=== PATIENT | male | born 1960 | race Caucasian/White ===

== ENCOUNTER 2023-09-20 13:53 | Inpatient (IN) | payer OTHER, SELFPAY ==
[2023-09-20] VITALS (12 sets, daily range): BP systolic 112–154; BP diastolic 67–89; PULSE 79–118; RESP 18–24; TEMP 36.6–36.9; O2SAT 95–98; BMI 38.7
--- NOTE | ~2023-09-20 | XR_ITS ---
EXAMINATION: XR CHEST CLINICAL INFORMATION: Dyspnea. COMPARISON: None available. TECHNIQUE: AP portable view of the chest was obtained. FINDINGS: There is no significant acute parenchymal disease identified. No pneumothorax or pleural effusion. Heart normal size. No evidence of pulmonary edema. Prominent left pericardial fat pad present with what may be some discoid scar or atelectasis. XR/XR chest 1V IMPRESSION: No significant acute parenchymal disease.
--- NOTE | 2023-09-20 14:03 | ECG_ITS ---
Test Reason : DYSPNEA Blood Pressure : / mmHG Vent. Rate : 090 BPM Atrial Rate : 090 BPM P-R Int : 170 ms QRS Dur : 086 ms QT Int : 376 ms P-R-T Axes : 033 -07 009 degrees QTc Int : 459 ms Artifact in tracing Normal sinus rhythm Inferior infarct , age undetermined Abnormal ECG No previous ECGs available Referred By: Prerna Moss Electronically Signed By:GENO SUN
--- NOTE | 2023-09-20 14:26 | ED_ITS ---
HPI - SOB/Dyspnea General Chief Complaint: Dyspnea Stated Complaint: SOB Source: patient, EMS and old records reviewed Mode of arrival: EMS Limitations: other (poor historian) History of Present Illness ED Provider: DG MOE Narrative: 62 yo male with PMH of DM, CKD stage III, diverticulitis, HLD, depression, HTN, alcoholism, BPH here with c/o not feeling well today reports sore throat, weakness, dizziness when standing, feels weak and winded. He denies chest pain, cough or fevers. He has had a poor appetite and reports chronic loose stools. He has no abdominal pain. Sent by [facility] today reportedly had lower BPs at home but no one including EMS or patient can really report what the numbers were. He denies GIB symptoms MD elicited complaint: shortness of breath Onset (ago): day(s) (2) Context: occurred during exertion Timing: constant Severity: moderate Exacerbating factors: exertion and movement Relieving factors: rest Associated symptoms: lightheadedness Treatment prior to arrival: other (IVF) Related Data Allergies Allergy/AdvReac Type Severity Reaction Status Date / Time No Known Allergies Allergy Verified 09/20/23 14:03 Review of Systems 2 Review of Systems: Constitutional : No Fever, No Chills ENT/Mouth : No sore throat, No Rhinorrhea, No Swallowing Difficulty Eyes: No Eye Pain, No Swelling, No Redness Cardiovascular : No Chest Pain, positive SOB, No Orthopnea, no edema Respiratory : No Cough, No Sputum, No Wheezing, positive dyspnea Gastrointestinal : No Nausea, No Vomiting, No Diarrhea, No abdominal Pain, No Hematochezia, No Melena Genitourinary : No Dysuria, No Urinary Frequency, No Hematuria Musculoskeletal : No joint pain, No Myalgias Skin : No Skin Lesions, No rash Neuro : pos Weakness, No Numbness, pos Dizziness, No Headache Psych : No Anxiety/Panic, No Depression All other systems reviewed and are negative [facility] Past Medical History Attestation statement: The following information was validated with the patient. Source: old records reviewed Medical History Hyperlipidemia Diverticulitis Obesity Alcoholism CKD (chronic kidney disease), stage III HTN (hypertension) Diabetes BPH (benign prostatic hyperplasia) Social History Social History Smoked in Last 30 Days: No Use of substances other than those prescribed or required for medical reasons: Yes Substance Use Type: Marijuana Advance Directives: No Advance Directives Information Provided: Yes Physical Exam 2 Vital Signs: Vital Signs: Last Vital Signs Temp 98.5 F 09/20/23 14:01 Pulse 92 09/20/23 14:01 Resp 18 09/20/23 14:01 BP 121/67 09/20/23 14:01 Pulse Ox 98 09/20/23 14:01 O2 Del Method Room Air 09/20/23 14:01 BMI result Body Mass Index 38.7 Appearance: Alert. Oriented X3. No acute distress. Eyes: Pupils equal, round and reactive to light. ENT: Pharynx normal. Neck: Normal inspection. Neck supple. CVS: Normal heart rate and rhythm. Pulses normal. Respiratory: No respiratory distress. Breath sounds normal. Abdomen: Soft and nontender. Skin: Skin warm and dry. Normal skin color. Normal skin turgor. Extremities: No lower extremity edema. No calf ttp Neuro: Oriented X 3. No motor deficit. No sensory deficit. Course Course Course Narrative: patient is obese IBW is 68 kg 30cc/kg bolus = 2039 but 30cc/kg bolus held as lactic acidosis likely due to metformin and not infection or severe sepsis Reevaluation(s) Reevaluation #1: gap and lactic acidosis also attributed to ETOH intoxication and not infection or severe sepsis Reevaluation #2: signed out to Dr. Waddell pending further workup UA Reevaluation #3: baseline Cr 1.3 to 1.5 per records Medications Administered Generic Name Dose Route Start Last Admin Trade Name Tinoq PRN Reason Stop Dose Admin Sodium Chloride 1,000 mls @ 999 mls/hr 09/20/23 15:15 09/20/23 15:39 Ns IV 09/20/23 16:15 999 mls/hr .Q1H1M ONE Administration Sodium Chloride 500 mls @ 500 mls/hr 09/20/23 15:15 09/20/23 15:42 Ns IV 09/20/23 16:14 500 mls/hr .Q1H ONE Administration Magnesium Sulfate 2 gm in 50 mls @ 25 mls/hr 09/20/23 15:23 09/20/23 15:43 Magnesium Sulfate/H2o IV 09/20/23 17:22 25 mls/hr ONCE ONE Administration Discontinued Medications Generic Name Dose Route Start Last Admin Trade Name Tahira PRN Reason Stop Dose Admin Acetaminophen 650 mg 09/20/23 14:03 09/20/23 15:42 Acetaminophen 325 Mg Tablet PO 09/20/23 14:04 650 mg ONCE ONE Administration Medical Decision Making Medical Decision Making [facility] Narrative: 62 yo male with PMH of DM, CKD stage III, diverticulitis, HLD, depression, HTN, alcoholism, BPH here with c/o not feeling well, short of breath, dizziness upon standing denies CP/GIB symptoms at this time labs, CXR, EKG, IVF ordered. UA and CXR as well. He has no CP to suggest ACS he has no hypoxia or DVT symptoms to suggest VTE. He is on diuretics could be dehydration in setting of poor PO intake. Ortho vs also ordered. Differential Diagnosis Differential Diagnoses: The differential diagnosis associated with the presentation includes orthostatic hypotension, dehydration, anemia Admission/Observation Consideration of admission/observation: Escalation of care including admission/observation considered Lab Data [facility] Lab Attestation statement: I reviewed the patient's lab results. 09/20/23 14:50 09/20/23 14:50 Labs: Lab Results 09/20/23 09/20/23 09/20/23 Range/Units 14:50 14:51 14:57 WBC 6.5 (4.8-10.8) X10*3/uL RBC 3.56 L (4.60-5.80) X10*6/uL Hgb 11.3 L (14.0-18.0) g/dl Hct 32.6 L (42.0-52.0) % MCV 91.6 (80.0-98.0) fL MCH 31.7 (27.0-33.0) pg MCHC 34.7 (31.0-36.0) g/dl RDW 13.1 (11.0-16.0) % Plt Count 117 L (160-400) X10*3/uL MPV 9.4 (9.4-12.4) fL Immature Gran % (Auto) 0.6 H (0.0-0.4) % Neut % (Auto) 57.9 (45-73) % Lymph % (Auto) 26.0 (20-40) % [place] % (Auto) 12.3 H (2-11) % Eos % (Auto) 1.8 (0-4) % Baso % (Auto) 1.4 (0-2) % Lymph # (Auto) 1.7 (1.2-4.9) X10*3/uL [place] # (Auto) 0.8 (0.1-1.2) X10*3/uL Eos # (Auto) 0.1 (0.0-0.4) X10*3/uL Baso # (Auto) 0.1 (0.0-0.2) X10*3/uL Abs Immat Gran (auto) 0.04 H (0.00-0.03) X10*3/uL Absolute Neuts (auto) 3.8 (2.0-8.3) x10*3/uL Absolute Nucleated RBC 0.000 (0.0-0.012) X10*3/uL Nucleated RBC % (auto) 0.0 (0.0-0.2) /100WBC VBG pH 7.30 L (7.32-7.43) VBG pCO2 33 mmHg VBG pO2 49 mmHg VBG HCO3 16 L (22-26) mmol/L VBG O2 Saturation 64.0 % VBG Base Excess -8.4 mmol/L Sodium 132 L (135-145) mmol/L Potassium 4.0 (3.3-5.1) mmol/L Chloride 94 L (96-108) mmol/L Carbon Dioxide 18 L (22-29) mmol/L Anion Gap 24 H (12-20) BUN 20 H (9-16) mg/dL Creatinine 1.90 H (0.5-1.4) mg/dL Estim Creat Clear Calc 49.0 Estimated GFR 36 Random Glucose 130 H (60-115) mg/dL Lactic Acid 4.0 H* (0.5-2.0) mmol/L Calcium 9.2 (8.4-10.2) mg/dL Magnesium 1.3 L* (1.6-2.6) mg/dL Total Bilirubin 0.8 (0.0-1.0) mg/dL Direct Bilirubin 0.5 (0.0-0.5) mg/dL AST 65 H (5-37) U/L ALT 33 (0-40) U/L Alkaline Phosphatase 41 (39-117) U/L Troponin I High Sens 5.9 (<3.5-35.0) ng/L B-Natriuretic Peptide 36 (<100) pg/mL Total Protein 7.9 (6.5-8.0) g/dL Albumin 4.4 (3.5-5.0) g/dL Lipase 90 H (8-78) U/L Ethyl Alcohol 182 mg/dL Influenza Type A (PCR) (Negative) Influenza Type B (PCR) (Negative) RSV RNA Qual (PCR) (Negative) SARS-CoV-2 RNA (RT-PCR) (Negative) S. pyogenes GrpA MAYKEL (Negative) 09/20/23 Range/Units 15:03 WBC (4.8-10.8) X10*3/uL RBC (4.60-5.80) X10*6/uL Hgb (14.0-18.0) g/dl Hct (42.0-52.0) % MCV (80.0-98.0) fL MCH (27.0-33.0) pg MCHC (31.0-36.0) g/dl RDW (11.0-16.0) % Plt Count (160-400) X10*3/uL MPV (9.4-12.4) fL Immature Gran % (Auto) (0.0-0.4) % Neut % (Auto) (45-73) % Lymph % (Auto) (20-40) % [place] % (Auto) (2-11) % Eos % (Auto) (0-4) % Baso % (Auto) (0-2) % Lymph # (Auto) (1.2-4.9) X10*3/uL [place] # (Auto) (0.1-1.2) X10*3/uL Eos # (Auto) (0.0-0.4) X10*3/uL Baso # (Auto) (0.0-0.2) X10*3/uL Abs Immat Gran (auto) (0.00-0.03) X10*3/uL Absolute Neuts (auto) (2.0-8.3) x10*3/uL Absolute Nucleated RBC (0.0-0.012) X10*3/uL Nucleated RBC % (auto) (0.0-0.2) /100WBC VBG pH (7.32-7.43) VBG pCO2 mmHg VBG pO2 mmHg VBG HCO3 (22-26) mmol/L VBG O2 Saturation % VBG Base Excess mmol/L Sodium (135-145) mmol/L Potassium (3.3-5.1) mmol/L Chloride (96-108) mmol/L Carbon Dioxide (22-29) mmol/L Anion Gap (12-20) BUN (9-16) mg/dL Creatinine (0.5-1.4) mg/dL Estim Creat Clear Calc Estimated GFR Random Glucose (60-115) mg/dL Lactic Acid (0.5-2.0) mmol/L Calcium (8.4-10.2) mg/dL Magnesium (1.6-2.6) mg/dL Total Bilirubin (0.0-1.0) mg/dL Direct Bilirubin (0.0-0.5) mg/dL AST (5-37) U/L ALT (0-40) U/L Alkaline Phosphatase (39-117) U/L Troponin I High Sens (<3.5-35.0) ng/L B-Natriuretic Peptide (<100) pg/mL Total Protein (6.5-8.0) g/dL Albumin (3.5-5.0) g/dL Lipase (8-78) U/L Ethyl Alcohol mg/dL Influenza Type A (PCR) NEGATIVE (Negative) Influenza Type B (PCR) NEGATIVE (Negative) RSV RNA Qual (PCR) NEGATIVE (Negative) SARS-CoV-2 RNA (RT-PCR) NEGATIVE (Negative) S. pyogenes GrpA MAYKEL Negative (Negative) Independent Interpretation I performed an independent interpretation of an: EKG and Plain X-Ray (no consolidation noted) Interpretation: Rate: 90 Rhythm: NSR [place]: normal Normal P waves. Normal HUNTER. Normal QRS complex. ST T wave : no JANICE, inf q waves qTC: 459 prior studies: no prior The study has been interpreted contemporaneously by me. . Independent Historian Clinical information obtained from an independent historian. History obtained from or confirmed by: EMS External Record Review External record reviewed: Outpatient record Discharge Plan Discharge Clinical Impression: Hypomagnesemia, Alcohol abuse, JOCE (acute kidney injury) Patient Disposition: Still a Patient Print Language: Greenlandic
[2023-09-20 15:00] LABS: MANUAL DIFF FLAG NO
[2023-09-20 15:04] LABS: Basophils Absolute Auto 0.1 X10*3/uL (0.0-0.2); Basophils Percent Auto 1.4 % (0-2); Eosinophils Absolute Auto 0.1 X10*3/uL (0.0-0.4); Eosinophils Percent Auto 1.8 % (0-4); Hematocrit 32.6 % (42.0-52.0); Hemoglobin 11.3 g/dl (14.0-18.0); Imm Gran Abs Auto 0.04 X10*3/uL (0.00-0.03); Imm Gran Pct Auto 0.6 % (0.0-0.4); Lymphocytes Absolute Auto 1.7 X10*3/uL (1.2-4.9); Mean Corpuscular HGB Conc 34.7 g/dl (31.0-36.0); Mean Corpuscular Hemoglobin 31.7 pg (27.0-33.0); Mean Corpuscular Volume 91.6 fL (80.0-98.0); Mean Platelet Volume 9.4 fL (9.4-12.4); Monocytes Absolute Auto 0.8 X10*3/uL (0.1-1.2); Monocytes Percent Auto 12.3 % (2-11); Neutrophils Absolute Auto 3.8 x10*3/uL (2.0-8.3); Neutrophils Percent Auto 57.9 % (45-73); Platelet Count 117 X10*3/uL (160-400); Red Blood Count 3.56 X10*6/uL (4.60-5.80); Red Cell Distribution Width 13.1 % (11.0-16.0); White Blood Count 6.5 X10*3/uL (4.8-10.8)
[2023-09-20 15:04] LABS: VBG Base Excess -8.4 mmol/L; VBG HCO3 16 mmol/L (22-26); VBG pCO2 33 mmHg; VBG pO2 49 mmHg
[2023-09-20 15:12] LABS: Venous Blood Gas Refer to POC result
[2023-09-20 15:23] LABS: Alanine Aminotransferase 33 U/L (0-40); Albumin Level 4.4 g/dL (3.5-5.0); Alkaline Phosphatase 41 U/L (39-117); Anion Gap 24 (12-20); Aspartate Amino Transferase 65 U/L (5-37); Bilirubin Direct 0.5 mg/dL (0.0-0.5); Bilirubin Total 0.8 mg/dL (0.0-1.0); Blood Urea Nitrogen 20 mg/dL (9-16); Calcium 9.2 mg/dL (8.4-10.2); Carbon Dioxide 18 mmol/L (22-29); Chloride 94 mmol/L (96-108); Estimated Glomerular Filt Rate 36; Ethanol 182 mg/dL; Glucose Random 130 mg/dL (60-115); Lipase 90 U/L (8-78); Magnesium 1.3 mg/dL (1.6-2.6); Sodium 132 mmol/L (135-145); Total Protein 7.9 g/dL (6.5-8.0); Troponin-I High Sensitivity 5.9 ng/L (<3.5-35.0)
[2023-09-20 15:23] LABS: B Type Natriuretic Peptide 36 pg/mL (<100)
[2023-09-20 15:24] LABS: IDNOW Serial# 08D9AD1C; Strep A Nucleic Acid Negative (Negative)
[2023-09-20] MEDS: 0.9 % Sodium Chloride 1,000 ML 999 ML IV (15:39)
[2023-09-20] MEDS: 0.9 % Sodium Chloride 500 ML IV (15:42)
[2023-09-20] MEDS: Acetaminophen 325 MG TABLET 650 MG PO (15:42)
[2023-09-20] MEDS: Magnesium Sulfate/H2O 2 GM/50 ML PIGGYBACK IV (15:43)
[2023-09-20 15:54] LABS: Influenza A PCR NEGATIVE (Negative); Influenza B PCR NEGATIVE (Negative); Resp Syncy Virus RNA Qual PCR NEGATIVE (Negative); SARS COV2 PCR INHOUSE NEGATIVE (Negative)
[2023-09-20 16:11] LABS: Procalcitonin 0.12 ng/mL
[2023-09-20 16:24] LABS: Adenovirus PCR Not Detected (Not Detect.); Bordetella parapertussis PCR Not Detected (Not Detect.); Bordetella pertussis PCR Not Detected (Not Detect.); Chlamydia pneumoniae PCR Not Detected (Not Detect.); Coronavirus 229E PCR Not Detected (Not Detect.); Coronavirus HKU1 PCR Not Detected (Not Detect.); Coronavirus NL63 PCR Not Detected (Not Detect.); Coronavirus OC43 PCR Not Detected (Not Detect.); Human metapneumovirus PCR Not Detected (Not Detect.); Influenza A PCR Not Detected (Not Detect.); Influenza B PCR Not Detected (Not Detect.); Mycoplasma pneumoniae PCR Not Detected (Not Detect.); Parainfluenza 1 PCR Not Detected (Not Detect.); Parainfluenza 2 PCR Not Detected (Not Detect.); Parainfluenza 3 PCR Not Detected (Not Detect.); Parainfluenza 4 PCR Not Detected (Not Detect.); RSV PCR Not Detected (Not Detect.); Rhino/Enterovirus PCR Not Detected (Not Detect.)
[2023-09-20 16:57] LABS: Reflex Lactate? Lactic Acid Added
[2023-09-20 17:19] LABS: SARS-CoV-2 PCR Not Detected (Not Detect.)
[2023-09-20 17:40] LABS: ~Lactic Acid-LAB USE ONLY 3.1 mmol/L (0.5-2.0)
[2023-09-20] MEDS: Thiamine HCL 200 MG in 0.9 % Sodium Chloride 100 ML 204 MG IV (17:45)
[2023-09-20] MEDS: Lactated Ringers 1,000 ML 999 ML IV (19:00)
[2023-09-20] MEDS: Folic Acid 1 MG TABLET PO (19:24)
[2023-09-20 19:25] LABS: Reflex Lactate? 2 Y
--- NOTE | 2023-09-20 19:58 | MHC.EDTECH ---
This tech took over care of patient at 1900,hourly rounds and vitals completed,assisted with urinal.patient voided 200MLS of yellow urine in urinal,patient is shaky hospitalist at bedside and RN made aware
--- NOTE | 2023-09-20 20:01 | P.HPHOSP_ITS ---
History of Present Illness Date of Service: 09/20/23 Attending physician on admission: Ysabel Cordoba Chief Complaint: feeling unwell, weak, low bp 62-year-old male with history of cub-kddkdip-raljcklux type 2 diabetes, CKD stage 3, hyperlipidemia, mood disorder, hypertension, alcohol use disorder, BPH, AAA presented to the ED earlier today from home after his visiting nurse arrived and felt he looked unwell and weak. She took his blood pressure which was 80/54 and he was transferred to the ED via EMS. He states he drinks 4-5 vodka cell SIRS on a daily basis, occasionally more and occasionally drinks in the morning. He states that he maybe drank more than he typically does last night. He woke up this morning feeling generally unwell, dizzy, and weak. He states he has not been eating much. Denies any fevers, chills, abdominal pain, nausea, vomiting, diarrhea, melena, hematochezia, chest pain. He reports he has a chronic dry cough, postnasal drip, and dyspnea on exertion that has been ongoing for months but has not worsened acutely. No recent weight gain or edema. On arrival, vital signs stable though has been intermittently tachycardic to 118 and tachypneic to 24. No hypoxia or fevers. No hypotension. There is no leukocytosis. He has a normocytic anemia with H/H 11.3/32.6%, platelets 117. On arrival, creatinine 1.90 (baseline 1.3-1.5), BUN 20. Sodium 132, chloride 94, CO2 18, anion gap 24. Initially slightly acidotic with pH 7.30, pCO2 33, bicarb 16. Repeat following IVF 7.42, pco2 20, bicarb 13. Initial lactic acid 4.0, repeat 3.1, repeat pending. In the ED has been given IV thiamine, IV magnesium, folic acid. He has also received 1 L LR, 2 L NS. BNP is currently being repeated as well as lactic acid. On exam pt is beginning to feel very tremulous and is beginning to withdrawal from alcohol. Ethyl alcohol level on arrival was 187. He does deny any history of alcohol withdrawal seizures, delirium tremens. Currently denies any nausea, vomiting, confusion, headaches, diaphoresis, AH/VH, anxiety/agitation. Review of Systems 2 Review of Systems: Yes all other systems are reviewed and are negative [facility] Medical History Hyperlipidemia Diverticulitis Obesity Alcoholism CKD (chronic kidney disease), stage III HTN (hypertension) Diabetes BPH (benign prostatic hyperplasia) Social History Smoked in Last 30 Days: No Use of substances other than those prescribed or required for medical reasons: Yes Substance Use Type: Marijuana Advance Directives: No Advance Directives Information Provided: Yes Meds Allergies Allergy/AdvReac Type Severity Reaction Status Date / Time No Known Allergies Allergy Verified 09/20/23 14:03 Active Medications: Current Medications Pharmacy Consult (Consult Rx Etoh Phenob Im/Po) 1 each MISCELLANE ONCE PRN; Protocol PRN Reason: Consult order Physical Exam 2 Vital Signs and Narrative: Vital Signs: Last Vital Signs Temp 97.9 F 09/20/23 19:17 Pulse 88 09/20/23 19:17 Resp 24 H 09/20/23 19:17 BP 131/70 09/20/23 19:17 Pulse Ox 96 09/20/23 19:17 O2 Del Method Room Air 09/20/23 19:17 BMI result Body Mass Index 38.7 Constitutional - Awake and Alert, No apparent distress Eyes - PERRLA, EOMI Cardiovascular - S1S2, RRR, No edema Respiratory - Normal lung expansion, Normal respiratory effort, No respiratory distress, CTA bilaterally Gastrointestinal - NT / ND; +BS; No rebound or guarding Extremities - no calf tenderness bilaterally, no swelling Skin - Warm/Dry Neurological - Alert & oriented x3, CN II-XII in tact, notably tremulous at rest Psychological - Appropriate affect Results Labs 09/20/23 14:50 09/20/23 19:53 Labs: Laboratory Results - last 24 hr 09/20/23 09/20/23 09/20/23 14:50 14:51 14:57 MCV 91.6 MCH 31.7 MCHC 34.7 RDW 13.1 Plt Count 117 L MPV 9.4 Immature Gran % (Auto) 0.6 H Neut % (Auto) 57.9 Lymph % (Auto) 26.0 [place] % (Auto) 12.3 H Eos % (Auto) 1.8 Baso % (Auto) 1.4 Lymph # (Auto) 1.7 [place] # (Auto) 0.8 Eos # (Auto) 0.1 Baso # (Auto) 0.1 Abs Immat Gran (auto) 0.04 H Absolute Neuts (auto) 3.8 Absolute Nucleated RBC 0.000 Nucleated RBC % (auto) 0.0 VBG pH 7.30 L VBG pCO2 33 VBG pO2 49 VBG HCO3 16 L VBG O2 Saturation 64.0 VBG Base Excess -8.4 Anion Gap 24 H Estim Creat Clear Calc 49.0 Estimated GFR 36 Random Glucose 130 H Lactic Acid 4.0 H* Lactic Acid F/U @ 2Hr Calcium 9.2 Magnesium 1.3 L* Total Bilirubin 0.8 Direct Bilirubin 0.5 AST 65 H ALT 33 Alkaline Phosphatase 41 Troponin I High Sens 5.9 B-Natriuretic Peptide 36 Total Protein 7.9 Albumin 4.4 Lipase 90 H Procalcitonin 0.12 Ethyl Alcohol 182 Respiratory Panel Doyle Adenovirus (Rapid PCR) B.pert (TEM-PCR) B.parapertussis DNA PCR C. pneumoniae DNA (PCR) Coronavirus OC43 (PCR) Coronavirus HKU1 (PCR) Coronavirus 229E (PCR) Coronavirus NL63 (PCR) Human Metapneumovir PCR Influenza A (RT-PCR) Influenza Type A (PCR) Influenza B (RT-PCR) Influenza Type B (PCR) M. pneumoniae (PCR) Parainfluenza 1 (PCR) Parainfluenza 2 (PCR) Parainfluenza 3 (PCR) Parainfluenza 4 (PCR) RSV (PCR) RSV RNA Qual (PCR) Entero/Rhino (PCR) SARS-CoV-2 RNA (RT-PCR) S. pyogenes GrpA MAYKEL 09/20/23 09/20/23 09/20/23 15:03 15:03 17:21 MCV MCH MCHC RDW Plt Count MPV Immature Gran % (Auto) Neut % (Auto) Lymph % (Auto) [place] % (Auto) Eos % (Auto) Baso % (Auto) Lymph # (Auto) [place] # (Auto) Eos # (Auto) Baso # (Auto) Abs Immat Gran (auto) Absolute Neuts (auto) Absolute Nucleated RBC Nucleated RBC % (auto) VBG pH VBG pCO2 VBG pO2 VBG HCO3 VBG O2 Saturation VBG Base Excess Anion Gap Estim Creat Clear Calc Estimated GFR Random Glucose Lactic Acid Lactic Acid F/U @ 2Hr 3.1 H* Calcium Magnesium Total Bilirubin Direct Bilirubin AST ALT Alkaline Phosphatase Troponin I High Sens B-Natriuretic Peptide Total Protein Albumin Lipase Procalcitonin Ethyl Alcohol Respiratory Panel Doyle See Note Adenovirus (Rapid PCR) Not Detected B.pert (TEM-PCR) Not Detected B.parapertussis DNA PCR Not Detected C. pneumoniae DNA (PCR) Not Detected Coronavirus OC43 (PCR) Not Detected Coronavirus HKU1 (PCR) Not Detected Coronavirus 229E (PCR) Not Detected Coronavirus NL63 (PCR) Not Detected Human Metapneumovir PCR Not Detected Influenza A (RT-PCR) Not Detected Influenza Type A (PCR) NEGATIVE Influenza B (RT-PCR) Not Detected Influenza Type B (PCR) NEGATIVE M. pneumoniae (PCR) Not Detected Parainfluenza 1 (PCR) Not Detected Parainfluenza 2 (PCR) Not Detected Parainfluenza 3 (PCR) Not Detected Parainfluenza 4 (PCR) Not Detected RSV (PCR) Not Detected RSV RNA Qual (PCR) NEGATIVE Entero/Rhino (PCR) Not Detected SARS-CoV-2 RNA (RT-PCR) NEGATIVE Not Detected S. pyogenes GrpA MAYKEL Negative Imaging Radiologist's Impressions: Impressions Chest X-Ray 09/20/23 14:21 IMPRESSION: No significant acute parenchymal disease. Assessment and Plan (1) Alcoholic ketoacidosis: Status: Acute (2) JOCE (acute kidney injury): Status: Acute (3) Alcohol abuse: Status: Acute (4) Hypomagnesemia: Status: Acute Plan 62-year-old male with history of cxm-jmploqn-mdlpkhtbr type 2 diabetes, CKD stage 3, hyperlipidemia, mood disorder, hypertension, alcohol use disorder, BPH, AAA admitted for further management of alcoholic/starvation ketoacidosis and acute kidney injury with impending alcohol withdrawal # alcoholic/starvation ketoacidosis complicated by metformin use -Initial lactic acid 4.0 --> 3.1, repeat pending. R/t alcohol use, metformin, not infection/sepsis -initial pH 7.30, pCO2 33, bicarb 16. Repeat VBG following IVF with pH 7.42, pCO2 20, bicarb 13 -initiate bicarb drip -initiate bicarb drip -diabetic diet -follow renal fx/lytes #Acute kidney injury- r/t above -Creat 1.9, baseline 1.3-1.5. Has baseline CKD stage 3. Repeat BMP pending -INitiat bicarb drip -avoid nephrotoxins -monitor I&O -low-sodium diet -follow renal function/electrolytes # alcohol use disorder with alcohol withdrawal -ethyl alcohol level on arrival 187 -monitor on CIWA q.4h -phenobarbital per protocol -IV thiamine, folic acid -addiction medicine consult # acute hypomagnesemia -repleted with 2 g IV magnesium in the ED, continue 400 mg b.i.d. -follow lytes # cough/dyspnea -reports chronic without acute worsening however we will check RPP -CXR negative -no hypoxia or wheezing. No chronic lung dz known -symptomatic management # caa-pboyqvt-rtkeufvtl type 2 diabetes -POC glucose, diabetic diet -Humalog on sliding scale -discontinue metformin # hypertension -continue amlodipine, metoprolol. Hold irbesartan in setting of JOCE # BPH -continue Flomax DVT prophylaxis-Lovenox Full code Patient requires inpatient stay at least 2 midnights for management of alcoholic/starvation ketoacidosis with acute kidney injury requiring IV fluid resuscitation, close monitoring of renal function and electrolyte levels Quality Stroke Does the patient have a stroke diagnosis?: No VTE Prior VTE?: No VTE Risk Level:: Medical - moderate - high VTE Device Contraindication: Treatment Not Indicated VTE Drug Contraindication: N/A - Med Ordered
[2023-09-20 20:04] LABS: VBG Base Excess -8.3 mmol/L; VBG HCO3 13 mmol/L (22-26); VBG pCO2 20 mmHg; VBG pH 7.42 (7.32-7.43); VBG pO2 113 mmHg
[2023-09-20 20:07] LABS: Venous Blood Gas Refer to POC result
[2023-09-20 20:26] LABS: Magnesium 1.5 mg/dL (1.6-2.6)
[2023-09-20] MEDS: Enoxaparin Sodium 40 MG/0.4 ML SYRINGE SUBCUT (20:26)
[2023-09-20] MEDS: Lactated Ringers 1,000 ML 100 ML IVCONT (20:27)
[2023-09-20 20:31] LABS: Anion Gap 23 (12-20); Beta-Hydroxybutyrate 3.01 mmol/L (0.02-0.27); Blood Urea Nitrogen 18 mg/dL (9-16); Calcium 8.5 mg/dL (8.4-10.2); Carbon Dioxide 14 mmol/L (22-29); Chloride 100 mmol/L (96-108); Creatinine Clr Calc Pharmacy 60.5; Estimated Glomerular Filt Rate 46; Glucose Random 128 mg/dL (60-115); Magnesium 1.7 mg/dL (1.6-2.6); Potassium 4.1 mmol/L (3.3-5.1); Sodium 133 mmol/L (135-145)
--- NOTE | 2023-09-20 20:33 | MHC.EDTECH ---
Patient urinated 200MLS in urinal,POC taken and is 116 RN aware. Labs obtained and sent to lab, vitals taken
[2023-09-20 20:36] LABS: ~Lactic Acid-LAB USE ONLY 3.2 mmol/L (0.5-2.0)
[2023-09-20 20:37] LABS: Glucose, Whole Blood 116 mg/dL (60-115)
[2023-09-20] MEDS: PHENobarbitaL sodium 130 MG/ML IM ONCE 410 MG IM (20:38)
--- NOTE | 2023-09-20 20:38 | MHC.EDTECH ---
Belongings list completed and copy placed in chart
--- NOTE | 2023-09-20 21:00 | PHA.MEDREC ---
Pharmacy Consult ? Medication Reconciliation Pharmacy has completed the medication reconciliation. Went to confirm medications with Patient, Patient was not 100% sure on what he takes but said [facility] pharmacy on [address] had all up to date meds he picked up. Called [facility] up and confirm medications he picked up and in pharmacy claims and in [facility] records he picked up Acamprostate 333mg tabs and I asked patient if he was still taking and he states he is not because the coating on the outside of the medications makes him choke .
--- NOTE | 2023-09-20 21:22 | MHC.EDTECH ---
Patient was a 1 assist to commode,urinated a large amount
[2023-09-20] MEDS: Sodium Bicarbonate 8.4% 100 MEQ in Dextrose 5 % 900 ML 80 MEQ IV (21:39)
[2023-09-20] MEDS: Magnesium Oxide 400 MG TABLET PO (22:35)
[2023-09-21 00:11] VITALS: BP 138/84; PULSE 98; RESP 20; TEMP 36.7; O2SAT 96
--- NOTE | 2023-09-21 00:13 | MHC.EDTECH ---
Patient voided 400MLS in urinal,vitals taken
[2023-09-21 01:57] LABS: Anion Gap 22 (12-20); Blood Urea Nitrogen 16 mg/dL (9-16); Calcium 8.9 mg/dL (8.4-10.2); Carbon Dioxide 18 mmol/L (22-29); Chloride 98 mmol/L (96-108); Creatinine Clr Calc Pharmacy 60.9; Estimated Glomerular Filt Rate 46; Glucose Random 139 mg/dL (60-115); Magnesium 1.5 mg/dL (1.6-2.6); Potassium 4.2 mmol/L (3.3-5.1); Sodium 134 mmol/L (135-145)
[2023-09-21] MEDS: PHENobarbitaL sodium 130 MG/ML VIAL IM Q3Hx2 307 MG IM ×2 (02:51→04:33)
[2023-09-21] MEDS: 0.9 % Sodium Chloride Flush 3 ML SYRINGE IVFLUSH ×4 (02:53→21:03)
[2023-09-21 04:00] VITALS: BP 176/96; PULSE 98; RESP 20; TEMP 36.9; O2SAT 95
[2023-09-21 04:12] LABS: MANUAL DIFF FLAG NO
[2023-09-21 04:14] LABS: Basophils Absolute Auto 0.1 X10*3/uL (0.0-0.2); Basophils Percent Auto 0.9 % (0-2); Eosinophils Absolute Auto 0.1 X10*3/uL (0.0-0.4); Eosinophils Percent Auto 0.9 % (0-4); Hematocrit 31.5 % (42.0-52.0); Imm Gran Abs Auto 0.04 X10*3/uL (0.00-0.03); Imm Gran Pct Auto 0.7 % (0.0-0.4); Lymphocytes Percent Auto 17.7 % (20-40); Mean Corpuscular HGB Conc 34.9 g/dl (31.0-36.0); Mean Corpuscular Hemoglobin 32.2 pg (27.0-33.0); Mean Corpuscular Volume 92.1 fL (80.0-98.0); Mean Platelet Volume 9.4 fL (9.4-12.4); Monocytes Absolute Auto 0.5 X10*3/uL (0.1-1.2); Monocytes Percent Auto 9.5 % (2-11); Neutrophils Absolute Auto 3.8 x10*3/uL (2.0-8.3); Neutrophils Percent Auto 70.3 % (45-73); Red Blood Count 3.42 X10*6/uL (4.60-5.80); Red Cell Distribution Width 13.2 % (11.0-16.0); White Blood Count 5.5 X10*3/uL (4.8-10.8)
[2023-09-21 04:23] LABS: Platelet Count 95 X10*3/uL (160-400)
[2023-09-21 04:33] LABS: Lactic Acid 2.3 mmol/L (0.5-2.0)
[2023-09-21] MEDS: Magnesium Sulfate/H2O 2 GM/50 ML PIGGYBACK IV ×3 (04:33→12:15)
[2023-09-21 04:39] LABS: Anion Gap 24 (12-20); Blood Urea Nitrogen 16 mg/dL (9-16); Calcium 8.9 mg/dL (8.4-10.2); Carbon Dioxide 18 mmol/L (22-29); Chloride 98 mmol/L (96-108); Creatinine Clr Calc Pharmacy 59.7; Estimated Glomerular Filt Rate 45; Glucose Random 157 mg/dL (60-115); Magnesium 1.4 mg/dL (1.6-2.6); Potassium 4.4 mmol/L (3.3-5.1); Sodium 136 mmol/L (135-145)
[2023-09-21 06:11] LABS: Reflex Lactate? Lactic Acid Added
[2023-09-21] MEDS: Acetaminophen 325 MG TABLET 650 MG PO (06:41)
[2023-09-21 07:13] LABS: Cancel Lactic Acid Canceled
[2023-09-21 08:00] VITALS: BP 140/94; PULSE 105; RESP 18; TEMP 36.4; O2SAT 97
[2023-09-21 08:37] LABS: Glucose, Whole Blood 168 mg/dL (60-115)
[2023-09-21] MEDS: PHENobarbitaL 15 MG TABLET 45 MG PO ×2 (10:15→21:03)
[2023-09-21] MEDS: Metoprolol Succinate ER 25 MG TAB.ER.24H PO (10:16)
[2023-09-21] MEDS: Thiamine HCL 100 MG in 0.9 % Sodium Chloride 100 ML 202 MG IV (10:16)
[2023-09-21] MEDS: Magnesium Oxide 400 MG TABLET PO ×2 (10:16→17:33)
[2023-09-21] MEDS: amLODIPine Besylate 2.5 MG TABLET PO (10:16)
[2023-09-21] MEDS: Atorvastatin Calcium 40 MG TABLET PO (10:16)
[2023-09-21 11:10] VITALS: BP 144/78; PULSE 92; RESP 18; TEMP 36.4; O2SAT 94
[2023-09-21] MEDS: Sodium Bicarbonate 8.4% 100 MEQ in Dextrose 5 % 900 ML 80 MEQ IV (11:27)
[2023-09-21] MEDS: Folic Acid 1 MG in 0.9 % Sodium Chloride 50 ML 100.4 MG IV (11:28)
[2023-09-21] MEDS: Betamethasone Dip Aug 0.05% Cr 15 GM TUBE 1 APPL TOPICAL ×2 (11:34→21:07)
[2023-09-21 11:53] LABS: Glucose, Whole Blood 164 mg/dL (60-115)
--- NOTE | 2023-09-21 13:19 | P.PNIM_ITS ---
Subjective Subjective Date of Service: 09/21/23 Interval History: alcohol withdrawal, multiple electrolytic abnormalities Review of Systems anxious ,tremer somewhat improving no chest pain or sob or abd pain Physical Exam 2 Vital Signs: Vital Signs: Last Vital Signs Temp 97.6 F 09/21/23 11:10 Pulse 92 09/21/23 11:10 Resp 18 09/21/23 11:10 BP 144/78 H 09/21/23 11:10 Pulse Ox 94 09/21/23 11:10 O2 Del Method Room Air 09/21/23 11:10 BMI result Body Mass Index 38.7 Appearance: Alert.? Oriented X3.anxious ,tramulous cvs: rrr, [id number] , no murmur res: clear to auscultation ,no rhonchii or wheezing abd: no rebound or guarding ,nt, bs present. ext pulses present , no cyanosis . neuro: axo3 , nonfocal. Objective Data Active Medications Acetaminophen (Acetaminophen 325 Mg Tablet) 650 mg PO Q6H PRN PRN Reason: Pain, Mild (Pain Scale 1-3) Last Admin: 09/21/23 06:41 Dose: 650 mg Documented By: NEYDA Amlodipine Besylate (Amlodipine Besylate 2.5 Mg Tablet) 2.5 mg PO DAILY REPLACED BY [facility]; Protocol Last Admin: 09/21/23 10:16 Dose: 2.5 mg Documented By: BILLY Atorvastatin Calcium (Atorvastatin Calcium 40 Mg Tablet) 40 mg PO DAILY REPLACED BY [facility] Last Admin: 09/21/23 10:16 Dose: 40 mg Documented By: BILLY Betamethasone Dipropion Augmented (Betamethasone Dip Aug 0.05% Cr 15 Gm Tube) 1 appl TOPICAL BID REPLACED BY [facility] Last Admin: 09/21/23 11:34 Dose: 1 appl Documented By: BILLY Enoxaparin Sodium (Enoxaparin Sodium 40 Mg/0.4 Ml Syringe) 40 mg SUBCUT Q24H REPLACED BY [facility] Last Admin: 09/20/23 20:26 Dose: 40 mg Documented By: PRANAY Fluticasone Propionate (Fluticasone Propionate Nasal 16 Gm [place]) 1 spray NOSTRIL-B DAILY REPLACED BY [facility] Last Admin: 09/21/23 11:35 Dose: Not Given Documented By: BILLY Non-Admin Reason: Med Not Available Glucose (Glucose Gel 15 Gm Gel..Gram.) 15 gm PO Q15M PRN; Protocol PRN Reason: per Hypoglycemia Standing Ord. Guaifenesin (Guaifenesin 200 Mg/10 Ml 10 Ml Liquid) 10 ml PO Q4H PRN PRN Reason: Cough Dextrose (D10) 250 mls @ 750 mls/hr IV Q15M PRN; Protocol PRN Reason: per Hypoglycemia Standing Ord. Folic Acid 1 mg/ Sodium (Chloride) 50.2 mls @ 100.4 mls/hr IV DAILY REPLACED BY [facility] Stop: 09/23/23 09:29 Last Infusion: 09/21/23 12:58 Dose: Infused Documented By: BILLY Thiamine HCl 100 mg/ Sodium (Chloride) 101 mls @ 202 mls/hr IV DAILY REPLACED BY [facility] Last Infusion: 09/21/23 11:19 Dose: Infused Documented By: BILLY Sodium Bicarbonate 100 meq/ (Dextrose) 1,000 mls @ 80 mls/hr IV .[id number] REPLACED BY [facility] Last Admin: 09/21/23 11:27 Dose: 80 mls/hr Documented By: BILLY Insulin Human Lispro (Insulin Lispro 100 Unit/Ml 3 Ml Vial) 0 unit SUBCUT QIDACHS REPLACED BY [facility]; Protocol Last Admin: 09/21/23 11:18 Dose: Not Given Documented By: BILLY Non-Admin Reason: No Insulin Coverage Magnesium Hydroxide (Milk Of Magnesia 30 Ml Oral.Susp) 30 ml PO DAILY PRN PRN Reason: Constipation Magnesium Oxide (Magnesium Oxide 400 Mg Tablet) [facility] Last Admin: 09/21/23 10:16 Dose: 400 mg Documented By: BILLY Metoprolol Succinate (Metoprolol Succinate Er 25 Mg Tab.Er.24h) 25 mg PO DAILY REPLACED BY [facility]; Protocol Last Admin: 09/21/23 10:16 Dose: 25 mg Documented By: BILLY Ondansetron HCl (Ondansetron Hcl 4 Mg/2 Ml Vial) 4 mg IVPUSH Q8H PRN PRN Reason: Nausea and Vomiting Pharmacy Consult (Consult Rx Etoh Phenob Im/Po) 1 each MISCELLANE ONCE PRN; Protocol PRN Reason: Consult order Phenobarbital (Phenobarbital 15 Mg Tablet) 45 mg PO BID REPLACED BY [facility] Stop: 09/22/23 21:01 Last Admin: 09/21/23 10:15 Dose: 45 mg Documented By: BILLY Phenobarbital (Phenobarbital 30 Mg Tablet) 30 mg PO BID REPLACED BY [facility] Stop: 09/24/23 21:01 Phenobarbital (Phenobarbital 15 Mg Tablet) 15 mg PO DAILY REPLACED BY [facility] Stop: 09/26/23 09:01 Sodium Chloride (0.9 % Sodium Chloride Flush 3 Ml Syringe) 3 ml IVFLUSH QSHIFT REPLACED BY [facility] Last Admin: 09/21/23 10:15 Dose: 3 ml Documented By: BILLY Tamsulosin HCl (Tamsulosin Hcl 0.4 Mg Capsule) 0.4 mg PO BEDTIME REPLACED BY [facility] Labs 09/21/23 04:04 09/21/23 04:04 Labs: Laboratory Results - last 24 hr 09/20/23 09/20/23 09/20/23 14:50 14:51 14:57 MCV 91.6 MCH 31.7 MCHC 34.7 RDW 13.1 Plt Count 117 L MPV 9.4 Immature Gran % (Auto) 0.6 H Neut % (Auto) 57.9 Lymph % (Auto) 26.0 Kay % (Auto) 12.3 H Eos % (Auto) 1.8 Baso % (Auto) 1.4 Lymph # (Auto) 1.7 Kay # (Auto) 0.8 Eos # (Auto) 0.1 Baso # (Auto) 0.1 Abs Immat Gran (auto) 0.04 H Absolute Neuts (auto) 3.8 Absolute Nucleated RBC 0.000 Nucleated RBC % (auto) 0.0 Hold Purple Top VBG pH 7.30 L VBG pCO2 33 VBG pO2 49 VBG HCO3 16 L VBG O2 Saturation 64.0 VBG Base Excess -8.4 Anion Gap 24 H Estim Creat Clear Calc 49.0 Estimated GFR 36 POC Glucose Random Glucose 130 H Lactic Acid 4.0 H* Lactic Acid F/U @ 2Hr Lactic Acid F/U @ 4Hr Calcium 9.2 Magnesium 1.3 L* Total Bilirubin 0.8 Direct Bilirubin 0.5 AST 65 H ALT 33 Alkaline Phosphatase 41 Troponin I High Sens 5.9 B-Natriuretic Peptide 36 Total Protein 7.9 Albumin 4.4 Lipase 90 H Beta-Hydroxybutyrate Procalcitonin 0.12 Phenobarbital Ethyl Alcohol 182 Respiratory Panel Doyle Adenovirus (Rapid PCR) B.pert (TEM-PCR) B.parapertussis DNA PCR C. pneumoniae DNA (PCR) Coronavirus OC43 (PCR) Coronavirus HKU1 (PCR) Coronavirus 229E (PCR) Coronavirus NL63 (PCR) Human Metapneumovir PCR Influenza A (RT-PCR) Influenza Type A (PCR) Influenza B (RT-PCR) Influenza Type B (PCR) M. pneumoniae (PCR) Parainfluenza 1 (PCR) Parainfluenza 2 (PCR) Parainfluenza 3 (PCR) Parainfluenza 4 (PCR) RSV (PCR) RSV RNA Qual (PCR) Entero/Rhino (PCR) SARS-CoV-2 RNA (RT-PCR) S. pyogenes GrpA MAYKEL 09/20/23 09/20/23 09/20/23 15:03 15:03 17:21 MCV MCH MCHC RDW Plt Count MPV Immature Gran % (Auto) Neut % (Auto) Lymph % (Auto) Kay % (Auto) Eos % (Auto) Baso % (Auto) Lymph # (Auto) Kay # (Auto) Eos # (Auto) Baso # (Auto) Abs Immat Gran (auto) Absolute Neuts (auto) Absolute Nucleated RBC Nucleated RBC % (auto) Hold Purple Top VBG pH VBG pCO2 VBG pO2 VBG HCO3 VBG O2 Saturation VBG Base Excess Anion Gap Estim Creat Clear Calc Estimated GFR POC Glucose Random Glucose Lactic Acid Lactic Acid F/U @ 2Hr 3.1 H* Lactic Acid F/U @ 4Hr Calcium Magnesium Total Bilirubin Direct Bilirubin AST ALT Alkaline Phosphatase Troponin I High Sens B-Natriuretic Peptide Total Protein Albumin Lipase Beta-Hydroxybutyrate Procalcitonin Phenobarbital Ethyl Alcohol Respiratory Panel Odyle See Note Adenovirus (Rapid PCR) Not Detected B.pert (TEM-PCR) Not Detected B.parapertussis DNA PCR Not Detected C. pneumoniae DNA (PCR) Not Detected Coronavirus OC43 (PCR) Not Detected Coronavirus HKU1 (PCR) Not Detected Coronavirus 229E (PCR) Not Detected Coronavirus NL63 (PCR) Not Detected Human Metapneumovir PCR Not Detected Influenza A (RT-PCR) Not Detected Influenza Type A (PCR) NEGATIVE Influenza B (RT-PCR) Not Detected Influenza Type B (PCR) NEGATIVE M. pneumoniae (PCR) Not Detected Parainfluenza 1 (PCR) Not Detected Parainfluenza 2 (PCR) Not Detected Parainfluenza 3 (PCR) Not Detected Parainfluenza 4 (PCR) Not Detected RSV (PCR) Not Detected RSV RNA Qual (PCR) NEGATIVE Entero/Rhino (PCR) Not Detected SARS-CoV-2 RNA (RT-PCR) NEGATIVE Not Detected S. pyogenes GrpA MAYKEL Negative 09/20/23 09/20/23 09/20/23 19:53 19:53 19:57 MCV MCH MCHC RDW Plt Count MPV Immature Gran % (Auto) Neut % (Auto) Lymph % (Auto) Kay % (Auto) Eos % (Auto) Baso % (Auto) Lymph # (Auto) Kay # (Auto) Eos # (Auto) Baso # (Auto) Abs Immat Gran (auto) Absolute Neuts (auto) Absolute Nucleated RBC Nucleated RBC % (auto) Hold Purple Top VBG pH 7.42 VBG pCO2 20 VBG pO2 113 VBG HCO3 13 L VBG O2 Saturation 99.0 VBG Base Excess -8.3 Anion Gap 23 H Estim Creat Clear Calc 60.5 Estimated GFR 46 POC Glucose Random Glucose 128 H Lactic Acid Lactic Acid F/U @ 2Hr Lactic Acid F/U @ 4Hr 3.2 H* Calcium 8.5 D Magnesium 1.7 1.5 L Total Bilirubin Direct Bilirubin AST ALT Alkaline Phosphatase Troponin I High Sens B-Natriuretic Peptide Total Protein Albumin Lipase Beta-Hydroxybutyrate 3.01 H Procalcitonin Phenobarbital Ethyl Alcohol Respiratory Panel Doyle Adenovirus (Rapid PCR) B.pert (TEM-PCR) B.parapertussis DNA PCR C. pneumoniae DNA (PCR) Coronavirus OC43 (PCR) Coronavirus HKU1 (PCR) Coronavirus 229E (PCR) Coronavirus NL63 (PCR) Human Metapneumovir PCR Influenza A (RT-PCR) Influenza Type A (PCR) Influenza B (RT-PCR) Influenza Type B (PCR) M. pneumoniae (PCR) Parainfluenza 1 (PCR) Parainfluenza 2 (PCR) Parainfluenza 3 (PCR) Parainfluenza 4 (PCR) RSV (PCR) RSV RNA Qual (PCR) Entero/Rhino (PCR) SARS-CoV-2 RNA (RT-PCR) S. pyogenes GrpA MAYKEL 09/20/23 09/20/23 09/21/23 20:29 20:32 01:16 MCV MCH MCHC RDW Plt Count MPV Immature Gran % (Auto) Neut % (Auto) Lymph % (Auto) Kay % (Auto) Eos % (Auto) Baso % (Auto) Lymph # (Auto) Kay # (Auto) Eos # (Auto) Baso # (Auto) Abs Immat Gran (auto) Absolute Neuts (auto) Absolute Nucleated RBC Nucleated RBC % (auto) Hold Purple Top SEE NOTE VBG pH VBG pCO2 VBG pO2 VBG HCO3 VBG O2 Saturation VBG Base Excess Anion Gap Estim Creat Clear Calc Estimated GFR POC Glucose 116 H Random Glucose Lactic Acid Lactic Acid F/U @ 2Hr Lactic Acid F/U @ 4Hr Calcium Magnesium Total Bilirubin Direct Bilirubin AST ALT Alkaline Phosphatase Troponin I High Sens B-Natriuretic Peptide Total Protein Albumin Lipase Beta-Hydroxybutyrate Procalcitonin Phenobarbital < 2.0 L* Ethyl Alcohol Respiratory Panel Doyle Adenovirus (Rapid PCR) B.pert (TEM-PCR) B.parapertussis DNA PCR C. pneumoniae DNA (PCR) Coronavirus OC43 (PCR) Coronavirus HKU1 (PCR) Coronavirus 229E (PCR) Coronavirus NL63 (PCR) Human Metapneumovir PCR Influenza A (RT-PCR) Influenza Type A (PCR) Influenza B (RT-PCR) Influenza Type B (PCR) M. pneumoniae (PCR) Parainfluenza 1 (PCR) Parainfluenza 2 (PCR) Parainfluenza 3 (PCR) Parainfluenza 4 (PCR) RSV (PCR) RSV RNA Qual (PCR) Entero/Rhino (PCR) SARS-CoV-2 RNA (RT-PCR) S. pyogenes GrpA MAYKEL 09/21/23 09/21/23 09/21/23 01:42 04:04 08:23 MCV 92.1 MCH 32.2 MCHC 34.9 RDW 13.2 Plt Count 95 L MPV 9.4 Immature Gran % (Auto) 0.7 H Neut % (Auto) 70.3 Lymph % (Auto) 17.7 L Kay % (Auto) 9.5 Eos % (Auto) 0.9 Baso % (Auto) 0.9 Lymph # (Auto) 1.0 L Kay # (Auto) 0.5 Eos # (Auto) 0.1 Baso # (Auto) 0.1 Abs Immat Gran (auto) 0.04 H Absolute Neuts (auto) 3.8 Absolute Nucleated RBC 0.000 Nucleated RBC % (auto) 0.0 Hold Purple Top VBG pH VBG pCO2 VBG pO2 VBG HCO3 VBG O2 Saturation VBG Base Excess Anion Gap 22 H 24 H Estim Creat Clear Calc 60.9 59.7 Estimated GFR 46 45 POC Glucose 168 H Random Glucose 139 H 157 H Lactic Acid 2.3 H* Lactic Acid F/U @ 2Hr Lactic Acid F/U @ 4Hr Calcium 8.9 8.9 Magnesium 1.5 L 1.4 L* Total Bilirubin Direct Bilirubin AST ALT Alkaline Phosphatase Troponin I High Sens B-Natriuretic Peptide Total Protein Albumin Lipase Beta-Hydroxybutyrate Procalcitonin Phenobarbital Ethyl Alcohol Respiratory Panel Doyle Adenovirus (Rapid PCR) B.pert (TEM-PCR) B.parapertussis DNA PCR C. pneumoniae DNA (PCR) Coronavirus OC43 (PCR) Coronavirus HKU1 (PCR) Coronavirus 229E (PCR) Coronavirus NL63 (PCR) Human Metapneumovir PCR Influenza A (RT-PCR) Influenza Type A (PCR) Influenza B (RT-PCR) Influenza Type B (PCR) M. pneumoniae (PCR) Parainfluenza 1 (PCR) Parainfluenza 2 (PCR) Parainfluenza 3 (PCR) Parainfluenza 4 (PCR) RSV (PCR) RSV RNA Qual (PCR) Entero/Rhino (PCR) SARS-CoV-2 RNA (RT-PCR) S. pyogenes GrpA MAYKEL 09/21/23 11:20 MCV MCH MCHC RDW Plt Count MPV Immature Gran % (Auto) Neut % (Auto) Lymph % (Auto) Kay % (Auto) Eos % (Auto) Baso % (Auto) Lymph # (Auto) Kay # (Auto) Eos # (Auto) Baso # (Auto) Abs Immat Gran (auto) Absolute Neuts (auto) Absolute Nucleated RBC Nucleated RBC % (auto) Hold Purple Top VBG pH VBG pCO2 VBG pO2 VBG HCO3 VBG O2 Saturation VBG Base Excess Anion Gap Estim Creat Clear Calc Estimated GFR POC Glucose 164 H Random Glucose Lactic Acid Lactic Acid F/U @ 2Hr Lactic Acid F/U @ 4Hr Calcium Magnesium Total Bilirubin Direct Bilirubin AST ALT Alkaline Phosphatase Troponin I High Sens B-Natriuretic Peptide Total Protein Albumin Lipase Beta-Hydroxybutyrate Procalcitonin Phenobarbital Ethyl Alcohol Respiratory Panel Doyle Adenovirus (Rapid PCR) B.pert (TEM-PCR) B.parapertussis DNA PCR C. pneumoniae DNA (PCR) Coronavirus OC43 (PCR) Coronavirus HKU1 (PCR) Coronavirus 229E (PCR) Coronavirus NL63 (PCR) Human Metapneumovir PCR Influenza A (RT-PCR) Influenza Type A (PCR) Influenza B (RT-PCR) Influenza Type B (PCR) M. pneumoniae (PCR) Parainfluenza 1 (PCR) Parainfluenza 2 (PCR) Parainfluenza 3 (PCR) Parainfluenza 4 (PCR) RSV (PCR) RSV RNA Qual (PCR) Entero/Rhino (PCR) SARS-CoV-2 RNA (RT-PCR) S. pyogenes GrpA MAYKEL Assessment and Plan (1) Alcoholic ketoacidosis: Status: Acute (2) JOCE (acute kidney injury): Status: Acute (3) Alcohol abuse: Status: Acute (4) Hypomagnesemia: Status: Acute Assessment and Plan: 62-year-old male with history of [id number] type 2 diabetes, CKD stage 3, hyperlipidemia, mood disorder, hypertension, alcohol use disorder, BPH, AAA admitted for further management of alcoholic/starvation ketoacidosis and acute kidney injury with impending alcohol withdrawal alcoholic/starvation ketoacidosis acute lactic acidosis sec to metformin use-improving,no further trending ph seems fine ,s/p bicarb drip-bicarb improving plan: stop ivf ,moniter bmp continue alcohol withdrawal protocol. Acute kidney injury- r/t above improved with ivf - cr seems to be baseline. avoid nephrotoxins monitor I&O,low-sodium diet follow renal function/electrolytes alcohol use disorder with alcohol withdrawal anxious, tramulous monitor on CIWA q.4h phenobarbital per protocol,IV thiamine, folic acid addiction medicine consult acute hypomagnesemia repleted with magnesium, continue 400 mg b.i.d. follow lytes cough: chronis RPP-negative CXR negative no hypoxia or wheezing, No chronic lung dz known,symptomatic management ors-gkjnrva-jhnfxuevw type 2 diabetes: fs acceptable -POC glucose, diabetic diet -Humalog on sliding scale -discontinue metformin hypertension-improving continue amlodipine, metoprolol. Hold irbesartan in setting of JOCE BPH-continue Flomax DVT prophylaxis-Lovenox Full code ongoing inpatient stay for management of alcoholic/starvation ketoacidosis with acute kidney injury requiring IV fluid resuscitation, close monitoring of renal function and electrolyte levels. Quality Stroke Does the patient have a stroke diagnosis?: No VTE Prior VTE?: No VTE Risk Level:: Medical - moderate - high VTE Device Contraindication: Treatment Not Indicated VTE Drug Contraindication: N/A - Med Ordered
--- NOTE | 2023-09-21 13:34 | MHC.CM.PN ---
CM attempted to meet with pt., not able to, he is asleep with blanket over his head, CM will attempt later.
[2023-09-21 14:45] LABS: Anion Gap 14 (12-20)
[2023-09-21 14:49] LABS: Blood Urea Nitrogen 13 mg/dL (9-16); Calcium 8.8 mg/dL (8.4-10.2); Carbon Dioxide 27 mmol/L (22-29); Chloride 98 mmol/L (96-108); Creatinine Clr Calc Pharmacy 70.6; Estimated Glomerular Filt Rate 55; Glucose Random 196 mg/dL (60-115); Potassium 4.1 mmol/L (3.3-5.1); Sodium 135 mmol/L (135-145)
[2023-09-21 15:53] VITALS: BP 138/81; PULSE 82; RESP 18; TEMP 36.4; O2SAT 95
[2023-09-21 16:36] LABS: Glucose, Whole Blood 178 mg/dL (60-115)
[2023-09-21] MEDS: Insulin Lispro 100 UNIT/ML 3 ML VIAL SUBCUT ×2 (17:17→21:03)
[2023-09-21 19:49] VITALS: BP 154/82; PULSE 91; RESP 20; TEMP 36.8; O2SAT 94
[2023-09-21 20:17] LABS: Glucose, Whole Blood 161 mg/dL (60-115)
[2023-09-21] MEDS: Tamsulosin HCL 0.4 MG CAPSULE PO (21:03)
[2023-09-21] MEDS: Enoxaparin Sodium 40 MG/0.4 ML SYRINGE SUBCUT (21:03)
--- NOTE | 2023-09-21 22:30 | PM.EVENT ---
Event Note Date of Service: 09/21/23 Event Note: 62 yr old man with DM and alcohol use has JOCE and hyponatremia Renal function is improving Na is back to normal Keep I>O Full consult to follow Thanks Time Spent With Patient Time: Total time managing care of this patient today ____ minutes.
[2023-09-22] VITALS: BP 140/76; PULSE 82; RESP 18; TEMP 36.2; O2SAT 94
[2023-09-22 04:00] VITALS: BP 157/81; PULSE 75; RESP 18; TEMP 36.6; O2SAT 98
[2023-09-22] MEDS: Acetaminophen 325 MG TABLET 650 MG PO (04:36)
[2023-09-22 08:00] VITALS: BP 162/91; PULSE 100; RESP 18; TEMP 36.4; O2SAT 97
[2023-09-22 08:09] LABS: Glucose, Whole Blood 146 mg/dL (60-115)
[2023-09-22] MEDS: Thiamine HCL 100 MG in 0.9 % Sodium Chloride 100 ML 202 MG IV (11:16)
[2023-09-22] MEDS: 0.9 % Sodium Chloride Flush 3 ML SYRINGE IVFLUSH (11:18)
[2023-09-22] MEDS: Metoprolol Succinate ER 25 MG TAB.ER.24H PO (11:18)
[2023-09-22] MEDS: Magnesium Oxide 400 MG TABLET PO (11:18)
[2023-09-22] MEDS: PHENobarbitaL 15 MG TABLET 45 MG PO (11:18)
[2023-09-22] MEDS: Atorvastatin Calcium 40 MG TABLET PO (11:18)
[2023-09-22] MEDS: amLODIPine Besylate 2.5 MG TABLET PO (11:18)
[2023-09-22] MEDS: Betamethasone Dip Aug 0.05% Cr 15 GM TUBE 1 APPL TOPICAL (11:19)
[2023-09-22] MEDS: Folic Acid 1 MG in 0.9 % Sodium Chloride 50 ML 202 MG IV (11:34)
[2023-09-22 11:40] VITALS: BP 148/88; PULSE 81; RESP 18; TEMP 36.4; O2SAT 97
--- NOTE | 2023-09-22 11:59 | MHC.CM.PN ---
Pt has been medically cleared for DC, home, self care.
--- NOTE | 2023-09-22 12:00 | PM.DS ---
DS: Providers Provider Date of Service: 09/22/23 Date of admission: 09/20/23 19:59 Date of discharge: 09/22/23 Primary care physician: Ezra Larose MD Consults: 09/20/23 20:29 Addiction Medicine Routine Consulting Provider: Addiction Covering Reason for consultation: etoh dependence 09/21/23 07:56 Consult to Nephrology Routine Consulting Provider: [facility] Reason for consultation: multiple electrolytic abnormalities ,AGMA-?starvation ketosis Has provider been notified: No Attending physician on discharge: Zurdo Cam Discharging clinician: Zurdo Cam DS: Diagnosis Discharge Diagnosis (1) Alcoholic ketoacidosis: Status: Acute (2) JOCE (acute kidney injury): Status: Acute (3) Alcohol abuse: Status: Acute (4) Hypomagnesemia: Status: Acute DS: Summary Hospital Course Hospital Course: 62-year-old male with history of fdk-hrykzmd-gehtyuhna type 2 diabetes, CKD stage 3, hyperlipidemia, mood disorder, hypertension, alcohol use disorder, BPH, AAA presented to the ED earlier today from home after his visiting nurse arrived and felt he looked unwell and weak. She took his blood pressure which was 80/54 and he was transferred to the ED via EMS. He states he drinks 4-5 vodka cell SIRS on a daily basis, occasionally more and occasionally drinks in the morning. He states that he maybe drank more than he typically does last night. He woke up this morning feeling generally unwell, dizzy, and weak. He states he has not been eating much. Denies any fevers, chills, abdominal pain, nausea, vomiting, diarrhea, melena, hematochezia, chest pain. He reports he has a chronic dry cough, postnasal drip, and dyspnea on exertion that has been ongoing for months but has not worsened acutely. No recent weight gain or edema. On arrival, vital signs stable though has been intermittently tachycardic to 118 and tachypneic to 24. No hypoxia or fevers. No hypotension. There is no leukocytosis. He has a normocytic anemia with H/H 11.3/32.6%, platelets 117. On arrival, creatinine 1.90 (baseline 1.3-1.5), BUN 20. Sodium 132, chloride 94, CO2 18, anion gap 24. Initially slightly acidotic with pH 7.30, pCO2 33, bicarb 16. Repeat following IVF 7.42, pco2 20, bicarb 13. Initial lactic acid 4.0, repeat 3.1, repeat pending. In the ED has been given IV thiamine, IV magnesium, folic acid. He has also received 1 L LR, 2 L NS. BNP is currently being repeated as well as lactic acid. On exam pt is beginning to feel very tremulous and is beginning to withdrawal from alcohol. Ethyl alcohol level on arrival was 187. He does deny any history of alcohol withdrawal seizures, delirium tremens. Currently denies any nausea, vomiting, confusion, headaches, diaphoresis, AH/VH, anxiety/agitation. Hospital course: Patient was admitted for alcohol withdrawal and starvation ketosis, had acute lactic acidosis because of that-patient was given IV hydration with bicarb drip due to low bicarb and phenobarb protocol, electrolytes repleted , encouraged for p.o. intake: Patient alcohol withdrawal and electrolytic abnormalities improved also acidosis also improved. JOCE also improved with hydration, patient will be going home. Hypomagnesemia: Possibly related to alcohol use, Repleted and resolved. Mild acute hyponatremia: Possibly related to decreased p.o. intake, alcohol intake-seems to be improved with hydration. Monitor BMP outpatient. Due to recent JOCE: Amlodipine adjusted for 5 mg daily for next 2 days and then can switch back to 2.5 mg, also start valsartan back at that time.Monitor BMP in 1 week outpatient. Patient was strongly encouraged to avoid alcohol use. plan: Amlodipine adjusted for 5 mg daily for next 2 days and then can switch back to 2.5 mg, also start valsartan back at that time.Monitor BMP in 1 week outpatient. Encouraged for p.o. intake, avoid alcohol use. Above management discussed with the patient in detail length he understand and in agreement with the above plan, time spent 40 minutes and 50% time spent on counseling. Time Attestation Total time managing care of this patient today: 40 mintues. Discharge Coordination Time (in mins): 40 min Quality: Safe Use of Opioids Does Pt have an Active Cancer Diagnosis on the Problem List?: No Quality: Stroke Does the patient have a stroke diagnosis?: No Physical Exam Vital Signs: Vital Signs: Last Vital Signs Temp 97.6 F 09/22/23 11:40 Pulse 81 09/22/23 11:40 Resp 18 09/22/23 11:40 BP 148/88 H 09/22/23 11:40 Pulse Ox 97 09/22/23 11:40 O2 Del Method Room Air 09/22/23 11:40 BMI result Body Mass Index 38.7 Appearance: Alert.? Oriented X3.anxious ,tramulous cvs: rrr, [id number] , no murmur res: clear to auscultation ,no rhonchii or wheezing abd: no rebound or guarding ,nt, bs present. ext pulses present , no cyanosis . neuro: axo3 , nonfocal. DS: Data Data Completed and Pending Labs on day of discharge: Laboratory Results - last 24 hr 09/21/23 09/21/23 09/21/23 14:13 14:13 14:13 Sodium Cancelled 135 Potassium Cancelled 4.1 Chloride Cancelled Carbon Dioxide Anion Gap BUN Creatinine Estim Creat Clear Calc Estimated GFR POC Glucose Random Glucose Calcium Magnesium 09/21/23 09/21/23 09/21/23 14:13 14:13 14:13 Sodium Potassium Chloride 98 Carbon Dioxide Cancelled 27 Anion Gap Cancelled 14 BUN Cancelled Creatinine Estim Creat Clear Calc Estimated GFR POC Glucose Random Glucose Calcium Magnesium 09/21/23 09/21/23 09/21/23 14:13 14:13 14:13 Sodium Potassium Chloride Carbon Dioxide Anion Gap BUN 13 Creatinine Cancelled 1.32 Estim Creat Clear Calc Cancelled 70.6 Estimated GFR Cancelled POC Glucose Random Glucose Calcium Magnesium 09/21/23 09/21/23 09/21/23 14:13 14:13 14:13 Sodium Potassium Chloride Carbon Dioxide Anion Gap BUN Creatinine Estim Creat Clear Calc Estimated GFR 55 POC Glucose Random Glucose Cancelled 196 H Calcium Cancelled 8.8 Magnesium 2.0 09/21/23 09/21/23 09/22/23 16:00 20:09 08:01 Sodium Potassium Chloride Carbon Dioxide Anion Gap BUN Creatinine Estim Creat Clear Calc Estimated GFR POC Glucose 178 H 161 H 146 H Random Glucose Calcium Magnesium Preliminary micro results at discharge 09/20/23 15:03 Blood Culture - Preliminary Blood - Venous No growth after 24 hours. 09/20/23 14:51 Blood Culture - Preliminary Blood - Venous No growth after 24 hours. Imaging Chest x-ray: Radiologist's impression: ITS Impressions Chest X-Ray 09/20/23 14:21 IMPRESSION: No significant acute parenchymal disease. Discharge Plan Discharge Anticipated Discharge Date/Time: 09/22/23 11:54 Patient Disposition: Home, Self-Care Discharge Diagnosis: Alcohol withdrawal, hypomagnesemia, JOCE. Referrals: Ezra Larose MD [Primary Care Provider] - 1 Week Discharge Medications: New thiamine HCl (vitamin B1) 100 mg tablet 100 mg PO DAILY Qty: 30 0RF folic acid 1 mg tablet 1 mg PO DAILY Qty: 30 0RF amlodipine 2.5 mg tablet 2.5 mg PO DAILY Qty: 2 0RF Rx Instructions: use amlodipine 2.5 mg daily for 2 days(in addition to his home dose of amlodipine 2.5 which is already getting) Continued atorvastatin 40 mg tablet 40 mg PO DAILY amlodipine 2.5 mg tablet 2.5 mg PO DAILY tamsulosin 0.4 mg capsule 0.4 mg PO BEDTIME PRN (Reason: enlarge prostate) metoprolol succinate 25 mg tablet extended release 24 hr 25 mg PO DAILY clobetasol 0.05 % ointment 1 appl topical BID torsemide 20 mg tablet 20 mg PO DAILY folic acid 1 mg tablet 1 mg PO DAILY metformin 500 mg tablet extended release 24 hr 1,000 mg PO DAILY Held irbesartan 300 mg tablet 300 mg PO DAILY Hold Instructions: Resume on 09/24/23. Discharge Orders: Discharge Order (Routine); Ordered 09/22/23 Ordered By: Zurdo Cam Diet: Advance to usual diet Activity on Discharge: As tolerated Stand Alone Forms: Patient Portal Discharge page Print Language: Syriac Other Ambulatory Orders: Basic Metabolic Panel (Routine) Timeframe: 1 Week Facility: [facility] - Location: Laboratory Ordered By: Zurdo Cam Care Plan Goals: Patient was admitted for alcohol withdrawal and starvation ketosis, had acute lactic acidosis because of that-patient was given IV hydration and phenobarb protocol, electrolytes repleted , encouraged for p.o. intake: Patient alcohol withdrawal and electrolytic abnormalities improved also acidosis also improved. JOCE also improved with hydration, patient will be going home. Due to recent JOCE: Amlodipine adjusted for 5 mg daily for next 2 days and then can switch back to 2.5 mg, also start valsartan back at that time.Monitor BMP in 1 week outpatient. Patient was strongly encouraged to avoid alcohol use. Health Concerns: As above. Plan of Treatment: As above. Assessment: As above.
[2023-09-22 12:25] LABS: Glucose, Whole Blood 115 mg/dL (60-115)
--- NOTE | 2023-09-22 14:29 | MHC.RECOVRN ---
Met with pt in after consultation placed with Addiction Medicine for ETOH dependence. Chart review completed and received report from floor nurse Isaac. Pt was BIBA with SOB, REYNOSO, dysphagia and decreased PO intake. He was admitted to the floor for management of ETOH/Starvation Ketoacidosis with JOCE. Upon assessment pt is lying in bed awake and alert.? He denies any W/D sx and none observed. He was experiencing a lot of post nasal drip and coughing.? Pt He has been drinking his entire life . He recalls going to work with his father at 11 y.o and having a beer after the job. He reports he currently drinks approx 10 vodka shots a day mixed in with seltzer?and his last drink was just prior to coming into the hospital. Pt has tried (what sounds like possibly campral) in the past but did not like the coating on the medication. He identifies boredom as a large reason he drinks. Pt is possibly interested in referral to [facility] to try alternative MAT therapies. He also voiced interest in recovery coaching for companionship. ? T/W provided pt with resources for the [facility] and also community resources for increased socialization. Also provided pt with info on [employer].? Pt is interested in f/u support from [facility] during his inpt. stay. Report provided to floor nurse Isaac as well as [facility] team. Team available PRN.
== END 2023-09-22 14:12 | disposition home or self-care (01) | DRG 775 ==
LOC: HO.ED 18:26 → HO.EDOVER 20:53 → HO.IMC 23:43
PROVIDERS: Emergency Medicine; Internal Medicine; Admitting Provider Physician Assistant; Emergency Provider Emergency Medicine Emergency Medical Services; PCP Internal Medicine; Visit Provider Internal Medicine
DX: F10.239 Alcohol dependence with withdrawal, unspecified (principal); E87.29 Other acidosis; N17.9 Acute kidney failure, unspecified; E11.22 Type 2 diabetes mellitus with diabetic chronic kidney disease; E83.42 Hypomagnesemia; E87.1 Hypo-osmolality and hyponatremia; I12.9 Hypertensive chronic kidney disease with stage 1 through stage 4 chronic kidney disease, or unspecified chronic kidney disease; N18.30 Chronic kidney disease, stage 3 unspecified; N40.0 Benign prostatic hyperplasia without lower urinary tract symptoms; Y90.6 Blood alcohol level of 120-199 mg/100 ml; Z20.822 Contact with and (suspected) exposure to COVID-19; Z79.84 Long term (current) use of oral hypoglycemic drugs; Z79.899 Other long term (current) drug therapy
CPT/HCPCS: 0241U; 36415; 71045; 80048; 80076; 80184; 80307; 82010; 82803; 82947; 83605; 83690; 83735; 83880; 84145; 84484; 85025; 87040; 87633; 87651; 93005; 99285; J1650; J2560; J3411; J3475; J7120

== ENCOUNTER → 2023-09-20 14:03 | Outpatient (BNV) | payer OTHER, SELFPAY | PROVIDERS: Admitting Provider Physician Assistant; Emergency Provider Emergency Medicine Emergency Medical Services; PCP Internal Medicine; Visit Provider Internal Medicine | DX: R94.31 Abnormal electrocardiogram [ECG] [EKG] (principal) | CPT/HCPCS: 93010 ==

== ENCOUNTER → 2023-09-20 19:59 | Outpatient (BNV) | payer OTHER, SELFPAY | PROVIDERS: Admitting Provider Physician Assistant; Emergency Provider Emergency Medicine Emergency Medical Services; PCP Internal Medicine; Visit Provider Physician Assistant | DX: E87.29 Other acidosis (principal); N17.9 Acute kidney failure, unspecified; F10.10 Alcohol abuse, uncomplicated; E83.42 Hypomagnesemia | CPT/HCPCS: 99223; 99232; 99239 ==

== ENCOUNTER 2024-02-18 13:34 | Emergency (ER) | payer OTHER, SELFPAY ==
[2024-02-18] VITALS (7 sets, daily range): BP systolic 100–160; BP diastolic 64–100; PULSE 77–90; RESP 16–18; TEMP 36.1–36.9; O2SAT 96–97; BMI 36.6
--- NOTE | ~2024-02-18 | XR_ITS ---
EXAMINATION: XR KNEE, RIGHT CLINICAL INFORMATION: Trauma on Saturday with knee pain COMPARISON: None available. TECHNIQUE: Four views of the right knee. FINDINGS: Degenerative changes are seen with narrowing of the medial compartment and patellofemoral compartment. There is no chondrocalcinosis. A small to moderate joint effusion is present. Vascular calcifications are seen. On one oblique view, there is a cortical step-off seen in a portion of the lateral tibial plateau. This is not seen on any other view but given the presence of the effusion, a fracture cannot be entirely excluded. XR/XR knee RT 4V IMPRESSION: Degenerative changes with joint effusion. Question of lateral tibial plateau fracture. CT scan may be useful for further evaluation. Electronically signed by: Aime Rice MD 02/18/2024 08:09 PM EDT
--- NOTE | ~2024-02-18 | CT_ITS ---
EXAMINATION: CT KNEE WITHOUT CONTRAST, RIGHT CLINICAL INFORMATION: possible tibial plateau fracture COMPARISON: None available. TECHNIQUE: Axial images obtained through the right knee. Coronal and sagittal reformatted images are performed at the CT scanner. This CT examination was performed using dose optimization techniques as appropriate, variously including the following: *Automated exposure control *Adjustment of mA and/or kV according to patient size (this includes techniques or standardized protocols for targeted exams where dose is matched to indication/reason for exam; i.e. extremities or head) *Use of iterative reconstruction technique DLP: 204 mGy-cm FINDINGS: There is a minimally displaced fracture through the base of the lateral tibial spine. Fracture extends posteriorly to involve the posterior middle tibial cortex and posterior tibial metadiaphysis with slight displacement of fracture fragment . There is lipohemarthrosis. CT/CT knee RT wo IV con IMPRESSION: 1. Minimally displaced fracture through the base of the lateral tibial spine. Fracture extends posteriorly to involve the posterior middle tibial cortex and posterior tibial metadiaphysis with slight displacement of fracture fragment. 2. Lipohemarthrosis. Electronically signed by: Travis Norris MD 02/18/2024 10:25 PM EDT
--- NOTE | 2024-02-18 16:57 | ED.GENADULT ---
HPI - General Adult General Chief complaint: General Medical Stated complaint: BILAT KNEE PAIN S/P KNEES HIT WALKER T-2 PER EMS Time Seen by Provider: 02/18/24 16:57 History of Present Illness ED Provider: Nate MOE narrative: The patient is a 63-year-old male who lives at a [facility] facility in [place]. He has his iwn room there. He says that he normally requires a walker to walk. Three nights ago he got up in the middle of the night to use the bathroom when he caught his walker on the side of the door jam as he was leaving his room. He says that he fell forward into his walker and struck both knees against the walker. He has had bilateral knee pain since then although his right knee is bothering him a great deal. He feels that he is having ongoing pain in the right leg in the region of the right knee and he feels that he is less able to use the knee. Related Data Home Medications ?Medication ?Instructions ?Recorded ?Confirmed amlodipine 2.5 mg tablet 2.5 mg PO DAILY 09/20/23 09/20/23 atorvastatin 40 mg tablet 40 mg PO DAILY 09/20/23 09/20/23 clobetasol 0.05 % topical ointment 1 appl topical BID 09/20/23 09/20/23 folic acid 1 mg tablet 1 mg PO DAILY 09/20/23 09/20/23 irbesartan 300 mg tablet 300 mg PO DAILY 09/20/23 09/20/23 metformin 500 mg tablet,extended 1,000 mg PO DAILY 09/20/23 09/20/23 release 24 hr metoprolol succinate 25 mg 25 mg PO DAILY 09/20/23 09/20/23 tablet,extended release 24 hr tamsulosin 0.4 mg capsule 0.4 mg PO BEDTIME PRN enlarge 09/20/23 09/20/23 prostate torsemide 20 mg tablet 20 mg PO DAILY 09/20/23 09/20/23 Previous Rx's ?Medication ?Instructions ?Recorded amlodipine 2.5 mg tablet 2.5 mg PO DAILY #2 tabs 09/22/23 folic acid 1 mg tablet 1 mg PO DAILY #30 tabs 09/22/23 thiamine HCl (vitamin B1) 100 mg 100 mg PO DAILY #30 tabs 09/22/23 tablet Allergies Allergy/AdvReac Type Severity Reaction Status Date / Time No Known Allergies Allergy Verified 02/18/24 13:48 Review of Systems Review of Systems: Yes all other systems are reviewed and are negative [facility] Past Medical History Medical History Hyperlipidemia Diverticulitis Obesity Alcoholism CKD (chronic kidney disease), stage III HTN (hypertension) Diabetes BPH (benign prostatic hyperplasia) Social History Social History Housing: Other Housing Other:: [facility]: [place] Do you presently have visiting nurse or other home services: Yes (a few different services.) Patient Tobacco Use Status: Tobacco use Unknown Smoked in Last 30 Days: No Use of substances other than those prescribed or required for medical reasons: No Substance Use Type: Marijuana Advance Directives: No Advance Directives Information Provided: Yes Do you have a plan to hurt others: No Plan Physical Exam ED Vital Signs: Vital Signs - 24 hr 02/18/24 15:14 02/18/24 17:55 02/18/24 19:14 Temperature 98.4 F 97.6 F 98.3 F Pulse Rate 82 77 90 Respiratory Rate 18 18 18 Blood Pressure 104/64 100/68 120/73 Pulse Oximetry 96 96 96 Oxygen Delivery Method Room Air Room Air Room Air 02/18/24 21:21 02/18/24 21:24 Temperature 97.9 F 97.9 F Pulse Rate 88 88 Respiratory Rate 16 16 Blood Pressure 138/70 138/70 Pulse Oximetry 96 96 Oxygen Delivery Method Room Air Room Air BMI result Body Mass Index 36.6 Const Other: The patient is a gallegos 63-year-old. BMI 36.6. He looks as though he is somewhat chronically deconditioned but does not seem acutely ill or in distress.. HENMT Head: Yes normal to inspection Face and sinus: Yes normal facial exam Mouth: Normal oral and palatal mucosa present and moist mucous membranes Eyes General: appearance normal, both eyes and all related structures Neck Neck: Yes full ROM Resp Effort & Inspection: normal respiratory effort Auscultation: clear to auscultation bilaterally Cardio Rate: regular rate Rhythm: regular rhythm Heart sounds: S1 normal heart sound present and S2 normal heart sound present GI Other: The abdomen is soft and nontender Skin Other: the skin is intact. No apparent bruising the region of the right knee. Neuro Other: The patient is awake and alert with normal mental status. Cranial nerves are grossly intact. He has intact strength and sensation in his legs although his right leg function is limited by pain apparently at the right knee. Extrem Other: There is some slight swelling of the right knee consistent with a probable suprapatellar effusion. The skin is intact. There is no erythema. The patient has a decreased range of motion of the knee because of discomfort. The patellar tendon is intact as is the quadriceps tendon. The ankle and foot is unremarkable. Medical Decision Making Medical Decision Making [facility] Narrative: The patient is a 63-year-old man who lives at a [facility] facility in [place]. He apparently has his own room there. He has some chronic gait problems and walks with a walker. He fell into his walker 3 days ago injuring his knees, particularly his right knee. There were no other injuries. The exam of the knee shows a decreased range of motion and some generalized tenderness together with a possible joint effusion. plain films of the right knee suggest the possibility of a tibial spine fracture. A CT scan was done which confirms the presence of a minimally displaced fracture. The patient will be placed in a knee immobilizer. He has a walker at home. He is advised to do his best to be nonweightbearing on the right leg. He will need to follow-up with orthopedics. An ambulance was arranged to return him to his facility. Lab Data 02/18/24 17:23 02/18/24 17:23 Labs: Lab Results 02/18/24 Range/Units 17:23 WBC 5.9 (4.8-10.8) X10*3/uL RBC 3.04 L (4.60-5.80) X10*6/uL Hgb 9.6 L (14.0-18.0) g/dl Hct 29.3 L (42.0-52.0) % MCV 96.4 (80.0-98.0) fL MCH 31.6 (27.0-33.0) pg MCHC 32.8 (31.0-36.0) g/dl RDW 13.2 (11.0-16.0) % Plt Count 123 L D (160-400) X10*3/uL MPV 10.0 (9.4-12.4) fL Immature Gran % (Auto) 0.5 H (0.0-0.4) % Neut % (Auto) 50.9 (45-73) % Lymph % (Auto) 33.6 (20-40) % Dodge % (Auto) 10.4 (2-11) % Eos % (Auto) 3.6 (0-4) % Baso % (Auto) 1.0 (0-2) % Lymph # (Auto) 2.0 (1.2-4.9) X10*3/uL Dodge # (Auto) 0.6 (0.1-1.2) X10*3/uL Eos # (Auto) 0.2 (0.0-0.4) X10*3/uL Baso # (Auto) 0.1 (0.0-0.2) X10*3/uL Abs Immat Gran (auto) 0.03 (0.00-0.03) X10*3/uL Absolute Neuts (auto) 3.0 (2.0-8.3) x10*3/uL Absolute Nucleated RBC 0.000 (0.0-0.012) X10*3/uL Nucleated RBC % (auto) 0.0 (0.0-0.2) /100WBC Sodium 137 (135-145) mmol/L Potassium 4.7 (3.3-5.1) mmol/L Chloride 103 (96-108) mmol/L Carbon Dioxide 21 L (22-29) mmol/L Anion Gap 18 (12-20) BUN 20 H (9-16) mg/dL Creatinine 1.63 H (0.5-1.4) mg/dL Estim Creat Clear Calc 58.3 Estimated GFR 43 Random Glucose 113 (60-115) mg/dL Calcium 10.0 D (8.4-10.2) mg/dL Total Bilirubin 0.5 (0.0-1.0) mg/dL Direct Bilirubin 0.2 (0.0-0.5) mg/dL AST 63 H (5-37) U/L ALT 42 H (0-40) U/L Alkaline Phosphatase 30 L (39-117) U/L Total Protein 7.6 (6.5-8.0) g/dL Albumin 4.2 (3.5-5.0) g/dL Discharge Plan Discharge Clinical Impression: Closed fracture of right tibial spine Patient Disposition: Home, Self-Care Additional Instructions: You have a small fracture of the top of your right tibia (the large bone of your lower leg). The initial treatment of this fracture is essentially resting the leg as much as possible. Please use the knee immobilizer to keep the joint from bending. As much as you are able to try to keep weight off the leg when you are walking. Use your walker to avoid putting any weight on your right foot when you walk. Use acetaminophen as needed for pain. Please contact the orthopedic office in the morning for a follow up appointment soon. Return to the emergency room if any problems. Prescriptions: No Action atorvastatin 40 mg tablet 40 mg PO DAILY amlodipine 2.5 mg tablet 2.5 mg PO DAILY tamsulosin 0.4 mg capsule 0.4 mg PO BEDTIME PRN (Reason: enlarge prostate) metoprolol succinate 25 mg tablet extended release 24 hr 25 mg PO DAILY clobetasol 0.05 % ointment 1 appl topical BID irbesartan 300 mg tablet 300 mg PO DAILY torsemide 20 mg tablet 20 mg PO DAILY folic acid 1 mg tablet 1 mg PO DAILY metformin 500 mg tablet extended release 24 hr 1,000 mg PO DAILY thiamine HCl (vitamin B1) 100 mg tablet 100 mg PO DAILY Qty: 30 0RF folic acid 1 mg tablet 1 mg PO DAILY Qty: 30 0RF amlodipine 2.5 mg tablet 2.5 mg PO DAILY Qty: 2 0RF Rx Instructions: use amlodipine 2.5 mg daily for 2 days(in addition to his home dose of amlodipine 2.5 which is already getting) Referrals: [facility] [Provider Group] (tibial spine fracture) Interventions: ED Discharge Assessment Last Done: 02/18/24 21:24 Discharge Date/Time: 02/18/24 21:36 Print Language: Maldivian
--- NOTE | 2024-02-18 17:07 | ECG_ITS ---
Test Reason : FALL Blood Pressure : / mmHG Vent. Rate : 078 BPM Atrial Rate : 078 BPM P-R Int : 168 ms QRS Dur : 082 ms QT Int : 376 ms P-R-T Axes : 035 005 024 degrees QTc Int : 428 ms Normal sinus rhythm Cannot rule out Inferior infarct , age undetermined Abnormal ECG No significant changes when compared with the previous EKG of 20 sep 2023 Referred By: Mitul Sullivan Electronically Signed By:GENO SUN
--- NOTE | 2024-02-18 17:12 | PC.NURSE ---
patient to xray at this time
[2024-02-18 17:29] LABS: MANUAL DIFF FLAG NO
[2024-02-18 17:36] LABS: Basophils Absolute Auto 0.1 X10*3/uL (0.0-0.2); Eosinophils Absolute Auto 0.2 X10*3/uL (0.0-0.4); Eosinophils Percent Auto 3.6 % (0-4); Hematocrit 29.3 % (42.0-52.0); Hemoglobin 9.6 g/dl (14.0-18.0); Imm Gran Abs Auto 0.03 X10*3/uL (0.00-0.03); Imm Gran Pct Auto 0.5 % (0.0-0.4); Lymphocytes Percent Auto 33.6 % (20-40); Mean Corpuscular HGB Conc 32.8 g/dl (31.0-36.0); Mean Corpuscular Hemoglobin 31.6 pg (27.0-33.0); Mean Corpuscular Volume 96.4 fL (80.0-98.0); Monocytes Absolute Auto 0.6 X10*3/uL (0.1-1.2); Monocytes Percent Auto 10.4 % (2-11); Neutrophils Percent Auto 50.9 % (45-73); Platelet Count 123 X10*3/uL (160-400); Red Blood Count 3.04 X10*6/uL (4.60-5.80); Red Cell Distribution Width 13.2 % (11.0-16.0); White Blood Count 5.9 X10*3/uL (4.8-10.8)
[2024-02-18 17:45] LABS: Alanine Aminotransferase 42 U/L (0-40); Albumin Level 4.2 g/dL (3.5-5.0); Alkaline Phosphatase 30 U/L (39-117); Anion Gap 18 (12-20); Aspartate Amino Transferase 63 U/L (5-37); Bilirubin Direct 0.2 mg/dL (0.0-0.5); Bilirubin Total 0.5 mg/dL (0.0-1.0); Blood Urea Nitrogen 20 mg/dL (9-16); Carbon Dioxide 21 mmol/L (22-29); Chloride 103 mmol/L (96-108); Creatinine Clr Calc Pharmacy 58.3; Estimated Glomerular Filt Rate 43; Glucose Random 113 mg/dL (60-115); Potassium 4.7 mmol/L (3.3-5.1); Sodium 137 mmol/L (135-145); Total Protein 7.6 g/dL (6.5-8.0)
--- NOTE | 2024-02-18 18:56 | PC.NURSE ---
patient states his sister is only able to pick him up before 9pm if he is to be discharged
== END 2024-02-18 21:36 | disposition home or self-care (01) ==
PROVIDERS: Emergency Provider Emergency Medicine; PCP Student in an Organized Health Care Education/Training Program
DX: S82.111A Displaced fracture of right tibial spine, initial encounter for closed fracture (principal); R94.31 Abnormal electrocardiogram [ECG] [EKG]; M25.562 Pain in left knee; M25.561 Pain in right knee; W18.30XA Fall on same level, unspecified, initial encounter; Y93.89 Activity, other specified; Y92.098 Other place in other non-institutional residence as the place of occurrence of the external cause; Y99.8 Other external cause status; Z79.899 Other long term (current) drug therapy
CPT/HCPCS: 36415; 73564; 73700; 80048; 80076; 85025; 93005; 99284

== ENCOUNTER → 2024-02-18 17:07 | Outpatient (BNV) | payer OTHER, SELFPAY | PROVIDERS: Emergency Provider Emergency Medicine; PCP Student in an Organized Health Care Education/Training Program; Visit Provider Internal Medicine | DX: R94.31 Abnormal electrocardiogram [ECG] [EKG] (principal) | CPT/HCPCS: 93010 ==

== ENCOUNTER 2024-03-16 11:03 | Inpatient (IN) | payer OTHER, SELFPAY ==
--- NOTE | ~2024-03-16 | XR_ITS ---
EXAMINATION: XR KNEE, RIGHT CLINICAL INFORMATION: Rt knee tibial spine fx COMPARISON: 02/18/2024 TECHNIQUE: AP and lateral views of the right knee. FINDINGS: Subtle fracture line with increased sclerosis is seen through the tibial spine consistent with healing fracture. No new acute fractures are seen. Joint spaces are well-maintained. Generalized soft tissue edema is seen in the subcutaneous soft tissues in the distal thigh and calf. Small knee joint effusion. XR/XR knee RT 2V IMPRESSION: Healing fracture of the tibial spine. Electronically signed by: Job Lopes MD 03/17/2024 07:08 PM EST
[2024-03-16 11:11] VITALS: BP 172/84; PULSE 85; O2SAT 98
[2024-03-16 11:13] VITALS: BP 121/66; PULSE 93; RESP 18; TEMP 36.4; O2SAT 99; BMI 38.0
[2024-03-16 11:24] LABS: Glucose, Whole Blood 93 mg/dL (60-115)
--- NOTE | 2024-03-16 11:29 | ECG_ITS ---
Test Reason : FALL Blood Pressure : / mmHG Vent. Rate : 088 BPM Atrial Rate : 088 BPM P-R Int : 000 ms QRS Dur : 080 ms QT Int : 354 ms P-R-T Axes : 000 020 012 degrees QTc Int : 428 ms Artifact in tracing Normal sinus rhythm Otherwise normal ECG When compared with ECG of 18-FEB-2024 17:37, No significant changes seen Referred By: Generic ED Physician Electronically Signed By:GENO SUN
--- NOTE | 2024-03-16 11:35 | PC.NURSE ---
PT's HR 126, CIWA 7- vitals otherwise stable. Notified provider. plan for pheno protocol
[2024-03-16 12:05] LABS: MANUAL DIFF FLAG NO
[2024-03-16 12:10] LABS: Basophils Absolute Auto 0.1 X10*3/uL (0.0-0.2); Eosinophils Absolute Auto 0.3 X10*3/uL (0.0-0.4); Eosinophils Percent Auto 4.3 % (0-4); Hemoglobin 10.3 g/dl (14.0-18.0); Imm Gran Abs Auto 0.04 X10*3/uL (0.00-0.03); Imm Gran Pct Auto 0.7 % (0.0-0.4); Lymphocytes Absolute Auto 2.2 X10*3/uL (1.2-4.9); Lymphocytes Percent Auto 37.2 % (20-40); Mean Corpuscular HGB Conc 34.3 g/dl (31.0-36.0); Mean Corpuscular Hemoglobin 31.5 pg (27.0-33.0); Mean Corpuscular Volume 91.7 fL (80.0-98.0); Mean Platelet Volume 9.6 fL (9.4-12.4); Monocytes Absolute Auto 0.4 X10*3/uL (0.1-1.2); Neutrophils Percent Auto 49.8 % (45-73); Platelet Count 115 X10*3/uL (160-400); Red Blood Count 3.27 X10*6/uL (4.60-5.80); Red Cell Distribution Width 13.1 % (11.0-16.0)
[2024-03-16 12:14] LABS: Prothrombin Time 12.2 SEC (10.9-12.4)
[2024-03-16 12:24] LABS: Alanine Aminotransferase 33 U/L (0-40); Albumin Level 4.3 g/dL (3.5-5.0); Alkaline Phosphatase 42 U/L (39-117); Anion Gap 21 (12-20); Aspartate Amino Transferase 78 U/L (5-37); Bilirubin Total 0.4 mg/dL (0.0-1.0); Blood Urea Nitrogen 19 mg/dL (9-16); Calcium 9.9 mg/dL (8.4-10.2); Carbon Dioxide 18 mmol/L (22-29); Chloride 93 mmol/L (96-108); Creatinine Clr Calc Pharmacy 65.1; Estimated Glomerular Filt Rate 51; Glucose Random 109 mg/dL (60-115); Potassium 4.4 mmol/L (3.3-5.1); Sodium 128 mmol/L (135-145); Total Protein 7.5 g/dL (6.5-8.0)
[2024-03-16 12:26] LABS: Magnesium 1.1 mg/dL (1.6-2.6)
[2024-03-16 12:31] LABS: Troponin-I High Sensitivity 5.2 ng/L (<3.5-35.0)
[2024-03-16 12:48] VITALS: BP 106/74; PULSE 90; RESP 16; TEMP 36.5; O2SAT 93
[2024-03-16 12:50] LABS: Influenza A PCR NEGATIVE (Negative); Influenza B PCR NEGATIVE (Negative); Resp Syncy Virus RNA Qual PCR NEGATIVE (Negative); SARS COV2 PCR INHOUSE NEGATIVE (Negative)
--- NOTE | 2024-03-16 13:09 | ED_ITS ---
HPI - Fall General Chief Complaint: Fall Stated Complaint: ELIZA LEG WEAKNESS,KEEPS FALLING PER EMS Time Seen by Provider: 03/16/24 12:54 Source: patient and EMS Mode of arrival: EMS Limitations: no limitations History of Present Illness ED Provider: Dr. Annette Hernandez HPI Narrative: Patient comes to the emergency room complaining of weakness. Patient states that today he wanted to get up from his chair and go to the bathroom and he was unable to do so. Patient states that usually he is able to pull himself up and walk to the bathroom but today he is feeling very weak. Patient states that he fell back into his seat. Patient states that he did not hit his head or lost consciousness, patient states that he does not take blood thinners. patient denies chest pain or shortness of breath Related Data Home Medications ?Medication ?Instructions ?Recorded ?Confirmed amlodipine 2.5 mg tablet 2.5 mg PO DAILY 09/20/23 09/20/23 atorvastatin 40 mg tablet 40 mg PO DAILY 09/20/23 09/20/23 clobetasol 0.05 % topical ointment 1 appl topical BID 09/20/23 09/20/23 folic acid 1 mg tablet 1 mg PO DAILY 09/20/23 09/20/23 irbesartan 300 mg tablet 300 mg PO DAILY 09/20/23 09/20/23 metformin 500 mg tablet,extended 1,000 mg PO DAILY 09/20/23 09/20/23 release 24 hr metoprolol succinate 25 mg 25 mg PO DAILY 09/20/23 09/20/23 tablet,extended release 24 hr tamsulosin 0.4 mg capsule 0.4 mg PO BEDTIME PRN enlarge 09/20/23 09/20/23 prostate torsemide 20 mg tablet 20 mg PO DAILY 09/20/23 09/20/23 Previous Rx's ?Medication ?Instructions ?Recorded amlodipine 2.5 mg tablet 2.5 mg PO DAILY #2 tabs 09/22/23 folic acid 1 mg tablet 1 mg PO DAILY #30 tabs 09/22/23 thiamine HCl (vitamin B1) 100 mg 100 mg PO DAILY #30 tabs 09/22/23 tablet Allergies Allergy/AdvReac Type Severity Reaction Status Date / Time No Known Allergies Allergy Verified 03/16/24 11:16 Review of Systems 2 Review of Systems: Constitutional : No Weight loss, No Fever, No Chills, No Night Sweats, complaining of generalized weakness ENT/Mouth : No Hearing loss, No Ear Pain, No Nasal Congestion, No Sinus Pain, No Hoarseness, No sore throat, No Rhinorrhea, No Swallowing Difficulty Eyes: No Eye Pain, No Swelling, No Redness, No Foreign Body, No Discharge, No Vision Changes Cardiovascular : No Chest Pain, No SOB, No Dyspnea on Exertion, No Orthopnea, No Edema, No Palpitations Respiratory : No Cough, No Sputum, No Wheezing, No Smoke Exposure, No Dyspnea Gastrointestinal : No Nausea, No Vomiting, No Diarrhea, No Constipation, No abdominal Pain, No Hematochezia, No Melena Genitourinary : no irregular bleeding, No Dysuria, No Urinary Frequency, No Hematuria, No Urinary Incontinence, No Urgency, No Flank Pain, No Urinary Flow Changes, No Hesitancy Musculoskeletal : No joint pain, No Myalgias, No Joint Swelling Skin : No Skin Lesions, No rash Neuro : No Weakness, No Numbness, No Paresthesias, No Loss of Consciousness, No Dizziness, No Headache Psych : No Anxiety/Panic, No Depression, No SI/HI/AH/VH, No Social Issues, Heme/Lymph: No Bruising, No Bleeding,No Lymphadenopathy Endocrine : No Polyuria, No Polydipsia, No Temperature Intolerance [facility] Past Medical History Medical History Hyperlipidemia Diverticulitis Obesity Alcoholism CKD (chronic kidney disease), stage III HTN (hypertension) Diabetes BPH (benign prostatic hyperplasia) Social History Social History Housing: Other Housing Other:: [place]: [place] Do you presently have visiting nurse or other home services: Yes (a few different services.) Unable to assess alcohol history related to: Unknown Patient Tobacco Use Status: Tobacco use Unknown Smoked in Last 30 Days: No Use of substances other than those prescribed or required for medical reasons: Unknown Substance Use Type: Marijuana Advance Directives: No Advance Directives Information Provided: Yes Do you have a plan to hurt others: No Plan Physical Exam 2 Vital Signs: Vital Signs: Last Vital Signs Temp 97.7 F 03/16/24 12:48 Pulse 90 03/16/24 12:48 Resp 16 03/16/24 12:48 BP 106/74 11/25/24 12:48 Pulse Ox 93 03/16/24 12:48 O2 Del Method Room Air 03/16/24 12:48 BMI result Body Mass Index 38.0 Const: Other: Appearance: Alert. Oriented X3. No acute distress. Eyes: Pupils equal, round and reactive to light. ENT: Pharynx normal. Neck: Normal inspection. Neck supple. No lymph nodes noted. No crepitus CVS: Normal heart rate and rhythm. Pulses normal. Normal S1 and S2 Respiratory: No respiratory distress. Breath sounds normal. No Wheezing. No rales Abdomen: Soft and nontender. No rigidity. No distention. Skin: Skin warm and dry. Normal skin color. Normal skin turgor. Extremities: +1 pitting edema bilaterally. No Lacerations. No Rash Neuro: Oriented X 3. No motor deficit. No sensory deficit. Moving all extremities. No slurred speech. CN 2 through 12 grossly intact Psych: calm, cooperative, normal affect Medications Administered Generic Name Dose Route Start Last Admin Trade Name Freq PRN Reason Stop Dose Admin Dextrose/Sodium Chloride 1,000 mls @ 125 mls/hr 03/16/24 13:30 03/16/24 15:44 D5ns IVCONT 125 mls/hr .Q8H BLESSING Administration Discontinued Medications Generic Name Dose Route Start Last Admin Trade Name Freq PRN Reason Stop Dose Admin Magnesium Sulfate 2 gm in 50 mls @ 25 mls/hr 03/16/24 13:08 03/16/24 15:43 Magnesium Sulfate/H2o IV 03/16/24 15:07 Infused ONCE ONE Infusion Medical Decision Making Medical Decision Making [facility] Narrative: my interpretation of labs: Patient's hematology is at baseline. Chemistry shows hyponatremia of 128, normal potassium, anion gap 21, creatinine within normal limits. Magnesium 1.1 - reviewing patient's medical records, patient has history of alcoholic ketoacidosis. - Patient denies drinking alcohol or using drugs. -ETOH level 321. After speaking to the patient, he admits to drink alcohol, states he drank yesterday, none today -patient was giving IV magnesium and also D5 normal saline Patient has not provided a urine sample. -I discussed the patient with the hospitalist team, patient being admitted. Patient agrees with plan Differential Diagnosis Differential Diagnoses: The differential diagnosis associated with the presentation includes (Beer potomania, hypomagnesemia, alcohol dependence, alcohol abuse) Admission/Observation Consideration of admission/observation: Escalation of care including admission/observation considered Consult Healthcare Provider Management of the patient was discussed with: Hospitalist Lab Data MDM Lab Attestation statement: I reviewed the patient's lab results. 03/16/24 12:01 03/16/24 12:01 Labs: Lab Results 03/16/24 03/16/24 03/16/24 Range/Units 11:21 12:00 12:01 WBC 6.0 (4.8-10.8) X10*3/uL RBC 3.27 L (4.60-5.80) X10*6/uL Hgb 10.3 L (14.0-18.0) g/dl Hct 30.0 L (42.0-52.0) % MCV 91.7 (80.0-98.0) fL MCH 31.5 (27.0-33.0) pg MCHC 34.3 (31.0-36.0) g/dl RDW 13.1 (11.0-16.0) % Plt Count 115 L (160-400) X10*3/uL MPV 9.6 (9.4-12.4) fL Immature Gran % (Auto) 0.7 H (0.0-0.4) % Neut % (Auto) 49.8 (45-73) % Lymph % (Auto) 37.2 (20-40) % Summers % (Auto) 7.0 (2-11) % Eos % (Auto) 4.3 H (0-4) % Baso % (Auto) 1.0 (0-2) % Lymph # (Auto) 2.2 (1.2-4.9) X10*3/uL Summers # (Auto) 0.4 (0.1-1.2) X10*3/uL Eos # (Auto) 0.3 (0.0-0.4) X10*3/uL Baso # (Auto) 0.1 (0.0-0.2) X10*3/uL Abs Immat Gran (auto) 0.04 H (0.00-0.03) X10*3/uL Absolute Neuts (auto) 3.0 (2.0-8.3) x10*3/uL Absolute Nucleated RBC 0.000 (0.0-0.012) X10*3/uL Nucleated RBC % (auto) 0.0 (0.0-0.2) /100WBC PT 12.2 (10.9-12.4) SEC INR 1.0 (0.9-1.1) Sodium 128 L (135-145) mmol/L Potassium 4.4 (3.3-5.1) mmol/L Chloride 93 L (96-108) mmol/L Carbon Dioxide 18 L (22-29) mmol/L Anion Gap 21 H (12-20) BUN 19 H (9-16) mg/dL Creatinine 1.40 (0.5-1.4) mg/dL Estim Creat Clear Calc 65.1 Estimated GFR 51 POC Glucose 93 (60-115) mg/dL Random Glucose 109 (60-115) mg/dL Calcium 9.9 (8.4-10.2) mg/dL Magnesium 1.1 L* (1.6-2.6) mg/dL Total Bilirubin 0.4 (0.0-1.0) mg/dL AST 78 H (5-37) U/L ALT 33 (0-40) U/L Alkaline Phosphatase 42 (39-117) U/L Troponin I High Sens 5.2 (<3.5-35.0) ng/L Total Protein 7.5 (6.5-8.0) g/dL Albumin 4.3 (3.5-5.0) g/dL Ethyl Alcohol 321 H* mg/dL Influenza Type A (PCR) NEGATIVE (Negative) Influenza Type B (PCR) NEGATIVE (Negative) RSV RNA Qual (PCR) NEGATIVE (Negative) SARS-CoV-2 RNA (RT-PCR) NEGATIVE (Negative) Critical Care Time Critical Care Time Critical Care Time: Yes Total Critical Care Time: 60 Attestation: I have personally provided critical care time. Time includes review of lab data, radiology results, discussion with consultants, and monitoring for potential decompensation. Intervention performed as documented. Discharge Plan Discharge Clinical Impression: Alcohol abuse, Hypomagnesemia, Acute hyponatremia, Weakness generalized Patient Disposition: Admitted As Inpatient Prescriptions: No Action atorvastatin 40 mg tablet 40 mg PO DAILY amlodipine 2.5 mg tablet 2.5 mg PO DAILY tamsulosin 0.4 mg capsule 0.4 mg PO BEDTIME PRN (Reason: enlarge prostate) metoprolol succinate 25 mg tablet extended release 24 hr 25 mg PO DAILY clobetasol 0.05 % ointment 1 appl topical BID irbesartan 300 mg tablet 300 mg PO DAILY torsemide 20 mg tablet 20 mg PO DAILY folic acid 1 mg tablet 1 mg PO DAILY metformin 500 mg tablet extended release 24 hr 1,000 mg PO DAILY thiamine HCl (vitamin B1) 100 mg tablet 100 mg PO DAILY Qty: 30 0RF folic acid 1 mg tablet 1 mg PO DAILY Qty: 30 0RF amlodipine 2.5 mg tablet 2.5 mg PO DAILY Qty: 2 0RF Rx Instructions: use amlodipine 2.5 mg daily for 2 days(in addition to his home dose of amlodipine 2.5 which is already getting) Print Language: New Zealander
[2024-03-16 13:26] LABS: Ethanol 321 mg/dL
[2024-03-16] MEDS: Magnesium Sulfate/H2O 2 GM/50 ML PIGGYBACK IV (13:45)
[2024-03-16] MEDS: Dextrose 5 % and 0.9 % NaCl 1,000 ML 125 ML IVCONT (15:44)
--- NOTE | 2024-03-16 16:31 | PM.IMHP ---
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 Patient states he was feeling well day prior to presentation. On a.m. of presentation was not able to get up, tried multiple times and eventually stood up for a 2nd and then fell to the ground without significant trauma. He called EMS using his rescue alert. In ED found to be hyponatremic, hypomagnesemic. Patient reports drinking 2 gal of vodka per week, last week day prior to presentation. Of note patient has right tibial knee fracture from 02/18/2024, reports ambulating. Review of Systems Review of Systems: Yes all other systems are reviewed and are negative [facility] Medical History Hyperlipidemia Diverticulitis Obesity Alcoholism CKD (chronic kidney disease), stage III HTN (hypertension) Diabetes BPH (benign prostatic hyperplasia) Social History Housing: Other Housing Other:: [place]: [place] Do you presently have visiting nurse or other home services: Yes (a few different services.) Unable to assess alcohol history related to: Unknown Patient Tobacco Use Status: Tobacco use Unknown Smoked in Last 30 Days: No Use of substances other than those prescribed or required for medical reasons: Unknown Substance Use Type: Marijuana Advance Directives: No Advance Directives Information Provided: Yes Do you have a plan to hurt others: No Plan Meds Allergies Allergy/AdvReac Type Severity Reaction Status Date / Time No Known Allergies Allergy Verified 03/16/24 11:16 Active Medications: Current Medications Dextrose/Sodium Chloride (D5ns) 1,000 mls @ 125 mls/hr IVCONT .Q8H BLESSING Last Admin: 03/16/24 15:44 Dose: 125 mls/hr Home Medications ?Medication ?Instructions ?Recorded ?Confirmed ?Last Taken ?Type amlodipine 2.5 mg tablet 2.5 mg PO DAILY 09/20/23 09/20/23 09/20/23 History atorvastatin 40 mg tablet 40 mg PO DAILY 09/20/23 09/20/23 09/20/23 History clobetasol 0.05 % topical ointment 1 appl topical BID 09/20/23 09/20/23 09/20/23 History folic acid 1 mg tablet 1 mg PO DAILY 09/20/23 09/20/23 09/20/23 History irbesartan 300 mg tablet 300 mg PO DAILY 09/20/23 09/20/23 09/20/23 History metformin 500 mg tablet,extended 1,000 mg PO DAILY 09/20/23 09/20/23 09/20/23 History release 24 hr metoprolol succinate 25 mg 25 mg PO DAILY 09/20/23 09/20/23 09/20/23 History tablet,extended release 24 hr tamsulosin 0.4 mg capsule 0.4 mg PO BEDTIME PRN enlarge 09/20/23 09/20/23 09/19/23 18:00 History prostate torsemide 20 mg tablet 20 mg PO DAILY 09/20/23 09/20/23 09/20/23 History Physical Exam Vital Signs and Narrative: Vital Signs: Last Vital Signs Temp 97.7 F 03/16/24 12:48 Pulse 90 03/16/24 12:48 Resp 16 03/16/24 12:48 BP 106/74 03/16/24 12:48 Pulse Ox 93 03/16/24 12:48 O2 Del Method Room Air 03/16/24 12:48 BMI result Body Mass Index 38.0 General: AO X 3, no acute distress Resp: CTA bilateral, no accessory muscles used CVS: S1,S2,RRR GI: soft, non tender, non distended Neuro: motor grossly intact, alert Psych: appropriate affect, appropriate insight Results Labs 03/16/24 12:01 03/16/24 12:01 Labs: Laboratory Results - last 24 hr 03/16/24 03/16/24 03/16/24 11:21 12:00 12:01 MCV 91.7 MCH 31.5 MCHC 34.3 RDW 13.1 Plt Count 115 L MPV 9.6 Immature Gran % (Auto) 0.7 H Neut % (Auto) 49.8 Lymph % (Auto) 37.2 [place] % (Auto) 7.0 Eos % (Auto) 4.3 H Baso % (Auto) 1.0 Lymph # (Auto) 2.2 [place] # (Auto) 0.4 Eos # (Auto) 0.3 Baso # (Auto) 0.1 Abs Immat Gran (auto) 0.04 H Absolute Neuts (auto) 3.0 Absolute Nucleated RBC 0.000 Nucleated RBC % (auto) 0.0 PT 12.2 INR 1.0 Anion Gap 21 H Estim Creat Clear Calc 65.1 Estimated GFR 51 POC Glucose 93 Random Glucose 109 Calcium 9.9 Magnesium 1.1 L* Total Bilirubin 0.4 AST 78 H ALT 33 Alkaline Phosphatase 42 Troponin I High Sens 5.2 Total Protein 7.5 Albumin 4.3 Ethyl Alcohol 321 H* Influenza Type A (PCR) NEGATIVE Influenza Type B (PCR) NEGATIVE RSV RNA Qual (PCR) NEGATIVE SARS-CoV-2 RNA (RT-PCR) NEGATIVE Assessment and Plan (1) Alcohol abuse: Status: Acute Plan 63M PMH etoh dependence with steatohepatitis, obesity, diabetes, STANLEY, CKD 3, BPH, 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 Weakness and fall Likely due to hypomagnesemia and hyponatremia due to alcohol use Fluid restrict, monitor BNP, replace magnesium monitor levels Alcohol dependence with steatohepatitis At risk for withdrawal, monitor CIWA Diabetes Insulin sliding scale Recent right tibial spine fracture Ortho eval question weight-bearing status PT eval CKD 3 At baseline DVT prophylaxis with Lovenox Full Code Patient with significant electrolyte abnormalities would likely take greater than 2 midnights to correct Quality Stroke Does the patient have a stroke diagnosis?: No VTE Prior VTE?: No VTE Risk Level:: Medical - moderate - high VTE Device Contraindication: Treatment Not Indicated VTE Drug Contraindication: N/A - Med Ordered
[2024-03-16] MEDS: Magnesium Oxide 400 MG TABLET 800 MG PO ×2 (16:57→21:23)
[2024-03-16] MEDS: Enoxaparin Sodium 40 MG/0.4 ML SYRINGE SUBCUT (16:59)
--- NOTE | 2024-03-16 17:28 | PC.NURSE ---
spoke with pt JONA hernandez updated on pt admission status
[2024-03-16 17:36] VITALS: BP 120/69; PULSE 109; RESP 18; TEMP 36.6; O2SAT 96
--- NOTE | 2024-03-16 18:15 | PHA.MEDREC ---
Addendum entered by Hazel Wise RPh 03/16/24 18:32: [facility] reviewed Original Note: Pharmacy Consult ? Medication Reconciliation Pharmacy has completed the medication reconciliation. Spoke to patient to confirm med list. patient is a poor historian. He states he doesn't know the names of meditations he takes he kept saying [facility] . Patent also stated he has a nurse that comes 3 times a week. Kam ([phone]) called but,the number just rings. Utilized claims to confirm med list.
[2024-03-16 19:40] VITALS: BP 106/74; PULSE 108; RESP 18; TEMP 36.6; O2SAT 96
--- NOTE | 2024-03-16 19:55 | MHC.EDTECH ---
This pct assumed care of Patient at 1900 ,vitals taken ,Patient was assisted out of bed to void ,Also Pt was incontinent of urine ,care given and bedding change ,Patient belongings list done .All safety measure in Place .
--- NOTE | 2024-03-16 19:58 | MHC.EDTECH ---
urine sample collected and sent to lab .
--- NOTE | 2024-03-16 20:04 | MHC.EDTECH ---
Patient had sandwiches and alan halle for supper .
[2024-03-16 20:09] LABS: Appearance Urine Clear; Color Urine Yellow; Glucose Urine UA Negative (Negative); Leukocyte Esterase Urine Negative (Negative); Nitrite Urine Negative (Negative); PH 5.5 (5.0-9.0); UMIC TRIGGER UACC YES; Urine Blood Trace (Negative); Urine Ketones Trace mg/dL (Negative); Urine Protein Negative (Neg-Trace)
[2024-03-16 20:19] LABS: Amphetamine Screen Urine Not Detected (Not Detect); Barbiturates, Urine Not Detected (Not Detect); Benzodiazepines Screen Urine Not Detected (Not Detect); Buprenorphine Scr Not Detected (Not Detect); Cannabinoid Screen Urine Not Detected (Not Detect); Cocaine Screen Urine Not Detected (Not Detect); Fentanyl, urine Not Detected (Not Detect); Methadone Screen, Urine Not Detected (Not Detect); Opiate Screen Urine Not Detected (Not Detect); Oxycodone Screen Urine Not Detected (Not Detect); Phencyclidine Screen Urine Not Detected (Not Detect)
[2024-03-16 20:22] LABS: Bacteria Urine None Seen (None Seen); RBC Urine 0-2 /HPF (0-2); Squamous Epithelial Cell Urine 0-2 /HPF (0-2); WBC Urine 0-5 /HPF (0-5)
[2024-03-16 20:35] LABS: Glucose, Whole Blood 122 mg/dL (60-115)
[2024-03-16 23:33] LABS: Glucose, Whole Blood 172 mg/dL (60-115)
[2024-03-16 23:36] VITALS: BP 125/75; PULSE 123; RESP 20; TEMP 36.6; O2SAT 93
[2024-03-17] VITALS (7 sets, daily range): BP systolic 114–139; BP diastolic 70–90; PULSE 107–127; RESP 16–19; TEMP 36.8–37; O2SAT 96–98; BMI 38.6
--- NOTE | 2024-03-17 | PM.EVENT ---
Event Note Date of Service: 03/17/24 Event Note: Pt is a 63 yo male with a pmhx of etoh dependence with steatohepatitis, obesity, diabetes, STANLEY, CKD 3, BPH, hypertension [facility] ( [facility] ) admitted for weakness and fall with significant electrolyte abnormalities, contacted by nursing for tachycardia up to 126. CIWA 7, mild headache, reported visual hallucination of someone standing behind him, moderate tremor, no anxiety, agitation, or diaphoresis. Oriented to person, time and place. No hx of etoh withdrawal seizure. No CP or SOB. PE: const: A+Ox3, NAD cardio: tachy, regular rhythm, no murmur resp: CTA bilat extremities: moderate tremor skin: warm and dry A/P: acute etoh withdrawal - no hx of seizures - phenobarb protocol, folic acid, thiamine and multivitamin - continue CIWAs Q4H due to severe electrolyte abnormalities earlier today will recheck now Time Spent With Patient Time: Total time managing care of this patient today ____ minutes.
[2024-03-17 01:06] LABS: Anion Gap 21 (12-20); Blood Urea Nitrogen 19 mg/dL (9-16); Calcium 9.3 mg/dL (8.4-10.2); Carbon Dioxide 15 mmol/L (22-29); Chloride 98 mmol/L (96-108); Creatinine Clr Calc Pharmacy 62.4; Estimated Glomerular Filt Rate 49; Glucose Random 366 mg/dL (60-115); Magnesium 1.5 mg/dL (1.6-2.6); Potassium 4.5 mmol/L (3.3-5.1); Sodium 129 mmol/L (135-145)
[2024-03-17] MEDS: PHENobarbitaL sodium 130 MG/ML IM ONCE 219 MG IM (01:20)
[2024-03-17 02:22] LABS: Glucose, Whole Blood 165 mg/dL (60-115)
[2024-03-17 02:38] LABS: Glucose, Whole Blood 161 mg/dL (60-115)
--- NOTE | 2024-03-17 02:52 | PC.NURSE ---
Provider notied t/w of pt blood glucose and order placed for 10u of insulin. T/w did two POC checks and they were 165 and 161. Requested repeat blood glucose testing for assurance,
[2024-03-17] MEDS: Magnesium Sulfate/H2O 2 GM/50 ML PIGGYBACK IV (03:19)
[2024-03-17 03:27] LABS: Glucose Random 165 mg/dL (60-115)
--- NOTE | 2024-03-17 03:36 | PC.NURSE ---
NSULIN HELD DUE TO REPEAT LABS
[2024-03-17] MEDS: PHENobarbitaL sodium 130 MG/ML VIAL IM Q3Hx2 164 MG IM ×2 (05:37→07:32)
[2024-03-17 05:42] LABS: Hematocrit 28.5 % (42.0-52.0); Hemoglobin 10.1 g/dl (14.0-18.0); Mean Corpuscular HGB Conc 35.4 g/dl (31.0-36.0); Mean Corpuscular Hemoglobin 31.9 pg (27.0-33.0); Mean Corpuscular Volume 89.9 fL (80.0-98.0); Mean Platelet Volume 9.6 fL (9.4-12.4); Platelet Count 101 X10*3/uL (160-400); Red Blood Count 3.17 X10*6/uL (4.60-5.80); White Blood Count 7.2 X10*3/uL (4.8-10.8)
[2024-03-17 05:50] LABS: Prothrombin Time 11.1 SEC (10.9-12.4)
[2024-03-17 06:03] LABS: Anion Gap 21 (12-20); Blood Urea Nitrogen 18 mg/dL (9-16); Calcium 9.6 mg/dL (8.4-10.2); Carbon Dioxide 15 mmol/L (22-29); Chloride 97 mmol/L (96-108); Creatinine Clr Calc Pharmacy 63.3; Estimated Glomerular Filt Rate 49; Glucose Fasting 156 mg/dL (60-99); Magnesium 2.4 mg/dL (1.6-2.6); Potassium 5.1 mmol/L (3.3-5.1); Sodium 128 mmol/L (135-145)
[2024-03-17 07:12] LABS: Glucose, Whole Blood 140 mg/dL (60-115)
--- NOTE | 2024-03-17 08:39 | P.CONOP_ITS ---
History of Present Illness HPI Consult date: 03/17/24 Chief complaint: hypomag Narrative: 63-year-old gentleman who was admitted to the medical service after sustaining a fall due to weakness. In the emergency department he was found to have significant electrolyte imbalances due to alcohol intoxication. Approximately 3-4 weeks ago he was seen in the emergency department status post fall and was diagnosed with a right tibial spine fracture. He was discharged home ambulating with a walker and recommended ortho follow-up. On admission at this time, medicine consulted Orthopedics for further recommendations on right tibial spine fracture. Patient states he has been ambulating with a walker. He denies pain. Denies instability. 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 If so, by whom?: No Do you feel safe in your current relationship?: Yes Is there a partner from a previous relationship who is making you feel unsafe now?: No Are you made to feel afraid or neglected: No Advance Directives: No Advance Directives Information Provided: Yes Do you have a plan to hurt others: No Plan Recently lost weight without trying: No Nutrition Risks: No Nutritional Risk Poor oral hygiene: No Meds Allergies Allergy/AdvReac Type Severity Reaction Status Date / Time No Known Allergies Allergy Verified 03/16/24 11:16 Active Medications: Current Medications Acetaminophen (Acetaminophen 325 Mg Tablet) 650 mg PO Q6H PRN PRN Reason: Pain, Mild (Pain Scale 1-3), fever or headache Calcium Carbonate (Calcium Carbonate 750 Mg Tab.Chew) 750 mg PO Q4H PRN PRN Reason: Heartburn Enoxaparin Sodium (Enoxaparin Sodium 40 Mg/0.4 Ml Syringe) 40 mg SUBCUT Q24H [facility] Last Admin: 03/16/24 16:59 Dose: 40 mg Folic Acid (Folic Acid 1 Mg Tablet) 1 mg PO DAILY [facility] Stop: 03/20/24 08:59 Glucose (Glucose Gel 15 Gm Gel..Gram.) 15 gm PO Q15M PRN; Protocol PRN Reason: per Hypoglycemia Standing Ord. Dextrose (D10) 250 mls @ 750 mls/hr IV Q15M PRN; Protocol PRN Reason: per Hypoglycemia Standing Ord. Insulin Human Lispro (Insulin Lispro 100 Unit/Ml 3 Ml Vial) 0 unit SUBCUT QIDACHS [facility]; Protocol Last Admin: 03/17/24 07:11 Dose: Not Given Magnesium Hydroxide (Milk Of Magnesia 30 Ml Oral.Susp) 30 ml PO DAILY PRN PRN Reason: Constipation Magnesium Oxide (Magnesium Oxide 400 Mg Tablet) 800 mg PO TID [facility] Last Admin: 03/16/24 21:23 Dose: 800 mg Melatonin (Melatonin 3 Mg Tablet) 6 mg PO BEDTIME PRN PRN Reason: Insomnia Multivitamins/Vitamin C (Multivitamin Tablet) 1 tab PO DAILY [facility] Stop: 03/20/24 08:59 Pharmacy Consult (Consult Rx Etoh Phenob Im/Po) 1 each MISCELLANE ONCE PRN; Protocol PRN Reason: Consult order Phenobarbital (Phenobarbital 15 Mg Tablet) 45 mg PO BID [facility]; Protocol Stop: 03/19/24 09:01 Phenobarbital (Phenobarbital 15 Mg Tablet) 15 mg PO BID [facility]; Protocol Stop: 03/21/24 09:01 Phenobarbital (Phenobarbital 15 Mg Tablet) 15 mg PO DAILY [facility]; Protocol Stop: 03/23/24 09:01 Sodium Chloride (0.9 % Sodium Chloride Flush 3 Ml Syringe) [facility] Last Admin: 03/17/24 01:13 Dose: Not Given Thiamine HCl (Thiamine Hcl 100 Mg Tablet) 100 mg PO DAILY [facility] Stop: 03/20/24 08:59 Home Medications ?Medication ?Instructions ?Recorded ?Confirmed ?Last Taken ?Type amlodipine 2.5 mg tablet 2.5 mg PO DAILY 09/20/23 03/16/24 03/16/24 History atorvastatin 40 mg tablet 40 mg PO DAILY 09/20/23 03/16/24 03/16/24 History irbesartan 300 mg tablet 300 mg PO DAILY 09/20/23 03/16/24 03/16/24 History metformin 500 mg tablet,extended 1,000 mg PO DAILY 09/20/23 03/16/24 03/16/24 History release 24 hr metoprolol succinate 25 mg 25 mg PO DAILY 09/20/23 03/16/24 03/16/24 History tablet,extended release 24 hr tamsulosin 0.4 mg capsule 0.4 mg PO BEDTIME PRN enlarge 09/20/23 03/16/24 09/19/23 18:00 History prostate torsemide 20 mg tablet 20 mg PO DAILY 09/20/23 03/16/24 03/16/24 History acamprosate 333 mg tablet,delayed 666 mg PO TID 03/16/24 03/16/24 03/16/24 History release mirtazapine 7.5 mg tablet 7.5 mg PO BEDTIME 03/16/24 03/16/24 03/15/24 History Physical Exam 2 Vital Signs: Vital Signs: Last Vital Signs Temp 98.2 F 03/17/24 05:27 Pulse 114 H 03/17/24 07:31 Resp 17 03/17/24 07:31 BP 132/70 03/17/24 07:31 Pulse Ox 97 03/17/24 07:31 O2 Del Method Room Air 03/17/24 07:31 BMI result Body Mass Index 38.0 Const: General: cooperative, healthy appearing, comfortable and no acute distress Extrem: Other: Right knee normal to inspection. No joint effusion. Range of motion full. No tenderness to palpation. Neurovascularly intact. Results Labs 03/17/24 05:21 03/17/24 05:21 Labs: Abnormal lab results 03/16/24 03/16/24 03/16/24 Range/Units 12:01 19:54 20:31 RBC 3.27 L (4.60-5.80) X10*6/uL Hgb 10.3 L (14.0-18.0) g/dl Hct 30.0 L (42.0-52.0) % Plt Count 115 L (160-400) X10*3/uL Immature Gran % (Auto) 0.7 H (0.0-0.4) % Eos % (Auto) 4.3 H (0-4) % Abs Immat Gran (auto) 0.04 H (0.00-0.03) X10*3/uL Sodium 128 L (135-145) mmol/L Chloride 93 L (96-108) mmol/L Carbon Dioxide 18 L (22-29) mmol/L Anion Gap 21 H (12-20) BUN 19 H (9-16) mg/dL Creatinine (0.5-1.4) mg/dL POC Glucose 122 H (60-115) mg/dL Random Glucose (60-115) mg/dL Fasting Glucose (60-99) mg/dL Magnesium 1.1 L* (1.6-2.6) mg/dL AST 78 H (5-37) U/L Urine Blood Trace H (Negative) Ethyl Alcohol 321 H* mg/dL 03/16/24 03/17/24 03/17/24 Range/Units 23:29 00:36 02:17 RBC (4.60-5.80) X10*6/uL Hgb (14.0-18.0) g/dl Hct (42.0-52.0) % Plt Count (160-400) X10*3/uL Immature Gran % (Auto) (0.0-0.4) % Eos % (Auto) (0-4) % Abs Immat Gran (auto) (0.00-0.03) X10*3/uL Sodium 129 L (135-145) mmol/L Chloride (96-108) mmol/L Carbon Dioxide 15 L (22-29) mmol/L Anion Gap 21 H (12-20) BUN 19 H (9-16) mg/dL Creatinine 1.46 H (0.5-1.4) mg/dL POC Glucose 172 H 165 H (60-115) mg/dL Random Glucose 366 H* (60-115) mg/dL Fasting Glucose (60-99) mg/dL Magnesium 1.5 L (1.6-2.6) mg/dL AST (5-37) U/L Urine Blood (Negative) Ethyl Alcohol mg/dL 03/17/24 03/17/24 03/17/24 Range/Units 02:34 03:12 05:21 RBC 3.17 L (4.60-5.80) X10*6/uL Hgb 10.1 L (14.0-18.0) g/dl Hct 28.5 L (42.0-52.0) % Plt Count 101 L (160-400) X10*3/uL Immature Gran % (Auto) (0.0-0.4) % Eos % (Auto) (0-4) % Abs Immat Gran (auto) (0.00-0.03) X10*3/uL Sodium 128 L (135-145) mmol/L Chloride (96-108) mmol/L Carbon Dioxide 15 L (22-29) mmol/L Anion Gap 21 H (12-20) BUN 18 H (9-16) mg/dL Creatinine 1.44 H (0.5-1.4) mg/dL POC Glucose 161 H (60-115) mg/dL Random Glucose 165 H (60-115) mg/dL Fasting Glucose 156 H (60-99) mg/dL Magnesium (1.6-2.6) mg/dL AST (5-37) U/L Urine Blood (Negative) Ethyl Alcohol mg/dL 03/17/24 Range/Units 07:08 RBC (4.60-5.80) X10*6/uL Hgb (14.0-18.0) g/dl Hct (42.0-52.0) % Plt Count (160-400) X10*3/uL Immature Gran % (Auto) (0.0-0.4) % Eos % (Auto) (0-4) % Abs Immat Gran (auto) (0.00-0.03) X10*3/uL Sodium (135-145) mmol/L Chloride (96-108) mmol/L Carbon Dioxide (22-29) mmol/L Anion Gap (12-20) BUN (9-16) mg/dL Creatinine (0.5-1.4) mg/dL POC Glucose 140 H (60-115) mg/dL Random Glucose (60-115) mg/dL Fasting Glucose (60-99) mg/dL Magnesium (1.6-2.6) mg/dL AST (5-37) U/L Urine Blood (Negative) Ethyl Alcohol mg/dL H & H 03/16/24 03/17/24 Range/Units 12:01 05:21 Hgb 10.3 L 10.1 L (14.0-18.0) g/dl Hct 30.0 L 28.5 L (42.0-52.0) % Coagulation 03/16/24 03/17/24 Range/Units 12:01 05:21 INR 1.0 1.0 (0.9-1.1) All other labs normal. Assessment and Plan (1) Fracture of right tibial spine: Status: Acute Plan xrays of the right knee show stable right tibial spine fx, no depression or displacement patient can WBAT with walker as long as pain free f/u with orthopedics out patient in 4 weeks with xrays PT for ROm and quad strength Procedures Date of Service Date of Service: 03/17/24
--- NOTE | 2024-03-17 09:09 | PC.NURSE ---
up to commode this AM with soft BM
[2024-03-17] MEDS: Magnesium Oxide 400 MG TABLET 800 MG PO ×3 (09:11→21:42)
[2024-03-17] MEDS: Acetaminophen 325 MG TABLET 650 MG PO (09:11)
[2024-03-17] MEDS: Thiamine HCL 100 MG TABLET PO (09:12)
[2024-03-17] MEDS: 0.9 % Sodium Chloride Flush 3 ML SYRINGE IVFLUSH ×3 (09:12→21:44)
[2024-03-17] MEDS: Multivitamin TABLET 1 TAB PO (09:12)
[2024-03-17] MEDS: Folic Acid 1 MG TABLET PO (09:12)
--- NOTE | 2024-03-17 09:50 | P.PNIM_ITS ---
Subjective Subjective Date of Service: 03/17/24 Interval History: Started to have withdrawal symptoms overnight Physical Exam 2 Vital Signs: Vital Signs: Last Vital Signs Temp 98.2 F 03/17/24 05:27 Pulse 123 H 03/17/24 09:10 Resp 19 03/17/24 09:10 BP 117/77 03/17/24 09:10 Pulse Ox 97 03/17/24 07:31 O2 Del Method Room Air 03/17/24 07:31 BMI result Body Mass Index 38.0 General: AO X 3, no acute distress Resp: CTA bilateral, no accessory muscles used CVS: S1,S2,RRR GI: soft, non tender, non distended Neuro: motor grossly intact, alert, tremulous Psych: appropriate affect, appropriate insight Objective Data Active Medications Acetaminophen (Acetaminophen 325 Mg Tablet) 650 mg PO Q6H PRN PRN Reason: Pain, Mild (Pain Scale 1-3), fever or headache Last Admin: 03/17/24 09:11 Dose: 650 mg Documented By: GANESH Calcium Carbonate (Calcium Carbonate 750 Mg Tab.Chew) 750 mg PO Q4H PRN PRN Reason: Heartburn Enoxaparin Sodium (Enoxaparin Sodium 40 Mg/0.4 Ml Syringe) 40 mg SUBCUT Q24H [facility] Last Admin: 03/16/24 16:59 Dose: 40 mg Documented By: BHARAT Folic Acid (Folic Acid 1 Mg Tablet) 1 mg PO DAILY [facility] Stop: 03/20/24 08:59 Last Admin: 03/17/24 09:12 Dose: 1 mg Documented By: GANESH Glucose (Glucose Gel 15 Gm Gel..Gram.) 15 gm PO Q15M PRN; Protocol PRN Reason: per Hypoglycemia Standing Ord. Dextrose (D10) 250 mls @ 750 mls/hr IV Q15M PRN; Protocol PRN Reason: per Hypoglycemia Standing Ord. Insulin Human Lispro (Insulin Lispro 100 Unit/Ml 3 Ml Vial) 0 unit SUBCUT QIDACHS [facility]; Protocol Last Admin: 03/17/24 07:11 Dose: Not Given Documented By: GANESH Non-Admin Reason: No Insulin Coverage Magnesium Hydroxide (Milk Of Magnesia 30 Ml Oral.Susp) 30 ml PO DAILY PRN PRN Reason: Constipation Magnesium Oxide (Magnesium Oxide 400 Mg Tablet) 800 mg PO TID [facility] Last Admin: 03/17/24 09:11 Dose: 800 mg Documented By: GANESH Melatonin (Melatonin 3 Mg Tablet) 6 mg PO BEDTIME PRN PRN Reason: Insomnia Multivitamins/Vitamin C (Multivitamin Tablet) 1 tab PO DAILY [facility] Stop: 03/20/24 08:59 Last Admin: 03/17/24 09:12 Dose: 1 tab Documented By: GANESH Pharmacy Consult (Consult Rx Etoh Phenob Im/Po) 1 each MISCELLANE ONCE PRN; Protocol PRN Reason: Consult order Phenobarbital (Phenobarbital 15 Mg Tablet) 45 mg PO BID [facility]; Protocol Stop: 03/19/24 09:01 Phenobarbital (Phenobarbital 15 Mg Tablet) 15 mg PO BID [facility]; Protocol Stop: 03/21/24 09:01 Phenobarbital (Phenobarbital 15 Mg Tablet) 15 mg PO DAILY [facility]; Protocol Stop: 03/23/24 09:01 Sodium Chloride (0.9 % Sodium Chloride Flush 3 Ml Syringe) 3 ml IVFLUSH QSHIFT [facility] Last Admin: 03/17/24 09:12 Dose: 3 ml Documented By: GANESH Thiamine HCl (Thiamine Hcl 100 Mg Tablet) 100 mg PO DAILY [facility] Stop: 03/20/24 08:59 Last Admin: 03/17/24 09:12 Dose: 100 mg Documented By: GANESH Labs 03/17/24 05:21 03/17/24 05:21 Labs: Laboratory Results - last 24 hr 03/16/24 03/16/24 03/16/24 11:21 12:00 12:01 MCV 91.7 MCH 31.5 MCHC 34.3 RDW 13.1 Plt Count 115 L MPV 9.6 Immature Gran % (Auto) 0.7 H Neut % (Auto) 49.8 Lymph % (Auto) 37.2 [place] % (Auto) 7.0 Eos % (Auto) 4.3 H Baso % (Auto) 1.0 Lymph # (Auto) 2.2 [place] # (Auto) 0.4 Eos # (Auto) 0.3 Baso # (Auto) 0.1 Abs Immat Gran (auto) 0.04 H Absolute Neuts (auto) 3.0 Absolute Nucleated RBC 0.000 Nucleated RBC % (auto) 0.0 PT 12.2 INR 1.0 Anion Gap 21 H Estim Creat Clear Calc 65.1 Estimated GFR 51 POC Glucose 93 Random Glucose 109 Fasting Glucose Calcium 9.9 Magnesium 1.1 L* Total Bilirubin 0.4 AST 78 H ALT 33 Alkaline Phosphatase 42 Troponin I High Sens 5.2 Total Protein 7.5 Albumin 4.3 Urine Color Urine Appearance Urine pH Ur Specific [place] Urine Protein Urine Glucose (UA) Urine Ketones Urine Blood Urine Nitrite Ur Leukocyte Esterase Urine RBC Urine WBC Ur Squamous Epith Cells Urine Bacteria Hyaline Casts Urine Opiates Screen Ur Buprenorphine Scrn Ur Oxycodone Screen Urine Methadone Screen Urine Fentanyl Screen Ur Barbiturates Screen Ur Phencyclidine Scrn Ur Amphetamines Screen U Benzodiazepines Scrn Urine Cocaine Screen U Marijuana (THC) Screen Ethyl Alcohol 321 H* Influenza Type A (PCR) NEGATIVE Influenza Type B (PCR) NEGATIVE RSV RNA Qual (PCR) NEGATIVE SARS-CoV-2 RNA (RT-PCR) NEGATIVE 03/16/24 03/16/24 03/16/24 19:54 20:31 23:29 MCV MCH MCHC RDW Plt Count MPV Immature Gran % (Auto) Neut % (Auto) Lymph % (Auto) [place] % (Auto) Eos % (Auto) Baso % (Auto) Lymph # (Auto) [place] # (Auto) Eos # (Auto) Baso # (Auto) Abs Immat Gran (auto) Absolute Neuts (auto) Absolute Nucleated RBC Nucleated RBC % (auto) PT INR Anion Gap Estim Creat Clear Calc Estimated GFR POC Glucose 122 H 172 H Random Glucose Fasting Glucose Calcium Magnesium Total Bilirubin AST ALT Alkaline Phosphatase Troponin I High Sens Total Protein Albumin Urine Color Yellow Urine Appearance Clear Urine pH 5.5 Ur Specific [place] 1.010 Urine Protein Negative Urine Glucose (UA) Negative Urine Ketones Trace Urine Blood Trace H Urine Nitrite Negative Ur Leukocyte Esterase Negative Urine RBC 0-2 Urine WBC 0-5 Ur Squamous Epith Cells 0-2 Urine Bacteria None Seen Hyaline Casts 3-5 Urine Opiates Screen Not Detected Ur Buprenorphine Scrn Not Detected Ur Oxycodone Screen Not Detected Urine Methadone Screen Not Detected Urine Fentanyl Screen Not Detected Ur Barbiturates Screen Not Detected Ur Phencyclidine Scrn Not Detected Ur Amphetamines Screen Not Detected U Benzodiazepines Scrn Not Detected Urine Cocaine Screen Not Detected U Marijuana (THC) Screen Not Detected Ethyl Alcohol Influenza Type A (PCR) Influenza Type B (PCR) RSV RNA Qual (PCR) SARS-CoV-2 RNA (RT-PCR) 03/17/24 03/17/2424 00:36 02:17 02:34 MCV MCH MCHC RDW Plt Count MPV Immature Gran % (Auto) Neut % (Auto) Lymph % (Auto) [place] % (Auto) Eos % (Auto) Baso % (Auto) Lymph # (Auto) [place] # (Auto) Eos # (Auto) Baso # (Auto) Abs Immat Gran (auto) Absolute Neuts (auto) Absolute Nucleated RBC Nucleated RBC % (auto) PT INR Anion Gap 21 H Estim Creat Clear Calc 62.4 Estimated GFR 49 POC Glucose 165 H 161 H Random Glucose 366 H* Fasting Glucose Calcium 9.3 D Magnesium 1.5 L Total Bilirubin AST ALT Alkaline Phosphatase Troponin I High Sens Total Protein Albumin Urine Color Urine Appearance Urine pH Ur Specific [place] Urine Protein Urine Glucose (UA) Urine Ketones Urine Blood Urine Nitrite Ur Leukocyte Esterase Urine RBC Urine WBC Ur Squamous Epith Cells Urine Bacteria Hyaline Casts Urine Opiates Screen Ur Buprenorphine Scrn Ur Oxycodone Screen Urine Methadone Screen Urine Fentanyl Screen Ur Barbiturates Screen Ur Phencyclidine Scrn Ur Amphetamines Screen U Benzodiazepines Scrn Urine Cocaine Screen U Marijuana (THC) Screen Ethyl Alcohol Influenza Type A (PCR) Influenza Type B (PCR) RSV RNA Qual (PCR) SARS-CoV-2 RNA (RT-PCR) 03/17/24 03/17/24 03/17/24 03:12 05:21 07:08 MCV 89.9 MCH 31.9 MCHC 35.4 RDW 13.0 Plt Count 101 L MPV 9.6 Immature Gran % (Auto) Neut % (Auto) Lymph % (Auto) [place] % (Auto) Eos % (Auto) Baso % (Auto) Lymph # (Auto) [place] # (Auto) Eos # (Auto) Baso # (Auto) Abs Immat Gran (auto) Absolute Neuts (auto) Absolute Nucleated RBC 0.000 Nucleated RBC % (auto) 0.0 PT 11.1 INR 1.0 Anion Gap 21 H Estim Creat Clear Calc 63.3 Estimated GFR 49 POC Glucose 140 H Random Glucose 165 H Fasting Glucose 156 H Calcium 9.6 Magnesium 2.4 Total Bilirubin AST ALT Alkaline Phosphatase Troponin I High Sens Total Protein Albumin Urine Color Urine Appearance Urine pH Ur Specific [place] Urine Protein Urine Glucose (UA) Urine Ketones Urine Blood Urine Nitrite Ur Leukocyte Esterase Urine RBC Urine WBC Ur Squamous Epith Cells Urine Bacteria Hyaline Casts Urine Opiates Screen Ur Buprenorphine Scrn Ur Oxycodone Screen Urine Methadone Screen Urine Fentanyl Screen Ur Barbiturates Screen Ur Phencyclidine Scrn Ur Amphetamines Screen U Benzodiazepines Scrn Urine Cocaine Screen U Marijuana (THC) Screen Ethyl Alcohol Influenza Type A (PCR) Influenza Type B (PCR) RSV RNA Qual (PCR) SARS-CoV-2 RNA (RT-PCR) Assessment and Plan (1) Alcohol abuse: Status: Acute Plan 63M PMH etoh dependence with steatohepatitis, obesity, diabetes, STANLEY, CKD 3, BPH, hypertension presented from [facility] ( [facility] ) with weakness and fall. Weakness and fall Likely due to hypomagnesemia and hyponatremia due to alcohol use Hypomagnesemia resolved with replacement Still with hyponatremia, continue fluid restriction, increase solute intake Alcohol dependence with steatohepatitis and acute withdrawal and acute metabolic acidosis due to starvation ketoacidosis Started on phenobarbital, continue CIWA Oral sodium bicarb, monitor Diabetes Insulin sliding scale Recent right tibial spine fracture Ortho eval question weight-bearing status PT eval CKD 3 At baseline DVT prophylaxis with Lovenox Full Code reason for continued hospitalization: Active withdrawal Quality Stroke Does the patient have a stroke diagnosis?: No VTE Prior VTE?: No VTE Risk Level:: Medical - moderate - high VTE Device Contraindication: Treatment Not Indicated VTE Drug Contraindication: N/A - Med Ordered
[2024-03-17 11:20] LABS: Glucose, Whole Blood 200 mg/dL (60-115)
[2024-03-17] MEDS: Sodium Bicarbonate 650 MG TABLET PO ×3 (11:59→21:43)
[2024-03-17] MEDS: Insulin Lispro 100 UNIT/ML 3 ML VIAL SUBCUT ×2 (11:59→21:43)
--- NOTE | 2024-03-17 12:38 | MHC.CM.PN ---
Pt lives at [facility] in [place], he said he will be able to return there at DC. He has home care services of a TRACTOR DRIVER and a nurse that comes 3 x a week. CM will send message to [facility] to ask if this is the VNA, Pt. was not able to say. His brother will transport home at DC. HCP will be completed and added to chart. DCP: return to [facility] with services. CM to follow for DC needs.
[2024-03-17 15:57] LABS: Glucose, Whole Blood 149 mg/dL (60-115)
--- NOTE | 2024-03-17 15:58 | MHC.RECOVRN ---
AUDIT-C Brief Intervention Pt had positive screen for unhealthy alcohol use on admission, subsequently met with t/w to discuss alcohol use and recovery supports/options. This commercial loan underwriter met with patient to discuss current alcohol use and concerns related to increased risk of alcohol related problems.? Pt reports 1.75 liters vodka every 2 days since 2018 with a few periods of a few months of abstinence. Pts longest period in recovery was 5 months since 2018. 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 Pt reprots he is no longer working. Pt reports he began drinking daily in 2018 after my left me. Discussed how alcohol use has impacted health, including negative impact on overall physical wellbeing. Withdrawal History: denies hx seizures Treatment History: has been to AA a few times, currently prescribed Campral from PCP, this is 2nd hospitalization related to alcohol use, denies ATS Supports:?denies, however, reports a man living across the [place] recently entered into recovery from alcohol and is a potential support Discussed risk reduction strategies including drinking below the recommended limit. Pts goal is to reduce the amount he is drinking. Provided pt with written resources including information on inpatient and outpatient treatment, CRICKET, harm reduction, and recovery coaching. Pt plans to review resources and t/w will follow up tomorrow. Pt provided with t/w contact information if questions or concerns arise. Denies other questions or concerns at this time.?
[2024-03-17] MEDS: PHENobarbitaL 15 MG TABLET 45 MG PO (16:20)
[2024-03-17] MEDS: Nystatin Cream 15 GM TUBE 1 APPL TOPICAL (16:20)
[2024-03-17] MEDS: Enoxaparin Sodium 40 MG/0.4 ML SYRINGE SUBCUT (16:20)
[2024-03-17 21:02] LABS: Glucose, Whole Blood 172 mg/dL (60-115)
[2024-03-18] VITALS: BP 118/66; PULSE 98; RESP 18; TEMP 37.5; O2SAT 95
[2024-03-18 04:00] VITALS: BP 131/75; PULSE 95; RESP 18; TEMP 37.3; O2SAT 97
[2024-03-18] MEDS: Throat Lozenge, Medicated LOZENGE 1 LOZENGE MUCOUS MEM ×3 (06:11→13:47)
[2024-03-18 07:00] LABS: Hematocrit 29.1 % (42.0-52.0); Hemoglobin 9.7 g/dl (14.0-18.0); Mean Corpuscular HGB Conc 33.3 g/dl (31.0-36.0); Mean Corpuscular Hemoglobin 31.3 pg (27.0-33.0); Mean Corpuscular Volume 93.9 fL (80.0-98.0); Mean Platelet Volume 10.3 fL (9.4-12.4); Red Cell Distribution Width 13.2 % (11.0-16.0); White Blood Count 4.5 X10*3/uL (4.8-10.8)
[2024-03-18 07:01] LABS: Platelet Count 90 X10*3/uL (160-400)
[2024-03-18 07:17] LABS: Anion Gap 17 (12-20); Blood Urea Nitrogen 14 mg/dL (9-16); Calcium 9.6 mg/dL (8.4-10.2); Carbon Dioxide 22 mmol/L (22-29); Chloride 102 mmol/L (96-108); Creatinine Clr Calc Pharmacy 73.5; Estimated Glomerular Filt Rate 58; Glucose Fasting 162 mg/dL (60-99); Magnesium 2.4 mg/dL (1.6-2.6); Potassium 4.2 mmol/L (3.3-5.1); Sodium 137 mmol/L (135-145)
[2024-03-18 07:33] LABS: Glucose, Whole Blood 134 mg/dL (60-115)
[2024-03-18 07:47] VITALS: BP 135/80; PULSE 92; RESP 18; TEMP 36.9; O2SAT 98
[2024-03-18] MEDS: 0.9 % Sodium Chloride Flush 3 ML SYRINGE IVFLUSH ×2 (08:34→14:36)
[2024-03-18] MEDS: Folic Acid 1 MG TABLET PO (08:34)
[2024-03-18] MEDS: Multivitamin TABLET 1 TAB PO (08:34)
[2024-03-18] MEDS: Thiamine HCL 100 MG TABLET PO (08:34)
[2024-03-18] MEDS: PHENobarbitaL 15 MG TABLET 45 MG PO (08:34)
[2024-03-18] MEDS: Sodium Bicarbonate 650 MG TABLET PO ×2 (08:34→14:35)
[2024-03-18] MEDS: Magnesium Oxide 400 MG TABLET 800 MG PO ×2 (08:34→14:35)
[2024-03-18] MEDS: Nystatin Cream 15 GM TUBE 1 APPL TOPICAL (08:36)
[2024-03-18 11:59] LABS: Glucose, Whole Blood 131 mg/dL (60-115)
[2024-03-18 12:00] VITALS: BP 129/87; PULSE 99; RESP 17; TEMP 36.9; O2SAT 96
--- NOTE | 2024-03-18 13:28 | P.DS_ITS ---
DS: Providers Provider Date of Service: 03/18/24 Date of admission: 03/16/24 16:29 Date of discharge: 03/18/24 Primary care physician: Ezra Larose MD Consults: 03/16/24 16:27 Consult to Orthopedics Routine Consulting Provider: [facility] Reason for consultation: ?weight bearing status, recent right tibia spine fracture 02/18/24 03/17/24 11:40 Addiction Medicine Routine Consulting Provider: Addiction Covering Reason for consultation: ETOH DS: Diagnosis Discharge Diagnosis (1) Fracture of right tibial spine: Status: Acute (2) Weakness generalized: Status: Acute (3) Acute hyponatremia: Status: Acute (4) Hypomagnesemia: Status: Acute (5) Alcoholic ketoacidosis: Status: Acute (6) JOCE (acute kidney injury): Status: Acute (7) Alcohol abuse: Status: Acute DS: Summary Hospital Course Hospital Course: Admission note HPI 63M PMH etoh dependence with steatohepatitis, obesity, diabetes, STANLEY, CKD 3, BPH, hypertension presented from alf ( soldier on ) with weakness and fall. Patient states he was feeling well day prior to presentation. On a.m. of presentation was not able to get up, tried multiple times and eventually stood up for a 2nd and then fell to the ground without significant trauma. He called EMS using his rescue alert. In ED found to be hyponatremic, hypomagnesemic. Patient reports drinking 2 gal of vodka per week, last week day prior to presentation. Of note patient has right tibial knee fracture from 02/18/2024, reports ambulating. Hospital course The patient was treated inpatient for the following: # Weakness and fall Likely due to hypomagnesemia and hyponatremia due to alcohol use. Hypomagnesemia resolved with replacement and will be discharged on Mg supp lement. Hyponatremia recovered with fluid restriction and increased solute intake. advised to stay away from alcohol and monitor his weight. # Alcohol dependence with steatohepatitis and acute withdrawal and acute metabolic acidosis due to starvation ketoacidosis treated with IV fluids and phenobarbital protocol and CIWA with good response as he went through withdrawal with CIWA scoring as low as 1. Took sodium bicarb with resolution of kidney injury and metabolic acidosis. # Recent right tibial spine fracture was evaluated by Orthopedic team who recommended weight-bearing and follow up in 4 weeks in office. PT evaluation done. To send him home with home PT via VNA if possible. Discharge plan We advise you total abstinence from Alcohol Take magnesium and multivitamin Physical therapy at home Follow with Orthopedic as outpatient in 4 weeks for Time Attestation Discharge Coordination Time (in mins): 39 Quality: Safe Use of Opioids Does Pt have an Active Cancer Diagnosis on the Problem List?: No Quality: Stroke Does the patient have a stroke diagnosis?: No Physical Exam Vital Signs: Vital Signs: Last Vital Signs Temp 98.4 F 03/18/24 12:00 Pulse 99 03/18/24 12:00 Resp 17 03/18/24 12:00 BP 129/87 03/18/24 12:00 Pulse Ox 96 03/18/24 12:00 O2 Del Method Room Air 03/18/24 12:00 BMI result Body Mass Index 38.6 Const: Other: Constitutional : Awake, interactive, not in distress Neck : Normal inspection, Supple Cardiovascular : RRR, no JVP, no lower extremity edema Respiratory : good bilateral air entry, no crackles, wheezes or rhonchi Gastrointestinal: soft, lax, Normal bowel sounds, Non tender Skin : Warm, Dry Skeletal: Right knee normal to inspection. No joint effusion. Range of motion full. No tenderness to palpation. Neurological : Alert & oriented x3, No focal deficit DS: Data Data Completed and Pending Completed studies during hospitalization [Text1]: Procedures Detoxification Services for Substance Abuse Treatment (09/20/23) Labs on day of discharge: Laboratory Results - last 24 hr 03/17/24 03/17/24 03/18/24 15:51 20:58 06:12 WBC 4.5 L RBC 3.10 L Hgb 9.7 L Hct 29.1 L MCV 93.9 MCH 31.3 MCHC 33.3 RDW 13.2 Plt Count 90 L MPV 10.3 Absolute Nucleated RBC 0.000 Nucleated RBC % (auto) 0.0 Sodium 137 Potassium 4.2 Chloride 102 Carbon Dioxide 22 Anion Gap 17 BUN 14 Creatinine 1.25 Estim Creat Clear Calc 73.5 Estimated GFR 58 POC Glucose 149 H 172 H Fasting Glucose 162 H Calcium 9.6 Magnesium 2.4 03/18/24 03/18/24 07:23 11:54 WBC RBC Hgb Hct MCV MCH MCHC RDW Plt Count MPV Absolute Nucleated RBC Nucleated RBC % (auto) Sodium Potassium Chloride Carbon Dioxide Anion Gap BUN Creatinine Estim Creat Clear Calc Estimated GFR POC Glucose 134 H 131 H Fasting Glucose Calcium Magnesium Imaging Chest x-ray: Radiologist's impression: ITS Impressions Knee X-Ray 03/17/24 08:30 IMPRESSION: Healing fracture of the tibial spine. Electronically signed by: Job Lopes MD 03/17/2024 07:08 PM [facility] [place] Discharge Anticipated Discharge Date/Time: 03/18/24 13:22 Patient Disposition: Home Health Service Discharge Diagnosis: Alcohol abuse Right Tibia injury Referrals: Ezra Larose MD [Primary Care Provider] - 1 Week Discharge Medications: New multivitamin [Daily-Jay] Tablet 1 tab PO DAILY Qty: 90 0RF magnesium oxide 400 mg (241.3 mg magnesium) Tablet 800 mg PO DAILY Qty: 60 0RF Continued atorvastatin 40 mg tablet 40 mg PO DAILY amlodipine 2.5 mg tablet 2.5 mg PO DAILY tamsulosin 0.4 mg capsule 0.4 mg PO BEDTIME PRN (Reason: enlarge prostate) metoprolol succinate 25 mg tablet extended release 24 hr 25 mg PO DAILY irbesartan 300 mg tablet 300 mg PO DAILY torsemide 20 mg tablet 20 mg PO DAILY metformin 500 mg tablet extended release 24 hr 1,000 mg PO DAILY folic acid 1 mg tablet 1 mg PO DAILY Qty: 30 0RF mirtazapine 7.5 mg tablet 7.5 mg PO BEDTIME acamprosate 333 mg tablet,delayed release (DR/EC) 666 mg PO TID Discharge Orders: Discharge Order (Routine); Ordered 03/18/24 Ordered By: Khadar Saez Diet: Advance to usual diet Activity on Discharge: As tolerated Stand Alone Forms: Patient Portal Discharge page Print Language: Rwandan Care Plan Goals: We advise you total abstinence from Alcohol Take magnesium and multivitamin Physical therapy at home Follow with Orthopedic as outpatient in 4 weeks for Health Concerns: Falls Alcohol abuse Plan of Treatment: Physical therapy Outpatient resources Assessment: as above
--- NOTE | 2024-03-18 13:40 | P.F2F_ITS ---
Service Date Service Date: 03/18/24 Encounter Date of encounter: 03/18/24 Reasons for Services Signs and symptoms assessed: physical deconditioning Reason for physical therapy: home safety and mobility and therapeutic exercises Homebound: Leaving the home is medically contraindicated at this time without the asist of a device and/or another person due th the listed conditions above and below. Reason homebound: unable to drive Certification: Based on the above findings, I certify that this patient is confined to the home and needs intermittent residential care, physical therapy and/or speech therapy, or continues to need occupational therapy. The patient is under my care, and I have initiated the establishment of the plan of care. The patient will be followed by a physician who will periodically review the plan of care. Time Spent With Patient Time: Total time managing care of this patient today ____ minutes.
--- NOTE | 2024-03-18 13:53 | MHC.CM.PN ---
Addendum entered by Bianca Storm 03/18/24 14:14: Pt is active with [facility], and they will resume services. Original Note: Pt has been medically cleared for DC, he will go home via private transport. Referrals are out for VNA services that accept his insurance, [employer].
--- NOTE | 2024-03-18 15:10 | MHC.RECOVRN ---
Met with pt to follow up and provide support. Pt discharging today, plans to continue Campral and utilize neighbor for support. Pt denies questions or concerns for t/w. Encouraged pt to reach out if needed.
== END 2024-03-18 15:20 | disposition home health service (06) | DRG 425 ==
LOC: HO.ED 16:52 → HO.EDOVER 17:00 → HO.IMC 03-17 07:35
PROVIDERS: Physician Assistant; Admitting Provider Internal Medicine; Emergency Provider Emergency Medicine; PCP Internal Medicine; Visit Provider Student in an Organized Health Care Education/Training Program
DX: E83.42 Hypomagnesemia (principal); F10.231 Alcohol dependence with withdrawal delirium; E87.29 Other acidosis; K70.0 Alcoholic fatty liver; E11.22 Type 2 diabetes mellitus with diabetic chronic kidney disease; S82.114A Nondisplaced fracture of right tibial spine, initial encounter for closed fracture; E87.1 Hypo-osmolality and hyponatremia; G47.33 Obstructive sleep apnea (adult) (pediatric); I12.9 Hypertensive chronic kidney disease with stage 1 through stage 4 chronic kidney disease, or unspecified chronic kidney disease; E66.9 Obesity, unspecified; N40.0 Benign prostatic hyperplasia without lower urinary tract symptoms; Y90.8 Blood alcohol level of 240 mg/100 ml or more; X58.XXXA Exposure to other specified factors, initial encounter; Z59.01 Sheltered homelessness; Z20.822 Contact with and (suspected) exposure to COVID-19; Z79.84 Long term (current) use of oral hypoglycemic drugs; Z79.899 Other long term (current) drug therapy
CPT/HCPCS: 0241U; 36415; 73560; 80048; 80053; 80307; 81001; 82947; 83735; 84484; 85025; 85027; 85610; 93005; 97116; 97161; 99285; J1650; J2560; J3475

== ENCOUNTER → 2024-03-16 11:28 | Outpatient (BNV) | payer OTHER, SELFPAY | PROVIDERS: Emergency Provider Emergency Medicine; PCP Internal Medicine; Visit Provider Internal Medicine | DX: S82.111A Displaced fracture of right tibial spine, initial encounter for closed fracture (principal); R53.1 Weakness; E87.1 Hypo-osmolality and hyponatremia; E83.42 Hypomagnesemia; E87.29 Other acidosis; N17.9 Acute kidney failure, unspecified; F10.10 Alcohol abuse, uncomplicated | CPT/HCPCS: 99223; 99232; 99239; 99499; G0180 ==

== ENCOUNTER → 2024-03-16 11:29 | Outpatient (BNV) | payer OTHER, SELFPAY | PROVIDERS: Admitting Provider Internal Medicine; Emergency Provider Emergency Medicine; PCP Internal Medicine; Visit Provider Internal Medicine | DX: R53.1 Weakness (principal) | CPT/HCPCS: 93010 ==

== ENCOUNTER → 2024-03-16 16:29 | Outpatient (BNV) | payer OTHER, SELFPAY | PROVIDERS: Admitting Provider Internal Medicine; Emergency Provider Emergency Medicine; PCP Internal Medicine; Visit Provider Physician Assistant | DX: S82.111A Displaced fracture of right tibial spine, initial encounter for closed fracture (principal) | CPT/HCPCS: 99221 ==

== ENCOUNTER 2024-04-29 08:28 | Outpatient (REF) | payer OTHER, SELFPAY | END 2024-04-29 08:29 | disposition home or self-care (01) | LOC: HO.HOSX 08:28 | PROVIDERS: Visit Provider Physician Assistant | DX: Z13.89 Encounter for screening for other disorder (principal) ==

== ENCOUNTER 2024-05-06 12:54 | Outpatient (REF) | payer OTHER, SELFPAY | END 2024-05-06 12:55 | disposition home or self-care (01) | LOC: HO.HOSX 12:54 | PROVIDERS: Visit Provider Physician Assistant | DX: Z13.89 Encounter for screening for other disorder (principal) ==

== ENCOUNTER 2025-02-02 14:56 | Inpatient (IN) | payer MEDICARE, MEDICAID, SELFPAY ==
--- NOTE | ~2025-02-02 | CT_ITS ---
CLINICAL HISTORY: New onset renal failure, severe diarrhea --- Additional Notes or Special Instructions: Evaluate for hydronephrosis, obstructive process, colitis CT abdomen and pelvis without contrast Comparison: None provided Findings: No consolidation or effusion. Gynecomastia. Cardiomegaly without significant pericardial effusion. Coronary artery calcifications. Hepatomegaly with steatosis. Questionable subtle hepatic nodular contours can be seen with early cirrhosis, should be correlated clinically. Suspected tiny layering gallstones with wall thickening and pericholecystic stranding. Bilateral perinephric stranding, nonspecific. Mild bilateral hydroureteronephrosis without obstructive calculus. No bowel obstruction, pneumoperitoneum, or pneumatosis. Possible tiny paraesophageal varices. Mildly prominent retroperitoneal nodes may be reactive. Fat containing inguinal hernias. Scattered colonic diverticulosis without diverticulitis or colitis. Distended bladder. Osteopenia with diffuse multilevel spondylosis. Diffuse atheromatous plaque disease throughout the aorta and branch vessels, without aneurysmal dilatation. Mild bilateral hip osteoarthritis. IMPRESSION: 1. Suspected tiny layering gallstones with wall thickening and pericholecystic stranding. Cholecystitis may have a similar appearance. If concern persists consider follow-up ultrasound. 2. Mild bilateral hydroureteronephrosis without obstructive calculus. 3. Distended bladder. 4. Additional findings as described. This document has been electronically signed by: Arcadio Vance MD on 02/02/2025 19:08:59
[2025-02-02 15:08] VITALS: BP 108/68; BP 85/45; PULSE 92; PULSE 95; RESP 18; TEMP 36.4; O2SAT 92; O2SAT 94; BMI 36.7
--- NOTE | 2025-02-02 15:08 | ECG_ITS ---
Test Reason : WEAKNESS Blood Pressure : */* mmHG Vent. Rate : 88 BPM Atrial Rate : 88 BPM P-R Int : 176 ms QRS Dur : 82 ms QT Int : 388 ms P-R-T Axes : 38 21 32 degrees QTcB Int : 469 ms Normal sinus rhythm Normal ECG When compared with ECG of 16-Mar-2024 11:34, Previous ECG has undetermined rhythm, needs review Referred By: Linh Boswell Electronically Signed By: David Moura
--- NOTE | 2025-02-02 15:36 | ED.GENADULT ---
HPI - General Adult General Chief complaint: Dizziness Stated complaint: dizzy, weak loss of appetite, light headed 3 days Time Seen by Provider: 02/02/25 15:36 History of Present Illness ED Provider: Dr. Sean Waddell HPI narrative: 63-year-old male with a history of alcohol dependence with steatohepatitis and alcohol withdrawal, obesity, diabetes, STANLEY, CKD 3, BPH, hypertension, hyponatremia who presents emergency department for evaluation of lightheadedness, dizziness and diarrhea x2 days. Patient states that his stools are normally loose and brown and a proximally 3 per day. He states that over the last 2 days he has been having loose, brown stools 10-15 times a day. He states he has had a decreased appetite in his had no food to eat for several days. He states he has been drinking orange juice and [place] in order to stay hydrated. He states that he has been having swelling in his lower extremities for months. He states that several months ago his doctor stopped his diuretics but then restarted diuretics. Patient has known kidney disease and he states that he sees Dr. Dylan Smith at [facility]. He denied fever, chills, chest pain, shortness of breath. He has had nausea but no vomiting. He states he has had decreased urine output. The patient does drank a pt of vodka per day in his last pt of vodka was yesterday. The patient has had acute alcohol withdrawal in the past. The patient has not taken antibiotics recently, traveled outside of the country and has no known contacts with diarrhea Related Data Home Medications ?Medication ?Instructions ?Recorded ?Confirmed amlodipine 2.5 mg tablet 2.5 mg PO DAILY 09/20/23 03/16/24 atorvastatin 40 mg tablet 40 mg PO DAILY 09/20/23 03/16/24 irbesartan 300 mg tablet 300 mg PO DAILY 09/20/23 03/16/24 metformin 500 mg tablet,extended 1,000 mg PO DAILY 09/20/23 03/16/24 release 24 hr metoprolol succinate 25 mg 25 mg PO DAILY 09/20/23 03/16/24 tablet,extended release 24 hr tamsulosin 0.4 mg capsule 0.4 mg PO BEDTIME PRN enlarge 09/20/23 03/16/24 prostate torsemide 20 mg tablet 20 mg PO DAILY 09/20/23 03/16/24 acamprosate 333 mg tablet,delayed 666 mg PO TID 03/16/24 03/16/24 release mirtazapine 7.5 mg tablet 7.5 mg PO BEDTIME 03/16/24 03/16/24 Previous Rx's ?Medication ?Instructions ?Recorded folic acid 1 mg tablet 1 mg PO DAILY #30 tabs 09/22/23 magnesium oxide 400 mg (241.3 mg 800 mg (2 x 400 mg (241.3 mg 03/18/24 magnesium) tablet magnesium)) PO DAILY #60 tabs multivitamin (Daily-Jay tablet) 1 tab PO DAILY #90 tabs 03/18/24 Allergies Allergy/AdvReac Type Severity Reaction Status Date / Time No Known Allergies Allergy Verified 02/02/25 15:23 Review of Systems Review of Systems: Yes all other systems are reviewed and are negative PMFSH Past Medical History Medical History Hyperlipidemia Diverticulitis Obesity Alcoholism CKD (chronic kidney disease), stage III HTN (hypertension) Diabetes BPH (benign prostatic hyperplasia) Social History Social History Household Members: Other Household Members Other:: [facility] [place] [facility] Housing: Other Housing Other:: lives in [facility] Do you presently have visiting nurse or other home services: Yes (2 x a week visiting nurse) Patient Tobacco Use Status: Never used Tobacco Smoked in Last 30 Days: No Use of substances other than those prescribed or required for medical reasons: No Substance Use Type: Marijuana Advance Directives: No Advance Directives Information Provided: No Do you have a plan to hurt others: No Plan service: No Physical Exam ED Vital Signs: Vital Signs - 24 hr 02/02/25 15:08 02/02/25 16:22 02/02/25 16:44 Temperature 97.6 F Pulse Rate 92 85 84 Respiratory Rate 18 12 14 Blood Pressure 85/45 L 89/53 L 106/56 L Pulse Oximetry 92 92 94 Oxygen Delivery Method Room Air Room Air 02/02/25 17:07 Temperature Pulse Rate 85 Respiratory Rate 22 H Blood Pressure 102/68 Pulse Oximetry 94 Oxygen Delivery Method Room Air BMI result Body Mass Index 36.7 Vital signs revealed hypotension Exam: General: Awake, alert in no distress, she weight 119.92 kg, elevated BMI 36.7 kilograms/meters squared Head: Normocephalic, atraumatic EENT: PERRL, sclera and conjunctiva are normal, mouth with no erythema or exudates Neck: Supple, no adenopathy Lung: breath sounds symmetric, no wheezing, no rales and no rhonchi Chest: symmetric movement, nontender Heart: regular rate and rhythm, normal S1, S2 no murmurs or rubs Abdomen: soft, non-tender, nondistended, normal bowel sounds Back: no vertebral tenderness, no CVAT Extremities: no deformities, moves all extremities symmetrically, race to 1+ pitting edema bilaterally symmetric Neuro: Awake, alert, oriented, normal speech, cranial nerves 2-12 intact, moves all extremities symmetrically Psych: Pleasant, cooperative Medications Administered Discontinued Medications Generic Name Dose Route Start Last Admin Trade Name Freq PRN Reason Stop Dose Admin Lactated Ringer's 2,190 mls @ 2,190 mls/hr 02/02/25 15:37 02/02/25 17:09 Lr IV 02/02/25 16:36 Infused .Q1H ONE Infusion Lactated Ringer's 1,000 mls @ 999 mls/hr 02/02/25 17:02 02/02/25 18:28 Lr IV 02/02/25 18:02 Infused .Q1H1M STA Infusion Medical Decision Making Medical Decision Making MDM Narrative: 63-year-old male with a history of alcohol dependence with steatohepatitis and alcohol withdrawal, obesity, diabetes, STANLEY, CKD 3, BPH, hypertension, hyponatremia who presents emergency department for evaluation of lightheadedness, dizziness and diarrhea x2 days. Patient states that his stools are normally loose and brown and approximately 3 per day. He states that over the last 2 days, he has been having loose, brown stools 10-15 times a day. He states he has had a decreased appetite and had no food to eat for several days. He states he has been drinking orange juice and seltzer in order to stay hydrated. He states that he has been having swelling in his lower extremities for months. He denied fever, chills, chest pain, shortness of breath. He has had nausea but no vomiting. He states he has had decreased urine output. The patient does drank a pt of vodka per day in his last pt of vodka was yesterday. The patient has had acute alcohol withdrawal in the past. The patient has not taken antibiotics recently, traveled outside of the country and has no known contacts with diarrhea . Vital signs revealed hypotension otherwise unremarkable. Physical examination revealed trace to 1+ pitting edema otherwise unremarkable Differential diagnosis: ?Includes but is not limited to viral syndrome, enteritis, liver failure, kidney failure, volume depletion, dehydration, anemia, electrolyte abnormalities Course: 17:17 My independent interpretation patient's laboratory evaluation is as follows: Chronic normocytic anemia with an H&H of 10.2 and 31.1. Thrombocytopenia with a platelet count a 129-chronic elevated BUN creatinine of 69 and 4.29 compared to a BUN and creatinine of 14 and 1.25 on 03/18/2024. Bicarb low 18. Glucose elevated 256. AST and ALT elevated 53 and 41. Troponin detectable but not elevated at 19.7-repeat due at 15:30 hours. Lactic acid elevated 6.7-most likely secondary to diarrhea and renal failure and not an infectious source. The patient's hypotension was treated with lactated Ringer's IV x3 L. I did order stool for GI panel and C diff testing. The patient has not been able to produce a urine at this time. I will obtain a CT scan of the abdomen pelvis without IV contrast to rule out an obstructive process in his the cause of his renal failure. I will discuss admission with our covering special education superintendent 17:26 I did discuss the patient's presentation with our covering special education superintendent, Dr. Posadas. He recommended admission for further workup of his acute kidney injury and he agreed with CT scan of the abdomen pelvis without IV contrast. He recommended continuing IV hydration with lactated Ringer's at 100 mL/hr. We will place the patient on CIWA scores q.4 hours to watch for alcohol withdrawal. I did discuss admission over [facility] with the covering hospitalist, Dr. Marlin Jackson and the patient will be admitted for further treatment. 18:45 Repeat troponin was flat at 15.9. Repeat troponin was elevated at 7.5-again this is most likely caused by his renal failure, starvation ketosis in his alcoholic ketosis. Differential Diagnosis Differential Diagnoses: The differential diagnosis associated with the presentation includes (See above) Admission/Observation Consideration of admission/observation: Escalation of care including admission/observation considered (Yes) Consult Healthcare Provider Management of the patient was discussed with: Hospitalist and Container Washer Lab Data MDM Lab Attestation statement: I reviewed the patient's lab results. 02/02/25 15:31 02/02/25 15:31 Labs: Lab Results 02/02/25 02/02/25 02/02/25 Range/Units 15:31 16:06 17:06 WBC 5.9 (4.8-10.8) X10*3/uL RBC 3.34 L (4.60-5.80) X10*6/uL Hgb 10.2 L (14.0-18.0) g/dl Hct 31.1 L (42.0-52.0) % MCV 93.1 (80.0-98.0) fL MCH 30.5 (27.0-33.0) pg MCHC 32.8 (31.0-36.0) g/dl RDW 15.0 (11.0-16.0) % Plt Count 129 L D (160-400) X10*3/uL MPV 9.6 (9.4-12.4) fL Immature Gran % (Auto) 0.5 H (0.0-0.4) % Neut % (Auto) 61.7 (45-73) % Lymph % (Auto) 24.8 (20-40) % Mcpherson % (Auto) 10.0 (2-11) % Eos % (Auto) 2.2 (0-4) % Baso % (Auto) 0.8 (0-2) % Lymph # (Auto) 1.5 (1.2-4.9) X10*3/uL Mcpherson # (Auto) 0.6 (0.1-1.2) X10*3/uL Eos # (Auto) 0.1 (0.0-0.4) X10*3/uL Baso # (Auto) 0.1 (0.0-0.2) X10*3/uL Abs Immat Gran (auto) 0.03 (0.00-0.03) X10*3/uL Absolute Neuts (auto) 3.6 (2.0-8.3) x10*3/uL Absolute Nucleated RBC 0.000 (0.0-0.012) X10*3/uL Nucleated RBC % (auto) 0.0 (0.0-0.2) /100WBC PT 11.0 (10.9-12.4) SEC INR 1.0 (0.9-1.1) Sodium 135 (135-145) mmol/L Potassium 4.5 (3.3-5.1) mmol/L Chloride 96 (96-108) mmol/L Carbon Dioxide 18 L (22-29) mmol/L Anion Gap 26 H (12-20) BUN 69 H (9-16) mg/dL Creatinine 4.29 H* (0.5-1.4) mg/dL Estim Creat Clear Calc 21.8 Estimated GFR 14 Random Glucose 256 H (60-115) mg/dL Lactic Acid 6.7 H* (0.5-2.0) mmol/L Lactic Acid F/U @ 2Hr (0.5-2.0) mmol/L Calcium 9.2 (8.4-10.2) mg/dL Magnesium 3.3 H 3.1 H (1.6-2.6) mg/dL Total Bilirubin 0.4 (0.0-1.0) mg/dL AST 53 H (5-37) U/L ALT 41 H (0-40) U/L Alkaline Phosphatase 43 (39-117) U/L Total Creatine Kinase 87 (38-174) U/L Troponin I High Sens 19.7 D (<3.5-35.0) ng/L Total Protein 7.4 (6.5-8.0) g/dL Albumin 4.2 (3.5-5.0) g/dL Urine Color Urine Appearance Urine pH (5.0-9.0) Ur Specific [place] (1.005-1.025) Urine Protein (Neg-Trace) mg/dL Urine Glucose (UA) (Negative) mg/dL Urine Ketones (Negative) mg/dL Urine Blood (Negative) Urine Nitrite (Negative) Ur Leukocyte Esterase (Negative) C. difficile Tox B Gene NEGATIVE (Negative) COVID-19 (SONA) (Negative) COVID-19 Clin Com Influenza Type A (MAYKEL) (Negative) Influenza Type B (MAYKEL) (Negative) Influenza A & B Note 02/02/25 02/02/25 02/02/25 Range/Units 17:34 18:22 18:44 WBC (4.8-10.8) X10*3/uL RBC (4.60-5.80) X10*6/uL Hgb (14.0-18.0) g/dl Hct (42.0-52.0) % MCV (80.0-98.0) fL MCH (27.0-33.0) pg MCHC (31.0-36.0) g/dl RDW (11.0-16.0) % Plt Count (160-400) X10*3/uL MPV (9.4-12.4) fL Immature Gran % (Auto) (0.0-0.4) % Neut % (Auto) (45-73) % Lymph % (Auto) (20-40) % Mcpherson % (Auto) (2-11) % Eos % (Auto) (0-4) % Baso % (Auto) (0-2) % Lymph # (Auto) (1.2-4.9) X10*3/uL Mcpherson # (Auto) (0.1-1.2) X10*3/uL Eos # (Auto) (0.0-0.4) X10*3/uL Baso # (Auto) (0.0-0.2) X10*3/uL Abs Immat Gran (auto) (0.00-0.03) X10*3/uL Absolute Neuts (auto) (2.0-8.3) x10*3/uL Absolute Nucleated RBC (0.0-0.012) X10*3/uL Nucleated RBC % (auto) (0.0-0.2) /100WBC PT (10.9-12.4) SEC INR (0.9-1.1) Sodium (135-145) mmol/L Potassium (3.3-5.1) mmol/L Chloride (96-108) mmol/L Carbon Dioxide (22-29) mmol/L Anion Gap (12-20) BUN (9-16) mg/dL Creatinine (0.5-1.4) mg/dL Estim Creat Clear Calc Estimated GFR Random Glucose (60-115) mg/dL Lactic Acid (0.5-2.0) mmol/L Lactic Acid F/U @ 2Hr 7.5 H* (0.5-2.0) mmol/L Calcium (8.4-10.2) mg/dL Magnesium (1.6-2.6) mg/dL Total Bilirubin (0.0-1.0) mg/dL AST (5-37) U/L ALT (0-40) U/L Alkaline Phosphatase (39-117) U/L Total Creatine Kinase (38-174) U/L Troponin I High Sens 15.9 (<3.5-35.0) ng/L Total Protein (6.5-8.0) g/dL Albumin (3.5-5.0) g/dL Urine Color Yellow Urine Appearance Clear Urine pH 5.5 (5.0-9.0) Ur Specific [place] <= 1.005 (1.005-1.025) Urine Protein Negative (Neg-Trace) mg/dL Urine Glucose (UA) 100 H (Negative) mg/dL Urine Ketones Negative (Negative) mg/dL Urine Blood Negative (Negative) Urine Nitrite Negative (Negative) Ur Leukocyte Esterase Negative (Negative) C. difficile Tox B Gene (Negative) COVID-19 (SONA) Negative (Negative) COVID-19 Clin Com See Note Influenza Type A (MAYKEL) Negative (Negative) Influenza Type B (MAYKEL) Negative (Negative) Influenza A & B Note See Note Independent Interpretation I performed an independent interpretation of an: EKG Interpretation: My independent interpretation patient's laboratory evaluation done on 02/02/2025 at 15:31 hours is as follows: Normal sinus rhythm with a rate of 88, normal NH interval, QRS duration QTC interval, no ST segment elevation, no ST segment depression, inverted T-wave in lead 3. External Record Review External record reviewed: Inpatient record Chronic Conditions Patient?s care impacted by: Diabetes and Hypertension Critical Care Time Critical Care Time Critical Care Time: Yes Total Critical Care Time: 45 Attestation: Critical Care: The patient was critically ill with a high probability of imminent or life threatening deterioration. I spent greater than 30 minutes of discontinuous time evaluating the patient,delivering critical care at the bedside, discussing and evaluating pertinent data with consultants. Critical care time does not include time spent performing separately billable procedures or teaching. Total time spent performing critical care was 45 minutes. Discharge Plan Discharge Clinical Impression: JOCE (acute kidney injury), Alcoholic ketoacidosis, Acute hypotension, Volume depletion, Diarrhea, Alcohol use disorder Patient Disposition: Admitted As Inpatient
[2025-02-02 15:37] LABS: MANUAL DIFF FLAG NO
[2025-02-02 15:45] LABS: Hematocrit 31.1 % (42.0-52.0); Hemoglobin 10.2 g/dl (14.0-18.0); Imm Gran Abs Auto 0.03 X10*3/uL (0.00-0.03); Imm Gran Pct Auto 0.5 % (0.0-0.4); Lymphocytes Absolute Auto 1.5 X10*3/uL (1.2-4.9); Mean Corpuscular HGB Conc 32.8 g/dl (31.0-36.0); Mean Corpuscular Hemoglobin 30.5 pg (27.0-33.0); Mean Corpuscular Volume 93.1 fL (80.0-98.0); NRBC Abs Auto 0.000 X10*3/uL (0.0-0.012); NRBC Pct Auto 0.0 /100WBC (0.0-0.2); Platelet Count 129 X10*3/uL (160-400); Red Blood Count 3.34 X10*6/uL (4.60-5.80); White Blood Count 5.9 X10*3/uL (4.8-10.8)
[2025-02-02 15:47] LABS: INTERNATIONAL NORM RATIO 1.0 (0.9-1.1); Prothrombin Time 11.0 SEC (10.9-12.4)
[2025-02-02 16:00] LABS: Troponin-I High Sensitivity 19.7 ng/L (<3.5-35.0)
[2025-02-02 16:05] LABS: Alanine Aminotransferase 41 U/L (0-40); Albumin Level 4.2 g/dL (3.5-5.0); Anion Gap 26 (12-20); Aspartate Amino Transferase 53 U/L (5-37); Blood Urea Nitrogen 69 mg/dL (9-16); Calcium 9.2 mg/dL (8.4-10.2); Carbon Dioxide 18 mmol/L (22-29); Chloride 96 mmol/L (96-108); Creatinine Clr Calc Pharmacy 21.8; Estimated Glomerular Filt Rate 14; Magnesium 3.3 mg/dL (1.6-2.6); Potassium 4.5 mmol/L (3.3-5.1); Sodium 135 mmol/L (135-145); Total Protein 7.4 g/dL (6.5-8.0)
[2025-02-02 16:22] VITALS: BP 89/53; PULSE 85; RESP 12; O2SAT 92
--- NOTE | 2025-02-02 16:23 | PC.NURSE ---
64 M presents to ED with diarrhea, feet swelling, light headedness, and no appetite x 3 days. A+OX4, calm, cooperative. Pt hypotensive upon arrival. Pt denies any CP or SOB. Pt c/o 5/10 lower back and buttocks pain (from diarrhea). RR even and unlabored.
--- NOTE | 2025-02-02 16:26 | PC.NURSE ---
BP still low but improving, MD aware.
[2025-02-02 16:35] LABS: Alkaline Phosphatase 43 U/L (39-117)
[2025-02-02 16:44] VITALS: BP 106/56; PULSE 84; RESP 14; O2SAT 94
[2025-02-02 17:07] VITALS: BP 102/68; PULSE 85; RESP 22; O2SAT 94
[2025-02-02] MEDS: Lactated Ringers 1,000 ML 999 ML IV (17:07)
[2025-02-02 17:08] LABS: Magnesium 3.1 mg/dL (1.6-2.6)
--- NOTE | 2025-02-02 17:41 | PM.IMHP ---
History of Present Illness Date of Service: 02/02/25 64 year old man presenting Review of Systems Review of Systems: Denies any recent fever chills or decrease in appetite respiratory denies any shortness of breath coverage production cardiovascular is adjustment of any PND or edema gastrointestinal denies any dysphagia abdominal pain nausea vomiting or diarrhea genitourinary denies any dysuria frequency or hematuria musculoskeletal denies any joint pain or swelling neuropsych denies any weakness or seizures all other systems reviewed are negative [facility] Medical History Hyperlipidemia Diverticulitis Obesity Alcoholism CKD (chronic kidney disease), stage III HTN (hypertension) Diabetes BPH (benign prostatic hyperplasia) Social History Household Members: Other Household Members Other:: longterm in [place] [facility] [employer] Housing: Other Housing Other:: lives in longterm Do you presently have visiting nurse or other home services: Yes (2 x a week visiting nurse) Patient Tobacco Use Status: Never used Tobacco Smoked in Last 30 Days: No Use of substances other than those prescribed or required for medical reasons: No Substance Use Type: Marijuana Advance Directives: No Advance Directives Information Provided: No Do you have a plan to hurt others: No Plan service: No Meds Allergies Allergy/AdvReac Type Severity Reaction Status Date / Time No Known Allergies Allergy Verified 02/02/25 15:23 Active Medications: Current Medications Lactated Ringer's (Lr) 1,000 mls @ 999 mls/hr IV .Q1H1M STA Stop: 02/02/25 18:02 Last Admin: 02/02/25 17:07 Dose: 999 mls/hr Home Medications ?Medication ?Instructions ?Recorded ?Confirmed ?Last Taken ?Type amlodipine 2.5 mg tablet 2.5 mg PO DAILY 09/20/23 03/16/24 03/16/24 History atorvastatin 40 mg tablet 40 mg PO DAILY 09/20/23 03/16/24 03/16/24 History irbesartan 300 mg tablet 300 mg PO DAILY 09/20/23 03/16/24 03/16/24 History metformin 500 mg tablet,extended 1,000 mg PO DAILY 09/20/23 03/16/24 03/16/24 History release 24 hr metoprolol succinate 25 mg 25 mg PO DAILY 05/03/16/24 03/16/24 History tablet,extended release 24 hr tamsulosin 0.4 mg capsule 0.4 mg PO BEDTIME PRN enlarge 09/20/23 03/16/24 09/19/23 18:00 History prostate torsemide 20 mg tablet 20 mg PO DAILY 09/20/23 03/16/24 03/16/24 History acamprosate 333 mg tablet,delayed 666 mg PO TID 03/16/24 03/16/24 03/16/24 History release mirtazapine 7.5 mg tablet 7.5 mg PO BEDTIME 03/16/24 03/16/24 03/15/24 History Physical Exam Vital Signs and Narrative: Vital Signs: Last Vital Signs Temp 97.6 F 02/02/25 15:08 Pulse 85 02/02/25 17:07 Resp 22 H 02/02/25 17:07 BP 102/68 02/02/25 17:07 Pulse Ox 94 02/02/25 17:07 O2 Del Method Room Air 02/02/25 17:07 BMI result Body Mass Index 36.7 Appearing in no acute distress head is normocephalic atraumatic eyes pupils are PERRLA sclera is anicteric mouth throat mucous membranes are intact and moist neck is supple no lymphadenopathy, no JVD noted lung sounds are clear to auscultation heart regular rate rhythm, clear S1, S2 positive bowel sounds, abdomen is soft, nontender neuro patient is alert x3, no focal deficits Results Labs 02/02/25 15:31 02/02/25 15:31 Labs: Laboratory Results - last 24 hr 02/02/25 02/02/25 15:31 16:06 MCV 93.1 MCH 30.5 MCHC 32.8 RDW 15.0 Plt Count 129 L D MPV 9.6 Immature Gran % (Auto) 0.5 H Neut % (Auto) 61.7 Lymph % (Auto) 24.8 Boyd % (Auto) 10.0 Eos % (Auto) 2.2 Baso % (Auto) 0.8 Lymph # (Auto) 1.5 Boyd # (Auto) 0.6 Eos # (Auto) 0.1 Baso # (Auto) 0.1 Abs Immat Gran (auto) 0.03 Absolute Neuts (auto) 3.6 Absolute Nucleated RBC 0.000 Nucleated RBC % (auto) 0.0 PT 11.0 INR 1.0 Anion Gap 26 H Estim Creat Clear Calc 21.8 Estimated GFR 14 Random Glucose 256 H Lactic Acid 6.7 H* Calcium 9.2 Magnesium 3.3 H 3.1 H Total Bilirubin 0.4 AST 53 H ALT 41 H Alkaline Phosphatase 43 Total Creatine Kinase 87 Troponin I High Sens 19.7 D Total Protein 7.4 Albumin 4.2 Assessment and Plan Plan 64 year old man admitted with alcohol Alcohol abuse JOCE Likely from dehydration, alcohol abuse DM2 SS, ada diet Lactic acidosis Likely secondary to alcohol abuse Transaminitis Secondary to alcohol abuse Hypertension BPH Continue tamsulosin DVT prophylaxis with Full code
[2025-02-02 18:02] LABS: COVID-19 Test Negative (Negative); IDNOW Serial# 55D5AD1C; IDNOW Serial# 58CA691E; Influenza B2 Negative (Negative)
[2025-02-02 18:04] LABS: Troponin-I High Sensitivity 15.9 ng/L (<3.5-35.0)
[2025-02-02 18:11] LABS: Reflex Lactate? Lactic Acid Added
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
[2025-02-02 18:37] LABS: Appearance Urine Clear; Glucose Urine UA 100 mg/dL (Negative); PH 5.5 (5.0-9.0); Specific Gravity - Urine <= 1.005 (1.005-1.025)
[2025-02-02 18:37] LABS: CDiff Gene PCR NEGATIVE (Negative)
--- NOTE | 2025-02-02 19:05 | PC.NURSE ---
this RN assumed care of this pt @1900, pt noted to be laying semi-power's in stretcher, no apparent respiratory distress noted, respirations even and unlabored, pt connected to cardiac monitoring HR 82, RR 16, call light provided for safety
[2025-02-02 19:28] LABS: ~Lactic Acid-LAB USE ONLY 7.5 mmol/L (0.5-2.0)
--- NOTE | 2025-02-02 19:55 | PM.IMHP ---
History of Present Illness Date of Service: 02/02/25 Attending physician on admission: Ysabel Cordoba Chief Complaint: Diarrhea, feet swelling Deven Jensen is a very pleasant 64 years old man with past medical history significant for CKD, type 2 diabetes mellitus on metformin ,STANLEY non tolerant to CPAP, obesity and essential hypertension on losartan, currently taking diuretics for feet edema presents to the emergency department complaining of worsening swelling to the feet over the last 2 months. He also has been having nonbloody watery diarrhea over the last couple of days. He denied abdominal pain, nausea or vomiting. He noted that he has been urinating more frequently but small quantities. Denied pain with urination or blood in the urine. He does take torsemide 20 mg p.o. daily. Denied fever or chills. He does complain of shortness on breath with exertion. There is no chest pain or palpitations. Denied headache or dizziness. He drinks alcohol daily -about 20 Gutierrez of vodka, the last time he drank was yesterday. Denied marijuana use or tobacco smoking. He does take Tylenol in occasion for pain and denied use of any NSAIDs. He denied symptoms of alcohol withdrawal such as tremulous on as anxiety. In the ED, he was found to have hypotension, 85/45. Last blood pressure is 102/68. Oxygen saturation is normal on room air and there is no tachycardia. Breathing rate is in the 80s. Blood workup showed no leukocytosis. Hemoglobin is 10.2 and at baseline. Platelets are 129. INR is 1.0. There is marked lactic acidosis 6.7 then 7.5. There is hypomagnesemia of 3.3. CO2 is 18, BUN 69, creatinine 4.69 (it was 1.25 last year) and anion gap of 26. Glucose is 259. Transaminases are elevated, however, bilirubin and alk-phos are normal. Troponin is 19.7 then 15.9. Albumin is normal. Urinalysis showed glucosuria and no proteinuria, without evidence of UTI. Abdominal pelvis CT scan without contrast showed suspected tiny layering gallstone with wall thickening and pericolic stranding, mild bilateral hydronephrosis without obstructing calculus, distended bladder. ECG showed normal sinus rhythm without ischemic changes. ED tx: LR 3 L bolus Review of Systems Review of Systems: All 12 systems were reviewed and normal except as noted in HPI. [facility] Medical History Hyperlipidemia Diverticulitis Obesity Alcoholism CKD (chronic kidney disease), stage III HTN (hypertension) Diabetes BPH (benign prostatic hyperplasia) Social History Household Members: Other Household Members Other:: half-way in [place] [facility] Housing: Other Housing Other:: lives in half-way Do you presently have visiting nurse or other home services: Yes (2 x a week visiting nurse) Patient Tobacco Use Status: Never used Tobacco Smoked in Last 30 Days: No Use of substances other than those prescribed or required for medical reasons: No Substance Use Type: Marijuana Advance Directives: No Advance Directives Information Provided: No Do you have a plan to hurt others: No Plan service: No Meds Allergies Allergy/AdvReac Type Severity Reaction Status Date / Time No Known Allergies Allergy Verified 02/02/25 15:23 Active Medications: Current Medications Acetaminophen (Acetaminophen 325 Mg Tablet) 975 mg PO Q6H PRN PRN Reason: Pain, Mild 1-3,fever,headache Calcium Carbonate (Calcium Carbonate 750 Mg Tab.Chew) 750 mg PO Q4H PRN PRN Reason: Heartburn Dextrose (Dextrose 50 % 25 Gm/50 Ml Syringe) 25 gm IVPUSH Q15M PRN; Protocol PRN Reason: per Hypoglycemia Standing Ord. Folic Acid (Folic Acid 1 Mg Tablet) 1 mg PO DAILY [facility] Glucose (Glucose Gel 15 Gm Gel..Gram.) 15 gm PO Q15M PRN; Protocol PRN Reason: per Hypoglycemia Standing Ord. Heparin Sodium (Porcine) (Heparin Sodium,Porcine 5,000 Unit/Ml Vial) 5,000 unit SUBCUT Q12H [facility] Thiamine HCl 100 mg/ Sodium (Chloride) 101 mls @ 202 mls/hr IV DAILY [facility] Insulin Human Lispro (Insulin Lispro 100 Unit/Ml 3 Ml Vial) 0 unit SUBCUT QIDACHS [facility]; Protocol Magnesium Hydroxide (Milk Of Magnesia 30 Ml Oral.Susp) 30 ml PO DAILY PRN PRN Reason: Constipation Melatonin (Melatonin 3 Mg Tablet) 6 mg PO BEDTIME PRN PRN Reason: Insomnia Multivitamins/Vitamin C (Multivitamin Tablet) 1 tab PO DAILY [facility] Sodium Chloride (0.9 % Sodium Chloride Flush 3 Ml Syringe) 3 ml IVFLUSH QSHIFT [facility] Home Medications ?Medication ?Instructions ?Recorded ?Confirmed ?Last Taken ?Type amlodipine 2.5 mg tablet 2.5 mg PO DAILY 09/20/23 02/02/25 02/02/25 History atorvastatin 40 mg tablet 40 mg PO DAILY 09/20/23 02/02/25 02/02/25 History irbesartan 300 mg tablet 300 mg PO DAILY 09/20/23 02/02/25 02/02/25 History metformin 500 mg tablet,extended 500 mg PO DAILY 09/20/23 02/02/25 02/02/25 History release 24 hr metoprolol succinate 25 mg 25 mg PO DAILY 09/20/23 02/02/25 02/02/25 History tablet,extended release 24 hr tamsulosin 0.4 mg capsule 0.8 mg PO BEDTIME PRN enlarge 09/20/23 02/02/25 02/01/25 History prostate torsemide 20 mg tablet 20 mg PO DAILY 09/20/23 02/02/25 02/02/25 History acamprosate 333 mg tablet,delayed 666 mg PO TID 03/16/24 02/02/25 02/02/25 History release mirtazapine 7.5 mg tablet 7.5 mg PO BEDTIME 03/16/24 02/02/25 02/01/25 History dulaglutide 1.5 mg/0.5 mL 1.5 mg subcut TH 02/02/25 02/02/25 01/28/25 History subcutaneous pen injector (Trulicity) fluticasone propionate 50 2 spray intranasal DAILY 02/02/25 02/02/25 02/02/25 History mcg/actuation nasal spray,suspension naltrexone 50 mg tablet 50 mg PO DAILY 02/02/25 02/02/25 02/02/25 History trazodone 50 mg tablet 50 mg PO BEDTIME 02/02/25 02/02/25 02/01/25 History Physical Exam Vital Signs and Narrative: Vital Signs: Last Vital Signs Temp 97.6 F 02/02/25 15:08 Pulse 85 02/02/25 17:07 Resp 22 H 02/02/25 17:07 BP 102/68 02/02/25 17:07 Pulse Ox 94 02/02/25 17:07 O2 Del Method Room Air 02/02/25 17:07 BMI result Body Mass Index 36.7 General: Alert, oriented, in no acute distress. Cooperative. Pleasant. Afebrile. Obese. HEENT: Head normocephalic, atraumatic. PER, EOMI. Sclerae anicteric, conjunctiva clear. Oropharynx without erythema or exudate. Mucous membranes moist. Neck: Supple. Heart: RRR, no murmurs, rubs or gallops. Lungs: Clear to auscultation bilaterally. No wheezes, rales, or rhonchi. Normal respiratory effort. Abdomen: Soft, non tenderness, nondistended, normoactive bowel sounds. No hepatosplenomegaly, masses, rebound or guarding. Extremities: No calf tenderness bilaterally. Pitting edema to the lower extremities. Genitals: No scrotal swelling. Musculoskeletal: Full range of motion. No joint swelling, deformity, or tenderness. Normal muscle tone and strength. Skin: Warm/Dry. No pallor. No jaundice. Neurologic: Alert & oriented x4. Moving all extremities spontaneously. Normal speech. Psychological: Normal mood and affect. Thought process coherent. Results Labs 02/02/25 15:31 02/02/25 15:31 Labs: Laboratory Results - last 24 hr 02/02/25 02/02/25 02/02/25 15:31 16:06 17:06 MCV 93.1 MCH 30.5 MCHC 32.8 RDW 15.0 Plt Count 129 L D MPV 9.6 Immature Gran % (Auto) 0.5 H Neut % (Auto) 61.7 Lymph % (Auto) 24.8 [place] % (Auto) 10.0 Eos % (Auto) 2.2 Baso % (Auto) 0.8 Lymph # (Auto) 1.5 [place] # (Auto) 0.6 Eos # (Auto) 0.1 Baso # (Auto) 0.1 Abs Immat Gran (auto) 0.03 Absolute Neuts (auto) 3.6 Absolute Nucleated RBC 0.000 Nucleated RBC % (auto) 0.0 PT 11.0 INR 1.0 Anion Gap 26 H Estim Creat Clear Calc 21.8 Estimated GFR 14 Random Glucose 256 H Lactic Acid 6.7 H* Lactic Acid F/U @ 2Hr Calcium 9.2 Magnesium 3.3 H 3.1 H Total Bilirubin 0.4 AST 53 H ALT 41 H Alkaline Phosphatase 43 Total Creatine Kinase 87 Troponin I High Sens 19.7 D Total Protein 7.4 Albumin 4.2 Urine Color Urine Appearance Urine pH Ur Specific [place] Urine Protein Urine Glucose (UA) Urine Ketones Urine Blood Urine Nitrite Ur Leukocyte Esterase C. difficile Tox B Gene NEGATIVE COVID-19 (SONA) COVID-19 [employer] Com Influenza Type A (MAYKEL) Influenza Type B (MAYKEL) Influenza A & B Note 02/02/25 02/02/25 02/02/25 17:34 18:22 18:44 MCV MCH MCHC RDW Plt Count MPV Immature Gran % (Auto) Neut % (Auto) Lymph % (Auto) [place] % (Auto) Eos % (Auto) Baso % (Auto) Lymph # (Auto) [place] # (Auto) Eos # (Auto) Baso # (Auto) Abs Immat Gran (auto) Absolute Neuts (auto) Absolute Nucleated RBC Nucleated RBC % (auto) PT INR Anion Gap Estim Creat Clear Calc Estimated GFR Random Glucose Lactic Acid Lactic Acid F/U @ 2Hr 7.5 H* Calcium Magnesium Total Bilirubin AST ALT Alkaline Phosphatase Total Creatine Kinase Troponin I High Sens 15.9 Total Protein Albumin Urine Color Yellow Urine Appearance Clear Urine pH 5.5 Ur Specific [place] <= 1.005 Urine Protein Negative Urine Glucose (UA) 100 H Urine Ketones Negative Urine Blood Negative Urine Nitrite Negative Ur Leukocyte Esterase Negative C. difficile Tox B Gene COVID-19 (SONA) Negative COVID-19 [employer] See Note Influenza Type A (MAYKEL) Negative Influenza Type B (MAYKEL) Negative Influenza A & B Note See Note Assessment and Plan (1) Diarrhea: Qualifiers: Diarrhea type: unspecified type Qualified Code(s): R19.7 - Diarrhea, unspecified Status: Acute (2) JOCE (acute kidney injury): Status: Acute (3) Acute lactic acidosis: Status: Acute Plan Deven Jensen is a 64 y/o man who presents with: Acute on chronic kidney injury causing high anion gap metabolic acidosis; there is mild bilateral hydronephrosis; likely multifactorial: Torsemide and irbersartan use + diarrhea + increasing diuresis due to alcohol abuse. Received LR 3 L in the ED. Continue IV fluids. Hold ARB losartan and torsemide. Check total CK, urine creatinine, sodium and osmolality; check serum phosphate. Avoid nephrotoxic agents. Renal diet. I's and os. Bladder scans with every shift. Nephrology consult. Acute lactic acidosis, likely multifactorial due to above and metformin. Hold metformin. Doubt acute infection. Blood cultures were obtained. Continue IV fluids/bicarb [place]. Continue to monitor. Alcohol abuse. Takes acamprosate and naltrexone, will hold both due to low GFR. Watch for withdrawal symptoms, CIWA. Thiamine, folic acid and multivitamins. Phenobarbital as needed. Social work consult. Mild transaminitis, secondary to alcohol abuse. Patient encouraged to abstain from alcohol. Continue to monitor. Acute diarrhea. No other GI symptoms. Continue hydration. GI panel obtained in ED. Type 2 diabetes mellitus. On Trilicity but NF. Metformin on hold due to severe lactic acidosis and JOCE. BG checks before meals at bedtime. Diabetic diet. Insulin sliding scale. Obstructive sleep apnea. Not tolerating CPAP. Essential hypertension. Hold irbersatan, amlodipine and metoprolol, BP is soft. Hyperlipidemia. Continue atorvastatin. Obesity, class II. BMI 36.7 kg/m2 Chronic anemia. Continue to monitor. Code status: Full DVT prophylaxis: Heparin Patient will need hospitalization for at least 2 midnights for acute on chronic kidney disease treatment with IV fluids, close monitoring of renal function and evaluation by subspecialty. This documentation was generated using dictation software; minor spreading or finished metal repairer errors may be present. Quality Stroke Does the patient have a stroke diagnosis?: No VTE Prior VTE?: No VTE Risk Level:: Medical - moderate - high VTE Device Contraindication: Treatment Not Indicated VTE Drug Contraindication: N/A - Med Ordered
--- NOTE | 2025-02-02 20:20 | PC.NURSE ---
second IV line placed to R. AC, 20g, tolerated well, patent, positive for blood return, asymptomatic
[2025-02-02] MEDS: Thiamine HCL 100 MG in 0.9 % Sodium Chloride 100 ML 202 MG IV (20:23)
--- NOTE | 2025-02-02 20:24 | PHA.MEDREC ---
Pharmacy Consult ? Medication Reconciliation Pharmacy has completed the medication reconciliation. Spoke to patient to confirm med list. Patient said he takes whatever [facility] fills for him but was able to confirm that he takes 1 tablet of metformin ER 500 mg daily, 2 capsules of tamsulosin 0.4 mg at bedtime and he injects the trulicity 1.5 mg on . Last dose of medications was today 02/02/25 in the morning.
[2025-02-02 20:37] LABS: VBG HCO3 18 mmol/L (22-26); VBG O2 % Saturation 95.0 %
[2025-02-02 20:41] LABS: Venous Blood Gas Refer to POC result
[2025-02-02 20:43] VITALS: BP 104/66; PULSE 84; RESP 20; TEMP 36.5; O2SAT 94
[2025-02-02 20:48] LABS: Anion Gap 24 (12-20); Blood Urea Nitrogen 65 mg/dL (9-16); Calcium 9.2 mg/dL (8.4-10.2); Carbon Dioxide 19 mmol/L (22-29); Chloride 97 mmol/L (96-108); Creatinine Clr Calc Pharmacy 24.6; Estimated Glomerular Filt Rate 16; Potassium 4.6 mmol/L (3.3-5.1); Sodium 135 mmol/L (135-145)
[2025-02-02 20:48] LABS: Reflex Lactate? 2 Y
[2025-02-02 21:14] LABS: Glucose, Whole Blood 243 mg/dL (60-115)
[2025-02-02 22:09] LABS: ~Lactic Acid-LAB USE ONLY 5.4 mmol/L (0.5-2.0)
[2025-02-03 02:43] VITALS: BP 140/70; PULSE 83; RESP 16; TEMP 36.5; O2SAT 96
[2025-02-03 05:26] LABS: MANUAL DIFF FLAG NO
[2025-02-03 05:30] LABS: Hematocrit 30.7 % (42.0-52.0); Hemoglobin 10.0 g/dl (14.0-18.0); Imm Gran Abs Auto 0.05 X10*3/uL (0.00-0.03); Imm Gran Pct Auto 0.8 % (0.0-0.4); Lymphocytes Absolute Auto 1.2 X10*3/uL (1.2-4.9); Mean Corpuscular HGB Conc 32.6 g/dl (31.0-36.0); Mean Corpuscular Hemoglobin 29.9 pg (27.0-33.0); Mean Corpuscular Volume 91.6 fL (80.0-98.0); NRBC Abs Auto 0.000 X10*3/uL (0.0-0.012); NRBC Pct Auto 0.0 /100WBC (0.0-0.2); Platelet Count 119 X10*3/uL (160-400); Red Blood Count 3.35 X10*6/uL (4.60-5.80); White Blood Count 6.4 X10*3/uL (4.8-10.8)
[2025-02-03 05:52] LABS: Anion Gap 18 (12-20); Blood Urea Nitrogen 60 mg/dL (9-16); Calcium 9.0 mg/dL (8.4-10.2); Carbon Dioxide 24 mmol/L (22-29); Chloride 99 mmol/L (96-108); Creatinine Clr Calc Pharmacy 28.4; Estimated Glomerular Filt Rate 19; Magnesium 3.0 mg/dL (1.6-2.6); Potassium 4.9 mmol/L (3.3-5.1); Sodium 136 mmol/L (135-145)
[2025-02-03 07:02] LABS: Glucose, Whole Blood 198 mg/dL (60-115)
[2025-02-03] MEDS: Thiamine HCL 100 MG in 0.9 % Sodium Chloride 100 ML 200 MG IV (07:54)
--- NOTE | 2025-02-03 11:50 | MHC.CM.PN ---
IMM GIVEN 02/03. THIS CM MET WITH PT, HE STATES HE LIVES ALONE AT HOME. 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 DME: [facility]. PTS STATES HIS BROTHER IS HIS HCP, COPY REQUESTED. DCP: RETURN HOME SELF-CARE & [facility], BROTHER TO TRANSPORT HIM HOME AT DISCHARGE. PCP: DUSTIN BARRERA
[2025-02-03 13:06] LABS: E. coli EAEC Not Detected (Not Detect.); E. coli EPEC Not Detected (Not Detect.); E. coli ETEC Not Detected (Not Detect.); E. coli STEC Not Detected (Not Detect.); Shigella sp./EIEC Not Detected (Not Detect.)
[2025-02-03 14:11] LABS: Glucose, Whole Blood 220 mg/dL (60-115)
--- NOTE | 2025-02-03 15:38 | P.PNIM_ITS ---
Subjective Subjective Date of Service: 02/03/25 Interval History: follow up on JOCE, overall improving. no abd pain Review of Systems All 12 systems were reviewed and normal except as noted in HPI. Physical Exam 2 Exam: Exam: General: AO X 3, no acute distress Resp: CTA bilateral CVS: S1,S2,RRR GI: +BS, NT, no distention Skin: No rash Neuro: motor grossly intact Psych: appropriate affect Vital Signs: Vital Signs: Last Vital Signs Temp 97.7 F 02/03/25 02:43 Pulse 83 02/03/25 02:43 Resp 16 02/03/25 02:43 BP 140/70 H 02/03/25 02:43 Pulse Ox 96 02/03/25 02:43 O2 Del Method Room Air 02/03/25 02:43 BMI result Body Mass Index 36.7 Objective Data Active Medications Acetaminophen (Acetaminophen 325 Mg Tablet) 975 mg PO Q6H PRN PRN Reason: Pain, Mild 1-3,fever,headache Last Admin: 02/03/25 12:08 Dose: 975 mg Documented By: PATRICIA Calcium Carbonate (Calcium Carbonate 750 Mg Tab.Chew) 750 mg PO Q4H PRN PRN Reason: Heartburn Dextrose (Dextrose 50 % 25 Gm/50 Ml Syringe) 25 gm IVPUSH Q15M PRN; Protocol PRN Reason: per Hypoglycemia Standing Ord. Folic Acid (Folic Acid 1 Mg Tablet) 1 mg PO DAILY [facility] Last Admin: 02/03/25 07:55 Dose: 1 mg Documented By: CODY Glucose (Glucose Gel 15 Gm Gel..Gram.) 15 gm PO Q15M PRN; Protocol PRN Reason: per Hypoglycemia Standing Ord. Heparin Sodium (Porcine) (Heparin Sodium,Porcine 5,000 Unit/Ml Vial) 5,000 unit SUBCUT Q12H [facility] Last Admin: 02/03/25 07:55 Dose: 5,000 unit Documented By: CODY Thiamine HCl 100 mg/ Sodium (Chloride) 101 mls @ 202 mls/hr IV DAILY [facility] Last Infusion: 02/03/25 08:42 Dose: Infused Documented By: CODY Insulin Human Lispro (Insulin Lispro 100 Unit/Ml 3 Ml Vial) 0 unit SUBCUT QIDACHS [facility]; Protocol Last Admin: 02/03/25 14:14 Dose: 4 unit Documented By: PATRICIA Magnesium Hydroxide (Milk Of Magnesia 30 Ml Oral.Susp) 30 ml PO DAILY PRN PRN Reason: Constipation Melatonin (Melatonin 3 Mg Tablet) 6 mg PO BEDTIME PRN PRN Reason: Insomnia Multivitamins/Vitamin C (Multivitamin Tablet) 1 tab PO DAILY [facility] Last Admin: 02/03/25 07:55 Dose: 1 tab Documented By: CODY Sodium Chloride (0.9 % Sodium Chloride Flush 3 Ml Syringe) 3 ml IVFLUSH QSHIFT [facility] Last Admin: 02/03/25 07:55 Dose: Not Given Documented By: CODY Non-Admin Reason: IV Running Labs 02/03/25 05:04 02/03/25 05:04 Labs: Laboratory Results - last 24 hr 02/02/25 02/02/25 02/02/25 15:31 16:06 17:06 MCV 93.1 MCH 30.5 MCHC 32.8 RDW 15.0 Plt Count 129 L D MPV 9.6 Immature Gran % (Auto) 0.5 H Neut % (Auto) 61.7 Lymph % (Auto) 24.8 [place] % (Auto) 10.0 Eos % (Auto) 2.2 Baso % (Auto) 0.8 Lymph # (Auto) 1.5 [place] # (Auto) 0.6 Eos # (Auto) 0.1 Baso # (Auto) 0.1 Abs Immat Gran (auto) 0.03 Absolute Neuts (auto) 3.6 Absolute Nucleated RBC 0.000 Nucleated RBC % (auto) 0.0 PT 11.0 INR 1.0 VBG pH VBG pCO2 VBG pO2 VBG HCO3 VBG O2 Saturation VBG Base Excess Anion Gap 26 H Estim Creat Clear Calc 21.8 Estimated GFR 14 POC Glucose Random Glucose 256 H Lactic Acid 6.7 H* Lactic Acid F/U @ 2Hr Lactic Acid F/U @ 4Hr Calcium 9.2 Phosphorus Magnesium 3.3 H 3.1 H Total Bilirubin 0.4 AST 53 H ALT 41 H Alkaline Phosphatase 43 Total Creatine Kinase 87 80 Troponin I High Sens 19.7 D Total Protein 7.4 Albumin 4.2 Urine Color Urine Appearance Urine pH Ur Specific [place] Urine Protein Urine Glucose (UA) Urine Ketones Urine Blood Urine Nitrite Ur Leukocyte Esterase Urine Osmolality Ur Random Sodium Urine Creatinine Stl C. cayetanensis PCR Not Detected Stool Rotavirus A PCR Not Detected Stl Adenov F 40/41 PCR Not Detected Stool Astrovirus (PCR) Not Detected Stool Campylobacter PCR Not Detected Stool Cryptosporidium PCR Not Detected Stl Sh Tox Pr E STEC PCR Not Detected Stool E coli O157 PCR Not applicable Stl Enterotoxigenic E PCR Not Detected Stool EPEC (PCR) Not Detected Stool EAEC (PCR) Not Detected Stl E. histolytica PCR Not Detected Stool Giardia Lamblia PCR Not Detected Stl P. shigelloides PCR Not Detected Stool Salmonella PCR Not Detected Stool Sapovirus (PCR) Not Detected Stl Shigella/EIEC PCR Not Detected St Y.enterocolitica PCR Not Detected Stool Vibrio (PCR) Not Detected Stl Vibrio cholerae PCR Not Detected Stl Norovirus GI/GII PCR Not Detected C. difficile Tox B Gene NEGATIVE COVID-19 ([facility]) COVID-19 Clin Com Influenza Type A (MAYKEL) Influenza Type B (MAYKEL) Influenza A & B Note 02/02/25 02/02/25 02/02/25 17:34 18:22 18:44 MCV MCH MCHC RDW Plt Count MPV Immature Gran % (Auto) Neut % (Auto) Lymph % (Auto) [place] % (Auto) Eos % (Auto) Baso % (Auto) Lymph # (Auto) [place] # (Auto) Eos # (Auto) Baso # (Auto) Abs Immat Gran (auto) Absolute Neuts (auto) Absolute Nucleated RBC Nucleated RBC % (auto) PT INR VBG pH VBG pCO2 VBG pO2 VBG HCO3 VBG O2 Saturation VBG Base Excess Anion Gap Estim Creat Clear Calc Estimated GFR POC Glucose Random Glucose Lactic Acid Lactic Acid F/U @ 2Hr 7.5 H* Lactic Acid F/U @ 4Hr Calcium Phosphorus Magnesium Total Bilirubin AST ALT Alkaline Phosphatase Total Creatine Kinase Troponin I High Sens 15.9 Total Protein Albumin Urine Color Yellow Urine Appearance Clear Urine pH 5.5 Ur Specific [place] <= 1.005 Urine Protein Negative Urine Glucose (UA) 100 H Urine Ketones Negative Urine Blood Negative Urine Nitrite Negative Ur Leukocyte Esterase Negative Urine Osmolality 290 L Ur Random Sodium 98.0 Urine Creatinine 26.80 Stl C. cayetanensis PCR Stool Rotavirus A PCR Stl Adenov F 40/41 PCR Stool Astrovirus (PCR) Stool Campylobacter PCR Stool Cryptosporidium PCR Stl Sh Tox Pr E STEC PCR Stool E coli O157 PCR Stl Enterotoxigenic E PCR Stool EPEC (PCR) Stool EAEC (PCR) Stl E. histolytica PCR Stool Giardia Lamblia PCR Stl P. shigelloides PCR Stool Salmonella PCR Stool Sapovirus (PCR) Stl Shigella/EIEC PCR St Y.enterocolitica PCR Stool Vibrio (PCR) Stl Vibrio cholerae PCR Stl Norovirus GI/GII PCR C. difficile Tox B Gene COVID-19 ([facility]) Negative COVID-19 Clin Com See Note Influenza Type A (MAYKEL) Negative Influenza Type B (MAYKEL) Negative Influenza A & B Note See Note 02/02/25 02/02/25 02/02/25 20:25 20:33 21:09 MCV MCH MCHC RDW Plt Count MPV Immature Gran % (Auto) Neut % (Auto) Lymph % (Auto) [place] % (Auto) Eos % (Auto) Baso % (Auto) Lymph # (Auto) [place] # (Auto) Eos # (Auto) Baso # (Auto) Abs Immat Gran (auto) Absolute Neuts (auto) Absolute Nucleated RBC Nucleated RBC % (auto) PT INR VBG pH 7.39 VBG pCO2 29 VBG pO2 78 VBG HCO3 18 L VBG O2 Saturation 95.0 VBG Base Excess -5.0 Anion Gap 24 H Estim Creat Clear Calc 24.6 Estimated GFR 16 POC Glucose 243 H Random Glucose 228 H Lactic Acid Lactic Acid F/U @ 2Hr Lactic Acid F/U @ 4Hr Calcium 9.2 Phosphorus Magnesium Total Bilirubin AST ALT Alkaline Phosphatase Total Creatine Kinase Troponin I High Sens Total Protein Albumin Urine Color Urine Appearance Urine pH Ur Specific [place] Urine Protein Urine Glucose (UA) Urine Ketones Urine Blood Urine Nitrite Ur Leukocyte Esterase Urine Osmolality Ur Random Sodium Urine Creatinine Stl C. cayetanensis PCR Stool Rotavirus A PCR Stl Adenov F 40/41 PCR Stool Astrovirus (PCR) Stool Campylobacter PCR Stool Cryptosporidium PCR Stl Sh Tox Pr E STEC PCR Stool E coli O157 PCR Stl Enterotoxigenic E PCR Stool EPEC (PCR) Stool EAEC (PCR) Stl E. histolytica PCR Stool Giardia Lamblia PCR Stl P. shigelloides PCR Stool Salmonella PCR Stool Sapovirus (PCR) Stl Shigella/EIEC PCR St Y.enterocolitica PCR Stool Vibrio (PCR) Stl Vibrio cholerae PCR Stl Norovirus GI/GII PCR C. difficile Tox B Gene COVID-19 ([facility]) COVID-19 Clin Com Influenza Type A (MAYKEL) Influenza Type B (MAYKEL) Influenza A & B Note 02/02/25 02/03/25 02/03/25 21:39 05:04 06:50 MCV 91.6 MCH 29.9 MCHC 32.6 RDW 14.9 Plt Count 119 L MPV 10.0 Immature Gran % (Auto) 0.8 H Neut % (Auto) 65.8 Lymph % (Auto) 18.1 L [place] % (Auto) 12.5 H Eos % (Auto) 2.2 Baso % (Auto) 0.6 Lymph # (Auto) 1.2 [place] # (Auto) 0.8 Eos # (Auto) 0.1 Baso # (Auto) 0.0 Abs Immat Gran (auto) 0.05 H Absolute Neuts (auto) 4.2 Absolute Nucleated RBC 0.000 Nucleated RBC % (auto) 0.0 PT INR VBG pH VBG pCO2 VBG pO2 VBG HCO3 VBG O2 Saturation VBG Base Excess Anion Gap 18 Estim Creat Clear Calc 28.4 Estimated GFR 19 POC Glucose 198 H Random Glucose 214 H Lactic Acid Lactic Acid F/U @ 2Hr Lactic Acid F/U @ 4Hr 5.4 H* Calcium 9.0 Phosphorus 2.9 Magnesium 3.0 H Total Bilirubin AST ALT Alkaline Phosphatase Total Creatine Kinase Troponin I High Sens Total Protein Albumin Urine Color Urine Appearance Urine pH Ur Specific [place] Urine Protein Urine Glucose (UA) Urine Ketones Urine Blood Urine Nitrite Ur Leukocyte Esterase Urine Osmolality Ur Random Sodium Urine Creatinine Stl C. cayetanensis PCR Stool Rotavirus A PCR Stl Adenov F 40/41 PCR Stool Astrovirus (PCR) Stool Campylobacter PCR Stool Cryptosporidium PCR Stl Sh Tox Pr E STEC PCR Stool E coli O157 PCR Stl Enterotoxigenic E PCR Stool EPEC (PCR) Stool EAEC (PCR) Stl E. histolytica PCR Stool Giardia Lamblia PCR Stl P. shigelloides PCR Stool Salmonella PCR Stool Sapovirus (PCR) Stl Shigella/EIEC PCR St Y.enterocolitica PCR Stool Vibrio (PCR) Stl Vibrio cholerae PCR Stl Norovirus GI/GII PCR C. difficile Tox B Gene COVID-19 ([facility]) COVID-19 Clin Com Influenza Type A (MAYKEL) Influenza Type B (MAYKEL) Influenza A & B Note 02/03/25 13:24 MCV MCH MCHC RDW Plt Count MPV Immature Gran % (Auto) Neut % (Auto) Lymph % (Auto) [place] % (Auto) Eos % (Auto) Baso % (Auto) Lymph # (Auto) [place] # (Auto) Eos # (Auto) Baso # (Auto) Abs Immat Gran (auto) Absolute Neuts (auto) Absolute Nucleated RBC Nucleated RBC % (auto) PT INR VBG pH VBG pCO2 VBG pO2 VBG HCO3 VBG O2 Saturation VBG Base Excess Anion Gap Estim Creat Clear Calc Estimated GFR POC Glucose 220 H Random Glucose Lactic Acid Lactic Acid F/U @ 2Hr Lactic Acid F/U @ 4Hr Calcium Phosphorus Magnesium Total Bilirubin AST ALT Alkaline Phosphatase Total Creatine Kinase Troponin I High Sens Total Protein Albumin Urine Color Urine Appearance Urine pH Ur Specific [place] Urine Protein Urine Glucose (UA) Urine Ketones Urine Blood Urine Nitrite Ur Leukocyte Esterase Urine Osmolality Ur Random Sodium Urine Creatinine Stl C. cayetanensis PCR Stool Rotavirus A PCR Stl Adenov F 40/41 PCR Stool Astrovirus (PCR) Stool Campylobacter PCR Stool Cryptosporidium PCR Stl Sh Tox Pr E STEC PCR Stool E coli O157 PCR Stl Enterotoxigenic E PCR Stool EPEC (PCR) Stool EAEC (PCR) Stl E. histolytica PCR Stool Giardia Lamblia PCR Stl P. shigelloides PCR Stool Salmonella PCR Stool Sapovirus (PCR) Stl Shigella/EIEC PCR St Y.enterocolitica PCR Stool Vibrio (PCR) Stl Vibrio cholerae PCR Stl Norovirus GI/GII PCR C. difficile Tox B Gene COVID-19 ([facility]) COVID-19 Clin Com Influenza Type A (MAYKEL) Influenza Type B (MAYKEL) Influenza A & B Note Assessment and Plan (1) Alcohol use disorder: Status: Acute (2) Diarrhea: Status: Acute (3) JOCE (acute kidney injury): Status: Acute Plan Deven Jensen is a 64 y/o man who presents with: Acute on chronic kidney injury causing high anion gap metabolic acidosis; there is mild bilateral hydronephrosis; likely multifactorial, clinically improving. Hold diuretics, PADMAJA. treat diarrhea. IVF, Nephrology consultation. Acute lactic acidosis, likely multifactorial due to above and metformin and renal failure. Hold metformin. No evidence of sepsis, LA has trended down Alcohol abuse. Takes acamprosate and naltrexone, will hold both due to low GFR. Watch for withdrawal symptoms, CIWA. Thiamine, folic acid and multivitamins. Phenobarbital as needed. Social work consult. Mild transaminitis, secondary to alcohol abuse. Patient encouraged to abstain from alcohol. Continue to monitor. Acute diarrhea. No other GI symptoms. Continue hydration. GI panel negative. imodium PRN Type 2 diabetes mellitus. On Trilicity but NF. Metformin on hold due to severe lactic acidosis and JOCE. BG checks before meals at bedtime. Diabetic diet. Insulin sliding scale. Obstructive sleep apnea. Not tolerating CPAP. Essential hypertension. Hold irbersatan, amlodipine and metoprolol, BP is soft. Hyperlipidemia. Continue atorvastatin. Obesity, class II. BMI 36.7 kg/m2 Chronic anemia. Continue to monitor. Code status: Full DVT prophylaxis: Heparin Patient will need hospitalization for at least 2 midnights for acute on chronic kidney disease treatment with IV fluids, close monitoring of renal function and evaluation by subspecialty. This documentation was generated using dictation software; minor spreading or career development engineer errors may be present. Quality Stroke Does the patient have a stroke diagnosis?: No VTE Prior VTE?: No VTE Risk Level:: Medical - moderate - high VTE Device Contraindication: Treatment Not Indicated VTE Drug Contraindication: N/A - Med Ordered
[2025-02-03 16:20] VITALS: BP 125/71; PULSE 85; RESP 15; TEMP 36.6; O2SAT 95
--- NOTE | 2025-02-03 16:38 | PM.CNNEP ---
History of Present Illness Reason for Consult Consult date: 02/03/25 Chief Complaint Chief complaint: Acute kidney injury History of Present Illness Narrative: 64-year-old male with past medical history of hypertension, diabetes mellitus, chronic kidney disease, obstructive sleep apnea and alcohol use presents to the ED with complaints of diarrhea, swelling, and uneasiness. He also had no nausea because of which he could not eat much for the past 2 days prior to coming to hospital. Patient is on losartan for hypertension, metformin for diabetes mellitus at home. Unknown baseline creatinine Review of Systems Review of Systems Const : no body aches, no chills, no excessive sweating and no fatigue Eyes: no blurry vision and no change in vision ENT: no bleeding gums and no change in voice, no dizziness Card: no chest pain, no shortness of breath, no orthopnea, no PND Resp: no cough, no excessive phlegm production, no SOB GI: no abdominal pain and + nausea, + diarrhea : no hematuria, no urinary frequency and no difficulty voiding Musc: no abnormal gait, no bone pain Neuro: no abnormal movements, no weakness, no dizziness, no abnormal gait and no behavioral changes Psych: no behavioral changes and no change in appetite Endo: no change in body appearance, no cold intolerance, no excessive sweating and no fatigue PMFSH Past Medical History Medical History Hyperlipidemia Diverticulitis Obesity Alcoholism CKD (chronic kidney disease), stage III HTN (hypertension) Diabetes BPH (benign prostatic hyperplasia) Social History Social History Household Members: Other Household Members Other:: 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 Housing: Other Housing Other:: lives in custodial Do you presently have visiting nurse or other home services: Yes (2 x a week visiting nurse) Patient Tobacco Use Status: Never used Tobacco Smoked in Last 30 Days: No Use of substances other than those prescribed or required for medical reasons: No Substance Use Type: Marijuana Advance Directives: No Advance Directives Information Provided: No Do you have a plan to hurt others: No Plan Nutrition Risks: No Nutritional Risk service: No Meds Allergies Allergy/AdvReac Type Severity Reaction Status Date / Time No Known Allergies Allergy Verified 02/02/25 15:23 Active Medications: Current Medications Acetaminophen (Acetaminophen 325 Mg Tablet) 975 mg PO Q6H PRN PRN Reason: Pain, Mild 1-3,fever,headache Last Admin: 02/03/25 12:08 Dose: 975 mg Calcium Carbonate (Calcium Carbonate 750 Mg Tab.Chew) 750 mg PO Q4H PRN PRN Reason: Heartburn Dextrose (Dextrose 50 % 25 Gm/50 Ml Syringe) 25 gm IVPUSH Q15M PRN; Protocol PRN Reason: per Hypoglycemia Standing Ord. Folic Acid (Folic Acid 1 Mg Tablet) 1 mg PO DAILY [facility] Last Admin: 02/03/25 07:55 Dose: 1 mg Glucose (Glucose Gel 15 Gm Gel..Gram.) 15 gm PO Q15M PRN; Protocol PRN Reason: per Hypoglycemia Standing Ord. Heparin Sodium (Porcine) (Heparin Sodium,Porcine 5,000 Unit/Ml Vial) 5,000 unit SUBCUT Q12H [facility] Last Admin: 02/03/25 07:55 Dose: 5,000 unit Thiamine HCl 100 mg/ Sodium (Chloride) 101 mls @ 202 mls/hr IV DAILY [facility] Last Infusion: 02/03/25 08:42 Dose: Infused Insulin Human Lispro (Insulin Lispro 100 Unit/Ml 3 Ml Vial) 0 unit SUBCUT QIDACHS [facility]; Protocol Last Admin: 02/03/25 14:14 Dose: 4 unit Loperamide HCl (Loperamide Hcl 2 Mg Capsule) 2 mg PO Q4H PRN PRN Reason: Diarrhea Magnesium Hydroxide (Milk Of Magnesia 30 Ml Oral.Susp) 30 ml PO DAILY PRN PRN Reason: Constipation Melatonin (Melatonin 3 Mg Tablet) 6 mg PO BEDTIME PRN PRN Reason: Insomnia Multivitamins/Vitamin C (Multivitamin Tablet) 1 tab PO DAILY [facility] Last Admin: 02/03/25 07:55 Dose: 1 tab Sodium Chloride (0.9 % Sodium Chloride Flush 3 Ml Syringe) 3 ml IVFLUSH QSHIFT [facility] Last Admin: 02/03/25 07:55 Dose: Not Given Home Medications ?Medication ?Instructions ?Recorded ?Confirmed ?Last Taken ?Type amlodipine 2.5 mg tablet 2.5 mg PO DAILY 09/20/23 02/02/25 02/02/25 History atorvastatin 40 mg tablet 40 mg PO DAILY 09/20/23 02/02/25 02/02/25 History irbesartan 300 mg tablet 300 mg PO DAILY 05/02/02/25 02/02/25 History metformin 500 mg tablet,extended 500 mg PO DAILY 09/20/23 02/02/25 02/02/25 History release 24 hr metoprolol succinate 25 mg 25 mg PO DAILY 09/20/23 02/02/25 02/02/25 History tablet,extended release 24 hr tamsulosin 0.4 mg capsule 0.8 mg PO BEDTIME PRN enlarge 09/20/23 02/02/25 02/01/25 History prostate torsemide 20 mg tablet 20 mg PO DAILY 09/20/23 02/02/25 02/02/25 History acamprosate 333 mg tablet,delayed 666 mg PO TID 03/16/24 02/02/25 02/02/25 History release mirtazapine 7.5 mg tablet 7.5 mg PO BEDTIME 03/16/24 02/02/25 02/01/25 History dulaglutide 1.5 mg/0.5 mL 1.5 mg subcut TH 02/02/25 02/02/25 01/28/25 History subcutaneous pen injector (Trulicity) fluticasone propionate 50 2 spray intranasal DAILY 02/02/25 02/02/25 02/02/25 History mcg/actuation nasal spray,suspension naltrexone 50 mg tablet 50 mg PO DAILY 02/02/25 02/02/25 02/02/25 History trazodone 50 mg tablet 50 mg PO BEDTIME 02/02/25 02/02/25 02/01/25 History Physical Exam Vital Signs: Last Vital Signs Temp 97.9 F 02/03/25 16:20 Pulse 85 02/03/25 16:20 Resp 15 02/03/25 16:20 BP 125/71 02/03/25 16:20 Pulse Ox 95 02/03/25 16:20 O2 Del Method Room Air 02/03/25 16:20 BMI result Body Mass Index 36.7 General: Elderly male in no acute distress, ill appearing and tired appearing Nutritional Appearance: well nourished and overweight Eyes: appearance normal, both eyes and all related structures; Alignment and Position: alignment normal and position normal Neck: No lymphadenopathy, no thyromegaly Resp: bilateral air entry equal, occasional added sounds present Cardio: Regular rate, regular rhythm; Heart sounds: S1 normal heart sound present and S2 normal heart sound present GI: soft, nontender, no guarding, no hepatosplenomegaly : bladder normal to inspection, bladder normal to palpation, no renal angle tenderness Skin: no rashes or lesions noted and elasticity normal Neuro: oriented to person, oriented to place, oriented to time and moves all extremities Results Lab Results 02/03/25 05:04 02/03/25 05:04 Lab results: Chemistry 02/02/25 02/02/25 02/03/25 15:31 20:25 05:04 Sodium 135 135 136 Potassium 4.5 4.6 4.9 Carbon Dioxide 18 L 19 L 24 BUN 69 H 65 H 60 H Creatinine 4.29 H* 3.81 H 3.30 H Calcium 9.2 9.2 9.0 Phosphorus 2.9 Hematology 02/02/25 02/03/25 15:31 05:04 WBC 5.9 6.4 Hgb 10.2 L 10.0 L Plt Count 129 L D 119 L Urinalysis 02/02/25 18:22 Urine Color Yellow Urine Appearance Clear Urine pH 5.5 Ur Specific [place] <= 1.005 Urine Protein Negative Urine Glucose (UA) 100 H Urine Ketones Negative Urine Blood Negative Urine Nitrite Negative Ur Leukocyte Esterase Negative Urine Studies 02/02/25 18:22 Urine Osmolality 290 L Urine Creatinine 26.80 Assessment and Plan (1) Alcohol use disorder: Status: Acute (2) JOCE (acute kidney injury): Status: Acute (3) Hypomagnesemia: Status: Acute Plan Acute acute on chronic kidney injury: Patient has JOCE secondary to severe hypotension due to diarrhea with poor appetite in the setting of ARB use at home. Unknown baseline creatinine Creatinine trending down since admission, down from 3.8 3.3 Urinalysis showed no blood, no protein. No further evaluation needed for now. Once his JOCE is settled he needs quantification of proteinuria Would recommend starting him on some IV fluids LR at 75 cc/hour Lactic acidosis: Secondary to combination of hypertension and metformin use in the setting of JOCE Continue to trend lactate No indication for renal replacement therapy as his most recent bicarb is 24 Procedures Date of Service Date of Service: 02/03/25
[2025-02-03 18:31] LABS: Glucose, Whole Blood 221 mg/dL (60-115)
[2025-02-03] MEDS: 0.9 % Sodium Chloride Flush 3 ML SYRINGE IVFLUSH ×3 (18:33→21:19)
[2025-02-03] MEDS: Lactated Ringers 1,000 ML 75 ML IVCONT (18:33)
--- NOTE | 2025-02-03 19:13 | PC.NURSE ---
Patient sitting upright, eating dinner at this time. Denies complaints at this time. 800mL urine output during this shift, via purewick, suction to wall. Admit to room 474. Awaiting transport. LR infusing at 75ml/hr.
--- NOTE | 2025-02-03 19:41 | PC.NURSE ---
Purewick was leaking. Purewick changed. Hygiene care provided. New male purewick applied. Linens & gown also changed. Admit to 474. ED transport en route with patient at this time.
[2025-02-03 19:58] VITALS: BMI 38.2
[2025-02-03 20:00] VITALS: BP 124/75; PULSE 100; RESP 16; TEMP 36.9; O2SAT 94
[2025-02-03 21:00] LABS: Glucose, Whole Blood 298 mg/dL (60-115)
[2025-02-03] MEDS: PHENobarbitaL sodium 130 MG/ML IM ONCE 350 MG IM (21:19)
[2025-02-03 23:48] VITALS: BP 101/68; PULSE 79; RESP 16; TEMP 37.1; O2SAT 94
[2025-02-04 04:00] VITALS: BP 133/70; PULSE 83; RESP 16; TEMP 36.6; O2SAT 97
[2025-02-04] MEDS: PHENobarbitaL sodium 130 MG/ML VIAL IM Q3Hx2 263 MG IM (04:13)
[2025-02-04] MEDS: Lactated Ringers 1,000 ML 75 ML IVCONT ×2 (06:39→20:52)
[2025-02-04 07:10] VITALS: BP 142/66; PULSE 79; RESP 18; TEMP 36.8; O2SAT 92
[2025-02-04 07:38] LABS: Glucose, Whole Blood 244 mg/dL (60-115)
[2025-02-04] MEDS: Thiamine HCL 100 MG in 0.9 % Sodium Chloride 100 ML 202 MG IV (08:31)
--- NOTE | 2025-02-04 11:17 | P.PNIM_ITS ---
Subjective Subjective Date of Service: 02/04/25 Interval History: follow up on JOCE, overall improving. No abd pain Creatine stable Review of Systems All 12 systems were reviewed and normal except as noted in HPI. Physical Exam 2 Exam: Exam: General: AO X 3, no acute distress Resp: CTA bilateral CVS: S1,S2,RRR GI: +BS, NT, no distention Skin: No rash Neuro: motor grossly intact Psych: appropriate affect Vital Signs: Vital Signs: Last Vital Signs Temp 98.3 F 02/04/25 07:10 Pulse 79 02/04/25 07:10 Resp 18 02/04/25 07:10 BP 142/66 H 02/04/25 07:10 Pulse Ox 92 02/04/25 07:10 O2 Del Method Room Air 02/04/25 07:10 BMI result Body Mass Index 38.2 Objective Data Active Medications Acetaminophen (Acetaminophen 325 Mg Tablet) 975 mg PO Q6H PRN PRN Reason: Pain, Mild 1-3,fever,headache Last Admin: 02/04/25 04:12 Dose: 975 mg Documented By: FOGARTLucas Calcium Carbonate (Calcium Carbonate 750 Mg Tab.Chew) 750 mg PO Q4H PRN PRN Reason: Heartburn Dextrose (Dextrose 50 % 25 Gm/50 Ml Syringe) 25 gm IVPUSH Q15M PRN; Protocol PRN Reason: per Hypoglycemia Standing Ord. Folic Acid (Folic Acid 1 Mg Tablet) 1 mg PO DAILY [facility] Last Admin: 02/04/25 08:26 Dose: 1 mg Documented By: CLARI Glucose (Glucose Gel 15 Gm Gel..Gram.) 15 gm PO Q15M PRN; Protocol PRN Reason: per Hypoglycemia Standing Ord. Heparin Sodium (Porcine) (Heparin Sodium,Porcine 5,000 Unit/Ml Vial) 5,000 unit SUBCUT Q12H [facility] Last Admin: 02/04/25 08:25 Dose: 5,000 unit Documented By: CLARI Thiamine HCl 100 mg/ Sodium (Chloride) 101 mls @ 202 mls/hr IV DAILY [facility] Last Infusion: 02/04/25 09:05 Dose: Infused Documented By: CLARI Lactated Ringer's (Lr) 1,000 mls @ 75 mls/hr IVCONT .[id number] [facility] Last Admin: 02/04/25 06:39 Dose: 75 mls/hr Documented By: ALIZAARTB Insulin Human Lispro (Insulin Lispro 100 Unit/Ml 3 Ml Vial) 0 unit SUBCUT QIDACHS [facility]; Protocol Last Admin: 02/04/25 08:26 Dose: 4 unit Documented By: CLARI Loperamide HCl (Loperamide Hcl 2 Mg Capsule) 2 mg PO Q4H PRN PRN Reason: Diarrhea Magnesium Hydroxide (Milk Of Magnesia 30 Ml Oral.Susp) 30 ml PO DAILY PRN PRN Reason: Constipation Melatonin (Melatonin 3 Mg Tablet) 6 mg PO BEDTIME PRN PRN Reason: Insomnia Multivitamins/Vitamin C (Multivitamin Tablet) 1 tab PO DAILY [facility] Last Admin: 02/04/25 08:27 Dose: 1 tab Documented By: CLARI Pharmacy Consult (Consult Rx Etoh Phenob Im/Po) 1 each MISCELLANE ONCE PRN; Protocol PRN Reason: Consult order Phenobarbital (Phenobarbital 15 Mg Tablet) 45 mg PO BID [facility]; Protocol Stop: 02/05/25 21:01 Last Admin: 02/04/25 08:26 Dose: 45 mg Documented By: CLARI Phenobarbital (Phenobarbital 30 Mg Tablet) 30 mg PO BID [facility]; Protocol Stop: 02/07/25 21:01 Phenobarbital (Phenobarbital 30 Mg Tablet) 30 mg PO DAILY [facility]; Protocol Stop: 02/09/25 09:01 Sodium Chloride (0.9 % Sodium Chloride Flush 3 Ml Syringe) 3 ml IVFLUSH QSHIFT [facility] Last Admin: 02/04/25 08:34 Dose: Not Given Documented By: [email or web address] Non-Admin Reason: IV Running Labs 02/03/25 05:04 02/03/25 05:04 Labs: Laboratory Results - last 24 hr 02/02/25 02/03/25 02/03/25 17:06 13:24 18:28 POC Glucose 220 H 221 H Stl C. cayetanensis PCR Not Detected Stool Rotavirus A PCR Not Detected Stl Adenov F 40/41 PCR Not Detected Stool Astrovirus (PCR) Not Detected Stool Campylobacter PCR Not Detected Stool Cryptosporidium PCR Not Detected Stl Sh Tox Pr E STEC PCR Not Detected Stool E coli O157 PCR Not applicable Stl Enterotoxigenic E PCR Not Detected Stool EPEC (PCR) Not Detected Stool EAEC (PCR) Not Detected Stl E. histolytica PCR Not Detected Stool Giardia Lamblia PCR Not Detected Stl P. shigelloides PCR Not Detected Stool Salmonella PCR Not Detected Stool Sapovirus (PCR) Not Detected Stl Shigella/EIEC PCR Not Detected St Y.enterocolitica PCR Not Detected Stool Vibrio (PCR) Not Detected Stl Vibrio cholerae PCR Not Detected Stl Norovirus GI/GII PCR Not Detected 02/03/25 02/04/25 20:51 07:19 POC Glucose 298 H 244 H Stl C. cayetanensis PCR Stool Rotavirus A PCR Stl Adenov F 40/41 PCR Stool Astrovirus (PCR) Stool Campylobacter PCR Stool Cryptosporidium PCR Stl Sh Tox Pr E STEC PCR Stool E coli O157 PCR Stl Enterotoxigenic E PCR Stool EPEC (PCR) Stool EAEC (PCR) Stl E. histolytica PCR Stool Giardia Lamblia PCR Stl P. shigelloides PCR Stool Salmonella PCR Stool Sapovirus (PCR) Stl Shigella/EIEC PCR St Y.enterocolitica PCR Stool Vibrio (PCR) Stl Vibrio cholerae PCR Stl Norovirus GI/GII PCR Microbiology Microbiology Results: Microbiology 02/02/25 16:06 Blood Culture - Preliminary Blood - Venous No growth after 24 hours. 02/02/25 16:06 Blood Culture - Preliminary Blood - Venous No growth after 24 hours. Assessment and Plan (1) Alcohol use disorder: Status: Acute (2) Diarrhea: Status: Acute (3) JOCE (acute kidney injury): Status: Acute Plan Deven Jensen is a 64 y/o man who presents with: Acute on chronic kidney injury causing high anion gap metabolic acidosis; there is mild bilateral hydronephrosis; likely multifactorial, clinically improving. Hold diuretics, PADMAJA. treat diarrhea. IVF, Nephrology consultation. Acute lactic acidosis, likely multifactorial due to above and metformin and renal failure. Hold metformin. No evidence of sepsis, LA has trended down Alcohol abuse. Takes acamprosate and naltrexone, will hold both due to low GFR. Watch for withdrawal symptoms, CIWA. Thiamine, folic acid and multivitamins. Phenobarbital as needed. Social work consult. Mild transaminitis, secondary to alcohol abuse. Patient encouraged to abstain from alcohol. Continue to monitor. Acute diarrhea. No other GI symptoms. Continue hydration. GI panel negative. imodium PRN Type 2 diabetes mellitus. On Trilicity but NF. Metformin on hold due to severe lactic acidosis and JOCE. BG checks before meals at bedtime. Diabetic diet. Insulin sliding scale. Obstructive sleep apnea. Not tolerating CPAP. Essential hypertension. Hold irbersatan, amlodipine and metoprolol, BP is soft. Hyperlipidemia. Continue atorvastatin. Obesity, class II. BMI 36.7 kg/m2 Chronic anemia. Continue to monitor. Code status: Full DVT prophylaxis: Heparin Patient will need hospitalization for at least 2 midnights for acute on chronic kidney disease treatment with IV fluids, close monitoring of renal function and evaluation by subspecialty. This documentation was generated using dictation software; minor spreading or light industrial supervisor errors may be present. Quality Stroke Does the patient have a stroke diagnosis?: No VTE Prior VTE?: No VTE Risk Level:: Medical - moderate - high VTE Device Contraindication: Treatment Not Indicated VTE Drug Contraindication: N/A - Med Ordered
[2025-02-04 11:24] VITALS: BP 146/83; PULSE 84; RESP 20; TEMP 36.9; O2SAT 94
[2025-02-04 11:58] LABS: Glucose, Whole Blood 311 mg/dL (60-115)
[2025-02-04 13:06] LABS: Anion Gap 15 (12-20); Blood Urea Nitrogen 40 mg/dL (9-16); Calcium 9.0 mg/dL (8.4-10.2); Carbon Dioxide 26 mmol/L (22-29); Chloride 100 mmol/L (96-108); Creatinine Clr Calc Pharmacy 38.9; Estimated Glomerular Filt Rate 27; Potassium 4.9 mmol/L (3.3-5.1); Sodium 136 mmol/L (135-145)
[2025-02-04 15:31] VITALS: BP 147/92; PULSE 93; RESP 18; TEMP 37.2; O2SAT 94
[2025-02-04 16:11] LABS: Glucose, Whole Blood 223 mg/dL (60-115)
[2025-02-04] MEDS: 0.9 % Sodium Chloride Flush 3 ML SYRINGE IVFLUSH ×2 (17:56→21:09)
[2025-02-04 19:35] VITALS: BP 120/76; PULSE 77; RESP 18; TEMP 36.9; O2SAT 92
[2025-02-04 20:09] LABS: Glucose, Whole Blood 248 mg/dL (60-115)
[2025-02-04 23:32] VITALS: BP 141/79; PULSE 68; RESP 18; TEMP 36.6; O2SAT 93
[2025-02-05 03:19] VITALS: BP 134/85; PULSE 70; RESP 18; TEMP 36.6; O2SAT 95
--- NOTE | 2025-02-05 07:15 | HO.PM.IMPN ---
Subjective Subjective Date of Service: 02/05/25 Interval History: follow up on JOCE, overall improving. No abd pain Creatine stable Review of Systems All 12 systems were reviewed and normal except as noted in HPI. Physical Exam Exam: Exam: General: AO X 3, no acute distress Resp: CTA bilateral CVS: S1,S2,RRR GI: +BS, NT, no distention Skin: No rash Neuro: motor grossly intact Psych: appropriate affect Vital Signs: Vital Signs: Last Vital Signs Temp 97.9 F 02/05/25 03:19 Pulse 70 02/05/25 03:19 Resp 18 02/05/25 03:19 BP 134/85 02/05/25 03:19 Pulse Ox 95 02/05/25 03:19 O2 Del Method Room Air 02/05/25 03:19 BMI result Body Mass Index 38.2 Objective Data Active Medications Acetaminophen (Acetaminophen 325 Mg Tablet) 975 mg PO Q6H PRN PRN Reason: Pain, Mild 1-3,fever,headache Last Admin: 02/04/25 20:56 Dose: 975 mg Documented By: DARINEL Calcium Carbonate (Calcium Carbonate 750 Mg Tab.Chew) 750 mg PO Q4H PRN PRN Reason: Heartburn Dextrose (Dextrose 50 % 25 Gm/50 Ml Syringe) 25 gm IVPUSH Q15M PRN; Protocol PRN Reason: per Hypoglycemia Standing Ord. Folic Acid (Folic Acid 1 Mg Tablet) 1 mg PO DAILY [facility] Last Admin: 02/04/25 08:26 Dose: 1 mg Documented By: CLARI Glucose (Glucose Gel 15 Gm Gel..Gram.) 15 gm PO Q15M PRN; Protocol PRN Reason: per Hypoglycemia Standing Ord. Heparin Sodium (Porcine) (Heparin Sodium,Porcine 5,000 Unit/Ml Vial) 5,000 unit SUBCUT Q12H [facility] Last Admin: 02/04/25 20:54 Dose: 5,000 unit Documented By: DARINEL Thiamine HCl 100 mg/ Sodium (Chloride) 101 mls @ 202 mls/hr IV DAILY [facility] Last Infusion: 02/04/25 09:05 Dose: Infused Documented By: CLARI Lactated Ringer's (Lr) 1,000 mls @ 75 mls/hr IVCONT .[id number] [facility] Last Admin: 02/04/25 20:52 Dose: 75 mls/hr Documented By: DARINEL Insulin Human Lispro (Insulin Lispro 100 Unit/Ml 3 Ml Vial) 0 unit SUBCUT QIDACHS [facility]; Protocol Last Admin: 02/04/25 20:54 Dose: 4 unit Documented By: DARINEL Loperamide HCl (Loperamide Hcl 2 Mg Capsule) 2 mg PO Q4H PRN PRN Reason: Diarrhea Magnesium Hydroxide (Milk Of Magnesia 30 Ml Oral.Susp) 30 ml PO DAILY PRN PRN Reason: Constipation Melatonin (Melatonin 3 Mg Tablet) 6 mg PO BEDTIME PRN PRN Reason: Insomnia Multivitamins/Vitamin C (Multivitamin Tablet) 1 tab PO DAILY [facility] Last Admin: 02/04/25 08:27 Dose: 1 tab Documented By: CLARI Pharmacy Consult (Consult Rx Etoh Phenob Im/Po) 1 each MISCELLANE ONCE PRN; Protocol PRN Reason: Consult order Phenobarbital (Phenobarbital 15 Mg Tablet) 45 mg PO BID [facility]; Protocol Stop: 02/05/25 21:01 Last Admin: 02/04/25 20:54 Dose: 45 mg Documented By: DARINEL Phenobarbital (Phenobarbital 30 Mg Tablet) 30 mg PO BID [facility]; Protocol Stop: 02/07/25 21:01 Phenobarbital (Phenobarbital 30 Mg Tablet) 30 mg PO DAILY [facility]; Protocol Stop: 02/09/25 09:01 Sodium Chloride (0.9 % Sodium Chloride Flush 3 Ml Syringe) [facility] Last Admin: 02/04/25 21:09 Dose: 3 ml Documented By: DARINEL Labs 02/03/25 05:04 02/05/25 06:48 Labs: Laboratory Results - last 24 hr 02/04/25 02/04/25 02/04/25 07:19 11:33 12:50 Anion Gap 15 Estim Creat Clear Calc 38.9 Estimated GFR 27 POC Glucose 244 H 311 H Random Glucose 319 H Calcium 9.0 02/04/25 02/04/25 15:37 19:59 Anion Gap Estim Creat Clear Calc Estimated GFR POC Glucose 223 H 248 H Random Glucose Calcium Microbiology Microbiology Results: Microbiology 02/02/25 16:06 Blood Culture - Preliminary Blood - Venous No growth after 48 hours. 02/02/25 16:06 Blood Culture - Preliminary Blood - Venous No growth after 48 hours. Assessment and Plan (1) Alcohol use disorder: Status: Acute (2) Diarrhea: Status: Acute (3) JOCE (acute kidney injury): Status: Acute Plan Deven Jensen is a 64 y/o man who presents with: Acute on chronic kidney injury causing high anion gap metabolic acidosis; there is mild bilateral hydronephrosis; likely multifactorial, clinically improving. Hold diuretics, PADMAJA. treat diarrhea. IVF, Nephrology consultation. Acute lactic acidosis, likely multifactorial due to above and metformin and renal failure. Hold metformin. No evidence of sepsis, LA has trended down Alcohol abuse. Takes acamprosate and naltrexone, will hold both due to low GFR. Watch for withdrawal symptoms, CIWA. Thiamine, folic acid and multivitamins. Phenobarbital as needed. Social work consult. Mild transaminitis, secondary to alcohol abuse. Patient encouraged to abstain from alcohol. Continue to monitor. Acute diarrhea. No other GI symptoms. Continue hydration. GI panel negative. imodium PRN Type 2 diabetes mellitus. On Trilicity but NF. Metformin on hold due to severe lactic acidosis and JOCE. BG checks before meals at bedtime. Diabetic diet. Insulin sliding scale. Obstructive sleep apnea. Not tolerating CPAP. Essential hypertension. Hold irbersatan, amlodipine and metoprolol, BP is soft. Hyperlipidemia. Continue atorvastatin. Obesity, class II. BMI 36.7 kg/m2 Chronic anemia. Continue to monitor. Code status: Full DVT prophylaxis: Heparin Patient will need hospitalization for at least 1 more midnights for acute on chronic kidney disease treatment with IV fluids, close monitoring of renal function and evaluation by subspecialty. We need to challenge him with reinitiation of meds and titrating meds b4 [facility]. This documentation was generated using dictation software; minor spreading or cna ltc errors may be present. Quality Stroke Does the patient have a stroke diagnosis?: No VTE Prior VTE?: No VTE Risk Level:: Medical - moderate - high VTE Device Contraindication: Treatment Not Indicated VTE Drug Contraindication: N/A - Med Ordered
[2025-02-05 07:30] LABS: Anion Gap 16 (12-20); Blood Urea Nitrogen 31 mg/dL (9-16); Calcium 9.3 mg/dL (8.4-10.2); Carbon Dioxide 25 mmol/L (22-29); Chloride 101 mmol/L (96-108); Creatinine Clr Calc Pharmacy 44.8; Estimated Glomerular Filt Rate 31; Potassium 4.9 mmol/L (3.3-5.1); Sodium 137 mmol/L (135-145)
[2025-02-05 07:39] LABS: Glucose, Whole Blood 231 mg/dL (60-115)
[2025-02-05 07:55] VITALS: BP 144/78; PULSE 78; RESP 17; TEMP 36.7; O2SAT 95
[2025-02-05] MEDS: Thiamine HCL 100 MG in 0.9 % Sodium Chloride 100 ML 202 MG IV (08:26)
[2025-02-05] MEDS: 0.9 % Sodium Chloride Flush 3 ML SYRINGE IVFLUSH ×3 (08:29→20:30)
[2025-02-05] MEDS: Lactated Ringers 1,000 ML 75 ML IVCONT (09:52)
--- NOTE | 2025-02-05 09:52 | P.PNNP_ITS ---
Subjective Subjective Date of Service: 02/05/25 Interval history: Doing well, no new events Renal function improving Physical Exam 2 Vital Signs: Vital Signs: Last Vital Signs Temp 98.0 F 02/05/25 07:55 Pulse 78 02/05/25 07:55 Resp 17 02/05/25 07:55 BP 144/78 H 02/05/25 07:55 Pulse Ox 95 02/05/25 07:55 O2 Del Method Room Air 02/05/25 07:55 BMI result Body Mass Index 38.2 General: Elderly male in no acute distress, comfortable Nutritional Appearance: well nourished and overweight Eyes: appearance normal, both eyes and all related structures; Alignment and Position: alignment normal and position normal Neck: No lymphadenopathy, no thyromegaly Resp: bilateral air entry equal, occasional added sounds present Cardio: Regular rate, regular rhythm; Heart sounds: S1 normal heart sound present and S2 normal heart sound present GI: soft, nontender, no guarding, no hepatosplenomegaly : bladder normal to inspection, bladder normal to palpation, no renal angle tenderness Skin: no rashes or lesions noted and elasticity normal Neuro: oriented to person, oriented to place, oriented to time and moves all extremities Objective Data Labs 02/03/25 05:04 02/05/25 06:48 Labs: Laboratory Results - last 24 hr 02/04/25 02/04/25 02/04/25 11:33 12:50 15:37 Sodium 136 Potassium 4.9 Chloride 100 Carbon Dioxide 26 Anion Gap 15 BUN 40 H Creatinine 2.46 H Estim Creat Clear Calc 38.9 Estimated GFR 27 POC Glucose 311 H 223 H Random Glucose 319 H Calcium 9.0 02/04/25 02/05/25 02/05/25 19:59 06:48 07:20 Sodium 137 Potassium 4.9 Chloride 101 Carbon Dioxide 25 Anion Gap 16 BUN 31 H Creatinine 2.14 H Estim Creat Clear Calc 44.8 Estimated GFR 31 POC Glucose 248 H 231 H Random Glucose 232 H Calcium 9.3 Microbiology Microbiology Results: Microbiology 02/02/25 16:06 Blood - Venous Blood Culture - Preliminary No growth after 48 hours. 02/02/25 16:06 Blood - Venous Blood Culture - Preliminary No growth after 48 hours. Procedures Date of Service Date of Service: 02/05/25 Assessment & Plan Assessment and plan (1) Alcohol use disorder: Status: Acute (2) JOCE (acute kidney injury): Status: Acute (3) Hypomagnesemia: Status: Acute Plan Acute acute on chronic kidney injury: Patient has JOCE secondary to severe hypotension due to diarrhea with poor appetite in the setting of ARB use at home. He can is improving, Creatinine trending down, reached a peak of 3.8, currently down to 2.1 Urinalysis showed no blood, no protein. No further evaluation needed for now. Once his JOCE is settled he needs quantification of proteinuria Recommend adequate hydration Will set up an outpatient follow-up to monitor his renal function, Nephrology will sign off. Thanks for your consultation Time Spent With Patient Time: Total time managing care of this patient today ____ minutes. Progress Note: Quality Stroke Does the patient have a stroke diagnosis?: No
[2025-02-05] MEDS: Lidocaine 4 % Patch ADH..PATCH 2 PATCH TRANSDERMA (10:37)
[2025-02-05 12:00] VITALS: BP 159/65; PULSE 78; RESP 18; TEMP 37.1; O2SAT 96
[2025-02-05 12:00] LABS: Glucose, Whole Blood 249 mg/dL (60-115)
--- NOTE | 2025-02-05 15:58 | MHC.CM.PN ---
EMR REVIEWED AND PER MD ROUNDS, PATIENT IS NOT MEDICALLY CLEARED DUE TO MANAGEMENT OF JOCE AND ETOH WITHDRAWAL.
[2025-02-05 16:00] VITALS: BP 141/78; PULSE 73; RESP 18; TEMP 36.7; O2SAT 99
[2025-02-05 16:45] LABS: Glucose, Whole Blood 171 mg/dL (60-115)
[2025-02-05 19:20] VITALS: BP 138/72; PULSE 63; RESP 16; TEMP 37.1; O2SAT 94
[2025-02-05 19:49] LABS: Glucose, Whole Blood 221 mg/dL (60-115)
[2025-02-05 23:22] VITALS: BP 138/78; PULSE 73; RESP 17; TEMP 36.7; O2SAT 94
[2025-02-06 03:36] VITALS: BP 154/93; PULSE 69; RESP 16; TEMP 36.7; O2SAT 95
[2025-02-06 06:48] LABS: MANUAL DIFF FLAG NO
[2025-02-06 07:09] LABS: Hematocrit 31.5 % (42.0-52.0); Hemoglobin 10.1 g/dl (14.0-18.0); Imm Gran Abs Auto 0.06 X10*3/uL (0.00-0.03); Imm Gran Pct Auto 1.4 % (0.0-0.4); Lymphocytes Absolute Auto 0.9 X10*3/uL (1.2-4.9); Mean Corpuscular HGB Conc 32.1 g/dl (31.0-36.0); Mean Corpuscular Hemoglobin 30.3 pg (27.0-33.0); Mean Corpuscular Volume 94.6 fL (80.0-98.0); NRBC Abs Auto 0.000 X10*3/uL (0.0-0.012); NRBC Pct Auto 0.0 /100WBC (0.0-0.2); Platelet Count 108 X10*3/uL (160-400); Red Blood Count 3.33 X10*6/uL (4.60-5.80); White Blood Count 4.2 X10*3/uL (4.8-10.8)
[2025-02-06 07:43] LABS: Alanine Aminotransferase 60 U/L (0-40); Albumin Level 3.6 g/dL (3.5-5.0); Alkaline Phosphatase 49 U/L (39-117); Anion Gap 16 (12-20); Aspartate Amino Transferase 75 U/L (5-37); Blood Urea Nitrogen 24 mg/dL (9-16); Calcium 9.0 mg/dL (8.4-10.2); Carbon Dioxide 19 mmol/L (22-29); Chloride 105 mmol/L (96-108); Creatinine Clr Calc Pharmacy 55.4; Estimated Glomerular Filt Rate 40; Magnesium 2.2 mg/dL (1.6-2.6); Potassium 4.9 mmol/L (3.3-5.1); Sodium 135 mmol/L (135-145); Total Protein 6.8 g/dL (6.5-8.0)
[2025-02-06 07:45] VITALS: BP 159/92; PULSE 72; RESP 18; TEMP 36.5; O2SAT 96
[2025-02-06 08:03] LABS: Glucose, Whole Blood 190 mg/dL (60-115)
--- NOTE | 2025-02-06 08:13 | HO.PM.IMPN ---
Subjective Subjective Date of Service: 02/06/25 Physical Exam Vital Signs: Vital Signs: Last Vital Signs Temp 97.7 F 02/06/25 07:45 Pulse 72 02/06/25 07:45 Resp 18 02/06/25 07:45 BP 159/92 H 02/06/25 07:45 Pulse Ox 96 02/06/25 07:45 O2 Del Method Room Air 02/06/25 07:45 BMI result Body Mass Index 38.2 Objective Data Active Medications Acetaminophen (Acetaminophen 325 Mg Tablet) 975 mg PO Q6H [facility] Last Admin: 02/06/25 03:35 Dose: Not Given Documented By: LITA Non-Admin Reason: per protocol Calcium Carbonate (Calcium Carbonate 750 Mg Tab.Chew) 750 mg PO Q4H PRN PRN Reason: Heartburn Dextrose (Dextrose 50 % 25 Gm/50 Ml Syringe) 25 gm IVPUSH Q15M PRN; Protocol PRN Reason: per Hypoglycemia Standing Ord. Folic Acid (Folic Acid 1 Mg Tablet) 1 mg PO DAILY [facility] Last Admin: 02/05/25 08:27 Dose: 1 mg Documented By: VANESSA Gabapentin (Gabapentin 100 Mg Capsule) 100 mg PO BID [facility] Last Admin: 02/05/25 20:25 Dose: 100 mg Documented By: LITA Glucose (Glucose Gel 15 Gm Gel..Gram.) 15 gm PO Q15M PRN; Protocol PRN Reason: per Hypoglycemia Standing Ord. Heparin Sodium (Porcine) (Heparin Sodium,Porcine 5,000 Unit/Ml Vial) 5,000 unit SUBCUT Q12H [facility] Last Admin: 02/05/25 20:25 Dose: 5,000 unit Documented By: LITA Thiamine HCl 100 mg/ Sodium (Chloride) 101 mls @ 202 mls/hr IV DAILY [facility] Last Infusion: 02/05/25 09:26 Dose: Infused Documented By: VANESSA Insulin Human Lispro (Insulin Lispro 100 Unit/Ml 3 Ml Vial) 0 unit SUBCUT QIDACHS [facility]; Protocol Last Admin: 02/05/25 20:25 Dose: 4 unit Documented By: LITA Lidocaine (Lidocaine 4 % Patch Adh..Patch) 2 patch TRANSDERMA DAILY [facility]; Protocol Last Admin: 02/05/25 10:37 Dose: 2 patch Documented By: HO.MALDONA Loperamide HCl (Loperamide Hcl 2 Mg Capsule) 2 mg PO Q4H PRN PRN Reason: Diarrhea Magnesium Hydroxide (Milk Of Magnesia 30 Ml Oral.Susp) 30 ml PO DAILY PRN PRN Reason: Constipation Melatonin (Melatonin 3 Mg Tablet) 6 mg PO BEDTIME PRN PRN Reason: Insomnia Methocarbamol (Methocarbamol 500 Mg Tablet) 500 mg PO TID [facility] Last Admin: 02/05/25 20:25 Dose: 500 mg Documented By: LITA Multivitamins/Vitamin C (Multivitamin Tablet) 1 tab PO DAILY [facility] Last Admin: 02/05/25 08:28 Dose: 1 tab Documented By: VANESSA Pharmacy Consult (Consult Rx Etoh Phenob Im/Po) 1 each MISCELLANE ONCE PRN; Protocol PRN Reason: Consult order Phenobarbital (Phenobarbital 30 Mg Tablet) 30 mg PO BID [facility]; Protocol Stop: 02/07/25 21:01 Phenobarbital (Phenobarbital 30 Mg Tablet) 30 mg PO DAILY [facility]; Protocol Stop: 02/09/25 09:01 Sodium Chloride (0.9 % Sodium Chloride Flush 3 Ml Syringe) [facility] Last Admin: 02/05/25 20:30 Dose: 3 ml Documented By: LITA Labs 02/06/25 06:34 02/06/25 06:34 Labs: Laboratory Results - last 24 hr 02/05/25 02/05/25 02/05/25 11:41 16:41 19:42 MCV MCH MCHC RDW Plt Count MPV Immature Gran % (Auto) Neut % (Auto) Lymph % (Auto) [place] % (Auto) Eos % (Auto) Baso % (Auto) Lymph # (Auto) [place] # (Auto) Eos # (Auto) Baso # (Auto) Abs Immat Gran (auto) Absolute Neuts (auto) Absolute Nucleated RBC Nucleated RBC % (auto) Anion Gap Estim Creat Clear Calc Estimated GFR POC Glucose 249 H 171 H 221 H Random Glucose Calcium Magnesium Total Bilirubin AST ALT Alkaline Phosphatase Total Protein Albumin 02/06/25 02/06/25 06:34 07:42 MCV 94.6 MCH 30.3 MCHC 32.1 RDW 15.0 Plt Count 108 L MPV 10.1 Immature Gran % (Auto) 1.4 H Neut % (Auto) 54.8 Lymph % (Auto) 22.4 Gooding % (Auto) 15.0 H Eos % (Auto) 5.2 H Baso % (Auto) 1.2 Lymph # (Auto) 0.9 L Gooding # (Auto) 0.6 Eos # (Auto) 0.2 Baso # (Auto) 0.1 Abs Immat Gran (auto) 0.06 H Absolute Neuts (auto) 2.3 Absolute Nucleated RBC 0.000 Nucleated RBC % (auto) 0.0 Anion Gap 16 Estim Creat Clear Calc 55.4 Estimated GFR 40 POC Glucose 190 H Random Glucose 207 H Calcium 9.0 Magnesium 2.2 Total Bilirubin 0.7 AST 75 H ALT 60 H Alkaline Phosphatase 49 Total Protein 6.8 Albumin 3.6 Quality Stroke Does the patient have a stroke diagnosis?: No VTE Prior VTE?: No VTE Risk Level:: Medical - moderate - high VTE Device Contraindication: Treatment Not Indicated VTE Drug Contraindication: N/A - Med Ordered
[2025-02-06] MEDS: Thiamine HCL 100 MG in 0.9 % Sodium Chloride 100 ML 202 MG IV (08:15)
[2025-02-06] MEDS: 0.9 % Sodium Chloride Flush 3 ML SYRINGE IVFLUSH ×3 (08:16→20:01)
[2025-02-06] MEDS: Lidocaine 4 % Patch ADH..PATCH 2 PATCH TRANSDERMA (08:16)
[2025-02-06 11:17] VITALS: BP 148/81; PULSE 72; RESP 18; TEMP 36.3; O2SAT 97
[2025-02-06 11:44] LABS: Glucose, Whole Blood 201 mg/dL (60-115)
--- NOTE | 2025-02-06 14:21 | PM.DS ---
DS: Providers Provider Date of Service: 02/06/25 Date of admission: 02/02/25 19:10 Date of discharge: 02/06/25 Primary care physician: Ezra Larose MD Consults: 02/02/25 19:15 Consult to Nephrology Routine Consulting Provider: [facility] Reason for consultation: JOCE Has provider been notified: No DS: Diagnosis Discharge Diagnosis (1) Alcohol use disorder: Status: Acute (2) Diarrhea: Status: Acute (3) JOCE (acute kidney injury): Status: Acute DS: Summary Hospital Course Hospital Course: Deven Jensen is a 64 y/o man who presents with PMH significant for CKD, type 2 diabetes mellitus on metformin ,STANLEY non tolerant to CPAP, obesity and essential hypertension on losartan, currently taking diuretics for feet edema presents to the emergency department complaining of worsening swelling to the feet over the last 2 month. Was noted to have JOCE on CKD, resolving at the time of discharge. JOCE, HAGMA, mild bilateral hydronephrosis-likely secondary to prerenal etiology diuretics and diarrhea. Acute on chronic kidney injury causing high anion gap metabolic acidosis; there is mild bilateral hydronephrosis; likely multifactorial, clinically improved. Diarrhea resolved with symptomatic management. Briefly we held his diuretics and PADMAJA inhibitors and IVF briefly with improvement. Was seen by Nephrology. Given improvement of his JOCE from 3.8 POA to 2 prior to discharge, patient was deemed stable for discharge and Nephrology we will follow outpatient. Acute lactic acidosis, likely multifactorial due to above and metformin and renal failure. Hold metformin. No evidence of sepsis, LA has trended down Alcohol abuse. Takes acamprosate and naltrexone, will hold both due to low GFR. Watch for withdrawal symptoms, CIWA. Thiamine, folic acid and multivitamins. Phenobarbital as needed. Social work consult. Mild transaminitis, secondary to alcohol abuse. Patient encouraged to abstain from alcohol. Continue to monitor. Acute diarrhea. No other GI symptoms. Continue hydration. GI panel negative. imodium PRN Type 2 diabetes mellitus. On Trilicity but NF. Metformin on hold due to severe lactic acidosis and JOCE. BG checks before meals at bedtime. Diabetic diet. Insulin sliding scale. Needs to follow outpatient prior to resumption of metformin. Diabetic neuropathy-initiated him on gabapentin 100 b.i.d. Obstructive sleep apnea. Not tolerating CPAP. Essential hypertension. Hold irbersatan, amlodipine and metoprolol, BP is soft. Hyperlipidemia. Continue atorvastatin. Obesity, class II. BMI 36.7 kg/m2, advised dietary input Chronic anemia. Likely renal in etiology, at his baseline. Outpatient management Code status: Full DVT prophylaxis: Heparin while inpatient This documentation was generated using dictation software; minor spreading or locomotive firer errors may be present. Time spent discussing smoking cessation with patient: more than 10 minutes Status at Discharge Functional status at discharge: uses cane/walker Overall status at discharge: patient is progressing back to baseline Time Attestation Discharge Coordination Time (in mins): 35 Quality: Safe Use of Opioids Does Pt have an Active Cancer Diagnosis on the Problem List?: No Quality: Stroke Does the patient have a stroke diagnosis?: No Physical Exam Vital Signs: Vital Signs: Last Vital Signs Temp 97.4 F 02/06/25 11:17 Pulse 72 02/06/25 11:17 Resp 18 02/06/25 11:17 BP 148/81 H 02/06/25 11:17 Pulse Ox 97 02/06/25 11:17 O2 Del Method Room Air 02/06/25 11:17 BMI result Body Mass Index 38.2 DS: Data Data Completed and Pending Completed studies during hospitalization [Text1]: Procedures Detoxification Services for Substance Abuse Treatment (03/16/24) Labs on day of discharge: Laboratory Results - last 24 hr 02/05/25 02/05/25 02/06/25 16:41 19:42 06:34 WBC 4.2 L RBC 3.33 L Hgb 10.1 L Hct 31.5 L MCV 94.6 MCH 30.3 MCHC 32.1 RDW 15.0 Plt Count 108 L MPV 10.1 Immature Gran % (Auto) 1.4 H Neut % (Auto) 54.8 Lymph % (Auto) 22.4 [place] % (Auto) 15.0 H Eos % (Auto) 5.2 H Baso % (Auto) 1.2 Lymph # (Auto) 0.9 L [place] # (Auto) 0.6 Eos # (Auto) 0.2 Baso # (Auto) 0.1 Abs Immat Gran (auto) 0.06 H Absolute Neuts (auto) 2.3 Absolute Nucleated RBC 0.000 Nucleated RBC % (auto) 0.0 Sodium 135 Potassium 4.9 Chloride 105 Carbon Dioxide 19 L Anion Gap 16 BUN 24 H Creatinine 1.73 H Estim Creat Clear Calc 55.4 Estimated GFR 40 POC Glucose 171 H 221 H Random Glucose 207 H Calcium 9.0 Magnesium 2.2 Total Bilirubin 0.7 AST 75 H ALT 60 H Alkaline Phosphatase 49 Total Protein 6.8 Albumin 3.6 02/06/25 02/06/25 07:42 11:16 WBC RBC Hgb Hct MCV MCH MCHC RDW Plt Count MPV Immature Gran % (Auto) Neut % (Auto) Lymph % (Auto) [place] % (Auto) Eos % (Auto) Baso % (Auto) Lymph # (Auto) [place] # (Auto) Eos # (Auto) Baso # (Auto) Abs Immat Gran (auto) Absolute Neuts (auto) Absolute Nucleated RBC Nucleated RBC % (auto) Sodium Potassium Chloride Carbon Dioxide Anion Gap BUN Creatinine Estim Creat Clear Calc Estimated GFR POC Glucose 190 H 201 H Random Glucose Calcium Magnesium Total Bilirubin AST ALT Alkaline Phosphatase Total Protein Albumin Preliminary micro results at discharge 02/02/25 16:06 Blood Culture - Preliminary Blood - Venous No growth after 48 hours. 02/02/25 16:06 Blood Culture - Preliminary Blood - Venous No growth after 48 hours. Discharge Plan Discharge Anticipated Discharge Date/Time: 02/06/25 14:33 Patient Disposition: Xfer SNF Discharge Diagnosis: JOCE prerenal etiology, resolved Referrals: Josh Finley MD [Physician, Critical Care ([facility])] - 1 Week Ezra Larose MD [Primary Care Provider, Internal Medicine] - 1 Week Discharge Medications: New acetaminophen 325 mg Tablet 975 mg PO Q6H 30 Days Qty: 360 3RF gabapentin 100 mg Capsule 100 mg PO BID 30 Days Qty: 60 0RF lidocaine [Lidocaine Pain Relief] 4 % Adhesive Patch,Medicated 2 patch transdermal DAILY 10 Days Qty: 10 0RF Protocol: Apply to: Apply to: affected area Continued atorvastatin 40 mg tablet 40 mg PO DAILY amlodipine 2.5 mg tablet 2.5 mg PO DAILY tamsulosin 0.4 mg capsule 0.8 mg PO BEDTIME PRN (Reason: enlarge prostate) metoprolol succinate 25 mg tablet extended release 24 hr 25 mg PO DAILY torsemide 20 mg tablet 20 mg PO DAILY metformin 500 mg tablet extended release 24 hr 500 mg PO DAILY folic acid 1 mg tablet 1 mg PO DAILY Qty: 30 0RF mirtazapine 7.5 mg tablet 7.5 mg PO BEDTIME acamprosate 333 mg tablet,delayed release (DR/EC) 666 mg PO TID trazodone 50 mg tablet 50 mg PO BEDTIME naltrexone 50 mg tablet 50 mg PO DAILY fluticasone propionate 50 mcg/actuation spray,suspension 2 spray intranasal DAILY Trulicity 1.5 mg/0.5 mL pen injector 1.5 mg subcut TH Held irbesartan 300 mg tablet 300 mg PO DAILY Hold Instructions: Resume on 02/11/25. Please see PCP prior to resuming this medication Discharge Orders: Discharge Order (Routine); Ordered 02/06/25 Ordered By: Manasa Santiago Diet: Diabetic diet Activity on Discharge: As tolerated Stand Alone Forms: Patient Portal Discharge page Print Language: Jamaican Care Plan Goals: Please follow-up with Nephrology outpatient , continuing to hold your a/Arb antihypertension medications-please follow-up with PCP and once Please follow-up with PCP for ongoing chronic medical conditions Please continue to use gabapentin lidocaine for your neuropathy which will take months to resolve Please refrain from alcohol Health Concerns: See above Plan of Treatment: See above Assessment: See above
[2025-02-06 15:46] VITALS: BP 147/83; PULSE 74; RESP 18; TEMP 37.4; O2SAT 96
[2025-02-06 16:07] LABS: Glucose, Whole Blood 166 mg/dL (60-115)
--- NOTE | 2025-02-06 16:21 | MHC.CM.PN ---
Addendum entered by Alta Haines 02/07/25 10:19: PT DISCHARGED TO [facility] THIS MORNING AT 1000 HOURS [facility]IA [facility] PT STATES HE HAS UPDATED FAMILY DCS WITH LESS THAN 30 DAY ORDER FAXED TO [facility] AT [phone] Addendum entered by Alta Haines 02/06/25 16:39: TRANSPORT PRE-BOOKED, PT AWARE Original Note: CM MET WITH PT MULTIPLE TIMES THROUGHOUT THE DAY PT IS AWARE HE IS CLEARED TO DC AND AGREEABLE TO STR HE DID NOT HAVE ANY PREFERENCES REFERRALS MADE, [facility] AND BED ACCEPTED THEY WILL ACCEPT PT TOMORROW MORNING AT 10AM HE WILL BE 24 HOURS OFF CIWA PT WILL DC TO [facility] TOMORROW AT 1000 HOURS [facility]
--- NOTE | 2025-02-06 16:32 | PM.EVENT ---
Event Note Date of Service: 02/06/25 Event Note: Pt didnt have a SNF to take him, hence he will be DC'd at 10am as per DC planning. Will cont same care as noted in DC summary Time Spent With Patient Time: Total time managing care of this patient today ____ minutes.
[2025-02-06 19:32] VITALS: BP 135/62; PULSE 81; RESP 17; TEMP 36.8; O2SAT 94
[2025-02-06 20:32] LABS: Glucose, Whole Blood 234 mg/dL (60-115)
[2025-02-07] VITALS: BP 130/75; PULSE 68; RESP 16; TEMP 36.7; O2SAT 95
[2025-02-07 04:00] VITALS: BP 127/74; PULSE 60; RESP 17; TEMP 36.9; O2SAT 96
[2025-02-07 07:35] VITALS: BP 154/83; PULSE 63; RESP 18; TEMP 36.7; O2SAT 96
[2025-02-07 07:36] LABS: MANUAL DIFF FLAG NO
[2025-02-07 07:38] LABS: Hematocrit 30.3 % (42.0-52.0); Hemoglobin 9.6 g/dl (14.0-18.0); Imm Gran Abs Auto 0.04 X10*3/uL (0.00-0.03); Imm Gran Pct Auto 0.9 % (0.0-0.4); Lymphocytes Absolute Auto 1.1 X10*3/uL (1.2-4.9); Mean Corpuscular HGB Conc 31.7 g/dl (31.0-36.0); Mean Corpuscular Hemoglobin 30.2 pg (27.0-33.0); Mean Corpuscular Volume 95.3 fL (80.0-98.0); NRBC Abs Auto 0.000 X10*3/uL (0.0-0.012); NRBC Pct Auto 0.0 /100WBC (0.0-0.2); Platelet Count 126 X10*3/uL (160-400); Red Blood Count 3.18 X10*6/uL (4.60-5.80); White Blood Count 4.7 X10*3/uL (4.8-10.8)
[2025-02-07 07:55] LABS: Glucose, Whole Blood 193 mg/dL (60-115)
[2025-02-07 07:57] LABS: Alanine Aminotransferase 58 U/L (0-40); Albumin Level 3.6 g/dL (3.5-5.0); Alkaline Phosphatase 55 U/L (39-117); Anion Gap 14 (12-20); Aspartate Amino Transferase 76 U/L (5-37); Blood Urea Nitrogen 22 mg/dL (9-16); Calcium 9.0 mg/dL (8.4-10.2); Carbon Dioxide 21 mmol/L (22-29); Chloride 105 mmol/L (96-108); Creatinine Clr Calc Pharmacy 53.8; Estimated Glomerular Filt Rate 39; Magnesium 2.0 mg/dL (1.6-2.6); Potassium 5.2 mmol/L (3.3-5.1); Sodium 135 mmol/L (135-145); Total Protein 6.9 g/dL (6.5-8.0)
[2025-02-07] MEDS: 0.9 % Sodium Chloride Flush 3 ML SYRINGE IVFLUSH (08:18)
[2025-02-07] MEDS: Thiamine HCL 100 MG in 0.9 % Sodium Chloride 100 ML 202 MG IV (08:18)
[2025-02-07] MEDS: Lidocaine 4 % Patch ADH..PATCH 2 PATCH TRANSDERMA (08:19)
--- NOTE | 2025-02-23 11:40 | P.DS_ITS ---
DS: Providers Provider Date of Service: 02/07/25 Date of admission: 02/02/25 19:10 Date of discharge: 02/07/25 Primary care physician: Ezra Larose MD Consults: 02/02/25 19:15 Consult to Nephrology Routine Consulting Provider: [facility] Reason for consultation: JOCE Has provider been notified: No DS: Diagnosis Discharge Diagnosis (1) Alcohol use disorder: Status: Acute (2) Diarrhea: Status: Resolved (3) JOCE (acute kidney injury): Status: Resolved (4) Acute hyperkalemia: Status: Acute (5) Diabetic neuropathy: Status: Acute (6) Metabolic acidosis: Status: Acute (7) Alcohol abuse: Status: Resolved (8) Acute lactic acidosis: Status: Resolved DS: Summary Hospital Course Hospital Course: Deven Jensen is a 64 y/o man who presents with PMH significant for CKD, type 2 diabetes mellitus on metformin ,STANLEY non tolerant to CPAP, obesity and essential hypertension on losartan, currently taking diuretics for feet edema presents to the emergency department complaining of worsening swelling to the feet over the last 2 month. Was noted to have JOCE on CKD, resolving at the time of discharge. JOCE, HAGMA, mild bilateral hydronephrosis-likely secondary to prerenal etiology diuretics and diarrhea. Acute on chronic kidney injury causing high anion gap metabolic acidosis; there is mild bilateral hydronephrosis; likely multifactorial, clinically improved. Diarrhea resolved with symptomatic management. Briefly we held his diuretics and PADMAJA inhibitors and IVF briefly with improvement. Was seen by Nephrology. Given improvement of his JOCE from 3.8 POA to 2 prior to discharge, patient was deemed stable for discharge and Nephrology we will follow outpatient. Acute lactic acidosis, likely multifactorial due to above and metformin and renal failure. Hold metformin. No evidence of sepsis, LA has trended down Alcohol abuse. Takes acamprosate and naltrexone, will hold both due to low GFR. Watch for withdrawal symptoms, CIWA. Thiamine, folic acid and multivitamins. Phenobarbital as needed. Social work consult. Mild transaminitis, secondary to alcohol abuse. Patient encouraged to abstain from alcohol. Continue to monitor. Acute diarrhea. No other GI symptoms. Continue hydration. GI panel negative. imodium PRN Type 2 diabetes mellitus. On Trilicity but NF. Metformin on hold due to severe lactic acidosis and JOCE. BG checks before meals at bedtime. Diabetic diet. Insulin sliding scale. Needs to follow outpatient prior to resumption of metformin. Noted to have elevated K of 5.2, received Lokelma. To repeat BMP next week and follow with nephrology as outpatient. *The patient was seen and evaluated this morning. Feels good and denies any overnight events. Will Discontinue Metformin on discharge. Adjust diabetes medications at nursing facility as needed. The patient will likely need less than 30 days of SNF stay. Time Attestation Discharge Coordination Time (in mins): 42 Quality: Safe Use of Opioids Does Pt have an Active Cancer Diagnosis on the Problem List?: No Quality: Stroke Does the patient have a stroke diagnosis?: No Physical Exam Vital Signs: Vital Signs: Last Vital Signs Temp 98.0 F 02/07/25 07:35 Pulse 63 02/07/25 07:35 Resp 18 02/07/25 07:35 BP 154/83 H 02/07/25 07:35 Pulse Ox 96 02/07/25 07:35 O2 Del Method Room Air 02/07/25 07:35 BMI result Body Mass Index 38.2 Const: Other: Constitutional : interactive, not in distress Cardiovascular : no JVP, no lower extremity edema Respiratory : bilateral chest movement, not in resp distress Gastrointestinal: soft, lax, Non tender Skin : Warm, Dry Neurological : Alert & oriented , No focal deficit DS: Data Data Completed and Pending Completed studies during hospitalization [Text1]: Procedures Detoxification Services for Substance Abuse Treatment (03/16/24) Discharge Plan Discharge Anticipated Discharge Date/Time: 02/06/25 14:33 Patient Disposition: Xfer SNF Discharge Diagnosis: JOCE prerenal etiology, resolved Referrals: [facility] [Outside] - 1 Week Josh Finley MD [Physician, Critical Care ([facility])] - 1 Week Ezra Larose MD [Primary Care Provider, Internal Medicine] - 1 Week Discharge Medications: New acetaminophen 325 mg Tablet 975 mg PO Q6H 30 Days Qty: 360 3RF gabapentin 100 mg Capsule 100 mg PO BID 30 Days Qty: 60 0RF lidocaine [Lidocaine Pain Relief] 4 % Adhesive Patch,Medicated 2 patch transdermal DAILY 10 Days Qty: 10 0RF Protocol: Apply to: Apply to: affected area Continued atorvastatin 40 mg tablet 40 mg PO DAILY amlodipine 2.5 mg tablet 2.5 mg PO DAILY tamsulosin 0.4 mg capsule 0.8 mg PO BEDTIME PRN (Reason: enlarge prostate) metoprolol succinate 25 mg tablet extended release 24 hr 25 mg PO DAILY torsemide 20 mg tablet 20 mg PO DAILY folic acid 1 mg tablet 1 mg PO DAILY Qty: 30 0RF mirtazapine 7.5 mg tablet 7.5 mg PO BEDTIME acamprosate 333 mg tablet,delayed release (DR/EC) 666 mg PO TID trazodone 50 mg tablet 50 mg PO BEDTIME naltrexone 50 mg tablet 50 mg PO DAILY fluticasone propionate 50 mcg/actuation spray,suspension 2 spray intranasal DAILY Trulicity 1.5 mg/0.5 mL pen injector 1.5 mg subcut TH Held irbesartan 300 mg tablet 300 mg PO DAILY Hold Instructions: Resume on 02/11/25. Please see PCP prior to resuming this medication Discontinued metformin 500 mg tablet extended release 24 hr 500 mg PO DAILY Discharge Orders: Discharge Order (Routine); Ordered 02/06/25 Ordered By: Manasa Santiago Diet: Diabetic diet Activity on Discharge: As tolerated Stand Alone Forms: Patient Portal Discharge page Print Language: Japanese Other Ambulatory Orders: Basic Metabolic Panel (Routine) Timeframe: 1 Week Facility: [facility] - Location: Laboratory Ordered By: Khadar Saez Care Plan Goals: Please follow-up with Nephrology outpatient , continuing to hold your a/Arb antihypertension medications-please follow-up with PCP and once Please follow-up with PCP for ongoing chronic medical conditions Please continue to use gabapentin lidocaine for your neuropathy which will take months to resolve Please refrain from alcohol Health Concerns: See above Plan of Treatment: See above Assessment: See above Discharge Date/Time: 02/07/25 10:35
== END 2025-02-07 10:35 | disposition skilled nursing facility (03) | DRG 683 ==
LOC: HO.ED 17:33 → HO.EDOVER 19:18 → HO.IMC 02-03 19:12
PROVIDERS: Internal Medicine; Internal Medicine Critical Care Medicine; Physician Assistant Medical; Student in an Organized Health Care Education/Training Program; Admitting Provider Internal Medicine; Emergency Provider Emergency Medicine Emergency Medical Services; PCP Internal Medicine; Visit Provider Student in an Organized Health Care Education/Training Program
DX: N17.9 Acute kidney failure, unspecified (principal); E87.21 Acute metabolic acidosis; Z59.01 Sheltered homelessness; I12.9 Hypertensive chronic kidney disease with stage 1 through stage 4 chronic kidney disease, or unspecified chronic kidney disease; N13.30 Unspecified hydronephrosis; N18.30 Chronic kidney disease, stage 3 unspecified; E11.22 Type 2 diabetes mellitus with diabetic chronic kidney disease; G47.33 Obstructive sleep apnea (adult) (pediatric); E66.812 Obesity, class 2; R19.7 Diarrhea, unspecified; Z71.3 Dietary counseling and surveillance; F10.10 Alcohol abuse, uncomplicated; I95.9 Hypotension, unspecified; T38.3X5A Adverse effect of insulin and oral hypoglycemic [antidiabetic] drugs, initial encounter; Z68.38 Body mass index [BMI] 38.0-38.9, adult; N40.0 Benign prostatic hyperplasia without lower urinary tract symptoms; D63.1 Anemia in chronic kidney disease; Z20.822 Contact with and (suspected) exposure to COVID-19; Z79.51 Long term (current) use of inhaled steroids; Z79.84 Long term (current) use of oral hypoglycemic drugs; Z79.85 Long-term (current) use of injectable non-insulin antidiabetic drugs; Z79.899 Other long term (current) drug therapy
CPT/HCPCS: 36415; 74176; 80048; 80053; 81003; 82550; 82570; 82803; 82947; 83605; 83735; 83935; 84100; 84300; 84484; 85025; 85610; 87040; 87493; 87502; 87507; 87635; 93005; 97162; 99285; J1644; J2560; J3411; J7120

== ENCOUNTER → 2025-02-02 15:08 | Outpatient (BNV) | payer MEDICARE, MEDICAID, SELFPAY | PROVIDERS: Admitting Provider Internal Medicine; Emergency Provider Emergency Medicine Emergency Medical Services; PCP Internal Medicine; Visit Provider Internal Medicine Cardiovascular Disease | DX: R53.1 Weakness (principal) | CPT/HCPCS: 93010 ==

== ENCOUNTER → 2025-02-02 17:20 | Outpatient (BNV) | payer MEDICARE, MEDICAID, SELFPAY | PROVIDERS: Admitting Provider Internal Medicine; Emergency Provider Emergency Medicine Emergency Medical Services; PCP Internal Medicine; Visit Provider Radiology Diagnostic Radiology | DX: N13.39 Other hydronephrosis (principal); K57.30 Diverticulosis of large intestine without perforation or abscess without bleeding | CPT/HCPCS: 74176 ==

== ENCOUNTER → 2025-02-02 19:10 | Outpatient (BNV) | payer MEDICARE, MEDICAID, SELFPAY | PROVIDERS: Admitting Provider Internal Medicine; Emergency Provider Emergency Medicine Emergency Medical Services; PCP Internal Medicine; Visit Provider Internal Medicine Critical Care Medicine | DX: F10.90 Alcohol use, unspecified, uncomplicated (principal); N17.9 Acute kidney failure, unspecified; E83.42 Hypomagnesemia | CPT/HCPCS: 99232 ==

== ENCOUNTER → 2025-02-02 19:10 | Outpatient (BNV) | payer MEDICARE, MEDICAID, SELFPAY | PROVIDERS: Admitting Provider Internal Medicine; Emergency Provider Emergency Medicine Emergency Medical Services; PCP Internal Medicine; Visit Provider Internal Medicine | DX: F10.90 Alcohol use, unspecified, uncomplicated (principal); R19.7 Diarrhea, unspecified; N17.9 Acute kidney failure, unspecified | CPT/HCPCS: 99232 ==

== ENCOUNTER 2025-03-02 13:49 | Inpatient (IN) | payer MEDICARE, MEDICAID, SELFPAY ==
[2025-03-02] VITALS (20 sets, daily range): BP systolic 82–132; BP diastolic 37–98; PULSE 20–90; RESP 10–22; TEMP 35.8–36.9; O2SAT 94–99; BMI 37.3
--- NOTE | ~2025-03-02 | XR_ITS ---
EXAMINATION: XR CHEST CLINICAL INFORMATION: Cough COMPARISON: Previous chest x-ray August 2023 TECHNIQUE: Frontal view of the chest was obtained. FINDINGS: Low lung volumes. Lungs are clear. No consolidation or pulmonary edema. No pleural effusion or pneumothorax. Cardiac and mediastinal contours are stable. Degenerative changes of the spine and shoulders. XR/XR chest 1V IMPRESSION: Low lung volumes. No evidence for acute disease in the chest. Electronically signed by: Nicole Monroy MD 03/02/2025 03:10 PM KEVIN
--- NOTE | ~2025-03-02 | XR_ITS ---
CLINICAL HISTORY: fall 4 view right knee Comparison: None provided Findings: No fractures or dislocations. Early degenerative changes with mild joint space narrowing and early subchondral sclerosis, especially in the medial compartment. No joint effusion. No radiopaque foreign body. IMPRESSION: 1. No acute findings. This document has been electronically signed by: Young Schulte MD on 03/02/2025 18:24:29
--- NOTE | ~2025-03-02 | CT_ITS ---
CLINICAL HISTORY: hypotension ? PNA not seen on CXR CT chest without contrast Comparison: None provided Findings: Included lower neck, thyroid gland and mediastinum without acute abnormality. There is no chest lymphadenopathy. There is no cardiomegaly or pericardial effusion. The aorta and pulmonary artery are normal in caliber. There are coronary artery calcifications. Bilateral lungs without focal airspace consolidation, effusions or pneumothorax. The airways are patent. Included upper abdomen without acute abnormality. The adrenal glands are nonenlarged. The esophagus is normal throughout the chest. There is a mild ( 10-15%) compression fracture deformity of the superior endplate of the T4 vertebral body, sagittal image 89, series 9. No retropulsion of fragments. The remainder of the thoracic vertebral bodies are intact. The sternum is intact. Bilateral ribcage is intact. IMPRESSION: Age indeterminate compression fracture deformity of the superior endplate of T4 as described. No priors for comparison. Correlate with symptoms, history and physical exam. Additional imaging as clinically warranted. The examination is otherwise unremarkable. The lungs are clear. No chest lymphadenopathy. This document has been electronically signed by: Young Schulte MD on 03/02/2025 20:34:16
--- NOTE | ~2025-03-02 | CT_ITS ---
EXAMINATION: CT HEAD WITHOUT CONTRAST CLINICAL INFORMATION: Head injury COMPARISON: None available. TECHNIQUE: Contiguous axial imaging was performed from the skull base to vertex without intravenous administration of contrast. This CT examination was performed using dose optimization techniques as appropriate, variously including the following: *Automated exposure control *Adjustment of mA and/or kV according to patient size (this includes techniques or standardized protocols for targeted exams where dose is matched to indication/reason for exam; i.e. extremities or head) *Use of iterative reconstruction technique FINDINGS: There is no acute ischemic change. There is no intracranial hemorrhage. There is no mass-effect or midline shift. There is moderate frontotemporal lobe atrophy. Basal cisterns and ventricles are within normal limits for age/cerebral volume. Orbits are symmetrical and unremarkable. Paranasal sinuses are pneumatized. Trace fluid is present in the mastoid air cells. There are no bony abnormalities. CT/CT head/brain wo IV con IMPRESSION: No acute intracranial abnormality. Frontotemporal lobe atrophy. Trace mastoid air cell effusion. Electronically signed by: Rojelio Barajas MD 03/02/2025 04:39 PM EST
--- NOTE | ~2025-03-02 | CT_ITS ---
CLINICAL HISTORY: Epigastric pain ? intrab path CT abdomen and pelvis without contrast Comparison: CT/SR - CT ABDOMEN PELVIS WO IV CON - 02/02/25 18:30 EDT Findings: The lung bases are clear. The liver, gallbladder, spleen, pancreas, bilateral adrenal glands and bilateral kidneys without acute abnormality or focal lesions. Tiny gallstones are noted within the gallbladder lumen. No biliary dilatation. The stomach and bowel loops are not dilated. There are no focal colonic lesions or pneumatosis. There is descending and sigmoid colon diverticulosis. There is no mesenteric inflammation. The appendix is not seen. There are no secondary signs to suggest acute appendicitis. No free fluid, collections or free air The aorta normal in caliber. No abdominal or pelvic lymphadenopathy. The bladder is normal. There is no acute soft tissue or skeletal abnormality in the abdomen or pelvis. Moderate multilevel degenerative changes in the lumbar spine.. IMPRESSION: No acute findings. Tiny gallstones are noted within the gallbladder lumen. No pericholecystic inflammation or biliary dilatation. Distal colonic diverticulosis. This document has been electronically signed by: Young Schulte MD on 03/02/2025 20:38:28
--- NOTE | 2025-03-02 14:44 | ECG_ITS ---
Test Reason : SOB Blood Pressure : */* mmHG Vent. Rate : 88 BPM Atrial Rate : 88 BPM P-R Int : 154 ms QRS Dur : 80 ms QT Int : 376 ms P-R-T Axes : 32 30 12 degrees QTcB Int : 454 ms Poor data quality Normal sinus rhythm Normal ECG When compared with ECG of 02-Feb-2025 15:31, No significant change was found Referred By: Abelino Finley Electronically Signed By: TIERNEY ACUNA MD
--- NOTE | 2025-03-02 14:47 | PC.NURSE ---
Pt coughing excessively- BP low and Emogy in toeval pt. EK shows NSR noectopy- N/C 4 LPM with sats in 90's
--- NOTE | 2025-03-02 14:49 | ED.GENADULT ---
HPI - General Adult General Chief complaint: General Medical Stated complaint: Hyperglycemia, near syncope and diff breathing Time Seen by Provider: 03/02/25 14:44 Source: patient, EMS and old records reviewed Mode of arrival: EMS Limitations: no limitations History of Present Illness ED Provider: DR. Finley HPI narrative: 64-year-old male PMHx CKD, type 2 DM on Trulicity and metformin, STANLEY on CPAP, obesity, essential hypertension, came in by ambulance for evaluation of multiple fall at home and glaucoma daughter reader at home is high, patient has been discharged from detention to home and has been feeling overall generalized weakness, and generalized body ache, patient had multiple fall he think he fell down because he feels dizzy and weak, no LOC, +head injury. Patient has been feeling lightheadedness, feels passing out with changing positions. Patient also has been coughing since he was discharged from the hospital, no shortness of breath, no abdominal pain. Related Data Home Medications ?Medication ?Instructions ?Recorded ?Confirmed amlodipine 2.5 mg tablet 2.5 mg PO DAILY 09/20/23 02/02/25 atorvastatin 40 mg tablet 40 mg PO DAILY 09/20/23 02/02/25 irbesartan 300 mg tablet 300 mg PO DAILY 09/20/23 02/02/25 Held on 02/06/25. Instructions: Resume on 02/11/25. Please see PCP prior to resuming this medication metoprolol succinate 25 mg 25 mg PO DAILY 09/20/23 02/02/25 tablet,extended release 24 hr tamsulosin 0.4 mg capsule 0.8 mg PO BEDTIME PRN enlarge 09/20/23 02/02/25 prostate torsemide 20 mg tablet 20 mg PO DAILY 09/20/23 02/02/25 acamprosate 333 mg tablet,delayed 666 mg PO TID 03/16/24 02/02/25 release mirtazapine 7.5 mg tablet 7.5 mg PO BEDTIME 03/16/24 02/02/25 dulaglutide 1.5 mg/0.5 mL 1.5 mg subcut TH 02/02/25 02/02/25 [facility] fluticasone propionate 50 2 spray intranasal DAILY 02/02/25 02/02/25 mcg/actuation nasal spray,suspension naltrexone 50 mg tablet 50 mg PO DAILY 02/02/25 02/02/25 trazodone 50 mg tablet 50 mg PO BEDTIME 02/02/25 02/02/25 Previous Rx's ?Medication ?Instructions ?Recorded folic acid 1 mg tablet 1 mg PO DAILY #30 tabs 09/22/23 acetaminophen 325 mg tablet 975 mg (3 x 325 mg) PO Q6H 30 days 02/06/25 #360 tabs gabapentin 100 mg capsule 100 mg PO BID Neuropathic pain 30 02/06/25 days #60 caps lidocaine 4 % topical patch 2 patch transdermal DAILY 10 days 02/06/25 (Lidocaine Pain Relief) #10 ea Allergies Allergy/AdvReac Type Severity Reaction Status Date / Time No Known Allergies Allergy Verified 03/02/25 14:07 Review of Systems Review of Systems: All other systems are reviewed and are negative Constitutional: Reports as per HPI and Reports no additional constitutional complaints Eyes: Reports as per HPI and Reports no additional eye complaints Reports system reviewed and no additional complaints, except as documented Cardiovascular: Reports as per HPI and Reports no additional cardiovascular complaints Respiratory: Reports as per HPI and Reports no additional respiratory complaints Gastrointestinal: Reports as per HPI and Reports no additional gastrointestinal complaints Genitourinary: Reports no additional female genitourinary complaints Musculoskeletal: Reports no additional musculoskeletal complaints Skin/Breast: Reports system reviewed and no additional complaints, except as docu Psychiatric: Reports no additional psychiatric complaints Endocrine: Reports no additional endocrine complaints Hematologic/Lymphatic: Reports no additional hematologic/lymphatic complaints Allergic/Immunologic: Reports no additional allergic/immunologic complaints Reports system reviewed and no additional complaints, except as documented and Reports Abnormal speech present [facility] Past Medical History Medical History Fracture of right tibial spine Hyperlipidemia Diverticulitis Obesity Alcoholism CKD (chronic kidney disease), stage III HTN (hypertension) Diabetes BPH (benign prostatic hyperplasia) Social History Social History Household Members: None Household Members Other:: group home in [place] for [employer] Housing: Apartment Housing Other:: lives in group home Do you presently have visiting nurse or other home services: Yes (2 x a week visiting nurse) Patient Tobacco Use Status: Never used Tobacco Smoked in Last 30 Days: No Use of substances other than those prescribed or required for medical reasons: No Substance Use Type: Marijuana Advance Directives: Yes Advance Directives Information Provided: No Advance Directives on File: No service: No Physical Exam ED Vital Signs: Vital Signs - 24 hr 03/02/25 14:05 03/02/25 14:47 03/02/25 15:07 Temperature 96.5 F L Pulse Rate 90 86 Respiratory Rate 20 22 H Blood Pressure 87/66 L 100/64 Pulse Oximetry 96 94 Oxygen Delivery Method Nasal Cannula Nasal Cannula Oxygen Flow Rate 4 03/02/25 15:45 03/02/25 16:15 03/02/25 17:08 Temperature 97.5 F Pulse Rate 81 82 88 Respiratory Rate 18 18 10 L Blood Pressure 103/63 118/77 100/64 Pulse Oximetry 97 98 99 Oxygen Delivery Method Nasal Cannula Room Air Nasal Cannula Oxygen Flow Rate 2 2 03/02/25 17:43 03/02/25 18:01 03/02/25 18:19 Temperature 98.4 F Pulse Rate 80 71 70 Respiratory Rate 18 18 18 Blood Pressure 82/59 L 98/61 99/55 L Pulse Oximetry 97 97 97 Oxygen Delivery Method Room Air Room Air Room Air Oxygen Flow Rate 03/02/25 18:39 03/02/25 18:51 03/02/25 19:06 Temperature Pulse Rate 73 72 68 Respiratory Rate 18 Blood Pressure 83/37 L 83/37 L 100/58 L Pulse Oximetry 96 Oxygen Delivery Method Room Air Oxygen Flow Rate 03/02/25 19:12 Temperature Pulse Rate 76 Respiratory Rate Blood Pressure 101/49 L Pulse Oximetry Oxygen Delivery Method Oxygen Flow Rate BMI result Body Mass Index 37.3 Vital signs have been reviewed and appear to be correct. Blood pressure is low. Heart rate normal. Respiratory rate normal. Temperature normal. Oxygen saturation normal. Appearance: Alert. Oriented X3. No acute distress. Head: Normal external exam. Normocephalic. Atraumatic. No Roman signs noted. No raccoon eyes noted Eyes: PERRLA. EOMI. Conjunctiva and sclera normal. Eyelids normal. ENT: TM's Normal. Pharynx normal. Uvula midline. Moist mucous membranes. No trismus noted. No drooling noted. No muffled voice noted. Neck: Normal inspection. Neck supple. FROM. No adenopathy. Thyroid Normal. No meningeal signs. No neck mass noted. CVS: Normal heart rate and rhythm. Heart sound normal. No murmurs noted. Pulses normal throughout. Respiratory: No respiratory distress. Painless inspiration. Breath sounds normal. No wheezes/rales/rhonchi noted. Chest nontender. No accessory muscle usage noted or decreased air movement noted. Abdomen: Soft and nontender. Bowel sounds normal in all 4 quadrants. No distention noted. No organomegaly noted. No visible injury noted. Back: No CVA tenderness. Full range of motion noted. Skin: Skin warm and dry. Normal skin color. Normal skin turgor. No rashes/lesions/lacerations noted. Extremities: No lower extremity edema. Extremities exhibit normal range of motion. Extremities nontender. Neuro: Oriented X 3, GCS of 15. Cranial nerve exam: II-XII are grossly intact No motor deficit. No sensory deficit. Reflexes normal. Course Reevaluation(s) Reevaluation #1: 64-year-old male lives home alone has been falling lately, history of recent hospitalization, patient found to be hypotensive and dehydrated received 3.5 L of fluids with some improvement of the blood pressure becoming hypotensive again, started on Levophed drip. No source of infection however patient received 1 dose of empirical antibiotic. Hyperglycemia with anion gap of 14 and bicarb of 19, pH is 7.24 unlikely DKA patient received boluses of insulin controlling his blood sugar, as per Dr. Finley no need for IV insulin drip. ICU team recommending CT chest/abdomen/pelvis before moving to ICU. Time: 18:56 Medications Administered Generic Name Dose Route Start Last Admin Trade Name Freq PRN Reason Stop Dose Admin Norepinephrine Bitartrate 8 mg in 250 mls @ 0 mls/hr 03/02/25 18:45 03/02/25 19:12 Levophed IVCONT 0 mcg/kg/min .Q0M BLESSING 0 mls/hr Protocol Titration Per Protocol Discontinued Medications Generic Name Dose Route Start Last Admin Trade Name Freq PRN Reason Stop Dose Admin Sodium Chloride 2,190 mls @ 2,190 mls/hr 03/02/25 14:46 03/02/25 16:00 Ns IV 03/02/25 15:45 Infused .Q1H STA Infusion Ceftriaxone Sodium 1 gm/ 50 mls @ 100 mls/hr 03/02/25 14:54 03/02/25 16:00 Sodium Chloride IV 03/02/25 15:23 Infused ONCE ONE Infusion Sodium Chloride 1,000 mls @ 999 mls/hr 03/02/25 17:50 03/02/25 19:00 Ns IV 03/02/25 18:50 Infused .Q1H1M ONE Infusion Insulin Human Regular 6 unit 03/02/25 15:41 03/02/25 16:35 Insulin Regular, Human 100 Unit/Ml 3 Ml Vial IVPUSH 03/02/25 15:42 6 unit ONCE ONE Administration Insulin Human Regular 6 unit 03/02/25 16:00 03/02/25 16:11 Insulin Regular, Human 100 Unit/Ml 10 Ml Vial IVPUSH 03/02/25 16:01 Not Given ONCE ONE Insulin Human Regular 6 unit 03/02/25 16:26 03/02/25 16:32 Insulin Regular, Human 100 Unit/Ml 10 Ml Vial IVPUSH 03/02/25 16:27 6 unit ONCE ONE Administration Ketorolac Tromethamine 15 mg 03/02/25 18:44 03/02/25 19:08 Ketorolac Tromethamine 15 Mg/Ml Vial IVPUSH 03/02/25 18:45 15 mg ONCE ONE Administration Medical Decision Making Differential Diagnosis Differential Diagnoses: The differential diagnosis associated with the presentation includes (Septic shock, hypovolemic shock, cardiogenic shock, electrolyte derangement, severe dehydration, refractory hypotension.) Admission/Observation Consideration of admission/observation: Escalation of care including admission/observation considered Consult Healthcare Provider Management of the patient was discussed with: Entry Analyst (Dr. Finley) Lab Data MDM Lab Attestation statement: I reviewed the patient's lab results. 03/02/25 14:56 03/02/25 14:56 Labs: Lab Results 03/02/25 03/02/25 03/02/25 Range/Units 14:16 14:56 15:27 WBC 14.4 H (4.8-10.8) X10*3/uL RBC 3.61 L (4.60-5.80) X10*6/uL Hgb 10.8 L (14.0-18.0) g/dl Hct 31.7 L (42.0-52.0) % MCV 87.8 (80.0-98.0) fL MCH 29.9 (27.0-33.0) pg MCHC 34.1 (31.0-36.0) g/dl RDW 13.2 (11.0-16.0) % Plt Count 195 D (160-400) X10*3/uL MPV 10.4 (9.4-12.4) fL Immature Gran % (Auto) 1.6 H (0.0-0.4) % Neut % (Auto) 81.0 H (45-73) % Lymph % (Auto) 11.0 L (20-40) % Hutchinson % (Auto) 4.9 (2-11) % Eos % (Auto) 1.2 (0-4) % Baso % (Auto) 0.3 (0-2) % Lymph # (Auto) 1.6 (1.2-4.9) X10*3/uL Hutchinson # (Auto) 0.7 (0.1-1.2) X10*3/uL Eos # (Auto) 0.2 (0.0-0.4) X10*3/uL Baso # (Auto) 0.0 (0.0-0.2) X10*3/uL Abs Immat Gran (auto) 0.23 H (0.00-0.03) X10*3/uL Absolute Neuts (auto) 11.6 H (2.0-8.3) x10*3/uL Absolute Nucleated RBC 0.000 (0.0-0.012) X10*3/uL Nucleated RBC % (auto) 0.0 (0.0-0.2) /100WBC PT 13.1 (11.2-13.5) SEC INR 1.1 (0.9-1.1) VBG pH 7.25 L (7.32-7.43) VBG pCO2 36 mmHg VBG pO2 51 mmHg VBG HCO3 16 L (22-26) mmol/L VBG O2 Saturation 73.0 % VBG Base Excess -10.0 mmol/L Sodium 123 L (135-145) mmol/L Potassium 4.4 (3.3-5.1) mmol/L Chloride 94 L (96-108) mmol/L Carbon Dioxide 19 L (22-29) mmol/L Anion Gap 14 (12-20) BUN 72 H (9-16) mg/dL Creatinine 2.61 H (0.5-1.4) mg/dL Estim Creat Clear Calc 36.3 Estimated GFR 25 POC Glucose > 600 H* (60-115) mg/dL Random Glucose 593 H* (60-115) mg/dL Lactic Acid 2.3 H* (0.5-2.0) mmol/L Lactic Acid F/U @ 2Hr (0.5-2.0) mmol/L Calcium 8.7 (8.4-10.2) mg/dL Total Bilirubin 0.5 (0.0-1.0) mg/dL Direct Bilirubin 0.2 (0.0-0.5) mg/dL AST 46 H (5-37) U/L ALT 33 (0-40) U/L Alkaline Phosphatase 67 (39-117) U/L Troponin I High Sens 14.2 (<3.5-35.0) ng/L Total Protein 7.4 (6.5-8.0) g/dL Albumin 4.0 (3.5-5.0) g/dL Lipase 118 H (8-78) U/L Beta-Hydroxybutyrate 1.36 H (0.02-0.27) mmol/L COVID-19 ([facility]A) (Negative) COVID-19 Clin Com Influenza Type A (MAYKEL) (Negative) Influenza Type B (MAYKEL) (Negative) Influenza A & B Note 03/02/25 03/02/25 03/02/25 Range/Units 16:18 16:19 17:11 WBC (4.8-10.8) X10*3/uL RBC (4.60-5.80) X10*6/uL Hgb (14.0-18.0) g/dl Hct (42.0-52.0) % MCV (80.0-98.0) fL MCH (27.0-33.0) pg MCHC (31.0-36.0) g/dl RDW (11.0-16.0) % Plt Count (160-400) X10*3/uL MPV (9.4-12.4) fL Immature Gran % (Auto) (0.0-0.4) % Neut % (Auto) (45-73) % Lymph % (Auto) (20-40) % Hutchinson % (Auto) (2-11) % Eos % (Auto) (0-4) % Baso % (Auto) (0-2) % Lymph # (Auto) (1.2-4.9) X10*3/uL Hutchinson # (Auto) (0.1-1.2) X10*3/uL Eos # (Auto) (0.0-0.4) X10*3/uL Baso # (Auto) (0.0-0.2) X10*3/uL Abs Immat Gran (auto) (0.00-0.03) X10*3/uL Absolute Neuts (auto) (2.0-8.3) x10*3/uL Absolute Nucleated RBC (0.0-0.012) X10*3/uL Nucleated RBC % (auto) (0.0-0.2) /100WBC PT (11.2-13.5) SEC INR (0.9-1.1) VBG pH (7.32-7.43) VBG pCO2 mmHg VBG pO2 mmHg VBG HCO3 (22-26) mmol/L VBG O2 Saturation % VBG Base Excess mmol/L Sodium (135-145) mmol/L Potassium (3.3-5.1) mmol/L Chloride (96-108) mmol/L Carbon Dioxide (22-29) mmol/L Anion Gap (12-20) BUN (9-16) mg/dL Creatinine (0.5-1.4) mg/dL Estim Creat Clear Calc Estimated GFR POC Glucose 410 H* (60-115) mg/dL Random Glucose (60-115) mg/dL Lactic Acid (0.5-2.0) mmol/L Lactic Acid F/U @ 2Hr (0.5-2.0) mmol/L Calcium (8.4-10.2) mg/dL Total Bilirubin (0.0-1.0) mg/dL Direct Bilirubin (0.0-0.5) mg/dL AST (5-37) U/L ALT (0-40) U/L Alkaline Phosphatase (39-117) U/L Troponin I High Sens (<3.5-35.0) ng/L Total Protein (6.5-8.0) g/dL Albumin (3.5-5.0) g/dL Lipase (8-78) U/L Beta-Hydroxybutyrate (0.02-0.27) mmol/L COVID-19 (SONA) Negative (Negative) COVID-19 Clin Com See Note Influenza Type A (MAYKEL) Negative (Negative) Influenza Type B (MAYKEL) Negative (Negative) Influenza A & B Note See Note 03/02/25 03/02/25 Range/Units 17:12 17:40 WBC (4.8-10.8) X10*3/uL RBC (4.60-5.80) X10*6/uL Hgb (14.0-18.0) g/dl Hct (42.0-52.0) % MCV (80.0-98.0) fL MCH (27.0-33.0) pg MCHC (31.0-36.0) g/dl RDW (11.0-16.0) % Plt Count (160-400) X10*3/uL MPV (9.4-12.4) fL Immature Gran % (Auto) (0.0-0.4) % Neut % (Auto) (45-73) % Lymph % (Auto) (20-40) % Hutchinson % (Auto) (2-11) % Eos % (Auto) (0-4) % Baso % (Auto) (0-2) % Lymph # (Auto) (1.2-4.9) X10*3/uL Hutchinson # (Auto) (0.1-1.2) X10*3/uL Eos # (Auto) (0.0-0.4) X10*3/uL Baso # (Auto) (0.0-0.2) X10*3/uL Abs Immat Gran (auto) (0.00-0.03) X10*3/uL Absolute Neuts (auto) (2.0-8.3) x10*3/uL Absolute Nucleated RBC (0.0-0.012) X10*3/uL Nucleated RBC % (auto) (0.0-0.2) /100WBC PT (11.2-13.5) SEC INR (0.9-1.1) VBG pH (7.32-7.43) VBG pCO2 mmHg VBG pO2 mmHg VBG HCO3 (22-26) mmol/L VBG O2 Saturation % VBG Base Excess mmol/L Sodium (135-145) mmol/L Potassium (3.3-5.1) mmol/L Chloride (96-108) mmol/L Carbon Dioxide (22-29) mmol/L Anion Gap (12-20) BUN (9-16) mg/dL Creatinine (0.5-1.4) mg/dL Estim Creat Clear Calc Estimated GFR POC Glucose 306 H (60-115) mg/dL Random Glucose (60-115) mg/dL Lactic Acid (0.5-2.0) mmol/L Lactic Acid F/U @ 2Hr 2.1 H* (0.5-2.0) mmol/L Calcium (8.4-10.2) mg/dL Total Bilirubin (0.0-1.0) mg/dL Direct Bilirubin (0.0-0.5) mg/dL AST (5-37) U/L ALT (0-40) U/L Alkaline Phosphatase (39-117) U/L Troponin I High Sens (<3.5-35.0) ng/L Total Protein (6.5-8.0) g/dL Albumin (3.5-5.0) g/dL Lipase (8-78) U/L Beta-Hydroxybutyrate (0.02-0.27) mmol/L COVID-19 ([facility]A) (Negative) COVID-19 Clin Com Influenza Type A (MAYKEL) (Negative) Influenza Type B (MAYKEL) (Negative) Influenza A & B Note Independent Interpretation I performed an independent interpretation of an: Plain X-Ray (Chest: No acute intrathoracic pathology.) and CT Scan (Head: No acute intracranial pathology.) Radiology Impression Discussion of test interpretation with radiology: I have reviewed the radiologist's reading. Chronic Conditions Patient?s care impacted by: Diabetes Critical Care Time Critical Care Time Critical Care Time: Yes Total Critical Care Time: 80 Attestation: The patient was critically ill with a high probability of imminent or life-threatening deterioration. I spent greater than 30 minutes of discontinuous time evaluating the patient, delivering critical care at the bedside, discussing evaluating data with consultants. Critical care time does not include time spent performing separately billable procedures or teaching. Time spent performing critical care was 60 minutes. Discharge Plan Discharge Clinical Impression: Hypovolemic shock, Dehydration Patient Disposition: Admitted As Inpatient
--- NOTE | 2025-03-02 15:00 | PC.NURSE ---
Provider made aware that pt stes they fell X2 today one time hitting head. There is a small abrasion on front of head, not bleeding no hematoma.remains A&O X4
[2025-03-02 15:07] LABS: MANUAL DIFF FLAG NO
[2025-03-02 15:09] LABS: Hematocrit 31.7 % (42.0-52.0); Hemoglobin 10.8 g/dl (14.0-18.0); Imm Gran Abs Auto 0.23 X10*3/uL (0.00-0.03); Imm Gran Pct Auto 1.6 % (0.0-0.4); Lymphocytes Absolute Auto 1.6 X10*3/uL (1.2-4.9); Mean Corpuscular HGB Conc 34.1 g/dl (31.0-36.0); Mean Corpuscular Hemoglobin 29.9 pg (27.0-33.0); Mean Corpuscular Volume 87.8 fL (80.0-98.0); NRBC Abs Auto 0.000 X10*3/uL (0.0-0.012); NRBC Pct Auto 0.0 /100WBC (0.0-0.2); Platelet Count 195 X10*3/uL (160-400); Red Blood Count 3.61 X10*6/uL (4.60-5.80); White Blood Count 14.4 X10*3/uL (4.8-10.8)
[2025-03-02 15:18] LABS: INTERNATIONAL NORM RATIO 1.1 (0.9-1.1); Prothrombin Time 13.1 SEC (11.2-13.5)
[2025-03-02 15:21] LABS: Glucose, Whole Blood > 600 mg/dL (60-115)
--- NOTE | 2025-03-02 15:25 | PC.NURSE ---
Pt was difficult IV access. Needed to get US IV started from [employer] - BC and fluids up but Ceftriaxone slightly delayed.
[2025-03-02 15:29] LABS: Venous Blood Gas Refer to POC result
[2025-03-02 15:30] LABS: VBG HCO3 16 mmol/L (22-26); VBG O2 % Saturation 73.0 %
[2025-03-02 15:40] LABS: Alanine Aminotransferase 33 U/L (0-40); Albumin Level 4.0 g/dL (3.5-5.0); Alkaline Phosphatase 67 U/L (39-117); Anion Gap 14 (12-20); Aspartate Amino Transferase 46 U/L (5-37); Blood Urea Nitrogen 72 mg/dL (9-16); Calcium 8.7 mg/dL (8.4-10.2); Carbon Dioxide 19 mmol/L (22-29); Chloride 94 mmol/L (96-108); Creatinine Clr Calc Pharmacy 36.3; Estimated Glomerular Filt Rate 25; Lipase 118 U/L (8-78); Potassium 4.4 mmol/L (3.3-5.1); Sodium 123 mmol/L (135-145); Total Protein 7.4 g/dL (6.5-8.0)
[2025-03-02 16:01] LABS: Troponin-I High Sensitivity 14.2 ng/L (<3.5-35.0)
--- NOTE | 2025-03-02 16:25 | W.PM.CCCN ---
History of Present Illness Data of Consult Service Date: 03/02/25 Primary Care Provider: Ezra Larose MD HPI Reason for consult: Hyperglycemia 64-year-old gentleman was seen in the hospital last month with PMH of hypertension, diabetes mellitus,, CKD, STANLEY, alcohol use disorder was discharged to a assisted from the hospital. In the assisted he had a roommate who had ongoing respiratory infection, from where he was sent home 10 days ago. The next day after going home patient started developing cough, seen a doctor and was prescribed 5 days of oral steroids. Patient continued to have cough, not on any home insulin, his dose of metformin was decreased upon discharge. This morning he had multiple falls so presented to the ED, in the ED he was noted to have hypotension, hyperglycemia, ketoacidosis with no anion gap. He was treated with IV fluids with which hypotension resolved, he is getting subcutaneous insulin following which his sugars are improved. Review of Systems Review of Systems: Const : no body aches, no chills, no excessive sweating and + fatigue Eyes: no blurry vision and no change in vision ENT: no bleeding gums and no change in voice, no dizziness Card: no chest pain, no shortness of breath, no orthopnea, no PND Resp: + cough, no excessive phlegm production, no SOB GI: no abdominal pain and no nausea, no vomiting : no hematuria, no urinary frequency and no difficulty voiding Musc: no abnormal gait, no bone pain Neuro: no abnormal movements, no weakness, no dizziness, no abnormal gait and no behavioral changes Psych: no behavioral changes and no change in appetite Endo: no change in body appearance, no cold intolerance, no excessive sweating and no fatigue PMFSH Past Medical History Medical History Fracture of right tibial spine Hyperlipidemia Diverticulitis Obesity Alcoholism CKD (chronic kidney disease), stage III HTN (hypertension) Diabetes BPH (benign prostatic hyperplasia) Social History Social History Household Members: None Household Members Other:: retirement in [place] for [employer] Housing: Apartment Housing Other:: lives in retirement Do you presently have visiting nurse or other home services: Yes (2 x a week visiting nurse) Patient Tobacco Use Status: Never used Tobacco Smoked in Last 30 Days: No Use of substances other than those prescribed or required for medical reasons: No Substance Use Type: Marijuana Advance Directives: Yes Advance Directives Information Provided: No Advance Directives on File: No service: No Meds Allergies Allergy/AdvReac Type Severity Reaction Status Date / Time No Known Allergies Allergy Verified 03/02/25 14:07 Home Medications ?Medication ?Instructions ?Recorded ?Confirmed ?Last Taken ?Type amlodipine 2.5 mg tablet 2.5 mg PO DAILY 09/20/23 02/02/25 02/02/25 History atorvastatin 40 mg tablet 40 mg PO DAILY 09/20/23 02/02/25 02/02/25 History irbesartan 300 mg tablet 300 mg PO DAILY 09/20/23 02/02/25 02/02/25 History Held on 02/06/25. Instructions: Resume on 02/11/25. Please see PCP prior to resuming this medication metoprolol succinate 25 mg 25 mg PO DAILY 09/20/23 02/02/25 02/02/25 History tablet,extended release 24 hr tamsulosin 0.4 mg capsule 0.8 mg PO BEDTIME PRN enlarge 09/20/23 02/02/25 02/01/25 History prostate torsemide 20 mg tablet 20 mg PO DAILY 09/20/23 02/02/25 02/02/25 History acamprosate 333 mg tablet,delayed 666 mg PO TID 03/16/24 02/02/25 02/02/25 History release mirtazapine 7.5 mg tablet 7.5 mg PO BEDTIME 03/16/24 02/02/25 02/01/25 History dulaglutide 1.5 mg/0.5 mL 1.5 mg subcut TH 02/02/25 02/02/25 01/28/25 History subcutaneous pen injector (Trulicity) fluticasone propionate 50 2 spray intranasal DAILY 02/02/25 02/02/25 02/02/25 History mcg/actuation nasal spray,suspension naltrexone 50 mg tablet 50 mg PO DAILY 02/02/25 02/02/25 02/02/25 History trazodone 50 mg tablet 50 mg PO BEDTIME 02/02/25 02/02/25 02/01/25 History Physical Exam Vital Signs: Vital Signs: Last Vital Signs Temp 97.5 F 03/02/25 15:45 Pulse 82 03/02/25 16:15 Resp 18 03/02/25 16:15 BP 118/77 03/02/25 16:15 Pulse Ox 98 03/02/25 16:15 O2 Del Method Room Air 03/02/25 16:15 O2 Flow Rate 2 03/02/25 15:45 Oxygen Flow Rate 4 03/02/25 14:05 BMI result Body Mass Index 37.3 General: not in any acute distress, ill appearing Nutritional Appearance: well nourished and overweight Eyes: appearance normal, both eyes and all related structures; Alignment and Position: alignment normal and position normal Neck: No lymphadenopathy, no thyromegaly Resp: bilateral air entry equal, minimal added sounds present Cardio: Regular rate, regular rhythm; Heart sounds: S1 normal heart sound present and S2 normal heart sound present GI: soft, nontender, no guarding, no hepatosplenomegaly : bladder normal to inspection, bladder normal to palpation, no renal angle tenderness Skin: no rashes or lesions noted and elasticity normal Neuro: alert, oriented x 3, moves all extremities Results Labs 03/02/25 14:56 03/02/25 14:56 Labs: Short CBC 03/02/25 Range/Units 14:56 WBC 14.4 H (4.8-10.8) X10*3/uL Hgb 10.8 L (14.0-18.0) g/dl Hct 31.7 L (42.0-52.0) % Plt Count 195 D (160-400) X10*3/uL BMP 03/02/25 14:56 Sodium 123 L Potassium 4.4 Chloride 94 L Carbon Dioxide 19 L BUN 72 H Creatinine 2.61 H Calcium 8.7 Liver Function 03/02/25 Range/Units 14:56 Total Bilirubin 0.5 (0.0-1.0) mg/dL Direct Bilirubin 0.2 (0.0-0.5) mg/dL AST 46 H (5-37) U/L ALT 33 (0-40) U/L Alkaline Phosphatase 67 (39-117) U/L Albumin 4.0 (3.5-5.0) g/dL Assessment and Plan (1) Hyperglycemia: Status: Acute (2) Hyponatremia: Status: Acute (3) Acute kidney injury superimposed on chronic kidney disease: Status: Acute (4) Lactic acid acidosis: Status: Acute (5) Hypovolemic shock: Status: Acute Plan Uncontrolled type 2 diabetes mellitus with hyperglycemia: - possibly due to respiratory infection and also oral steroids. - although the patient has some ketones his anion gap is only 14; there is no indication for insulin drip given his low gap. - we will treat his hyperglycemia, with subcutaneous insulin and continuous IV fluids at 100 cc/hour. - closely monitor blood sugars, if the blood sugars are not trending down following the fluids and insulin can transferred to medical ICU. Hypovolemic shock: - secondary to volume depletion from hyperglycemia - improved with IV fluids, received 2 L fluid so far and his blood pressures are between 110-120 systolics Hyponatremia: - sodium 123 in the setting of hyperglycemia - so the corrected sodium is about 128. Lactic acidosis: - presented with a lactate of 2.3 in the setting of hypovolemia - should improve with IV fluids Acute on chronic kidney disease: - secondary to hypovolemia from hyperglycemia and hypotension - baseline creatinine about 1.7, increased to 2.6 this presentation - should improve with IV fluids - avoid nephrotoxic medications Upper respiratory tract infection: - chest x-ray does not show any infiltrates - we will get flu, COVID and respiratory viral panel Patient can be admitted to the floor with IV fluids and blood sugar monitoring every 2-4 hours. He does not need any insulin drip right now, his blood pressures have been improved with IV fluids. If the hyperglycemia persists or he becomes hypotensive will be admit him to ICU.
[2025-03-02 16:53] LABS: IDNOW Serial# 55D5AD1C; Influenza B2 Negative (Negative)
[2025-03-02 16:53] LABS: COVID-19 Test Negative (Negative); IDNOW Serial# 58CA691E
[2025-03-02 17:05] LABS: Reflex Lactate? Lactic Acid Added
--- NOTE | 2025-03-02 17:05 | HO.NURTONUR ---
PT arrived c/o dizziness, 2 fall episodes d/t lighheadedness, head strike. no thinners. Was at SNF and caught something and has c/o cough. No cough noted here. unlabored resp. skin pwd. was hypotensive at arrival 87/66 but stabalized with 2+Liters fluids. resp swabs negative. unlabored resp. axox3. WBC 14. first lactic 2.3 BG 593 given 12units IVP insulin. repeat POC 410
--- OUTSIDE RECORDS SUMMARY | 2025-03-02 17:11 | XMS_ITS | Data Portability ---
Author Organization [facility] [employer] (acquired by [employer]) [facility], Main Office Address [address] [place] [address] Care Team Providers Care Supervisor Char House Name Role Phone [facility] ([facility] OTHER DUSTIN BARRERA Primary Care Provider Assessment Encounter Date Assessment Date Assessment LastModified by Organization Details LastModified Time 07/09/2022 07/09/2022 07/02/22 wbc 6.2, hgb 11.3, plt 181, na 145, k 4.5, creat 0.8, ast 51 [email or web address] Not available 07/09/2022 13:59:35 07/11/2022 07/11/2022 scripts [...] and Address Organization Details Recorded Time Alcoholism 9048702 Active 2022 Lucas Brown MD [address], [address], [place], [address], [facility] 3 12:46:52 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 2022 Lucas Brown MD [address], [address], [place], [address], [facility] [employer] 3 12:48:16 Diabetes mellitus 82226086 Active 2022 Lucas Brown MD [address], [address], [place], [address], [facility] 3 12:48:22 Essential hypertension 47270739 Active 2022 Lucas Brown MD [address], [address], [place], [address], [facility] 3 12:48:38 Mixed hyperlipidemia 141488173 Active 2022 Lucas Brown MD [address], [place], [address], [facility] 3 12:48:49 Depressive disorder 80995277 Active 2022 Lucas Brown MD [address], [place], [address], [facility] 3 12:48:57 Obstructive sleep apnea syndrome 53150814 Active 2022 Lucas Brown MD [address], [place], [address], [facility] 3 12:49:02 Pancytopenia 990258400 Active 2022 Lucas Brown MD [address], [address], [place], [address], [facility] 3 12:49:12 Gastroesophage al reflux disease 330591464 Active 2022 Lucas Brown MD [address], [place], [address], [facility] 3 12:53:55 Obesity 770253270 Active 2022 Lucas Brown MD [address], [place], [address], [facility] 3 13:01:16 Problem Notes None recorded. [...] % 136/78 mm[Hg] TIFFANY ATWOOD NP [address], [address], [place], [address], [facility] 3 14:05:59 Date Recorded Systolic And Diastolic Provider Name and Address Organization Details Last Updated DateTime 07/11/2022 136/78 mm[Hg] Lucas Brown MD [address], [address], [place], [address], [facility] 07/11/2022 12:16:49 Social History Question Answer Notes LastModified by Organizat ion Details LastModified Time Tobacco Smoking Status Never Smoker Lucas Brown MD [address], [address], [place], [address], [facility] 06/22/2022 12:57:09 What Is Your Code Status? [...] influenza, unspecified formulation 1 completed Melba salazar [facility] 06/26/2022 15:56:40 SARS-COV-2 (COVID-19) vaccine, UNSPECIFIED 1 completed Melba salazar [facility] 06/26/2022 15:56:55 SARS-COV-2 (COVID-19) vaccine, UNSPECIFIED 1 completed Melba salazar [facility] 06/26/2022 15:57:14 Tdap 9 completed Melba Luther [facility] 06/26/2022 15:57:30 pneumococcal polysaccharide PPV23 7 completed Melba Sloan [facility] 06/26/2022 15:57:58 Tdap 4 completed Melba Sloan [facility] 06/26/2022 15:58:38 tetanus toxoid, unspecified formulation 8 completed Melba Sloan [facility] 06/26/2022 15:59:15 zoster recombinant 0 completed Johanna Sweeneyin [facility] 07/04/2023 12:15:27 Influenza, adjuvanted, quadrivalent, PF 3 completed Johanna Negron [facility] 07/04/2023 12:15:56 Past Encounters Encounter ID Performer Location Encounter Start Date Encounter Closed Date Diagnosis/Indication Diagnosis SNOMED-CT Code Diagnosis ICD10 Code Diagnosis IMO Codes Diagnosis Note [id number] Lucas Brown MD [facility] on [address] [place] [address] 06/22/2022 12:36:46 06/25/2022 15:33:00 Alcohol withdrawal 114284632 F10.930 see HPInow on vitamin supplement scontinue supportive carewill need support in communityp sych to eval Acute kidney injury 1466 9001 N17.8 Urinary retention and hematuria, wilson placed, dx with ARF and obstructiv e uropathy felt secondary to etoh now wilson removedmon itor renal functionne phro consult prn Recurrent falls 04477446 2 R29.6 PT OT Eval and treatmonit or fall risk Asthenia 48210306 R53.1 unable to care for self in community at this timemonito r need for increased services in community Steatotic liver disease 728358610 K76.0 see aboveadded to PMH Pancytopenia 616683790 D 61.818 appears secondary to ETOHmonito r cbcheme consult prn Diabetes mellitus 728001 09 E11.9 glipizide 5 mg qdmetformi n 2000 mg qdmonitor blood glucose and need to adjust Essential hypertension 86179267 I10 irbesartan 150 mg qdmetoprol ol 25 mg qdmonitor bp and need to titrate Mixed hyperlipidemia 267 836927 E78.2 lipitor 40 mg qdcontinue dmonitor LFTs in patient with heavy etoh hx Depressive disorder 3548 9007 F33.8 carrying dxmonitor moodpsych eval prn Gastroesop hageal reflux disease 483582248 K21.9 famotidine 40 mg bid continuedm onitor for sx relief Obesity 695245138 E66.09 dietary to eval and follow [id number] TIFFANY ATWOOD NP [facility] on [address] [place] [address] 06/28/2022 14:04:57 07/04/2022 08:13:11 Alcohol withdrawal 816024292 F10.930 see HPInow on vitamin supplement scontinue supportive carewill need support in communityp sych to eval Acute kidney injury 1466 9001 N17.8 Urinary retention and hematuria, wilson placed, dx with ARF and obstructiv e uropathy felt secondary to etoh now wilson removedmon itor renal function - CMP 07/02nephro consult prn Recurrent falls 07345596 2 R29.6 PT OT Eval and treat - making gains - goal is to return home.monit or fall risk Asthenia 00526769 R53.1 unable to care for self in community at this timemonito r need for increased services in community Steatotic liver disease 266549065 K76.0 see aboveadded to PMH Pancytopenia 518484956 D 61.818 appears secondary to ETOHmonito r cbc - check 07/02heme consult prn Diabetes mellitus 623913 09 E11.9 glipizide 5 mg qdmetformi n 2000 mg qdmonitor blood glucose and need to [id number] x 1 07/02 Essential hypertension 42679230 I10 irbesartan 150 mg qdmetoprol ol 25 mg qdmonitor bp and need to titrate Mixed hyperlipidemia 267 650676 E78.2 lipitor 40 mg qdcontinue dmonitor LFTs in patient with heavy etoh hx = CMP 07/02 Depressive disorder 3548 9007 F33.8 carrying dxmonitor moodpsych eval prn Gastroesop hageal reflux disease 065507520 K21.9 famotidine 40 mg bid continuedm onitor for sx relief Obesity 765080429 E66.09 dietary to eval and follow [id number] Lucas Brown MD [facility] on [address] [place] [address] 07/03/2022 12:12:56 07/09/2022 13:08:52 Rib pain 511427172 R07.81 see HPIhx prior fxnow with new painxray to eval Alcohol withdrawal 23943 0000 F10.930 continue supportive carewill need support in communitya t baseline Acute kidney injury 1466 9001 N17.8 Urinary retention and hematuria, wilson placed, dx with ARF and obstructiv e uropathy felt secondary to etoh now wilson removedren al function now normalneph ro consult prn Recurrent falls 96414692 2 R29.6 followed by therapy Pancytopenia 267623421 D 61.818 appears secondary to ETOHmonito r cbcappears to be improvingh jim consult prn [id number] MIKA Olmos [facility] on [address] [place] [address] 07/09/2022 13:45:33 07/11/2022 16:03:05 Alcohol withdrawal 521950566 F10.930 supportive carewill need support in communityp t says he will be moving back to [place] Acute kidney injury 1466 9001 N17.8 Urinary retention and hematuria, wilson placed, dx with ARF and obstructiv e uropathy felt secondary to etohresolv ed, urinating normallycr eat 0.8 on 07/02/22nep hro prn Recurrent falls 57688010 2 R29.6 continue PT OTmonitor for fall risk Pancytopenia 800353253 D 61.818 appears secondary to ETOHmonito r cbc weeklyheme consult prn [id number] Lucas Brown MD [facility] on [address] [place] [address] 07/11/2022 12:15:38 07/13/2022 14:43:02 Alcohol withdrawal 308042621 F10.930 now resolvedco ntinue supplement swill need support in community Asthenia 50267566 R53.1 improved to baselinemo nitor need for increased services in community Steatotic liver disease 111585194 K76.0 see above Pancytopenia 457880186 D 61.818 secondary to ETOHmonito r cbcheme consult prn Diabetes mellitus 861914 09 E11.9 glipizide 5 mg qdmetformi n 2000 mg qdmonitor blood glucose and need to adjust Essential hypertension 63467226 I10 irbesartan 150 mg qdmetoprol ol 25 mg qdmonitor bp and need to titrate Mixed hyperlipidemia 267 132872 E78.2 lipitor 40 mg qdcontinue dmonitor LFTs in patient with heavy etoh hx and fatty liver Gastroesop hageal reflux disease 580680970 K21.9 famotidine 40 mg bid continuedm onitor for sx relief Health Concerns Section Related Observation LastModified by Organization Detai ls LastModified Time None Recorded Concern Status LastModified by Organization Details LastModified Time None Recorded Advance Directives Directive None Recorded Payers Insurance Date Sequence Insurance Name Policy Number Policy Dillard Covered Member ID Dillard Member ID Guarantor Name 07/09/2022 1 [facility] DEVI Carvalho Mikey [id number] Deven Jensen Notes Date Note Type Note [...] eval and treat Lucas Brown MD [address], [address], [place], [address], [facility] 06/22/2022 13:16:55 023 text/ht ml Osman is [...] per daydmhtnhlddepressionOSAhepatic steatosispancytopenia TIFFANY ATWOOD NP [address], [address], [place], [address], [facility] 06/28/2022 14:16:38 023 text/ht ml Patient [...] bilateral rib pain. Lucas Brown MD [address], [address], [place], [address], [facility] 07/03/2022 12:19:01 023 text/ht ml pt [...] etoh now wilson removed. MIKA Olmos [address], [address], [place], [address], [facility] 07/09/2022 13:59:57 023 text/ht ml Patient is [...] services in place. Lucas Brown MD [address], [address], [place], [address], [facility] 07/11/2022 12:26:04
[2025-03-02 17:15] LABS: Glucose, Whole Blood 410 mg/dL (60-115)
[2025-03-02 17:43] LABS: ~Lactic Acid-LAB USE ONLY 2.1 mmol/L (0.5-2.0)
[2025-03-02 17:44] LABS: Glucose, Whole Blood 306 mg/dL (60-115)
--- NOTE | 2025-03-02 17:45 | PC.NURSE ---
Pressure low again. remains axox3. states he thinks he's hallucinating' MD aware of low BP
[2025-03-02 19:15] LABS: Reflex Lactate? 2 Y
--- NOTE | 2025-03-02 20:08 | PC.NURSE ---
pt used urinal bedside independently. urine specimen collected and sent to lab
[2025-03-02 20:09] LABS: Appearance Urine Clear; Glucose Urine UA >=1000 mg/dL (Negative); PH 5.0 (5.0-9.0); Specific Gravity - Urine 1.015 (1.005-1.025); UMIC TRIGGER UACC YES
[2025-03-02 20:17] LABS: MANUAL DIFF FLAG NO
[2025-03-02 20:21] LABS: Hematocrit 32.0 % (42.0-52.0); Hemoglobin 10.9 g/dl (14.0-18.0); Imm Gran Abs Auto 0.20 X10*3/uL (0.00-0.03); Imm Gran Pct Auto 1.3 % (0.0-0.4); Lymphocytes Absolute Auto 2.0 X10*3/uL (1.2-4.9); Mean Corpuscular HGB Conc 34.1 g/dl (31.0-36.0); Mean Corpuscular Hemoglobin 30.3 pg (27.0-33.0); Mean Corpuscular Volume 88.9 fL (80.0-98.0); NRBC Abs Auto 0.000 X10*3/uL (0.0-0.012); NRBC Pct Auto 0.0 /100WBC (0.0-0.2); Platelet Count 193 X10*3/uL (160-400); Red Blood Count 3.60 X10*6/uL (4.60-5.80); White Blood Count 15.8 X10*3/uL (4.8-10.8)
[2025-03-02 20:22] LABS: VBG HCO3 16 mmol/L (22-26); VBG O2 % Saturation 59.0 %
[2025-03-02 20:23] LABS: Venous Blood Gas Refer to POC result
[2025-03-02 20:31] LABS: Glucose, Whole Blood 253 mg/dL (60-115)
[2025-03-02 20:35] LABS: Osmolality, Serum 307 mosm/kg (281-305)
[2025-03-02 20:37] LABS: ~Lactic Acid-LAB USE ONLY 2.7 mmol/L (0.5-2.0)
[2025-03-02 20:41] LABS: Alanine Aminotransferase 35 U/L (0-40); Albumin Level 4.0 g/dL (3.5-5.0); Alkaline Phosphatase 67 U/L (39-117); Anion Gap 17 (12-20); Aspartate Amino Transferase 38 U/L (5-37); Blood Urea Nitrogen 68 mg/dL (9-16); Calcium 8.7 mg/dL (8.4-10.2); Carbon Dioxide 15 mmol/L (22-29); Chloride 103 mmol/L (96-108); Creatinine Clr Calc Pharmacy 43.0; Estimated Glomerular Filt Rate 30; Lipase 123 U/L (8-78); Magnesium 2.6 mg/dL (1.6-2.6); Potassium 3.8 mmol/L (3.3-5.1); Sodium 131 mmol/L (135-145); Total Protein 7.5 g/dL (6.5-8.0)
[2025-03-02] MEDS: Lactated Ringers 1,000 ML 100 ML IVCONT (20:47)
[2025-03-02 21:31] LABS: Glucose, Whole Blood 284 mg/dL (60-115)
[2025-03-02] MEDS: vancomycin/NS 2,000 MG/500 ML PLAST..BAG 250 MG IV (21:34)
[2025-03-02] MEDS: Insulin Regular/NS 100 UNIT/100 ML PLAST..BAG IVCONT (21:40)
--- NOTE | 2025-03-02 21:45 | PHA.MEDREC ---
Addendum entered by Halle Guerra RPh 03/02/25 21:59: Reviewed by [facility] Original Note: Pharmacy Consult ? Medication Reconciliation Pharmacy has completed the medication reconciliation. Spoke with pt and he confirmed his medications. Pt just discharged 02/07 and verified those medications were up to date with me. Pt takes the Trulicity 1.5mg once a week on ; pt got prescribed 3mg once a week today but never started that, Irbasartan was put on hold 02/07 till 02/11 and pt confirmed he started that again and still taking it once daily and pt taking Atorvastatin still once at bedtime and states he has an overabundance of that at home.
[2025-03-02 21:50] LABS: Triglycerides 623 mg/dL (<150)
[2025-03-02 22:45] LABS: Glucose, Whole Blood 254 mg/dL (60-115)
[2025-03-02 23:36] LABS: Glucose, Whole Blood 242 mg/dL (60-115)
[2025-03-03] VITALS (38 sets, daily range): BP systolic 80–145; BP diastolic 19–96; PULSE 63–125; RESP 11–23; TEMP 36.9–37.8; O2SAT 92–100; BMI 36.9
[2025-03-03 00:36] LABS: Glucose, Whole Blood 226 mg/dL (60-115)
[2025-03-03 00:51] LABS: Alanine Aminotransferase 26 U/L (0-40); Albumin Level 3.4 g/dL (3.5-5.0); Alkaline Phosphatase 56 U/L (39-117); Anion Gap 14 (12-20); Aspartate Amino Transferase 32 U/L (5-37); Blood Urea Nitrogen 61 mg/dL (9-16); Calcium 8.3 mg/dL (8.4-10.2); Carbon Dioxide 17 mmol/L (22-29); Chloride 106 mmol/L (96-108); Creatinine Clr Calc Pharmacy 48.5; Estimated Glomerular Filt Rate 35; Potassium 3.6 mmol/L (3.3-5.1); Sodium 133 mmol/L (135-145); Total Protein 6.5 g/dL (6.5-8.0)
[2025-03-03 01:39] LABS: Glucose, Whole Blood 205 mg/dL (60-115)
[2025-03-03] MEDS: Dextrose 5 % and Lactated Ring 1,000 ML 100 ML IVCONT (01:45)
[2025-03-03] MEDS: Albumin Human 25 % 100 ML IV ×2 (02:10→03:07)
[2025-03-03 02:43] LABS: Glucose, Whole Blood 205 mg/dL (60-115)
--- NOTE | 2025-03-03 02:50 | PC.NURSE ---
ADMIT TO 253-1 APPROX 8PM...ALERT..ORIENTED X3...NSR NO ECTOPY...LEVOPHED DRIP PREVIOUSLY WEANED OFF IN ER DEPT..BP MARGINAL BUT MAP >65 INITIALLY....STARTED LR 100 CC/HR AND INSULIN DRIP 4 UNITS/HR PER PROVIDER....PATIENT UNABLE TO VOID 11PM..BLADDER SCANNED FOR 567ml...PER PROVIDER GREER CATHETER INSERTED D/T IV INTAKE AND JOCE TO MONITOR URINE OUTPUT.....VANCOMYCIN/ZOSYN/ALBUMEN INFUSED PER JUN...01:30 IV FLUIDS CHANGED TO D5LR 100 CC/HR....INSULIN DRIP TITRATED PER JUN...GREER DRAINING YELLOW URINE...LEVOPHED DRIP RESTARTED PER PROVIDER AND TITRATED PER MAR FOR MAP 50'S-LOW 60'S WITH IMPROVED MAP...RESTFUL..NAPPING W/O DIFFICULTY
[2025-03-03 03:41] LABS: Glucose, Whole Blood 202 mg/dL (60-115)
[2025-03-03 04:29] LABS: VBG HCO3 16 mmol/L (22-26); VBG O2 % Saturation 84.0 %
[2025-03-03 04:30] LABS: Venous Blood Gas Refer to POC result
[2025-03-03 04:32] LABS: MANUAL DIFF FLAG NO
[2025-03-03 04:33] LABS: Hematocrit 29.3 % (42.0-52.0); Hemoglobin 10.0 g/dl (14.0-18.0); Imm Gran Abs Auto 0.18 X10*3/uL (0.00-0.03); Imm Gran Pct Auto 1.4 % (0.0-0.4); Lymphocytes Absolute Auto 1.8 X10*3/uL (1.2-4.9); Mean Corpuscular HGB Conc 34.1 g/dl (31.0-36.0); Mean Corpuscular Hemoglobin 29.9 pg (27.0-33.0); Mean Corpuscular Volume 87.7 fL (80.0-98.0); NRBC Abs Auto 0.000 X10*3/uL (0.0-0.012); NRBC Pct Auto 0.0 /100WBC (0.0-0.2); Platelet Count 164 X10*3/uL (160-400); Red Blood Count 3.34 X10*6/uL (4.60-5.80); White Blood Count 12.9 X10*3/uL (4.8-10.8)
[2025-03-03 04:37] LABS: Glucose, Whole Blood 229 mg/dL (60-115)
[2025-03-03 04:48] LABS: Alanine Aminotransferase 24 U/L (0-40); Albumin Level 4.2 g/dL (3.5-5.0); Alkaline Phosphatase 55 U/L (39-117); Anion Gap 13 (12-20); Aspartate Amino Transferase 33 U/L (5-37); Blood Urea Nitrogen 55 mg/dL (9-16); Calcium 8.5 mg/dL (8.4-10.2); Carbon Dioxide 18 mmol/L (22-29); Chloride 107 mmol/L (96-108); Cholesterol 117 mg/dL (<200); Creatinine Clr Calc Pharmacy 52.3; Estimated Glomerular Filt Rate 38; HDL Cholesterol 15 mg/dL (>40); Magnesium 2.4 mg/dL (1.6-2.6); Potassium 3.3 mmol/L (3.3-5.1); Sodium 135 mmol/L (135-145); Total Protein 6.9 g/dL (6.5-8.0); Triglycerides 482 mg/dL (<150)
--- NOTE | 2025-03-03 05:08 | ECG_ITS ---
Test Reason : ASSESS QT/QTC Blood Pressure : */* mmHG Vent. Rate : 73 BPM Atrial Rate : 73 BPM P-R Int : 184 ms QRS Dur : 86 ms QT Int : 424 ms P-R-T Axes : 36 4 91 degrees QTcB Int : 467 ms Normal sinus rhythm Nonspecific T wave abnormality Prolonged QT Abnormal ECG When compared with ECG of 02-Mar-2025 14:34, Nonspecific T wave abnormality now evident in Anterolateral leads Referred By: Pascual Centeno Electronically Signed By: TIERNEY ACUNA MD
[2025-03-03 05:37] LABS: Glucose, Whole Blood 208 mg/dL (60-115)
[2025-03-03 06:19] LABS: Glucose, Whole Blood 206 mg/dL (60-115)
[2025-03-03 07:09] LABS: Glucose, Whole Blood 185 mg/dL (60-115)
[2025-03-03 07:49] LABS: Lipase 60 U/L (8-78)
[2025-03-03 08:09] LABS: Glucose, Whole Blood 149 mg/dL (60-115)
--- NOTE | 2025-03-03 08:33 | P.PNCC_ITS ---
Subjective Subjective Date of Service: 03/03/25 Interval History: no new events, feels better, cough better Critical Care Time (minutes): 35 Physical Exam 2 Vital Signs: Vital Signs: Last Vital Signs Temp 99.3 F 03/03/25 08:00 Pulse 72 03/03/25 08:00 Resp 15 03/03/25 08:00 BP 104/59 L 03/03/25 08:00 Pulse Ox 96 03/03/25 08:00 O2 Del Method Room Air 03/03/25 08:00 O2 Flow Rate 1 03/03/25 06:00 Oxygen Flow Rate 4 03/02/25 14:05 BMI result Body Mass Index 36.9 General: not in any acute distress, ill appearing Nutritional Appearance: well nourished and overweight Eyes: appearance normal, both eyes and all related structures; Alignment and Position: alignment normal and position normal Neck: No lymphadenopathy, no thyromegaly Resp: bilateral air entry equal, no added sounds present Cardio: Regular rate, regular rhythm; Heart sounds: S1 normal heart sound present and S2 normal heart sound present GI: soft, nontender, no guarding, no hepatosplenomegaly : bladder normal to inspection, bladder normal to palpation, no renal angle tenderness Skin: no rashes or lesions noted and elasticity normal Neuro: alert, oriented x 3, moves all extremities Objective Data Labs 03/03/25 04:23 03/03/25 04:23 Labs: Laboratory Results - last 24 hr 03/02/25 03/02/25 03/02/25 14:16 14:56 15:27 WBC 14.4 H RBC 3.61 L Hgb 10.8 L Hct 31.7 L MCV 87.8 MCH 29.9 MCHC 34.1 RDW 13.2 Plt Count 195 D MPV 10.4 Immature Gran % (Auto) 1.6 H Neut % (Auto) 81.0 H Lymph % (Auto) 11.0 L Beaver % (Auto) 4.9 Eos % (Auto) 1.2 Baso % (Auto) 0.3 Lymph # (Auto) 1.6 Beaver # (Auto) 0.7 Eos # (Auto) 0.2 Baso # (Auto) 0.0 Abs Immat Gran (auto) 0.23 H Absolute Neuts (auto) 11.6 H Absolute Nucleated RBC 0.000 Nucleated RBC % (auto) 0.0 Hold Purple Top PT 13.1 INR 1.1 VBG pH 7.25 L VBG pCO2 36 VBG pO2 51 VBG HCO3 16 L VBG O2 Saturation 73.0 VBG Base Excess -10.0 Sodium 123 L Potassium 4.4 Chloride 94 L Carbon Dioxide 19 L Anion Gap 14 BUN 72 H Creatinine 2.61 H Estim Creat Clear Calc 36.3 Estimated GFR 25 POC Glucose > 600 H* Random Glucose 593 H* Osmolality Lactic Acid 2.3 H* Lactic Acid F/U @ 2Hr Lactic Acid F/U @ 4Hr Calcium 8.7 Phosphorus Magnesium Total Bilirubin 0.5 Direct Bilirubin 0.2 AST 46 H ALT 33 Alkaline Phosphatase 67 Troponin I High Sens 14.2 Total Protein 7.4 Albumin 4.0 Triglycerides Cholesterol LDL Cholesterol, Calc HDL Cholesterol Lipase 118 H Beta-Hydroxybutyrate 1.36 H Urine Color Urine Appearance Urine pH Ur Specific [place] Urine Protein Urine Glucose (UA) Urine Ketones Urine Blood Urine Nitrite Ur Leukocyte Esterase Urine RBC Urine WBC Ur Squamous Epith Cells Urine Bacteria Hyaline Casts COVID-19 ([facility]) COVID-19 Clin Com Influenza Type A (MAYKEL) Influenza Type B (MAYKEL) Influenza A & B Note 03/02/25 03/02/25 03/02/25 16:18 16:19 17:11 WBC RBC Hgb Hct MCV MCH MCHC RDW Plt Count MPV Immature Gran % (Auto) Neut % (Auto) Lymph % (Auto) Beaver % (Auto) Eos % (Auto) Baso % (Auto) Lymph # (Auto) [place] # (Auto) Eos # (Auto) Baso # (Auto) Abs Immat Gran (auto) Absolute Neuts (auto) Absolute Nucleated RBC Nucleated RBC % (auto) Hold Purple Top PT INR VBG pH VBG pCO2 VBG pO2 VBG HCO3 VBG O2 Saturation VBG Base Excess Sodium Potassium Chloride Carbon Dioxide Anion Gap BUN Creatinine Estim Creat Clear Calc Estimated GFR POC Glucose 410 H* Random Glucose Osmolality Lactic Acid Lactic Acid F/U @ 2Hr Lactic Acid F/U @ 4Hr Calcium Phosphorus Magnesium Total Bilirubin Direct Bilirubin AST ALT Alkaline Phosphatase Troponin I High Sens Total Protein Albumin Triglycerides Cholesterol LDL Cholesterol, Calc HDL Cholesterol Lipase Beta-Hydroxybutyrate Urine Color Urine Appearance Urine pH Ur Specific [place] Urine Protein Urine Glucose (UA) Urine Ketones Urine Blood Urine Nitrite Ur Leukocyte Esterase Urine RBC Urine WBC Ur Squamous Epith Cells Urine Bacteria Hyaline Casts COVID-19 ([facility]A) Negative COVID-19 Clin Com See Note Influenza Type A (MAYKEL) Negative Influenza Type B (MAYKEL) Negative Influenza A & B Note See Note 03/02/25 03/02/25 03/02/25 17:12 17:40 20:00 WBC RBC Hgb Hct MCV MCH MCHC RDW Plt Count MPV Immature Gran % (Auto) Neut % (Auto) Lymph % (Auto) Be[place] % (Auto) Eos % (Auto) Baso % (Auto) Lymph # (Auto) [place] # (Auto) Eos # (Auto) Baso # (Auto) Abs Immat Gran (auto) Absolute Neuts (auto) Absolute Nucleated RBC Nucleated RBC % (auto) Hold Purple Top PT INR VBG pH VBG pCO2 VBG pO2 VBG HCO3 VBG O2 Saturation VBG Base Excess Sodium Potassium Chloride Carbon Dioxide Anion Gap BUN Creatinine Estim Creat Clear Calc Estimated GFR POC Glucose 306 H Random Glucose Osmolality Lactic Acid Lactic Acid F/U @ 2Hr 2.1 H* Lactic Acid F/U @ 4Hr Calcium Phosphorus Magnesium Total Bilirubin Direct Bilirubin AST ALT Alkaline Phosphatase Troponin I High Sens Total Protein Albumin Triglycerides Cholesterol LDL Cholesterol, Calc HDL Cholesterol Lipase Beta-Hydroxybutyrate Urine Color Yellow Urine Appearance Clear Urine pH 5.0 Ur Specific [place] 1.015 Urine Protein Negative Urine Glucose (UA) >=1000 H Urine Ketones Negative Urine Blood Small (1+) H Urine Nitrite Negative Ur Leukocyte Esterase Negative Urine RBC 0-2 Urine WBC 0-5 Ur Squamous Epith Cells 0-2 Urine Bacteria None Seen Hyaline Casts 3-5 COVID-19 ([facility]) COVID-19 Clin Com Influenza Type A (MAYKEL) Influenza Type B (MAYKEL) Influenza A & B Note 03/02/25 03/02/25 03/02/25 20:10 20:17 20:27 WBC 15.8 H RBC 3.60 L Hgb 10.9 L Hct 32.0 L MCV 88.9 MCH 30.3 MCHC 34.1 RDW 13.2 Plt Count 193 MPV 10.1 Immature Gran % (Auto) 1.3 H Neut % (Auto) 80.8 H Lymph % (Auto) 12.3 L [place] % (Auto) 4.0 Eos % (Auto) 1.3 Baso % (Auto) 0.3 Lymph # (Auto) 2.0 Be[place] # (Auto) 0.6 Eos # (Auto) 0.2 Baso # (Auto) 0.1 Abs Immat Gran (auto) 0.20 H Absolute Neuts (auto) 12.8 H Absolute Nucleated RBC 0.000 Nucleated RBC % (auto) 0.0 Hold Purple Top PT INR VBG pH 7.25 L VBG pCO2 36 VBG pO2 37 VBG HCO3 16 L VBG O2 Saturation 59.0 VBG Base Excess -9.9 Sodium 131 L Potassium 3.8 Chloride 103 Carbon Dioxide 15 L Anion Gap 17 BUN 68 H Creatinine 2.20 H Estim Creat Clear Calc 43.0 Estimated GFR 30 POC Glucose 253 H Random Glucose 247 H Osmolality 307 H Lactic Acid Lactic Acid F/U @ 2Hr Lactic Acid F/U @ 4Hr 2.7 H* Calcium 8.7 Phosphorus 4.3 Magnesium 2.6 Total Bilirubin 0.4 Direct Bilirubin AST 38 H ALT 35 Alkaline Phosphatase 67 Troponin I High Sens Total Protein 7.5 Albumin 4.0 Triglycerides 623 H Cholesterol LDL Cholesterol, Calc HDL Cholesterol Lipase 123 H Beta-Hydroxybutyrate 0.86 H Urine Color Urine Appearance Urine pH Ur Specific [place] Urine Protein Urine Glucose (UA) Urine Ketones Urine Blood Urine Nitrite Ur Leukocyte Esterase Urine RBC Urine WBC Ur Squamous Epith Cells Urine Bacteria Hyaline Casts COVID-19 ([facility]) COVID-19 Clin Com Influenza Type A (MAYKEL) Influenza Type B (MAYKEL) Influenza A & B Note 03/02/25 03/02/25 03/02/25 21:28 22:41 23:32 WBC RBC Hgb Hct MCV MCH MCHC RDW Plt Count MPV Immature Gran % (Auto) Neut % (Auto) Lymph % (Auto) Beaver % (Auto) Eos % (Auto) Baso % (Auto) Lymph # (Auto) [place] # (Auto) Eos # (Auto) Baso # (Auto) Abs Immat Gran (auto) Absolute Neuts (auto) Absolute Nucleated RBC Nucleated RBC % (auto) Hold Purple Top PT INR VBG pH VBG pCO2 VBG pO2 VBG HCO3 VBG O2 Saturation VBG Base Excess Sodium Potassium Chloride Carbon Dioxide Anion Gap BUN Creatinine Estim Creat Clear Calc Estimated GFR POC Glucose 284 H 254 H 242 H Random Glucose Osmolality Lactic Acid Lactic Acid F/U @ 2Hr Lactic Acid F/U @ 4Hr Calcium Phosphorus Magnesium Total Bilirubin Direct Bilirubin AST ALT Alkaline Phosphatase Troponin I High Sens Total Protein Albumin Triglycerides Cholesterol LDL Cholesterol, Calc HDL Cholesterol Lipase Beta-Hydroxybutyrate Urine Color Urine Appearance Urine pH Ur Specific [place] Urine Protein Urine Glucose (UA) Urine Ketones Urine Blood Urine Nitrite Ur Leukocyte Esterase Urine RBC Urine WBC Ur Squamous Epith Cells Urine Bacteria Hyaline Casts COVID-19 ([facility]) COVID-19 Clin Com Influenza Type A (MAYKEL) Influenza Type B (MAYKEL) Influenza A & B Note 03/03/25 03/03/25 03/03/25 00:29 00:30 01:34 WBC RBC Hgb Hct MCV MCH MCHC RDW Plt Count MPV Immature Gran % (Auto) Neut % (Auto) Lymph % (Auto) [place] % (Auto) Eos % (Auto) Baso % (Auto) Lymph # (Auto) [place] # (Auto) Eos # (Auto) Baso # (Auto) Abs Immat Gran (auto) Absolute Neuts (auto) Absolute Nucleated RBC Nucleated RBC % (auto) Hold Purple Top PT INR VBG pH VBG pCO2 VBG pO2 VBG HCO3 VBG O2 Saturation VBG Base Excess Sodium 133 L Potassium 3.6 Chloride 106 Carbon Dioxide 17 L Anion Gap 14 BUN 61 H Creatinine 1.95 H Estim Creat Clear Calc 48.5 Estimated GFR 35 POC Glucose 226 H 205 H Random Glucose 212 H Osmolality Lactic Acid Lactic Acid F/U @ 2Hr Lactic Acid F/U @ 4Hr Calcium 8.3 L Phosphorus Magnesium Total Bilirubin 0.4 Direct Bilirubin AST 32 ALT 26 Alkaline Phosphatase 56 Troponin I High Sens Total Protein 6.5 Albumin 3.4 L Triglycerides Cholesterol LDL Cholesterol, Calc HDL Cholesterol Lipase Beta-Hydroxybutyrate Urine Color Urine Appearance Urine pH Ur Specific [place] Urine Protein Urine Glucose (UA) Urine Ketones Urine Blood Urine Nitrite Ur Leukocyte Esterase Urine RBC Urine WBC Ur Squamous Epith Cells Urine Bacteria Hyaline Casts COVID-19 ([facility]) COVID-19 Clin Com Influenza Type A (MAYKEL) Influenza Type B (MAYKEL) Influenza A & B Note 03/03/25 03/03/25 03/03/25 02:38 03:37 04:23 WBC 12.9 H RBC 3.34 L Hgb 10.0 L Hct 29.3 L MCV 87.7 MCH 29.9 MCHC 34.1 RDW 13.2 Plt Count 164 MPV 9.8 Immature Gran % (Auto) 1.4 H Neut % (Auto) 76.0 H Lymph % (Auto) 13.9 L [place] % (Auto) 5.1 Eos % (Auto) 3.2 Baso % (Auto) 0.4 Lymph # (Auto) 1.8 [place] # (Auto) 0.7 Eos # (Auto) 0.4 Baso # (Auto) 0.1 Abs Immat Gran (auto) 0.18 H Absolute Neuts (auto) 9.8 H Absolute Nucleated RBC 0.000 Nucleated RBC % (auto) 0.0 Hold Purple Top PT INR VBG pH VBG pCO2 VBG pO2 VBG HCO3 VBG O2 Saturation VBG Base Excess Sodium 135 Potassium 3.3 Chloride 107 Carbon Dioxide 18 L Anion Gap 13 BUN 55 H Creatinine 1.81 H Estim Creat Clear Calc 52.3 Estimated GFR 38 POC Glucose 205 H 202 H Random Glucose 222 H Osmolality Lactic Acid Lactic Acid F/U @ 2Hr Lactic Acid F/U @ 4Hr Calcium 8.5 Phosphorus 2.9 Magnesium 2.4 Total Bilirubin 0.6 Direct Bilirubin AST 33 ALT 24 Alkaline Phosphatase 55 Troponin I High Sens Total Protein 6.9 Albumin 4.2 Triglycerides 482 H Cholesterol 117 LDL Cholesterol, Calc TNP HDL Cholesterol 15 L Lipase Beta-Hydroxybutyrate Urine Color Urine Appearance Urine pH Ur Specific [place] Urine Protein Urine Glucose (UA) Urine Ketones Urine Blood Urine Nitrite Ur Leukocyte Esterase Urine RBC Urine WBC Ur Squamous Epith Cells Urine Bacteria Hyaline Casts COVID-19 ([facility]) COVID-19 Clin Com Influenza Type A (MAYKEL) Influenza Type B (MAYKEL) Influenza A & B Note 03/03/25 03/03/25 03/03/25 04:24 04:32 05:33 WBC RBC Hgb Hct MCV MCH MCHC RDW Plt Count MPV Immature Gran % (Auto) Neut % (Auto) Lymph % (Auto) [place] % (Auto) Eos % (Auto) Baso % (Auto) Lymph # (Auto) [place] # (Auto) Eos # (Auto) Baso # (Auto) Abs Immat Gran (auto) Absolute Neuts (auto) Absolute Nucleated RBC Nucleated RBC % (auto) Hold Purple Top PT INR VBG pH 7.34 VBG pCO2 29 VBG pO2 56 VBG HCO3 16 L VBG O2 Saturation 84.0 VBG Base Excess -7.7 Sodium Potassium Chloride Carbon Dioxide Anion Gap BUN Creatinine Estim Creat Clear Calc Estimated GFR POC Glucose 229 H 208 H Random Glucose Osmolality Lactic Acid Lactic Acid F/U @ 2Hr Lactic Acid F/U @ 4Hr Calcium Phosphorus Magnesium Total Bilirubin Direct Bilirubin AST ALT Alkaline Phosphatase Troponin I High Sens Total Protein Albumin Triglycerides Cholesterol LDL Cholesterol, Calc HDL Cholesterol Lipase Beta-Hydroxybutyrate Urine Color Urine Appearance Urine pH Ur Specific [place] Urine Protein Urine Glucose (UA) Urine Ketones Urine Blood Urine Nitrite Ur Leukocyte Esterase Urine RBC Urine WBC Ur Squamous Epith Cells Urine Bacteria Hyaline Casts COVID-19 (SONA) COVID-19 Clin Com Influenza Type A (MAYKEL) Influenza Type B (MAYKEL) Influenza A & B Note 03/03/25 03/03/25 03/03/25 06:16 07:06 07:27 WBC RBC Hgb Hct MCV MCH MCHC RDW Plt Count MPV Immature Gran % (Auto) Neut % (Auto) Lymph % (Auto) [place] % (Auto) Eos % (Auto) Baso % (Auto) Lymph # (Auto) [place] # (Auto) Eos # (Auto) Baso # (Auto) Abs Immat Gran (auto) Absolute Neuts (auto) Absolute Nucleated RBC Nucleated RBC % (auto) Hold Purple Top SEE NOTE PT INR VBG pH VBG pCO2 VBG pO2 VBG HCO3 VBG O2 Saturation VBG Base Excess Sodium Potassium Chloride Carbon Dioxide Anion Gap BUN Creatinine Estim Creat Clear Calc Estimated GFR POC Glucose 206 H 185 H Random Glucose Osmolality Lactic Acid Lactic Acid F/U @ 2Hr Lactic Acid F/U @ 4Hr Calcium Phosphorus Magnesium Total Bilirubin Direct Bilirubin AST ALT Alkaline Phosphatase Troponin I High Sens Total Protein Albumin Triglycerides Cholesterol LDL Cholesterol, Calc HDL Cholesterol Lipase 60 Beta-Hydroxybutyrate Urine Color Urine Appearance Urine pH Ur Specific [place] Urine Protein Urine Glucose (UA) Urine Ketones Urine Blood Urine Nitrite Ur Leukocyte Esterase Urine RBC Urine WBC Ur Squamous Epith Cells Urine Bacteria Hyaline Casts COVID-19 ([facility]) COVID-19 Clin Com Influenza Type A (MAYKEL) Influenza Type B (MAYKEL) Influenza A & B Note 03/03/25 08:03 WBC RBC Hgb Hct MCV MCH MCHC RDW Plt Count MPV Immature Gran % (Auto) Neut % (Auto) Lymph % (Auto) [place] % (Auto) Eos % (Auto) Baso % (Auto) Lymph # (Auto) [place] # (Auto) Eos # (Auto) Baso # (Auto) Abs Immat Gran (auto) Absolute Neuts (auto) Absolute Nucleated RBC Nucleated RBC % (auto) Hold Purple Top PT INR VBG pH VBG pCO2 VBG pO2 VBG HCO3 VBG O2 Saturation VBG Base Excess Sodium Potassium Chloride Carbon Dioxide Anion Gap BUN Creatinine Estim Creat Clear Calc Estimated GFR POC Glucose 149 H Random Glucose Osmolality Lactic Acid Lactic Acid F/U @ 2Hr Lactic Acid F/U @ 4Hr Calcium Phosphorus Magnesium Total Bilirubin Direct Bilirubin AST ALT Alkaline Phosphatase Troponin I High Sens Total Protein Albumin Triglycerides Cholesterol LDL Cholesterol, Calc HDL Cholesterol Lipase Beta-Hydroxybutyrate Urine Color Urine Appearance Urine pH Ur Specific [place] Urine Protein Urine Glucose (UA) Urine Ketones Urine Blood Urine Nitrite Ur Leukocyte Esterase Urine RBC Urine WBC Ur Squamous Epith Cells Urine Bacteria Hyaline Casts COVID-19 (SONA) COVID-19 Clin Com Influenza Type A (MAYKEL) Influenza Type B (MAYKEL) Influenza A & B Note Progress Note: A&P Assessment and plan (1) Hypovolemic shock: Status: Acute (2) Hyperglycemia: Status: Acute (3) Acute kidney injury superimposed on chronic kidney disease: Status: Acute (4) Lactic acid acidosis: Status: Acute Plan Uncontrolled type 2 diabetes mellitus with hyperglycemia: - possibly due to respiratory infection and also oral steroids. - will give lantus 10 U, turn off insulin drip - will add sliding scale insulin - blood sugars QIDACHS Hypovolemic shock: - secondary to volume depletion from hyperglycemia - on very low dose levophed, will turn off levophed - EKG okay, will get transthoracic echo - will do a bedside echo to look for his volume status Hyponatremia: - improved with volume and blood sugar correction Lactic acidosis: - most recent lactate 2.7 Acute on chronic kidney disease: - secondary to hypovolemia from hyperglycemia and hypotension - baseline creatinine about 1.7, increased to 2.6 this presentation, down to 1.8 this morning - has underlying CKD with unclear baseline - should improve with IV fluids - avoid nephrotoxic medications Upper respiratory tract infection: - CT chest abdomen and pelvis did not show any abnormalities - negative flu, COVID - will stop IV antibiotics and switch to PO levofloxacin Leucocytosis: - improving T4 compression fracture seen on chest CT Quality Stroke Does the patient have a stroke diagnosis?: No VTE Prior VTE?: No VTE Risk Level:: Medical - moderate - high VTE Device Contraindication: N/A - Device Ordered VTE Drug Contraindication: N/A - Med Ordered
[2025-03-03] MEDS: Insulin Glargine,Hum.rec.anlog 100 UNIT/ML 10 ML VIAL 10 UNIT SUBCUT ×2 (08:47→20:27)
--- NOTE | 2025-03-03 08:50 | P.CDIM_ITS ---
PROVIDER RESPONSE TEXT: To clarify, the appropriate diagnosis supported by the clinical indicators: Acute QUERY TEXT: PHYSICIAN'S DOCUMENTATION REQUEST Date of Query: 03/03/2025 08:38 AM EST Patient Name: Deven Jensen Admit Date: 03/03/2025 Dear Josh Finley MD, A review of the medical record indicates additional documentation may be needed. Please review below and update the documentation accordingly. Clinical Indicators: ICU note 03/02/25 - Lactic acidosis Presented with a lactate of 2.3 in the setting of hypovolemia. Should improve with IV fluids. Clarify which of the following accurately represents the acuity of the Lactic acidosis: Possible options might include: Acute Chronic Other specified Other (explain) Clinically unable to determine (explain) Thank you, Leila Patrick, CCS, CDIS Use of terms such as suspected, likely, concern for, or probable (associated with a specific diagnosis that is being evaluated, monitored, or treated as if it exists) are acceptable and can be coded in the inpatient setting, when documented at the time of discharge. Please use your independent medical judgment in providing your response. THIS QUERY IS PART OF THE PERMANENT MEDICAL RECORD
[2025-03-03 08:58] LABS: Glucose, Whole Blood 114 mg/dL (60-115)
--- NOTE | 2025-03-03 09:51 | MHC.CM.PN ---
Met with patient in regards to discharge planning. Patient was admitted to [facility] from 02/07-02/23. Patient was d/c'd to [facility] until 02/23. Patient was d/c'd home to [place] [facility] with [facility]. Patient ambulates with a walker. Copy of HCP obtained from [facility] PCP verified. Patient states he will decline STR because I got sick while I was there. Patient's brother will transport him home when medically stable. IMM explained and signed. Continue to monitor for d/c needs.
[2025-03-03 10:29] LABS: Glucose, Whole Blood 146 mg/dL (60-115)
--- NOTE | 2025-03-03 11:41 | PC.NURSE ---
wilson catheter removed at 1136, pt tolerated well. patient due to void by 1736.
--- NOTE | 2025-03-03 12:00 | CA_ITS ---
Transthoracic Echocardiogram Patient (Last, First, Middle): Deven Jensen, Gender: M Date of : 1960 Age: 64 Procedure Date: 03/03/2025 Procedure Type: Transthoracic Echocardiogram Location: ICU Height: 177.8 cm Weight: 116.58 kg BSA: 2.32 m2 Heart Rate: bpm BP: 111 / 69 mmHg Die Storage Clerk: Referring MD: Josh Finley MD Maintenance Technician: Miles Perales MD Symptoms: shock Study Quality: Technically Difficult/ Fair with Contrast ECG Rhythm: Sinus Conclusions: - 1. Hyperdynamic LV EF of greater than 70% with moderate asymmetric septal hypertrophy 2. Mild aortic stenosis 3. Normal calculated RV systolic pressure 4. Mildly dilated ascending aorta at 4.1 cm 5. No gross pericardial effusion Findings Procedure Information Contrast agent, definity, is being given per protocol without apparent complications. Left Ventricle Normal left ventricular cavity size. There is normal left ventricular wall thickness. The left ventricular systolic function is hyperdynamic. The visually estimated ejection fraction is >70%. Spectral Doppler is indicative of an impaired relaxation filling pattern. There is moderate septal asymmetric hypertrophy. Right Ventricle Normal right ventricular cavity size. There is normal right ventricular systolic function. Atria The left atrium was not well visualized. Interatrial shunt cannot be excluded. The right atrium was not well visualized. Aortic Valve The aortic valve was not well visualized. There is moderate calcification of the aortic valve. There is mild aortic valve stenosis. The peak aortic gradient is 22 mmHg.The mean gradient is 11 mmHg. The aortic valve area is 1.69 cm2. There is no aortic valve regurgitation. Mitral Valve The mitral valve was not well visualized. There is mild anterior mitral leaflet thickening. There is no mitral valve regurgitation. There is no mitral valve stenosis. Pulmonic Valve The pulmonic valve was not well visualized. Tricuspid Valve The tricuspid valve was not well visualized. There is trace tricuspid valve regurgitation. The right ventricular systolic pressure is normal. The right ventricular systolic pressure is 23 mmHg. Normal right atrial pressure. There is no evidence of pulmonary hypertension. Great Vessels The aorta was not well visualized. The pulmonary artery was not well visualized. There is mild dilatation of the ascending aorta measuring 4.10 cm. Venous The inferior vena cava is normal in size and collapses greater than 50% with inspiration. Pericardium/Pleural The pericardium was not well visualized. Prior Study Comparison No prior study available for comparison. Measurements 2D Linear Measurements IVSd: 1.68 0.6-0.9/0.6-1.0 cm LVIDd: 4.12 3.9-5.3/4.2-5.9 cm LVIDd Index: 1.78 2.4-3.2/2.2-3.1 cm/m2 LVIDs: 2.67 2.0-3.6 cm LVPWd: 1.64 0.7-1.1 cm Ao Root: 3.80 2.1-3.5 cm LA Diam: 4.30 2.7-3.8/3.0-4.0 cm LAIDs Index: 1.85 1.5-2.3 cm/m2 LV Mass: 355.57 67-162/88-224 g LV Mass Index: 153.26 43-95/49-115 g/m2 LVOT Diam: 2.10 3.0+(-)1.3 cm Mitral Valve MV Pk E: 0.96 MV PK A: 0.87 MV Decel Time: 157.00 E/A: 1.10 E'Lateral: 11.40 E'Medial: 8.16 E/E' Med: 11.80 E/E' Lat: 8.40 PHT: 46.00 MVA PHT: 4.78 Decel Rowan: 6.13 Aortic Valve AoV Pk Damon: 2.35 AoV Mn Damon: 1.51 AoV VTI: 0.48 AoV Pk Grad: 22.00 Aov Mn Grad: 11.00 PAOLA Cont.VTI: 1.69 LVOT LVOT Pk Damon: 1.07 LVOT Mn Damon: 0.71 LVOT VTI: 0.23 LVOT Pk Grad: 5.00 LVOT Mn Grad: 3.00 LVOT Diam: 2.10 LVOT Area: 3.46 Diastolic Function MV Pk E: 0.96 MV Pk A: 0.87 E/A: 1.10 E'Medial: 8.16 E/E' Med: 11.80 E' Laterial: 11.40 E/E' Lat: 8.40 Right Ventricle TAPSE (mm): 30.00 TVS' Damon: 17.00 Tricuspid Valve TR Pk Damon: 2.23 TR Pk Grad: 20.00 RA Press: 3.00 RVSP: 23.00 Great Vessels Aorta Ao Root-2D: 3.80 2.0-3.7 cm Ao Asc: 4.10 2.1-3.4 cm Pulmonary Valve PV Pk Damon: 1.13 Peak PV Grad: 5.00 Updated in Other Vendor System with Status of Final Miles Perales MD electronically signed on 03/03/2025 5:06:51 PM with status of Final
[2025-03-03 12:02] LABS: Glucose, Whole Blood 238 mg/dL (60-115)
[2025-03-03] MEDS: Lidocaine 4 % Patch ADH..PATCH 1 PATCH TRANSDERMA (12:12)
[2025-03-03 14:16] LABS: Glucose, Whole Blood 339 mg/dL (60-115)
[2025-03-03 16:11] LABS: Glucose, Whole Blood 344 mg/dL (60-115)
[2025-03-03 20:18] LABS: Glucose, Whole Blood 389 mg/dL (60-115)
[2025-03-04] VITALS (19 sets, daily range): BP systolic 109–170; BP diastolic 67–78; PULSE 74–107; RESP 12–19; TEMP 36.4–37.5; O2SAT 95–97; BMI 39.1
--- NOTE | 2025-03-04 03:42 | PC.NURSE ---
CARE ASSUMED 7PM..ALERT..ORIENTED X3...SBP 130'S-140'S..NSR NO ECTOPY...RESPIRATIONS EASY AT REST..MILDLY REYNOSO WHEN FLAT FOR POSITIONING AND/OR FOR USE OF BEDPAN...FINE CRACKLES LOWER 1/4 BILATERALLY..SAO2 95-96% ON ROOM AIR...NS 0.9% 150 CC/HR WEANED TO 100 CC/HR PER PROVIDER..PURWIK EXTERNAL CATHETER COLLECTING CLEAR YELLOW URINE....HS MIDODRINE HELD PER PROVIDER D/T SBP REMAINING 130'S-140'S...HS POC [id number]...SCHEDULED LANTUS 10 UNITS SC GIVEN AND LISPRO 10 UNITS SC COVERAGE PER PROVIDER...OVERNIGHT C/O RIGHT KNEE PAIN RATED 5-6/10...PROVIDER AWARE..TYLENOL 975MG PO GIVEN AND ICE PACK TO KNEE WITH REPORTED CONTROL OF KNEE PAIN..RESTFUL ..NAPPING INTERMITTANTLY...TO HOLD AM MIDODRINE IF BP REMAINS STABLE PER PROVIDER
[2025-03-04 04:33] LABS: Alanine Aminotransferase 26 U/L (0-40); Albumin Level 3.3 g/dL (3.5-5.0); Alkaline Phosphatase 59 U/L (39-117); Anion Gap 12 (12-20); Aspartate Amino Transferase 32 U/L (5-37); Blood Urea Nitrogen 29 mg/dL (9-16); Calcium 8.1 mg/dL (8.4-10.2); Carbon Dioxide 16 mmol/L (22-29); Chloride 112 mmol/L (96-108); Creatinine Clr Calc Pharmacy 75.8; Estimated Glomerular Filt Rate 56; Potassium 3.8 mmol/L (3.3-5.1); Sodium 136 mmol/L (135-145); Total Protein 5.9 g/dL (6.5-8.0); Triglycerides 289 mg/dL (<150)
--- NOTE | 2025-03-04 07:12 | HO.PM.IMPN ---
Subjective Subjective Date of Service: 03/04/25 Interval History: Patient was complaining of cough, congestion pain in his lower extremities-resumed home meds with good effect Symptomatic treatment for his cough and congestion Patient to have PT eval once medically optimized Patient is currently hypotensive which is reassuring that he has recovered from his hypovolemic shock Review of Systems Review of Systems: Yes all other systems are reviewed and are negative Physical Exam Vital Signs: Vital Signs: Last Vital Signs Temp 99.2 F 03/04/25 03:06 Pulse 83 03/04/25 05:59 Resp 14 03/04/25 05:59 BP 147/75 H 03/04/25 05:59 Pulse Ox 97 03/04/25 05:59 O2 Del Method Room Air 03/04/25 05:59 O2 Flow Rate 2 03/03/25 18:00 FiO2 97 03/03/25 11:00 Oxygen Flow Rate 4 03/02/25 14:05 BMI result Body Mass Index 39.1 General: not in any acute distress, frail ill-appearing and appeared to be in distress due to pain Resp: Bilateral crackles, cough, rales Cardio:RRR GI: soft, nontender, no guarding, no hepatosplenomegaly : bladder normal to inspection Objective Data Active Medications Acetaminophen (Acetaminophen 325 Mg Tablet) 975 mg PO Q8H PRN PRN Reason: Pain, Moderate(Pain Scale 4-6) Last Admin: 03/04/25 00:30 Dose: 975 mg Documented By: DAV Dextrose (Dextrose 50 % 25 Gm/50 Ml Syringe) 25 gm IVPUSH Q15M PRN; Protocol PRN Reason: per Hypoglycemia Standing Ord. Glucose (Glucose Gel 15 Gm Gel..Gram.) 15 gm PO Q15M PRN; Protocol PRN Reason: per Hypoglycemia Standing Ord. Heparin Sodium (Porcine) (Heparin Sodium,Porcine 5,000 Unit/Ml Vial) 5,000 unit SUBCUT Q8H [facility] Last Admin: 03/04/25 03:02 Dose: 5,000 unit Documented By: DAV Sodium Chloride (Ns) 1,000 mls @ 150 mls/hr IVCONT .Q6H40M [facility] Last Admin: 03/04/25 03:00 Dose: 100 mls/hr Documented By: DAV Insulin Glargine (Insulin Glargine,Hum.Rec.Anlog 100 Unit/Ml 10 Ml Vial) 10 unit SUBCUT BEDTIME [facility] Last Admin: 03/03/25 20:27 Dose: 10 unit Documented By: DAV Insulin Human Lispro (Insulin Lispro 100 Unit/Ml 3 Ml Vial) 0 unit SUBCUT QIDACHS [facility]; Protocol Stop: 03/04/25 08:35 Last Admin: 03/03/25 20:27 Dose: 10 unit Documented By: DAV Comments: per icu pa Levofloxacin (Levofloxacin 750 Mg Tablet) 750 mg PO Q24H [facility] Lidocaine (Lidocaine 4 % Patch Adh..Patch) 1 patch TRANSDERMA DAILY [facility]; Protocol Midodrine (Midodrine Hcl 10 Mg Tablet) 10 mg PO Q8H [facility] Last Admin: 03/04/25 05:31 Dose: Not Given Documented By: DAV Non-Admin Reason: Physician Held Med Labs 03/03/25 04:23 03/04/25 04:12 Labs: Laboratory Results - last 24 hr 03/03/25 03/03/25 03/03/25 07:27 08:03 08:54 Hold Purple Top SEE NOTE Anion Gap Estim Creat Clear Calc Estimated GFR POC Glucose 149 H 114 Random Glucose Calcium Total Bilirubin AST ALT Alkaline Phosphatase Total Protein Albumin Triglycerides Lipase 60 03/03/25 03/03/25 03/03/25 10:27 11:57 14:13 Hold Purple Top Anion Gap Estim Creat Clear Calc Estimated GFR POC Glucose 146 H 238 H 339 H Random Glucose Calcium Total Bilirubin AST ALT Alkaline Phosphatase Total Protein Albumin Triglycerides Lipase 03/03/25 03/03/25 03/04/25 16:07 20:15 04:12 Hold Purple Top Anion Gap 12 Estim Creat Clear Calc 75.8 Estimated GFR 56 POC Glucose 344 H 389 H* Random Glucose 262 H Calcium 8.1 L Total Bilirubin 0.5 AST 32 ALT 26 Alkaline Phosphatase 59 Total Protein 5.9 L Albumin 3.3 L Triglycerides 289 H Lipase Microbiology Microbiology Results: Microbiology 03/02/25 15:18 Blood Culture - Preliminary Blood - Venous No growth after 24 hours. 03/02/25 14:58 Blood Culture - Preliminary Blood - Venous No growth after 24 hours. Assessment and Plan (1) Alcohol use disorder: Status: Acute (2) Diarrhea: Status: Resolved (3) JOCE (acute kidney injury): Status: Resolved Plan Deven Jensen is a 64 y/o man who presents with PMH significant for CKD, type 2 diabetes mellitus on metformin ,STANLEY non tolerant to CPAP, obesity and essential hypertension on losartan, hypovolemic shock on 03/02/25 and acute kidney injury in the setting of severe dehydration , off pressors since 03/03/25 Hypovolemic shock, JOCE secondary to severe dehydration requiring ICU admission and pressor support from 03/02/2025 to 03/03/2025 Patient off pressors and midodrine Acute lactic acidosis , AGMA without ketosis, likely multifactorial due to above and metformin and renal failure. Hold metformin. No evidence of sepsis, LA has trended down Alcohol abuse. Takes acamprosate and naltrexone, will hold both due to low GFR. Watch for withdrawal symptoms, CIWA. Thiamine, folic acid and multivitamins. Phenobarbital as needed. Social work consult. Mild transaminitis, secondary to alcohol abuse. Patient encouraged to abstain from alcohol. Continue to monitor. Acute diarrhea. No other GI symptoms. Continue hydration. GI panel negative. imodium PRN Type 2 diabetes mellitus. On Trilicity but NF. Metformin on hold due to severe lactic acidosis and JOCE. BG checks before meals at bedtime. Diabetic diet. Insulin sliding scale. Obstructive sleep apnea. Not tolerating CPAP. Essential hypertension. Hold irbersatan, amlodipine and metoprolol, BP is soft. Hyperlipidemia. Continue atorvastatin. Obesity, class II. BMI 36.7 kg/m2 Chronic anemia. Continue to monitor. Code status: Full DVT prophylaxis: Heparin Patient will need hospitalization for at least 1-2 more midnights for acute on chronic kidney disease treatment with IV fluids, close monitoring of renal function and evaluation by subspecialty. We need to challenge him with reinitiating of meds and titrating meds [id number] bowen mooer. This documentation was generated using dictation software; minor spreading or horizontal drill operator errors may be present. Quality Stroke Does the patient have a stroke diagnosis?: No VTE Prior VTE?: No VTE Risk Level:: Medical - moderate - high VTE Device Contraindication: N/A - Device Ordered VTE Drug Contraindication: N/A - Med Ordered
[2025-03-04 07:40] LABS: Glucose, Whole Blood 245 mg/dL (60-115)
[2025-03-04] MEDS: Lidocaine 4 % Patch ADH..PATCH 1 PATCH TRANSDERMA (07:50)
[2025-03-04 11:21] LABS: Glucose, Whole Blood 294 mg/dL (60-115)
[2025-03-04] MEDS: Furosemide 100 MG/10 ML VIAL 60 MG IVPUSH (12:39)
[2025-03-04] MEDS: guaiFENesin 200 MG/10 ML 10 ML LIQUID PO ×2 (12:39→20:24)
[2025-03-04] MEDS: Metoprolol Succinate ER 25 MG TAB.ER.24H PO (12:40)
[2025-03-04 15:26] LABS: Glucose, Whole Blood 355 mg/dL (60-115)
[2025-03-04 20:55] LABS: Glucose, Whole Blood 276 mg/dL (60-115)
[2025-03-04] MEDS: Insulin Glargine,Hum.rec.anlog 100 UNIT/ML 10 ML VIAL 10 UNIT SUBCUT (20:59)
[2025-03-05] VITALS (8 sets, daily range): BP systolic 136–170; BP diastolic 60–86; PULSE 79–111; RESP 16–20; TEMP 36.4–38.1; O2SAT 93–98; BMI 39.1
[2025-03-05] MEDS: guaiFENesin 200 MG/10 ML 10 ML LIQUID PO ×2 (03:10→15:37)
[2025-03-05 07:03] LABS: Glucose, Whole Blood 200 mg/dL (60-115)
--- NOTE | 2025-03-05 07:15 | P.PNIM_ITS ---
Subjective Subjective Date of Service: 03/05/25 Interval History: Patient reports some improvement in his overall clinical status -pain, cough and congestion that he had concerns of yesterday Patient is now hypotensive suggesting that he was hypotensive from prerenal azotemia, hypovolemic shock due to dehydration which has now resolved Patient ambulates with a walker at baseline Physical Exam 2 Vital Signs: Vital Signs: Last Vital Signs Temp 98.2 F 03/05/25 06:57 Pulse 88 03/05/25 06:57 Resp 20 03/05/25 06:57 BP 145/85 H 03/05/25 06:57 Pulse Ox 97 03/05/25 06:57 O2 Del Method Room Air 03/05/25 06:57 O2 Flow Rate 2 03/03/25 18:00 FiO2 97 03/03/25 11:00 Oxygen Flow Rate 4 03/02/25 14:05 BMI result Body Mass Index 39.1 General: not in any acute distress, frail ill-appearing and appeared to be in distress due to pain Resp: Bilateral crackles, cough, rales Cardio:RRR GI: soft, nontender, no guarding, no hepatosplenomegaly : bladder normal to inspection Objective Data Active Medications Acamprosate (Acamprosate Calcium 333 Mg Tablet.) 666 mg PO TID [facility] Last Admin: 03/04/25 20:23 Dose: 666 mg Documented By: BEN Acetaminophen (Acetaminophen 325 Mg Tablet) 975 mg PO Q6H [facility] Last Admin: 03/05/25 06:40 Dose: Not Given Documented By: BEN Non-Admin Reason: over daily limit Amlodipine Besylate (Amlodipine Besylate 2.5 Mg Tablet) 2.5 mg PO DAILY [facility]; Protocol Last Admin: 03/04/25 12:40 Dose: 2.5 mg Documented By: ABDULKADIR Atorvastatin Calcium (Atorvastatin Calcium 40 Mg Tablet) 40 mg PO BEDTIME [facility] [place] Last Admin: 03/04/25 20:24 Dose: 40 mg Documented By: BEN Benzocaine (Throat Lozenge, Medicated Lozenge) 1 lozenge MUCOUS MEM Q2H PRN PRN Reason: Sore Throat Dextrose (Dextrose 50 % 25 Gm/50 Ml Syringe) 25 gm IVPUSH Q15M PRN; Protocol PRN Reason: per Hypoglycemia Standing Ord. Folic Acid (Folic Acid 1 Mg Tablet) 1 mg PO DAILY [facility] Gabapentin (Gabapentin 100 Mg Capsule) 100 mg PO BID [facility] Last Admin: 03/04/25 21:00 Dose: 100 mg Documented By: BEN Glucose (Glucose Gel 15 Gm Gel..Gram.) 15 gm PO Q15M PRN; Protocol PRN Reason: per Hypoglycemia Standing Ord. Guaifenesin (Guaifenesin 200 Mg/10 Ml 10 Ml Liquid) 10 ml PO Q6H PRN PRN Reason: Cough Last Admin: 03/05/25 03:10 Dose: 10 ml Documented By: BEN Heparin Sodium (Porcine) (Heparin Sodium,Porcine 5,000 Unit/Ml Vial) 5,000 unit SUBCUT Q8H [facility] Last Admin: 03/05/25 03:10 Dose: 5,000 unit Documented By: BEN Insulin Glargine (Insulin Glargine,Hum.Rec.Anlog 100 Unit/Ml 10 Ml Vial) 10 unit SUBCUT BEDTIME [facility] [place] Last Admin: 03/04/25 20:59 Dose: 10 unit Documented By: BEN Insulin Human Lispro (Insulin Lispro 100 Unit/Ml 3 Ml Vial) 0 unit SUBCUT QIDACHS [facility] [place]; Protocol Last Admin: 03/04/25 20:59 Dose: 8 unit Documented By: BEN Lidocaine (Lidocaine 4 % Patch Adh..Patch) 1 patch TRANSDERMA DAILY [facility]; Protocol Last Admin: 03/04/25 07:50 Dose: 1 patch Documented By: WALTER Lidocaine (Lidocaine 4 % Patch Adh..Patch) 2 patch TRANSDERMA DAILY [facility]; Protocol Metoprolol Succinate (Metoprolol Succinate Er 25 Mg Tab.Er.24h) 25 mg PO DAILY [facility]; Protocol Last Admin: 03/04/25 12:40 Dose: 25 mg Documented By: ABDULKADIR Mirtazapine (Mirtazapine 7.5 Mg Tablet) 7.5 mg PO BEDTIME [facility] Last Admin: 03/04/25 20:23 Dose: 7.5 mg Documented By: BEN Naltrexone HCl (Naltrexone Hcl 50 Mg Tablet) 50 mg PO DAILY [facility] Tamsulosin HCl (Tamsulosin Hcl 0.4 Mg Capsule) 0.8 mg PO BEDTIME PRN PRN Reason: enlarge prostate Torsemide (Torsemide 20 Mg Tablet) 20 mg PO DAILY [facility]; Protocol Last Admin: 03/04/25 12:42 Dose: 20 mg Documented By: ABDULKADIR Trazodone HCl (Trazodone Hcl 50 Mg Tablet) 50 mg PO BEDTIME [facility] Last Admin: 03/04/25 20:23 Dose: 50 mg Documented By: BEN Valsartan (Valsartan 160 Mg Tablet) 160 mg PO DAILY [facility]; Protocol Labs 03/03/25 04:23 03/04/25 04:12 Labs: Laboratory Results - last 24 hr 03/04/25 03/04/25 03/04/25 07:35 11:13 15:21 POC Glucose 245 H 294 H 355 H* 03/04/25 03/05/25 20:52 06:57 POC Glucose 276 H 200 H Microbiology Microbiology Results: Microbiology 03/02/25 15:18 Blood Culture - Preliminary Blood - Venous No growth after 48 hours. 03/02/25 14:58 Blood Culture - Preliminary Blood - Venous No growth after 48 hours. Assessment and Plan (1) Alcohol use disorder: Status: Acute (2) Diarrhea: Status: Resolved (3) JOCE (acute kidney injury): Status: Resolved Plan Deven Jensen is a 64 y/o man who presents with PMH significant for CKD, type 2 diabetes mellitus on metformin ,STANLEY non tolerant to CPAP, obesity and essential hypertension on losartan, hypovolemic shock on 03/02/25 and acute kidney injury in the setting of severe dehydration , off pressors since 03/03/25 Hypovolemic shock, JOCE secondary to severe dehydration requiring ICU admission and pressor support from 03/02/2025 to 03/03/2025 Patient off pressors and midodrine. Patient is now hypertensive, we will watch for another day and re-initiate antihypertensive medications from tomorrow Acute lactic acidosis , AGMA without ketosis, likely multifactorial due to above and metformin and renal failure. Hold metformin. No evidence of sepsis, lactic acid resolved with fluids History of Alcohol abuse. Not scoring on CIWA Type 2 diabetes mellitus. -we will hold home meds and treat with insulin sliding scale Obstructive sleep apnea. Not tolerating CPAP. We will encourage him to use Essential hypertension. We will slowly resume home antihypertensives per clinical status Hyperlipidemia. Continue atorvastatin. Obesity, class II. BMI 36.7 kg/m2 Chronic anemia. H&H stable Code status: Full DVT prophylaxis: Heparin We will likely get discharged tomorrow or on Saturday pending PT eval This documentation was generated using dictation software; minor spreading or laborer syrup machine errors may be present. Quality Stroke Does the patient have a stroke diagnosis?: No VTE Prior VTE?: No VTE Risk Level:: Medical - moderate - high VTE Device Contraindication: N/A - Device Ordered VTE Drug Contraindication: N/A - Med Ordered
[2025-03-05] MEDS: Metoprolol Succinate ER 25 MG TAB.ER.24H PO (08:00)
[2025-03-05] MEDS: Lidocaine 4 % Patch ADH..PATCH 1 PATCH TRANSDERMA (08:01)
[2025-03-05] MEDS: Lidocaine 4 % Patch ADH..PATCH 2 PATCH TRANSDERMA (08:02)
[2025-03-05 11:21] LABS: Glucose, Whole Blood 243 mg/dL (60-115)
[2025-03-05 16:00] LABS: Glucose, Whole Blood 222 mg/dL (60-115)
[2025-03-05 21:16] LABS: Glucose, Whole Blood 232 mg/dL (60-115)
[2025-03-05] MEDS: Insulin Glargine,Hum.rec.anlog 100 UNIT/ML 10 ML VIAL 10 UNIT SUBCUT (21:45)
[2025-03-06 00:24] VITALS: BP 148/76; PULSE 103; RESP 20
[2025-03-06 02:00] VITALS: TEMP 37.7
[2025-03-06] MEDS: guaiFENesin 200 MG/10 ML 10 ML LIQUID PO (04:21)
[2025-03-06 04:33] VITALS: BP 114/66; PULSE 93; RESP 18; TEMP 36.8; O2SAT 92
[2025-03-06 06:00] VITALS: BMI 39.5
[2025-03-06 07:28] LABS: Glucose, Whole Blood 220 mg/dL (60-115)
--- NOTE | 2025-03-06 07:29 | P.PNIM_ITS ---
Subjective Subjective Date of Service: 03/06/25 Physical Exam 2 Vital Signs: Vital Signs: Last Vital Signs Temp 98.2 F 03/06/25 04:33 Pulse 93 03/06/25 04:33 Resp 18 03/06/25 04:33 BP 114/66 03/06/25 04:33 Pulse Ox 92 03/06/25 04:33 O2 Del Method Room Air 03/06/25 04:33 O2 Flow Rate 2 03/03/25 18:00 FiO2 97 03/03/25 11:00 Oxygen Flow Rate 4 03/02/25 14:05 BMI result Body Mass Index 39.5 Objective Data Active Medications Acamprosate (Acamprosate Calcium 333 Mg Tablet.) 666 mg PO TID [facility] Last Admin: 03/05/25 20:47 Dose: 666 mg Documented By: IGNNY Acetaminophen (Acetaminophen 325 Mg Tablet) 975 mg PO Q6H [facility] Last Admin: 03/06/25 06:12 Dose: 975 mg Documented By: GINNY Amlodipine Besylate (Amlodipine Besylate 2.5 Mg Tablet) 2.5 mg PO DAILY [facility]; Protocol Last Admin: 03/05/25 08:01 Dose: 2.5 mg Documented By: CARLOS Atorvastatin Calcium (Atorvastatin Calcium 40 Mg Tablet) 40 mg PO BEDTIME [facility] Last Admin: 03/05/25 20:48 Dose: 40 mg Documented By: GINNY Benzocaine (Throat Lozenge, Medicated Lozenge) 1 lozenge MUCOUS MEM Q2H PRN PRN Reason: Sore Throat Dextrose (Dextrose 50 % 25 Gm/50 Ml Syringe) 25 gm IVPUSH Q15M PRN; Protocol PRN Reason: per Hypoglycemia Standing Ord. Folic Acid (Folic Acid 1 Mg Tablet) 1 mg PO DAILY [facility] Last Admin: 03/05/25 08:01 Dose: 1 mg Documented By: CARLOS Gabapentin (Gabapentin 100 Mg Capsule) 100 mg PO BID [facility] Last Admin: 03/05/25 20:48 Dose: 100 mg Documented By: GINNY Glucose (Glucose Gel 15 Gm Gel..Gram.) 15 gm PO Q15M PRN; Protocol PRN Reason: per Hypoglycemia Standing Ord. Guaifenesin (Guaifenesin 200 Mg/10 Ml 10 Ml Liquid) 10 ml PO Q6H PRN PRN Reason: Cough Last Admin: 03/06/25 04:21 Dose: 10 ml Documented By: GINNY Heparin Sodium (Porcine) (Heparin Sodium,Porcine 5,000 Unit/Ml Vial) 5,000 unit SUBCUT Q8H [facility] Last Admin: 03/06/25 04:18 Dose: 5,000 unit Documented By: GINNY Insulin Glargine (Insulin Glargine,Hum.Rec.Anlog 100 Unit/Ml 10 Ml Vial) 10 unit SUBCUT BEDTIME [facility] Last Admin: 03/05/25 21:45 Dose: 10 unit Documented By: GINNY Insulin Human Lispro (Insulin Lispro 100 Unit/Ml 3 Ml Vial) 0 unit SUBCUT QIDACHS [facility]; Protocol Last Admin: 03/05/25 21:45 Dose: 6 unit Documented By: GINNY Lidocaine (Lidocaine 4 % Patch Adh..Patch) 1 patch TRANSDERMA DAILY [facility]; Protocol Last Admin: 03/05/25 08:01 Dose: 1 patch Documented By: CARLOS Lidocaine (Lidocaine 4 % Patch Adh..Patch) 2 patch TRANSDERMA DAILY [facility]; Protocol Last Admin: 03/05/25 08:02 Dose: 2 patch Documented By: CARLOS Metoprolol Succinate (Metoprolol Succinate Er 25 Mg Tab.Er.24h) 25 mg PO DAILY [facility]; Protocol Last Admin: 03/05/25 08:00 Dose: 25 mg Documented By: CARLOS Mirtazapine (Mirtazapine 7.5 Mg Tablet) 7.5 mg PO BEDTIME [facility] Last Admin: 03/05/25 20:48 Dose: 7.5 mg Documented By: GINNY Naltrexone HCl (Naltrexone Hcl 50 Mg Tablet) 50 mg PO DAILY [facility] Last Admin: 03/05/25 08:00 Dose: 50 mg Documented By: CARLOS Tamsulosin HCl (Tamsulosin Hcl 0.4 Mg Capsule) 0.8 mg PO BEDTIME PRN PRN Reason: enlarge prostate Torsemide (Torsemide 20 Mg Tablet) 20 mg PO DAILY [facility]; Protocol Last Admin: 03/05/25 08:00 Dose: 20 mg Documented By: CARLOS Trazodone HCl (Trazodone Hcl 50 Mg Tablet) 50 mg PO BEDTIME [facility] Last Admin: 03/05/25 20:48 Dose: 50 mg Documented By: GINNY Valsartan (Valsartan 160 Mg Tablet) 160 mg PO DAILY [facility]; Protocol Last Admin: 03/05/25 08:00 Dose: 160 mg Documented By: CARLOS Labs 03/03/25 04:23 03/04/25 04:12 Labs: Laboratory Results - last 24 hr 03/05/25 03/05/25 03/05/25 11:18 15:57 21:12 POC Glucose 243 H 222 H 232 H 03/06/25 07:24 POC Glucose 220 H Quality Stroke Does the patient have a stroke diagnosis?: No VTE Prior VTE?: No VTE Risk Level:: Medical - moderate - high VTE Device Contraindication: N/A - Device Ordered VTE Drug Contraindication: N/A - Med Ordered
[2025-03-06 07:41] LABS: MANUAL DIFF FLAG NO
[2025-03-06 07:44] LABS: Hematocrit 29.5 % (42.0-52.0); Hemoglobin 9.8 g/dl (14.0-18.0); Imm Gran Abs Auto 0.10 X10*3/uL (0.00-0.03); Imm Gran Pct Auto 1.5 % (0.0-0.4); Lymphocytes Absolute Auto 0.8 X10*3/uL (1.2-4.9); Mean Corpuscular HGB Conc 33.2 g/dl (31.0-36.0); Mean Corpuscular Hemoglobin 29.8 pg (27.0-33.0); Mean Corpuscular Volume 89.7 fL (80.0-98.0); NRBC Abs Auto 0.000 X10*3/uL (0.0-0.012); NRBC Pct Auto 0.0 /100WBC (0.0-0.2); Platelet Count 150 X10*3/uL (160-400); Red Blood Count 3.29 X10*6/uL (4.60-5.80); White Blood Count 6.5 X10*3/uL (4.8-10.8)
[2025-03-06 07:56] VITALS: BP 121/75; PULSE 99; RESP 16; TEMP 37.1; O2SAT 92
[2025-03-06 08:00] LABS: Alanine Aminotransferase 39 U/L (0-40); Albumin Level 3.6 g/dL (3.5-5.0); Alkaline Phosphatase 77 U/L (39-117); Anion Gap 13 (12-20); Aspartate Amino Transferase 46 U/L (5-37); Blood Urea Nitrogen 17 mg/dL (9-16); Calcium 8.8 mg/dL (8.4-10.2); Carbon Dioxide 19 mmol/L (22-29); Chloride 108 mmol/L (96-108); Creatinine Clr Calc Pharmacy 71.8; Estimated Glomerular Filt Rate 53; Magnesium 1.7 mg/dL (1.6-2.6); Potassium 3.8 mmol/L (3.3-5.1); Sodium 136 mmol/L (135-145); Total Protein 6.9 g/dL (6.5-8.0)
[2025-03-06] MEDS: Metoprolol Succinate ER 25 MG TAB.ER.24H PO (08:28)
[2025-03-06] MEDS: Lidocaine 4 % Patch ADH..PATCH 1 PATCH TRANSDERMA (08:29)
[2025-03-06 09:26] VITALS: PULSE 112; O2SAT 93
[2025-03-06] MEDS: Lidocaine 4 % Patch ADH..PATCH 2 PATCH TRANSDERMA (09:38)
[2025-03-06 10:59] LABS: Glucose, Whole Blood 244 mg/dL (60-115)
[2025-03-06 11:04] VITALS: BP 120/70; PULSE 84; RESP 16; TEMP 37.1; O2SAT 94
--- NOTE | 2025-03-06 11:32 | P.DS_ITS ---
DS: Providers Provider Date of Service: 03/06/25 Date of admission: 03/02/25 19:28 Date of discharge: 03/24/25 Primary care physician: Ezra Larose MD DS: Diagnosis Discharge Diagnosis (1) Alcohol use disorder: Status: Acute (2) Diarrhea: Status: Resolved (3) JOCE (acute kidney injury): Status: Resolved DS: Summary Hospital Course Hospital Course: Deven Jensen is a 64 y/o man who presents with PMH significant for CKD, type 2 diabetes mellitus on metformin ,STANLEY non tolerant to CPAP, obesity and essential hypertension on losartan, hypovolemic shock on 03/02/25 and acute kidney injury in the setting of severe dehydration , off pressors since 03/03/25 Hypovolemic shock, JOCE secondary to severe dehydration requiring ICU admission and pressor support from 03/02/2025 to 03/03/2025 Patient off pressors and midodrine. Patient is now hypertensive, we resumed and re-initiate antihypertensive medications , and is normotensive Acute lactic acidosis , AGMA without ketosis, likely multifactorial due to above and metformin and renal failure. Hold metformin. No evidence of sepsis, lactic acid resolved with fluids History of Alcohol abuse. Not scoring on CIWA Type 2 diabetes mellitus. -we will hold home meds and treat with insulin sliding scale Obstructive sleep apnea. Not tolerating CPAP. We will encourage him to use Essential hypertension. Resumed antihypertensives per clinical status Hyperlipidemia. Continue atorvastatin. Obesity, class II. BMI 36.7 kg/m2 Chronic anemia. H&H stable Code status: Full DVT prophylaxis: Heparin Patient was evaluated by PT-he was advised to go to a short-term rehab strongly. Continues to decline very strictly saying that he ?caught something? in a rehab and would never go back there. He is open to home with PT, and he is being discharged with the same. This documentation was generated using dictation software; minor spreading or fagot heater errors may be present. Time spent discussing smoking cessation with patient: more than 10 minutes Status at Discharge Functional status at discharge: uses cane/walker Overall status at discharge: patient is progressing back to baseline Time Attestation Discharge Coordination Time (in mins): 45 Quality: Safe Use of Opioids Does Pt have an Active Cancer Diagnosis on the Problem List?: No Quality: Stroke Does the patient have a stroke diagnosis?: No Physical Exam Vital Signs: Vital Signs: Last Vital Signs Temp 98.8 F 03/06/25 11:04 Pulse 84 03/06/25 11:04 Resp 16 03/06/25 11:04 BP 120/70 03/06/25 11:04 Pulse Ox 94 03/06/25 11:04 O2 Del Method Room Air 03/06/25 11:04 O2 Flow Rate 2 03/03/25 18:00 FiO2 97 03/03/25 11:00 Oxygen Flow Rate 4 03/02/25 14:05 BMI result Body Mass Index 39.5 DS: Data Data Completed and Pending Completed studies during hospitalization [Text1]: Procedures Detoxification Services for Substance Abuse Treatment (02/02/25) Labs on day of discharge: Laboratory Results - last 24 hr 03/05/25 03/05/25 03/06/25 15:57 21:12 07:23 WBC 6.5 RBC 3.29 L Hgb 9.8 L Hct 29.5 L MCV 89.7 MCH 29.8 MCHC 33.2 RDW 13.9 Plt Count 150 L MPV 10.2 Immature Gran % (Auto) 1.5 H Neut % (Auto) 69.0 Lymph % (Auto) 12.0 L Hardin % (Auto) 13.2 H Eos % (Auto) 3.7 Baso % (Auto) 0.6 Lymph # (Auto) 0.8 L Hardin # (Auto) 0.9 Eos # (Auto) 0.2 Baso # (Auto) 0.0 Abs Immat Gran (auto) 0.10 H Absolute Neuts (auto) 4.5 Absolute Nucleated RBC 0.000 Nucleated RBC % (auto) 0.0 Sodium 136 Potassium 3.8 Chloride 108 Carbon Dioxide 19 L Anion Gap 13 BUN 17 H Creatinine 1.36 Estim Creat Clear Calc 71.8 Estimated GFR 53 POC Glucose 222 H 232 H Random Glucose 206 H Calcium 8.8 D Magnesium 1.7 Total Bilirubin 0.5 AST 46 H ALT 39 Alkaline Phosphatase 77 Total Protein 6.9 Albumin 3.6 03/06/25 03/06/25 07:24 10:55 WBC RBC Hgb Hct MCV MCH MCHC RDW Plt Count MPV Immature Gran % (Auto) Neut % (Auto) Lymph % (Auto) Hardin % (Auto) Eos % (Auto) Baso % (Auto) Lymph # (Auto) Hardin # (Auto) Eos # (Auto) Baso # (Auto) Abs Immat Gran (auto) Absolute Neuts (auto) Absolute Nucleated RBC Nucleated RBC % (auto) Sodium Potassium Chloride Carbon Dioxide Anion Gap BUN Creatinine Estim Creat Clear Calc Estimated GFR POC Glucose 220 H 244 H Random Glucose Calcium Magnesium Total Bilirubin AST ALT Alkaline Phosphatase Total Protein Albumin Preliminary micro results at discharge 03/02/25 15:18 Blood Culture - Preliminary Blood - Venous No growth after 48 hours. 03/02/25 14:58 Blood Culture - Preliminary Blood - Venous No growth after 48 hours. Discharge Plan Discharge Anticipated Discharge Date/Time: 03/06/25 09:50 Patient Disposition: Home Health Service Discharge Diagnosis: Hypovolemic shock, JOCE secondary to severe dehydration requiring ICU admission and pressor support from 03/02/2025 to 03/03/2025 Referrals: Ezra Larose MD [Primary Care Provider, Internal Medicine] - 1 Week Discharge Medications: New guaifenesin 100 mg/5 mL Liquid 50 mg PO Q6H PRN (Reason: Cough) 15 Days Qty: 473 0RF Sore Throat (benzocaine-menth) 15-3.6 mg Lozenge 1 mikey mucous membrane Q2H PRN (Reason: Sore Throat) 15 Days Qty: 15 0RF Continued atorvastatin 40 mg tablet 40 mg PO BEDTIME amlodipine 2.5 mg tablet 2.5 mg PO DAILY metoprolol succinate 25 mg tablet extended release 24 hr 25 mg PO DAILY irbesartan 300 mg tablet 300 mg PO DAILY torsemide 20 mg tablet 20 mg PO DAILY folic acid 1 mg tablet 1 mg PO DAILY Qty: 30 0RF mirtazapine 7.5 mg tablet 7.5 mg PO BEDTIME acamprosate 333 mg tablet,delayed release (DR/EC) 666 mg PO TID trazodone 50 mg tablet 50 mg PO BEDTIME naltrexone 50 mg tablet 50 mg PO DAILY fluticasone propionate 50 mcg/actuation spray,suspension 2 spray intranasal DAILY acetaminophen 325 mg Tablet 975 mg PO Q6H 30 Days Qty: 360 3RF gabapentin 100 mg Capsule 100 mg PO BID 30 Days Qty: 60 0RF lidocaine [Lidocaine Pain Relief] 4 % Adhesive Patch,Medicated 2 patch transdermal DAILY 10 Days Qty: 10 0RF Protocol: Apply to: Apply to: affected area metformin 500 mg tablet extended release 24 hr 500 mg PO DAILY Trulicity 1.5 mg/0.5 mL pen injector 1.5 mg subcut TH@0900 Changed tamsulosin 0.4 mg capsule 0.4 mg PO BEDTIME PRN (Reason: enlarge prostate) 30 Days Qty: 0 0RF Discharge Orders: Discharge Order (Routine); Ordered 03/06/25 Ordered By: Manasa Santiago Diet: Low salt diet Activity on Discharge: Use cane or walker Stand Alone Forms: Patient Portal Discharge page Print Language: Turkmen Care Plan Goals: Decreased tamsulosin dose to half Please check your blood pressure at home Please adhere to low-sodium diet If you have any symptoms of low blood pressure, feel free to come back to the ED. Patient was advised short-term rehab, however he is insistent that he does not want to go to a rehab and would rather go home Given his falls he is at high-risk, however patient adamantly refusing Health Concerns: See above Plan of Treatment: See above Assessment: See above
--- NOTE | 2025-03-06 12:11 | MHC.CM.PN ---
PT WILL DC HOME TODAY WITH [facility]UMPTION OF [facility] VIA PRIVATE TRANSPORT
--- OUTSIDE RECORDS SUMMARY | 2025-04-23 19:00 | XMS_ITS | Clinical Summary ---
Author Organization Unknown Care Team Providers Care Media Planner Name Role Phone BRUCE GREENE, DUSTIN Unavailable Unavailable CALLIE RN, GRICELDA Unavailable Unavailab cristobal ARREOLA PHYSICAL THERAPY INSTRUCTOR, DANAY Unavailable Unavailable SISSY PT, HAVEN Unavailable Unavailable FAIZAN MATERIAL ASSEMBLER, DON Unavailable Unavailable READING OT, TORIE Unavailable Unavailable CONDINO MIKE/PRATT, LAURA Unavailable Unav ailable Payers Payer Name Policy Type Policy Number Effective Date Expira tion Date MEDICARE.NGS.PDGM [id number] Problems Condition Name Condition Details Condition Category Status Onset Date Resolution Date Last Treatment Date Treating Clinician Comments TYPE 2 DIABETES MELLITUS W DIABETIC CHRONIC KIDNEY DISEASE Active 2024-04 00:00: 00 HYPERTENSIVE CHRONIC KIDNEY DISEASE W STG 1-4/UNSP CHR KDNY Active 2024-04 00:00: 00 CHRONIC KIDNEY DISEASE, UNSPECIFIED Active 2024-04 00:00: 00 ANEMIA IN CHRONIC KIDNEY DISEASE Active 2024-04 00:00: 00 BRONCHITIS, NOT SPECIFIED ACUTE OR CHRONIC Active 2024-04 00:00: 00 TYPE 2 DIABETES MELLITUS WITH DIABETIC NEUROPATHY, UNSP Active 2024-04 00:00: 00 UNSPECIFIED HYDRONEPHROS IS Active 2024-04 00:00: 00 Obesity, class 2 Active 2024-04 00:00: 00 HYPERKALEMIA Active 2024-04 00:00: 00 PURE HYPERCHOLEST EROLEMIA, UNSPECIFIED Active 2024-04 00:00: 00 OBSTRUCTIVE SLEEP APNEA (ADULT) (PEDIATRIC) Active 2024-04 00:00: 00 ACIDOSIS, UNSPECIFIED Active 2024-04 00:00: 00 ELEVATION OF LEVELS OF LIVER TRANSAMINASE LEVELS Active 2024-04 00:00: 00 LOCALIZED EDEMA Active 2024-04 00:00: 00 ALCOHOL ABUSE, UNCOMPLICATE D Active 2024-04 00:00: 00 CORRECTION (CURRENT) USE OF ORAL HYPOGLYCEMIC DRUGS Active 2024-04 00:00: 00 LNG TRM (CRNT) USE INJECTABLE NON-INSULIN ANTIDIABETIC DRUGS Active 2024-04 00:00: 00 OTHER WARPER FIXER (CURRENT) DRUG THERAPY Active 2024-04 00:00: 00 PERSONAL HISTORY OF NICOTINE DEPENDENCE Active 2024-04 00:00: 00 PERSONAL HISTORY OF OTHER DISEASES OF THE DIGESTIVE SYSTEM Active 2024-04 00:00: 00 BODY MASS INDEX [BMI] 36.0-36.9, ADULT Active 2024-04 00:00: 00 Allergies, Adverse Reactions, Alerts Allergy Name Allergy Type Status Severity Reaction(s) Onset Date Inactive Date Treating Clinician Comments NO KNOWN ALLERGIES Propensity to adverse reactions Active 2024-04 14:16: 59 Vital Signs Vital Name Observation Time Observation Value Commen ts Temperature 2025-03-02 13:15:00.000 98.9 [degF] Temperature 2025-03-02 12:09:00.000 97 [degF] Temperature 2025-03-01 11:10:00.000 96.5 [degF] Temperature 2025-02-25 13:51:00.000 97.4 [degF] Temperature 2025-02-24 14:47:00.000 98.5 [degF] BMI (%) 2025-02-24 15:01:46.000 38 kg/m2 Height 2025-02-24 15:01:41.000 70 [in_us] Pulse 2025-03-02 13:15:00.000 67 /min Pulse 2025-03-02 12:09:00.000 80 /min Pulse 2025-03-01 11:10:00.000 98 /min Pulse 2025-02-25 13:51:00.000 92 /min Pulse 2025-02-24 14:47:00.000 92 /min O2 Saturation (%) 2025-03-02 13:15:00.000 98 % O2 Saturation (%) 2025-03-01 11:10:00.000 97 % O2 Saturation (%) 2025-02-25 13:51:00.000 96 % O2 Saturation (%) 2025-02-24 14:47:00.000 97 % Respirations 2025-03-02 13:15:00.000 24 /min Respirations 2025-03-02 12:09:00.000 18 /min Respirations 2025-03-01 11:10:00.000 18 /min Respirations 2025-02-25 13:51:00.000 18 /min Respirations 2025-02-24 14:47:00.000 18 /min Weight (lbs) 2025-02-24 15:01:46.000 265 [lb_av] Systolic Blood Pressure 2025-03-02 13:15:00.000 138 mm [Hg] Systolic Blood Pressure 2025-03-02 12:09:00.000 100 mm [Hg] Systolic Blood Pressure 2025-03-01 11:10:00.000 128 mm [Hg] Systolic Blood Pressure 2025-02-25 13:51:00.000 135 mm [Hg] Systolic Blood Pressure 2025-02-24 14:47:00.000 128 mm [Hg] Diastolic Blood Pressure 2025-03-02 13:15:00.000 64 mm [Hg] Diastolic Blood Pressure 2025-03-02 12:09:00.000 62 mm [Hg] Diastolic Blood Pressure 2025-03-01 11:10:00.000 70 mm [Hg] Diastolic Blood Pressure 2025-02-25 13:51:00.000 80 mm [Hg] Diastolic Blood Pressure 2025-02-24 14:47:00.000 54 mm [Hg] Plan of Treatment Planned Activity Planned Date Details Comments Future Scheduled Test RN TO OBSE RVE, ASSESS, EVALUATE, AND DEVELOP AN INDIVIDUALIZED PLAN OF CARE. AGENCY MAY ACCEPT ORDERS FROM CONSULTING PHYSICIANS. RN TO OBSERVE AND ASSESS, PHYSICAL THERAPY INSTRUCTOR/AUTOMATIC I THREADING MACHINE FEEDER TO OBSERVE FOR RISK FOR FALLS AND INSTRUCT IN FALL PREVENTION, HOME SAFETY, MEDICATION MANAGEMENT, INFECTION PREVENTION, AND NUTRITION MANAGEMENT. RN/PHYSICAL THERAPY INSTRUCTOR/AUTOMATIC I THREADING MACHINE FEEDER NURSE MAY PERFORM O2 SATURATION LEVEL ON ADMISSION AND PRN FOR RN TO ASSESS/PHYSICAL THERAPY INSTRUCTOR TO OBSERVE PATIENT, WITH NOTIFICATION TO THE PHYSICIAN IF SATURATION IS 90% IN THE ABSENCE OF MORE SPECIFIC PARAMETERS FROM THE PHYSICIAN. AGENCY MAY PERFORM A RESUMPTION OF CARE VISIT FOLLOWING ANY HOSPITAL ADMISSION. RN/PHYSICAL THERAPY INSTRUCTOR/AUTOMATIC I THREADING MACHINE FEEDER TO MONITOR CO-MORBID CONDITIONS LISTED ON THE PLAN OF CARE AND ANY NEW CONDITIONS THAT PRESENT THEMSELVES DURING THIS EPISODE TO IDENTIFY CHANGES AND INTERVENE TO MINIMIZE COMPLICATIONS. [code = RN TO OBSERVE, ASSESS, EVALUATE, AND DEVELOP AN INDIVIDUALIZED PLAN OF CARE. AGENCY MAY ACCEPT ORDERS FROM CONSULTING PHYSICIANS. RN TO OBSERVE AND ASSESS, PHYSICAL THERAPY INSTRUCTOR/AUTOMATIC I THREADING MACHINE FEEDER TO OBSERVE FOR RISK FOR FALLS AND INSTRUCT IN FALL PREVENTION, HOME SAFETY, MEDICATION MANAGEMENT, INFECTION PREVENTION, AND NUTRITION MANAGEMENT. RN/PHYSICAL THERAPY INSTRUCTOR/AUTOMATIC I THREADING MACHINE FEEDER NURSE MAY PERFORM O2 SATURATION LEVEL ON ADMISSION AND PRN FOR RN TO ASSESS/PHYSICAL THERAPY INSTRUCTOR TO OBSERVE PATIENT, WITH NOTIFICATION TO THE PHYSICIAN IF SATURATION IS 90% IN THE ABSENCE OF MORE SPECIFIC PARAMETERS FROM THE PHYSICIAN. AGENCY MAY PERFORM A RESUMPTION OF CARE VISIT FOLLOWING ANY HOSPITAL ADMISSION. RN/PHYSICAL THERAPY INSTRUCTOR/AUTOMATIC I THREADING MACHINE FEEDER TO MONITOR CO-MORBID CONDITIONS LISTED ON THE PLAN OF CARE AND ANY NEW CONDITIONS THAT PRESENT THEMSELVES DURING THIS EPISODE TO IDENTIFY CHANGES AND INTERVENE TO MINIMIZE COMPLICATIONS.] Future Scheduled Test MEDICATION MANAGEMENT; RN/PHYSICAL THERAPY INSTRUCTOR/AUTOMATIC I THREADING MACHINE FEEDER TO REVIEW MEDICATIONS FOR INTERACTIONS, EFFECTIVENESS OF DRUG THERAPY, AND SIGNS/SYMPTOMS OF ADVERSE REACTIONS. MAY INSTRUCT AND REINFORCE MEDICATION TEACHING RELATED TO THE USE OF MEDICATIONS, DOSAGE, FREQUENCY, PURPOSE, SIDE EFFECTS, AND TO REPORT COMPLICATIONS. [code = MEDICATION MANAGEMENT; RN/PHYSICAL THERAPY INSTRUCTOR/AUTOMATIC I THREADING MACHINE FEEDER TO REVIEW MEDICATIONS FOR INTERACTIONS, EFFECTIVENESS OF DRUG THERAPY, AND SIGNS/SYMPTOMS OF ADVERSE REACTIONS. MAY INSTRUCT AND REINFORCE MEDICATION TEACHING RELATED TO THE USE OF MEDICATIONS, DOSAGE, FREQUENCY, PURPOSE, SIDE EFFECTS, AND TO REPORT COMPLICATIONS.] Future Scheduled Test RISK FOR H OSPITALIZATION; RN TO ASSESS/TEACH, AUTOMATIC I THREADING MACHINE FEEDER/PHYSICAL THERAPY INSTRUCTOR TO OBSERVE/TEACH PATIENT/CAREGIVER ON RISK FOR HOSPITALIZATION/EMERGENCY ROOM VISITS, TEACH SIGNS AND SYMPTOMS THAT PUT PATIENT AT RISK, WHEN TO NOTIFY NURSE/PHYSICIAN OF COMPLICATIONS/DECLINE, AND WHEN TO CALL 911. [code = RISK FOR HOSPITALIZATION; RN TO ASSESS/TEACH, AUTOMATIC I THREADING MACHINE FEEDER/PHYSICAL THERAPY INSTRUCTOR TO OBSERVE/TEACH PATIENT/CAREGIVER ON RISK FOR HOSPITALIZATION/EMERGENCY ROOM VISITS, TEACH SIGNS AND SYMPTOMS THAT PUT PATIENT AT RISK, WHEN TO NOTIFY NURSE/PHYSICIAN OF COMPLICATIONS/DECLINE, AND WHEN TO CALL 911.] Future Scheduled Test CARDIOVASC ULAR SYSTEM; RN TO ASSESS/TEACH, PHYSICAL THERAPY INSTRUCTOR/AUTOMATIC I THREADING MACHINE FEEDER TO OBSERVE/TEACH RELATED TO ALTERED CARDIOVASCULAR STATUS TO MINIMIZE COMPLICATIONS AND REDUCE HOSPITALIZATION. [code = CARDIOVASCULAR SYSTEM; RN TO ASSESS/TEACH, PHYSICAL THERAPY INSTRUCTOR/AUTOMATIC I THREADING MACHINE FEEDER TO OBSERVE/TEACH RELATED TO ALTERED CARDIOVASCULAR STATUS TO MINIMIZE COMPLICATIONS AND REDUCE HOSPITALIZATION.] Future Scheduled Test HYPERTENSI ON MANAGEMENT; RN TO ASSESS AND TEACH, PHYSICAL THERAPY INSTRUCTOR/AUTOMATIC I THREADING MACHINE FEEDER TO OBSERVE AND TEACH WARNING SIGNS AND SYMPTOMS TO AVOID HOSPITALIZATION. [code = HYPERTENSION MANAGEMENT; RN TO ASSESS AND TEACH, PHYSICAL THERAPY INSTRUCTOR/AUTOMATIC I THREADING MACHINE FEEDER TO OBSERVE AND TEACH WARNING SIGNS AND SYMPTOMS TO AVOID HOSPITALIZATION.] Future Scheduled Test ARRHYTHMIA MANAGEMENT; RN TO ASSESS AND TEACH, PHYSICAL THERAPY INSTRUCTOR/AUTOMATIC I THREADING MACHINE FEEDER TO OBSERVE AND TEACH WARNING SIGNS AND SYMPTOMS TO AVOID HOSPITALIZATION. [code = ARRHYTHMIA MANAGEMENT; RN TO ASSESS AND TEACH, PHYSICAL THERAPY INSTRUCTOR/AUTOMATIC I THREADING MACHINE FEEDER TO OBSERVE AND TEACH WARNING SIGNS AND SYMPTOMS TO AVOID HOSPITALIZATION.] Future Scheduled Test RESPIRATOR Y SYSTEM MANAGEMENT; RN TO ASSESS AND TEACH, PHYSICAL THERAPY INSTRUCTOR/AUTOMATIC I THREADING MACHINE FEEDER TO OBSERVE AND TEACH RELATED TO ALTERED RESPIRATORY STATUS TO MINIMIZE COMPLICATIONS AND REDUCE HOSPITALIZATION. [code = RESPIRATORY SYSTEM MANAGEMENT; RN TO ASSESS AND TEACH, PHYSICAL THERAPY INSTRUCTOR/AUTOMATIC I THREADING MACHINE FEEDER TO OBSERVE AND TEACH RELATED TO ALTERED RESPIRATORY STATUS TO MINIMIZE COMPLICATIONS AND REDUCE HOSPITALIZATION.] Future Scheduled Test SKIN INTEG RITY RN TO ASSESS AND TEACH, PHYSICAL THERAPY INSTRUCTOR/AUTOMATIC I THREADING MACHINE FEEDER TO OBSERVE AND TEACH INTEGUMENTARY STATUS TO IDENTIFY CHANGES AND INTERVENE TO MINIMIZE COMPLICATIONS. PROVIDE SKILLED TEACHING OF GENERAL WOUND AND SKIN CARE AND PREVENTION RELATED TO ACTUAL ALTERED SKIN INTEGRITY [code = SKIN INTEGRITY RN TO ASSESS AND TEACH, PHYSICAL THERAPY INSTRUCTOR/AUTOMATIC I THREADING MACHINE FEEDER TO OBSERVE AND TEACH INTEGUMENTARY STATUS TO IDENTIFY CHANGES AND INTERVENE TO MINIMIZE COMPLICATIONS. PROVIDE SKILLED TEACHING OF GENERAL WOUND AND SKIN CARE AND PREVENTION RELATED TO ACTUAL ALTERED SKIN INTEGRITY] Future Scheduled Test RN/PHYSICAL THERAPY INSTRUCTOR/AUTOMATIC I THREADING MACHINE FEEDER TO PERFORM/TEACH PATIENT/CAREGIVER WOUND CARE DTI PRESSURE INJURY TO LEFT POSTERIOR LOWER CALF APPLY SKIN PREP DAILY, PATIENT TO DO IN NURSING ABSENCE RN/PHYSICAL THERAPY INSTRUCTOR/AUTOMATIC I THREADING MACHINE FEEDER TO PERFORM/TEACH PATIENT/CAREGIVER WOUND CARE DTI PRESSURE INJURY TO RIGHT POSTERIOR LOWER CALF APPLY SKIN PREP DAILY, PATIENT TO DO IN NURSING ABSENCE [code = RN/PHYSICAL THERAPY INSTRUCTOR/AUTOMATIC I THREADING MACHINE FEEDER TO PERFORM/TEACH PATIENT/CAREGIVER WOUND CARE DTI PRESSURE INJURY TO LEFT POSTERIOR LOWER CALF APPLY SKIN PREP DAILY, PATIENT TO DO IN NURSING ABSENCE RN/PHYSICAL THERAPY INSTRUCTOR/AUTOMATIC I THREADING MACHINE FEEDER TO PERFORM/TEACH PATIENT/CAREGIVER WOUND CARE DTI PRESSURE INJURY TO RIGHT POSTERIOR LOWER CALF APPLY SKIN PREP DAILY, PATIENT TO DO IN NURSING ABSENCE] Future Scheduled Test PAIN MANAG EMENT; RN TO ASSESS AND TEACH, AUTOMATIC I THREADING MACHINE FEEDER/PHYSICAL THERAPY INSTRUCTOR TO OBSERVE AND TEACH AND PROVIDE EDUCATION ON PAIN MANAGEMENT TECHNIQUES. [code = PAIN MANAGEMENT; RN TO ASSESS AND TEACH, AUTOMATIC I THREADING MACHINE FEEDER/PHYSICAL THERAPY INSTRUCTOR TO OBSERVE AND TEACH AND PROVIDE EDUCATION ON PAIN MANAGEMENT TECHNIQUES.] Future Scheduled Test FALL REDUC TION MANAGEMENT; RN TO ASSESS AND OBSERVE, PHYSICAL THERAPY INSTRUCTOR/AUTOMATIC I THREADING MACHINE FEEDER TO OBSERVE FALL RISK FACTORS AND EDUCATE PATIENT/CAREGIVER ON STRATEGIES TO MINIMIZE THE RISK OF FALLING. [code = FALL REDUCTION MANAGEMENT; RN TO ASSESS AND OBSERVE, PHYSICAL THERAPY INSTRUCTOR/AUTOMATIC I THREADING MACHINE FEEDER TO OBSERVE FALL RISK FACTORS AND EDUCATE PATIENT/CAREGIVER ON STRATEGIES TO MINIMIZE THE RISK OF FALLING.] Future Scheduled Test DIABETES M ANAGEMENT; RN TO ASSESS AND TEACH, AUTOMATIC I THREADING MACHINE FEEDER/PHYSICAL THERAPY INSTRUCTOR TO OBSERVE AND TEACH INSTRUCTIONS OF DIABETIC CARE TO INCLUDE: DIET CCHO, CARDIAC SKIN CARE, SIGNS AND SYMPTOMS OF HYPO/HYPERGLYCEMIA, PROPER ADMINISTRATION OF DIABETIC MEDICATION. RN/AUTOMATIC I THREADING MACHINE FEEDER/PHYSICAL THERAPY INSTRUCTOR TO INSTRUCT ON DIABETIC FOOT CARE AND MONITOR FOR SKIN LESIONS ON LOWER EXTREMITIES. BLOOD GLUCOSE TESTING DAILY. RN TO ASSESS AND TEACH, AUTOMATIC I THREADING MACHINE FEEDER/PHYSICAL THERAPY INSTRUCTOR TO OBSERVE AND TEACH PATIENT/CAREGIVER ABILITY TO PERFORM AND RECORD BLOOD GLUCOSE TESTING ORDERED AND TO REPORT ABNORMAL FINDINGS TO PHYSICIAN. RN/AUTOMATIC I THREADING MACHINE FEEDER/PHYSICAL THERAPY INSTRUCTOR MAY PERFORM BLOOD GLUCOSE TEST NEEDED. RN/AUTOMATIC I THREADING MACHINE FEEDER/PHYSICAL THERAPY INSTRUCTOR TO REPORT TO PHYSICIAN BLOOD GLUCOSE READINGS GREATER THAN 200 OR LESS THAN 80 RN/AUTOMATIC I THREADING MACHINE FEEDER/PHYSICAL THERAPY INSTRUCTOR TO INSTRUCT PATIENT ON IMPORTANCE OF HGBA1C MONITORING, KIDNEY FUNCTION TEST, EYE AND FOOT EXAMS. [code = DIABETES MANAGEMENT; RN TO ASSESS AND TEACH, AUTOMATIC I THREADING MACHINE FEEDER/PHYSICAL THERAPY INSTRUCTOR TO OBSERVE AND TEACH INSTRUCTIONS OF DIABETIC CARE TO INCLUDE: DIET CCHO, CARDIAC SKIN CARE, SIGNS AND SYMPTOMS OF HYPO/HYPERGLYCEMIA, PROPER ADMINISTRATION OF DIABETIC MEDICATION. RN/AUTOMATIC I THREADING MACHINE FEEDER/PHYSICAL THERAPY INSTRUCTOR TO INSTRUCT ON DIABETIC FOOT CARE AND MONITOR FOR SKIN LESIONS ON LOWER EXTREMITIES. BLOOD GLUCOSE TESTING DAILY. RN TO ASSESS AND TEACH, AUTOMATIC I THREADING MACHINE FEEDER/PHYSICAL THERAPY INSTRUCTOR TO OBSERVE AND TEACH PATIENT/CAREGIVER ABILITY TO PERFORM AND RECORD BLOOD GLUCOSE TESTING ORDERED AND TO REPORT ABNORMAL FINDINGS TO PHYSICIAN. RN/AUTOMATIC I THREADING MACHINE FEEDER/PHYSICAL THERAPY INSTRUCTOR MAY PERFORM BLOOD GLUCOSE TEST NEEDED. RN/AUTOMATIC I THREADING MACHINE FEEDER/PHYSICAL THERAPY INSTRUCTOR TO REPORT TO PHYSICIAN BLOOD GLUCOSE READINGS GREATER THAN 200 OR LESS THAN 80 RN/AUTOMATIC I THREADING MACHINE FEEDER/PHYSICAL THERAPY INSTRUCTOR TO INSTRUCT PATIENT ON IMPORTANCE OF HGBA1C MONITORING, KIDNEY FUNCTION TEST, EYE AND FOOT EXAMS.] Goal Patient Goal - GET STRONGER, FIX PAIN Goal Provider Goal - A PLAN OF CARE WILL BE ESTABLISHED THAT MEETS THE PATIENT S NEEDS. PATIENT WILL DEMONSTRATE OXYGEN SATURATION WITHIN NORMAL LIMITS OR PATIENT S OPTIMAL LEVEL ESTABLISHED BY THE PHYSICIAN THROUGHOUT CARE. CHANGES TO CO-MORBID CONDITIONS AND ANY NEW CONDITIONS WILL BE IDENTIFIED AND REPORTED TO THE PHYSICIAN. Goal Provider Goal - PATIENT/CAREGIVER TO VERBALIZE, AND CONSISTENTLY DEMONSTRATE EFFECTIVE, SAFE MANAGEMENT OF MEDICATION INCLUDING KNOWLEDGE OF EFFECTIVENESS, POTENTIAL SIDE EFFECTS AND DRUG REACTIONS AND WHEN TO CONTACT THE APPROPRIATE CARE PROVIDER. PATIENT/CAREGIVER WILL BE ABLE TO VERBALIZE UNDERSTANDING OF MEDICATION REGIMEN AND ACCURATELY TAKE MEDICATIONS PRESCRIBED WITHOUT ADVERSE EFFECTS BY EOE Goal Provider Goal - PATIENT/CAREGIVER WILL VERBALIZE UNDERSTANDING OF SIGNS AND SYMPTOMS THAT PUT THE PATIENT AT RISK FOR HOSPITALIZATION /EMERGENCY ROOM VISITS, WHEN TO NOTIFY NURSE/PHYSICIAN OF COMPLICATIONS/DECLINE AND WHEN TO CALL 911. Goal Provider Goal - PATIENT / CAREGIVER WILL VERBALIZE/DEMONSTRATE UNDERSTANDING OF MEASURES TO MANAGE ALTERED CARDIOVASCULAR STATUS BY EOE. Goal Provider Goal - PATIENT / CAREGIVER WILL VERBALIZE/DEMONSTRATE AN ABILITY TO ADHERE TO SELF-MANAGEMENT OF HTN TO MINIMIZE COMPLICATIONS AND AVOID HOSPITALIZATION BY END OF EPISODE. Goal Provider Goal - PATIENT / CAREGIVER WILL VERBALIZE/DEMONSTRATE AN ABILITY TO ADHERE TO SELF-MANAGEMENT OF HEART ARRHYTHMIA TO MINIMIZE COMPLICATIONS AND AVOID HOSPITALIZATION BY END OF EPISODE. Goal Provider Goal - PATIENT / CAREGIVER WILL VERBALIZE/DEMONSTRATE UNDERSTANDING OF MEASURES TO MANAGE ALTERED RESPIRATORY STATUS BY END OF EPISODE. Goal Provider Goal - CHANGES IN SKIN INTEGRITY STATUS WILL BE IDENTIFIED AND REPORTED TO THE PHYSICIAN FOR PROMPT INTERVENTION. PATIENT / CAREGIVER WILL VERBALIZE/DEMONSTRATE ADEQUATE KNOWLEDGE OF INTEGUMENTARY STATUS AND APPROPRIATE MEASURES TO PROMOTE SKIN INTEGRITY AND PREVENT INJURY BY EOE Goal Provider Goal - PATIENT / CAREGIVER WILL VERBALIZE / DEMONSTRATE ABILITY TO PERFORM WOUND CARE. WOUND STATUS WILL IMPROVE EVIDENCED BY A DECREASE IN SIZE, DRAINAGE, ABSENCE OF INFECTION, AND DECREASED PAIN BY END OF EPISODE. Goal Provider Goal - PATIENT / CAREGIVER WILL VERBALIZE / DEMONSTRATE UNDERSTANDING OF PAIN CONTROL MEASURES BY EOE Goal Provider Goal - PATIENT/CAREGIVER WILL VERBALIZE/DEMONSTRATE UNDERSTANDING OF FALL RISK FACTORS AND IMPLEMENT STRATEGIES TO MINIMIZE FALL RISK. PATIENT/CAREGIVER WILL VERBALIZE/DEMONSTRATE AN ABILITY TO ADHERE TO FALL REDUCTION SELF-MANAGEMENT AND LIFE-STYLE CHANGES BY EOE Goal Provider Goal - PATIENT / CAREGIVER WILL VERBALIZE / DEMONSTRATE AN ABILITY TO ADHERE TO SELF-MANAGEMENT OF DIABETES MANAGEMENT BY EOE. Progress Notes Progress Notes <paragraph>[Visit Date: 2024 by ESA HILL LPN]:</paragraph><paragraph>PATIENT IS ALERT AND ORIENTED X 3. HE REPORTS THAT HE'S NOT FEELING WELL. CONTINUES WITH A NON PRODUCTIVE COUGH. SHORTNESS OF BREATH ON EXERTION. SN INSTRUCTED PATIENT ON ENERGY CONSERVATION MEASURES. HE VERBALIZES UNDERSTANDING. PATIENT DIDN'T CHECK HIS BLOOD SUGAR THIS MORNING, SN CHECKED IT DURING THIS VISIT. THE GLUCOMETER REGISTERED HI, SN CHECKED IT 3X WITH THE SAME RESULTS. PATIENT REPORTS BEING TIRED AND THIRSTY BUT DRINKING PLENTY OF WATER. SN REPORTED THE ABOVE TO NURSE AMY AT PATIENT'S PCP. PATIENT HAD PCP APPOINTMENT ON 02/26, PER AMY, PATIENT'S TRULICITY DOSE WAS INCREASED TO 3 MG. AMY STATED THAT SHE JUST SENT A NEW PRESCRIPTION TO THE PATIENT'S PHARMACY, ALSO FOR GABAPENTIN AND PATIENT DOESN'T HAVE TO TAKE FOLIC ACID. SN INFORMED PATIENT OF THE ABOVE. HE VERBALIZED UNDERSTANDING. SN INSTRUCTED PATIENT ON CHECKING HIS BLOOD SUGARS DAILY AND RECORDING THEM. HE VERBALIZES UNDERSTANDING. SN INFORMED NURSE AMY ABOUT PATIENT NEEDING A NEBULIZER MACHINE. SHE STATED THAT SHE WILL FOLLOW UP WITH IT. PATIENT REMAINS HOMEBOUND DUE TO DECREASED STRENGTH AND ENDURANCE, USE OF ASSISTIVE DEVICE, REQUIRES ASSISTANCE OF ANOTHER PERSON TO LEAVE HOME.</paragraph> <paragraph>[Visit Date: 2024 by GRICELDA LEDESMA RN]:</paragraph><paragraph>SNV FOR S/P FALL ASSESSMENT </paragraph><paragraph></paragraph><paragraph>PATIENT FELL AND REPORTED TO OT, OT COMMUNICATED TO SN. OT STATING PATIENT FELL HIT HEAD, HAS RED AREAS TO FOREHEAD, PATIENT VERY UNSTEADY, AND REFUSING EMS. ARRIVED TO PRN VISIT, PATIENT REPORTS JUST FELL A SECOND TIME, PILL BOX ON FLOOR UNDER SIDE TABLE, PICKED UP FOR PATIENT. ASKED PATIENT IF HE TOOK MEDICATION, PATIENT CONFUSED ABOUT TIME OF DAY, AT FIRST THINKING IT IS NIGHT. PATIENT LOOKED AT CLOCK AND DETERMINED IT WAS DAY. FSBS TAKEN, READ HI, PATIENT HAS TWO RED SWOLLEN AREAS TO FOREHEAD AND REPORTING HURTING HIS RIGHT KNEE ON THE SECOND FALL. PATIENT S LUNG SOUNDS ARE WORSE, CRACKLES BOTH BASES, STILL HAS CONGESTED COUGH, SPITTING UP YELLOW/GREEN MUCUS. EDUCATED PATIENT ON POSSIBLE PNEUMONIA CAUSING HIS BLOOD SUGAR TO SPIKE. EDUCATED ABOUT RISK OF DKA, COMA, AND . EDUCATED HE LIKELY NEEDED TO BE TREATED FOR HIS LUNGS AND AFTER WOULD RETURN HOME. AGREED TO EMS TRANSFER. STAYED WITH PATIENT, GAVE REPORT TO EMS. LEFT VISIT PATIENT TO GO TO [facility].</paragraph> Encounters Start Date/Time End Date/Time Encounter Type Admission Type Attending [facility] Care Department Encounter ID Discharge Date Discharge Status Discharge Condition Discharge Reason Percent Goals Met 2025-02-24 00:00:00 2025-04-24 00:00:00 Outpatient NEW ADMISSION GRICELDA LEDESMA [facility] [id number]
== END 2025-03-06 15:33 | disposition home health service (06) | DRG 637 ==
LOC: HO.ED 18:59 → HO.EDOVER 19:35 → HO.ICU 19:39 → HO.IMC 03-04 07:29
PROVIDERS: Admitting Provider Physician Assistant Medical; Emergency Provider Emergency Medicine; PCP Internal Medicine; Visit Provider Student in an Organized Health Care Education/Training Program
DX: E11.65 Type 2 diabetes mellitus with hyperglycemia (principal); R57.1 Hypovolemic shock; E87.21 Acute metabolic acidosis; N17.9 Acute kidney failure, unspecified; E87.1 Hypo-osmolality and hyponatremia; E11.22 Type 2 diabetes mellitus with diabetic chronic kidney disease; N18.30 Chronic kidney disease, stage 3 unspecified; G47.33 Obstructive sleep apnea (adult) (pediatric); I12.9 Hypertensive chronic kidney disease with stage 1 through stage 4 chronic kidney disease, or unspecified chronic kidney disease; E86.0 Dehydration; I95.9 Hypotension, unspecified; F10.10 Alcohol abuse, uncomplicated; E66.812 Obesity, class 2; Z71.3 Dietary counseling and surveillance; Z68.36 Body mass index [BMI] 36.0-36.9, adult; E78.5 Hyperlipidemia, unspecified; D63.1 Anemia in chronic kidney disease; Z20.822 Contact with and (suspected) exposure to COVID-19; Z79.84 Long term (current) use of oral hypoglycemic drugs; Z79.85 Long-term (current) use of injectable non-insulin antidiabetic drugs; Z79.899 Other long term (current) drug therapy
CPT/HCPCS: 36415; 70450; 71045; 71250; 73562; 74176; 80048; 80053; 80061; 80076; 81001; 82010; 82803; 82947; 83605; 83690; 83735; 83930; 84100; 84478; 84484; 85025; 85610; 87040; 87502; 87635; 93005; 93306; 97162; 97530; 99285; J0696; J1644; J1885; J1938; J2543; J3373; J7120; P9047; Q9957

== ENCOUNTER → 2025-03-02 14:44 | Outpatient (BNV) | payer MEDICARE, MEDICAID, SELFPAY | PROVIDERS: Emergency Provider Emergency Medicine; PCP Internal Medicine; Visit Provider Internal Medicine Cardiovascular Disease | DX: R06.02 Shortness of breath (principal) | CPT/HCPCS: 93010 ==

== ENCOUNTER → 2025-03-02 14:44 | Outpatient (BNV) | payer MEDICARE, MEDICAID, SELFPAY | PROVIDERS: Emergency Provider Emergency Medicine; PCP Internal Medicine; Visit Provider Radiology Diagnostic Radiology | DX: J98.4 Other disorders of lung (principal) | CPT/HCPCS: 71045 ==

== ENCOUNTER → 2025-03-02 15:32 | Outpatient (BNV) | payer MEDICARE, MEDICAID, SELFPAY | PROVIDERS: Emergency Provider Emergency Medicine; PCP Internal Medicine; Visit Provider Internal Medicine Critical Care Medicine | DX: E11.65 Type 2 diabetes mellitus with hyperglycemia (principal); E87.1 Hypo-osmolality and hyponatremia; N17.9 Acute kidney failure, unspecified; N18.9 Chronic kidney disease, unspecified; E87.20 Acidosis, unspecified; R57.1 Hypovolemic shock | CPT/HCPCS: 99222; 99233 ==

== ENCOUNTER 2025-03-02 19:28 | Outpatient (BNV) | payer MEDICARE, MEDICAID, SELFPAY | END 2025-03-03 05:08 | PROVIDERS: Admitting Provider Physician Assistant Medical; Emergency Provider Emergency Medicine; PCP Internal Medicine; Visit Provider Internal Medicine Cardiovascular Disease | DX: I42.2 Other hypertrophic cardiomyopathy (principal); I35.0 Nonrheumatic aortic (valve) stenosis; I77.810 Thoracic aortic ectasia; R94.31 Abnormal electrocardiogram [ECG] [EKG] | CPT/HCPCS: 93010; 93306 ==

== ENCOUNTER → 2025-03-02 19:28 | Outpatient (BNV) | payer MEDICARE, MEDICAID, SELFPAY | PROVIDERS: Admitting Provider Physician Assistant Medical; Emergency Provider Emergency Medicine; PCP Internal Medicine; Visit Provider Student in an Organized Health Care Education/Training Program | DX: F10.90 Alcohol use, unspecified, uncomplicated (principal); R19.7 Diarrhea, unspecified; N17.9 Acute kidney failure, unspecified | CPT/HCPCS: 99233 ==